=== PATIENT | female | born 1950 | race African-American/Black ===

== ENCOUNTER 2019-01-29 08:28 | Inpatient (IN) | payer MEDICARE, OTHER ==
[~2019-01-29] VITALS: Ht 165.1 cm; Wt 74.8 kg
[2019-01-29] MEDS ORDERED: LISINOPRIL20 MG ORAL (08:33)
[2019-01-29] MEDS ORDERED: AMLODIPINE BESY10 MG ORAL (08:33)
[2019-01-29 08:35] VITALS: BP 149/75
[2019-01-29] MEDS ORDERED: Morphine Sulfate 2mg/ml Inj(IV/IM USE ONLY) IVP ONE (08:45)
[2019-01-29] MEDS ORDERED: Isovue-300 100ml vial INJ PRN (08:45)
[2019-01-29 08:56] LABS: HEMOGLOBIN 13.8 G/DL (12.0-16.0); MEAN CORPUSCULAR VOLUME 87 FL (80-99); PLATELET COUNT 305 K/UL (150-450); RED BLOOD COUNT 4.94 M/UL (4.20-5.40); RED CELL DISTRIBUTION WIDTH 11.8 % (11.6-14.8); WHITE BLOOD COUNT 11.3 K/UL (4.8-10.8)
--- NOTE | 2019-01-29 08:57 | NUR ---
ED Nurse Note: Pt. AAOx4. Pt. is ambulatory. brought in by ambulance from home due to RUQ abd aw n/v x 2 days. pt. stated she had multiple episodes of vomiting. She repoted to be having 6 vomiting episodes. Last BM was today. Denies diarrhea. Pt. is calm and cooperative Addendum: 01/29/19 at 1003 by ERNIE ED Nurse Note: pt. is blind on both eyes
--- NOTE | 2019-01-29 09:02 | Emergency Room Report ---
History of Present Illness General Chief Complaint: Abdominal Pain Source: Patient, EMS Present Illness HPI 69-year-old female presents ED for evaluation. Brought in by EMS from home. Complaining of abdominal pain with vomiting. Started 2 days ago. Pain is right -sided, throbbing, 8 out of 10, nonradiating. Denies fevers or chills. Denies chest pain. Denies diarrhea. Denies sick contacts or recent travel. No other aggravating relieving factors. Denies any other associated symptoms Allergies: Coded Allergies: No Known Allergies (Unverified , 01/29/19) Patient History Past Medical History: HTN Past Surgical History: none Pertinent Family History: none Social History: Denies: smoking, alcohol use, drug use Now: No Immunizations: UTD Reviewed Nursing Documentation: PMH: Agreed; PSxH: Agreed Nursing Documentation-PMH Past Medical History: No History, Except For Hx Hypertension: Yes Review of Systems All Other Systems: negative except mentioned in HPI Physical Exam Vital Signs Date Time Temp Pulse Resp B/P (MAP) Pulse Ox O2 Delivery O2 Flow Rate FiO2 01/29/19 08:25 98.1 102 16 141/72 (95) 98 Room Air Sp02 EP Interpretation: reviewed, normal General Appearance: no apparent distress, alert, GCS 15, non-toxic Head: normocephalic, atraumatic Eyes: bilateral eye normal inspection, bilateral eye PERRL ENT: hearing grossly normal, normal pharynx, no angioedema, normal voice Neck: full range of motion, supple/symm/no masses Respiratory: chest non-tender, lungs clear, normal breath sounds, speaking full sentences Cardiovascular #1: regular rate, rhythm, no edema Cardiovascular #2: 2+ carotid (R), 2+ carotid (L), 2+ radial (R), 2+ radial (L) , 2+ dorsalis pedis (R), 2+ dorsalis pedis (L) Gastrointestinal: normal bowel sounds, soft, non-distended, no guarding, no rebound, tenderness - RUQ Rectal: deferred Genitourinary: normal inspection, no CVA tenderness Musculoskeletal: back normal, gait/station normal, normal range of motion, non- tender Neurologic: alert, oriented x3, responsive, motor strength/tone normal, sensory intact, speech normal Psychiatric: judgement/insight normal, memory normal, mood/affect normal, no suicidal/homicidal ideation Reflexes: 3+ bicep (R), 3+ bicep (L), 3+ tricep (R), 3+ tricep (L), 3+ knee (R) , 3+ knee (L) Lymphatic: no adenopathy Medical Decision Making Diagnostic Impression: Primary Impression: Pancreatic mass Additional Impression: Abdominal pain Qualified Codes: R10.11 - Right upper quadrant pain ER Course Hospital Course 69-year-old female presents to ED with abdominal pain and vomiting Differential diagnoses include: BPH, cystitis, pyelonephritis, kidney stone Clinical course 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 electrolytes ok, LFTS elevated CT abdomen and pelvis - pancreatic mass, dilated GB Dr Carrillo consulted Case discussed with Dr. Huitron and he agreed to accept the patient to his service for further care and support I feel this is a highly complex case requiring extensive working including EKG/ Rhythm strip, Xray/CT/US, Blood/urine lab work, repeat exams while in ED, and administration of strong opiates/narcotics for pain control, admission to hospital or close patient follow up. Diagnosis - pancreatic mass, abdominal pain Patient admitted to floor in serious condition Labs Test 01/29/19 08:42 01/29/19 09:28 White Blood Count 11.3 K/UL (4.8-10.8) Red Blood Count 4.94 M/UL (4.20-5.40) Hemoglobin 13.8 G/DL (12.0-16.0) Hematocrit 43.0 % (37.0-47.0) Mean Corpuscular Volume 87 FL (80-99) Mean Corpuscular Hemoglobin 27.8 PG (27.0-31.0) Mean Corpuscular Hemoglobin Concent 32.0 G/DL (32.0-36.0) Red Cell Distribution Width 11.8 % (11.6-14.8) Platelet Count 305 K/UL (150-450) Mean Platelet Volume 6.5 FL (6.5-10.1) Neutrophils (%) (Auto) % (45.0-75.0) Lymphocytes (%) (Auto) % (20.0-45.0) Monocytes (%) (Auto) % (1.0-10.0) Eosinophils (%) (Auto) % (0.0-3.0) Basophils (%) (Auto) % (0.0-2.0) Differential Total Cells Counted 100 Neutrophils % (Manual) 85 % (45-75) Lymphocytes % (Manual) 10 % (20-45) Monocytes % (Manual) 5 % (1-10) Eosinophils % (Manual) 0 % (0-3) Basophils % (Manual) 0 % (0-2) Band Neutrophils 0 % (0-8) Platelet Estimate Adequate Platelet Morphology Normal Red Blood Cell Morphology Normal Sodium Level 139 MMOL/L (136-145) Potassium Level 3.2 MMOL/L (3.5-5.1) Chloride Level 99 MMOL/L (98-107) Carbon Dioxide Level 30 MMOL/L (21-32) Anion Gap 10 mmol/L (5-15) Blood Urea Nitrogen 11 mg/dL (7-18) Creatinine 0.8 MG/DL (0.55-1.30) Estimat Glomerular Filtration Rate > 60 mL/min (>60) Glucose Level 149 MG/DL (74-106) Calcium Level 9.9 MG/DL (8.5-10.1) Total Bilirubin 1.0 MG/DL (0.2-1.0) Aspartate Amino Transf (AST/SGOT) 286 U/L (15-37) Alanine Aminotransferase (ALT/SGPT) 376 U/L (12-78) Alkaline Phosphatase 560 U/L (46-116) Total Protein 8.5 G/DL (6.4-8.2) Albumin 4.8 G/DL (3.4-5.0) Globulin 3.7 g/dL Albumin/Globulin Ratio 1.3 (1.0-2.7) Lipase 226 U/L (73-393) Urine Color Pale yellow Urine Appearance Slightly cloudy Urine pH 8 (4.5-8.0) Urine Specific [place] 1.015 (1.005-1.035) Urine Protein Negative (NEGATIVE) Urine Glucose (UA) Negative (NEGATIVE) Urine Ketones 3+ (NEGATIVE) Urine Blood 3+ (NEGATIVE) Urine Nitrite Negative (NEGATIVE) Urine Bilirubin Negative (NEGATIVE) Urine Urobilinogen Normal MG/DL (0.0-1.0) Urine Leukocyte Esterase 2+ (NEGATIVE) Urine RBC 15-20 /HPF (0 - 2) Urine WBC 20-30 /HPF (0 - 2) Urine Squamous Epithelial Cells Many /LPF (NONE/OCC) Urine Amorphous Sediment Moderate /LPF (NONE) Urine Bacteria Moderate /HPF (NONE) CT/MRI/US Diagnostic Results CT/MRI/US Diagnostic Results : Imaging Test Ordered: CT A/P Impression Impression: 20 x 10 x 8 mm low-attenuation lesion within the upper uncinate process of the pancreas. This is concerning for pancreatic neoplasm. This finding can also be seen in chronic pancreatitis, although there are no other abnormalities to suggest this diagnosis. Endoscopic ultrasound may be useful for better characterization. Marked extrahepatic and central intrahepatic biliary ductal dilatation, with abrupt tapering at the level the pancreatic head. Possibly related to the above. However, the above lesion appears to be centered somewhat medial and cephalad to the point of obstruction, so the possibility of a separate intraluminal lesion should also be considered. Distended gallbladder without evidence of cholelithiasis Right lower lobe 4 mm 5 mm lung nodules. Suspect postinflammatory, but the possibility of neoplasm should also be considered, particularly given the above findings Last Vital Signs Date Time Temp Pulse Resp B/P (MAP) Pulse Ox O2 Delivery O2 Flow Rate FiO2 01/29/19 08:35 107 14 Room Air 01/29/19 08:35 98.1 149/75 99 Status: improved Disposition: ADMITTED INPATIENT Condition: Serious Nicholas Reyes MD Jan 29, 2019 09:02
[2019-01-29 09:08] LABS: ANION GAP 10 mmol/L (5-15); BLOOD UREA NITROGEN 11 mg/dL (7-18); CALCIUM 9.9 MG/DL (8.5-10.1); CARBON DIOXIDE 30 MMOL/L (21-32); CHLORIDE 99 MMOL/L (98-107); CREATININE 0.8 MG/DL (0.55-1.30); POTASSIUM 3.2 MMOL/L (3.5-5.1); SODIUM 139 MMOL/L (136-145)
[2019-01-29 09:12] LABS: ALANINE AMINOTRANSFERASE 376 U/L (12-78); ALBUMIN 4.8 G/DL (3.4-5.0); ALBUMIN/GLOBULIN RATIO 1.3 (1.0-2.7); ALKALINE PHOSPHATASE 560 U/L (46-116); ASPARTATE AMINO TRANSFERASE 286 U/L (15-37)
--- NOTE | 2019-01-29 09:33 | NUR ---
ED Nurse Note: Pt. went down to CT
--- NOTE | 2019-01-29 09:57 | NUR ---
ED Nurse Note: Pt. came back from CT
[2019-01-29 10:12] LABS: BILIRUBIN, URINE NEGATIVE (NEGATIVE); COLOR,URINE PALE YELLOW; GLUCOSE, URINE (UA) NEGATIVE (NEGATIVE); KETONES,URINE 3+ (NEGATIVE); LEUKOCYTE ESTERASE ,URINE 2+ (NEGATIVE); NITRITE,URINE NEGATIVE (NEGATIVE); PH,URINE 8 (4.5-8.0); PROTEIN,URINE NEGATIVE (NEGATIVE); UROBILINOGEN,URINE NORMAL MG/DL (0.0-1.0)
[2019-01-29 10:15] LABS: APPEARANCE,URINE SLIGHTLY CLOUDY
--- NOTE | 2019-01-29 10:33 | Diagnostic Imaging Report ---
Clinical Indication: Abdominal pain Technique: No oral contrast utilized, per emergency room physician request IV administration nonionic contrast. Venous phase spiral acquisition obtained through the abdomen and pelvis. Multiplanar reconstructions were generated. Total dose length product 611.72 mGycm. CTDIvol(s) 12.54 mGy. Dose reduction achieved using automated exposure control Comparison: none Findings: There is marked extrahepatic and central intrahepatic biliary ductal dilatation, common bile duct measuring up to 19 mm in diameter. It abruptly tapers within the pancreatic head, proximal to its junction with the pancreatic duct. The pancreatic duct is borderline prominent. A mildly dilated duct is seen within the pancreatic head/uncinate distal to the point of tapering of the upstream common bile duct. Uncertain as to whether this represents the downstream common bile duct or dilated accessory pancreatic duct. In the upper uncinate process of the pancreas, there is a low-attenuation parenchymal lesion which measures 8 mm AP by 10 mm transverse by 20 mm craniocaudad. This appears to be medial to rather than surrounding the distal common bile duct. There is no peripancreatic lymphadenopathy. The gallbladder is distended but no gallstones are evident. The liver demonstrates a 1 cm cyst in segment 8. The spleen, adrenals are unremarkable. The left kidney demonstrates parapelvic cysts. Both kidneys demonstrate subcentimeter cortical low-attenuation lesions which are too small to characterize. No retroperitoneal or mesenteric mass or adenopathy. No pelvic mass or adenopathy. Normal uterus and adnexal structures. The bladder is distended. Lack of enteric contrast limits assessment of the GI tract. The appendix is normal. No evidence of colonic diverticulosis or diverticulitis. A few prominent small bowel loops are seen in the left upper quadrant but no lilly small bowel distention. No free or loculated intraperitoneal gas or fluid is evident. The distal esophagus, stomach, duodenum are unremarkable. The right lung base demonstrates a 4 mm right lower lobe nodule image 2 of series 7, and a second more posterior medial right lower lobe lung nodule measuring 5 mm, image 4 series 7. The bones demonstrate degenerative spondylosis changes. Impression: 20 x 10 x 8 mm low-attenuation lesion within the upper uncinate process of the pancreas. This is concerning for pancreatic neoplasm. This finding can also be seen in chronic pancreatitis, although there are no other abnormalities to suggest this diagnosis. Endoscopic ultrasound may be useful for better characterization. Marked extrahepatic and central intrahepatic biliary ductal dilatation, with abrupt tapering at the level the pancreatic head. Possibly related to the above. However, the above lesion appears to be centered somewhat medial and cephalad to the point of obstruction, so the possibility of a separate intraluminal lesion should also be considered. Distended gallbladder without evidence of cholelithiasis Right lower lobe 4 mm 5 mm lung nodules. Suspect postinflammatory, but the possibility of neoplasm should also be considered, particularly given the above findings Left renal parapelvic cysts. Subcentimeter low-attenuation renal lesions, too small to characterize, most likely benign simple cysts. No further follow-up necessary Right hepatic lobe cyst Findings discussed by phone with Dr. Reyes in the emergency room at the time of interpretation The CT scanner at [facility] is accredited by the [employer] and the scans are performed using protocols designed to limit radiation exposure to as low as reasonably achievable to attain images of sufficient resolution adequate for diagnostic evaluation.
--- NOTE | 2019-01-29 10:36 | NUR ---
Note steffanie in EDM - 01/29/19 at 1039 by RYLEE ED Nurse Note: pt tolerates I/O straight cath urine obtainment. clear yellow urine noted. admission swabs sent per protocol. belongings list done.
--- NOTE | 2019-01-29 10:49 | NUR ---
ED Nurse Note: DR. Stephenson AT THE BEDSIDE EXPLAINNG THE REULTS OF BLOOD WORK AND IMAGING RESULT
[2019-01-29] MEDS ORDERED: Morphine Sulfate 4mg/ml Inj (IV USE ONLY) IVP ONE (11:00)
--- NOTE | 2019-01-29 11:14 | NUR ---
ED Nurse Note: Received patient sleeping in bed. no orders to carry at this moment.
[2019-01-29 11:34] VITALS: BP 156/77
--- NOTE | 2019-01-29 12:18 | NUR ---
ED Nurse Note: Report given to NIKOLAI Smalls
--- NOTE | 2019-01-29 12:22 | NUR ---
ED Nurse Note: Serina RN called back and asked to wait because they moved pt to closer to nursing station due to pt is legally blind. room is being cleaned.
--- NOTE | 2019-01-29 12:31 | NUR ---
ED Nurse Note: Called 3E and was told that room is not cleaned yet.
--- NOTE | 2019-01-29 12:50 | NUR ---
ED Nurse Note: called to check if the room is ready. room has been cleaned and pt left unit with non destructive testing technician in stable condition.
[2019-01-29 13:00] VITALS: BP 159/87
--- NOTE | 2019-01-29 13:00 | NUR ---
NURSE NOTES: ADMITTED A 69 YHR OLD FEMALE WITH DX OF RUQ ABDOMINAL PAIN. AWAKE/ALERT. ADMISSION CARE DONE SEEN ADMISSION. ASSESSMENT
[2019-01-29] MEDS ORDERED: Morphine Sulfate 2mg/ml Inj(IV/IM USE ONLY) IVP PRN (13:15)
[2019-01-29] MEDS: D5 1/2NS w/KCl 20mEq 1,000 ML IV SCH (13:17)
[2019-01-29] MEDS ORDERED: Promethazine HCl 12.5 MG in NS 55 ML IV PRN (13:30)
[2019-01-29] MEDS ORDERED: Metoclopramide 10mg/2ml Inj IVP PRN (13:30)
[2019-01-29] MEDS ORDERED: D5 1/2NS 1,000 ML IV SCH (13:30)
[2019-01-29] MEDS ORDERED: Promethazine HCl 25 MG in NS 55 ML IV PRN (13:30)
[2019-01-29] MEDS ORDERED: Miralax 17gm pkt ORAL PRN (13:30)
[2019-01-29] MEDS ORDERED: LORazepam Inj 2mg/ml 1ml IV PRN (13:30)
[2019-01-29] MEDS ORDERED: Nitroglycerin Subl 0.4mg tab SL PRN (13:30)
--- NOTE | 2019-01-29 13:40 | GI Initial Consult Note ---
History of Present Illness General Date patient seen: Jan 29, 2019 Time patient seen: 13:33 Reason for Hospitalization: Abdominal Pain Referring physician: STAS MCDOWELL Reason for Consultation: ABDOMINAL PAIN Present Illness HPI 69-year-old female presents ED for evaluation. Brought in by EMS from home. Complaining of abdominal pain with vomiting. Started 2 days ago. Pain is right -sided, throbbing, 8 out of 10, nonradiating. Denies fevers or chills. Denies chest pain. Denies diarrhea. Denies sick contacts or recent travel. No other aggravating relieving factors. Denies any other associated symptoms. GI consulted for noted pancreatic lesion seen on recent CT. Patient was seen, awake alert and oriented x4 has complaint of severe right upper quadrant pain for approximately 1 week. Associated with consistent nausea and vomiting. Denies any hematemesis or coffee-ground. Patient has no history of endoscopy or colonoscopy. Abdominal pelvis CT reviewed noted that the common bile duct measured up to 19 mm in diameter. In addition, noted pancreatic lesion up to 19 mm in the uncinate process of the pancreas. Labs reviewed; WBC of 11.3, potassium 3.2, AST 286, ALT 376, alkaline phosphatase 560. Lipase within normal limits. Home Meds Reported Medications Lisinopril (LISINOPRIL*) 20 Mg Tablet, 40 MG ORAL DAILY, TAB 01/29/19 Amlodipine Besylate* (AMLODIPINE BESYLATE*) 10 Mg Tablet, 10 MG ORAL DAILY, TAB 01/29/19 Med list reviewed/reconciled: Yes Allergies: Coded Allergies: No Known Allergies (Unverified , 01/29/19) Patient History History Provided By: Patient, Medical Record PMH Narrative Past Medical History: HTN Past Surgical History: none Pertinent Family History: none Social History: Denies: smoking, alcohol use, drug use Now: No Immunizations: UTD Reviewed Nursing Documentation: PMH: Agreed; PSxH: Agreed Nursing Documentation-PM Past Medical History: No History, Except For Hx Hypertension: Yes Social History: Denies: smoking, alcohol use, drug use, other Review of Systems All Other Systems: negative except mentioned in HPI Physical Exam Vital Signs Date Time Temp Pulse Resp B/P (MAP) Pulse Ox O2 Delivery O2 Flow Rate FiO2 01/29/19 08:25 98.1 102 16 141/72 (95) 98 Room Air Sp02 EP Interpretation: reviewed, normal Labs Laboratory Tests Test 01/29/19 08:42 01/29/19 09:28 White Blood Count 11.3 K/UL (4.8-10.8) H Red Blood Count 4.94 M/UL (4.20-5.40) Hemoglobin 13.8 G/DL (12.0-16.0) Hematocrit 43.0 % (37.0-47.0) Mean Corpuscular Volume 87 FL (80-99) Mean Corpuscular Hemoglobin 27.8 PG (27.0-31.0) Mean Corpuscular Hemoglobin Concent 32.0 G/DL (32.0-36.0) Red Cell Distribution Width 11.8 % (11.6-14.8) Platelet Count 305 K/UL (150-450) Mean Platelet Volume 6.5 FL (6.5-10.1) Neutrophils (%) (Auto) % (45.0-75.0) Lymphocytes (%) (Auto) % (20.0-45.0) Monocytes (%) (Auto) % (1.0-10.0) Eosinophils (%) (Auto) % (0.0-3.0) Basophils (%) (Auto) % (0.0-2.0) Differential Total Cells Counted 100 Neutrophils % (Manual) 85 % (45-75) H Lymphocytes % (Manual) 10 % (20-45) L Monocytes % (Manual) 5 % (1-10) Eosinophils % (Manual) 0 % (0-3) Basophils % (Manual) 0 % (0-2) Band Neutrophils 0 % (0-8) Platelet Estimate Adequate Platelet Morphology Normal Red Blood Cell Morphology Normal Sodium Level 139 MMOL/L (136-145) Potassium Level 3.2 MMOL/L (3.5-5.1) L Chloride Level 99 MMOL/L (98-107) Carbon Dioxide Level 30 MMOL/L (21-32) Anion Gap 10 mmol/L (5-15) Blood Urea Nitrogen 11 mg/dL (7-18) Creatinine 0.8 MG/DL (0.55-1.30) Estimat Glomerular Filtration Rate > 60 mL/min (>60) Glucose Level 149 MG/DL (74-106) H Calcium Level 9.9 MG/DL (8.5-10.1) Total Bilirubin 1.0 MG/DL (0.2-1.0) Aspartate Amino Transf (AST/SGOT) 286 U/L (15-37) H Alanine Aminotransferase (ALT/SGPT) 376 U/L (12-78) H Alkaline Phosphatase 560 U/L (46-116) H Total Protein 8.5 G/DL (6.4-8.2) H Albumin 4.8 G/DL (3.4-5.0) Globulin 3.7 g/dL Albumin/Globulin Ratio 1.3 (1.0-2.7) Lipase 226 U/L (73-393) Urine Color Pale yellow Urine Appearance Slightly cloudy Urine pH 8 (4.5-8.0) Urine Specific [place] 1.015 (1.005-1.035) Urine Protein Negative (NEGATIVE) Urine Glucose (UA) Negative (NEGATIVE) Urine Ketones 3+ (NEGATIVE) H Urine Blood 3+ (NEGATIVE) H Urine Nitrite Negative (NEGATIVE) Urine Bilirubin Negative (NEGATIVE) Urine Urobilinogen Normal MG/DL (0.0-1.0) Urine Leukocyte Esterase 2+ (NEGATIVE) H Urine RBC 15-20 /HPF (0 - 2) H Urine WBC 20-30 /HPF (0 - 2) H Urine Squamous Epithelial Cells Many /LPF (NONE/OCC) H Urine Amorphous Sediment Moderate /LPF (NONE) H Urine Bacteria Moderate /HPF (NONE) H General Appearance: well appearing, no apparent distress, alert Head: normocephalic EENT: PERRL/EOMI, normal ENT inspection Neck: supple Respiratory: normal breath sounds, no respiratory distress Cardiovascular: normal rate Gastrointestinal: normal inspection, non tender, soft, normal bowel sounds, non -distended Rectal: deferred Genitourinary: no CVA tenderness Musculoskeletal: normal inspection, back normal Neurologic: normal inspection, alert, oriented x3, responsive Psychiatric: normal inspection, judgement/insight normal, memory normal Skin: normal inspection, normal color, no rash, warm/dry, palpation normal, well hydrated Lymphatic: normal inspection, no adenopathy Current Medications Current Medications Medications (Trade) Dose Ordered Sig/Angelito Route PRN Reason Start Time Stop Time Status Last Admin Dose Admin Acetaminophen (Tylenol) 650 mg Q4H PRN ORAL fever 01/29/19 13:30 02/28/19 13:29 UNV Amlodipine Besylate (Norvasc) 10 mg DAILY ORAL 01/30/19 09:00 03/01/19 08:59 Dextrose (Dextrose 50%) 25 ml Q30M PRN IV Hypoglycemia 01/29/19 13:30 02/28/19 13:29 UNV Dextrose (Dextrose 50%) 50 ml Q30M PRN IV Hypoglycemia 01/29/19 13:30 02/28/19 13:29 UNV Dextrose/ Electrolytes 1,000 ml @ 75 mls/hr [id number] IV 01/29/19 13:15 02/28/19 13:14 01/29/19 13:17 Dextrose/Sodium Chloride 1,000 ml @ 75 mls/hr [id number] IV 01/29/19 13:30 02/28/19 13:29 UNV Diphenhydramine HCl (Benadryl) 25 mg Q6H PRN ORAL Itching/Pruritis 01/29/19 13:30 02/28/19 13:29 UNV Famotidine (Pepcid I.v.) 20 mg Q12HR IVP 01/29/19 21:00 02/28/19 20:59 Heparin Sodium (Porcine) (Heparin 5000 units/ml) 5,000 units EVERY 12 HOURS SUBQ 01/29/19 21:00 02/28/19 20:59 UNV Iopamidol (Isovue-300 100ml) 100 ml NOW PRN INJ Radiology Procedure 01/29/19 08:45 Lorazepam (Ativan 2mg/ml 1ml) 1 mg EVERY 4 HOURS PRN IV agitation 01/29/19 13:30 02/05/19 13:29 UNV Metoclopramide HCl (Reglan) 10 mg EVERY 6 HOURS PRN IVP servere nauasea 01/29/19 13:30 02/28/19 13:29 UNV Morphine Sulfate (Morphine Sulfate) 2 mg EVERY 4 HOURS PRN IVP severe Pain (Pain Scale 7-10) 01/29/19 13:30 02/05/19 13:29 UNV Morphine Sulfate (Morphine Sulfate) 2 mg Q4H PRN IVP For Pain 01/29/19 13:15 02/05/19 13:14 01/29/19 13:25 Nitroglycerin (Ntg) 0.4 mg Q5M X 3 DOSES PRN SL Prn Chest Pain 01/29/19 13:30 02/28/19 13:29 UNV Ondansetron HCl (Zofran) 4 mg Q6H PRN IVP Nausea & Vomiting 01/29/19 13:15 02/28/19 13:14 01/29/19 13:14 Ondansetron HCl (Zofran) 4 mg Q6H PRN IVP Nausea & Vomiting 01/29/19 13:30 02/28/19 13:29 UNV Polyethylene Glycol (Miralax) 17 gm HSPRN PRN ORAL Constipation 01/29/19 13:30 02/28/19 13:29 UNV Promethazine HCl 12.5 mg/Sodium Chloride 55.5 ml @ 110 mls/hr Q6H PRN IV Refractory N/V 01/29/19 13:30 02/28/19 13:29 UNV Promethazine HCl 25 mg/Sodium Chloride 56 ml @ 110 mls/hr Q6H PRN IV Refractory N/V 01/29/19 13:30 02/28/19 13:29 UNV Sodium Chloride 1,000 ml @ 200 mls/hr Q5H IV 01/29/19 11:00 02/28/19 10:59 01/29/19 10:53 Temazepam (Restoril) 15 mg HSPRN PRN ORAL Insomnia 01/29/19 13:30 02/05/19 13:29 UNV GI: Plan Problems: (1) Abdominal pain (2) Pancreatic mass Plan AP CT reviewed. - CBD dilation up to 19mm. - Pancreatic lesion in the uncinate process. - GB distention Recommendations Patient will require both EUS with FNA and ERCP. - EUS scheduled tomorrow to be followed by ERCP the following day. maintain NPO + IVFs pain mgmt zofran prn electrolyte correction H2B follow labs will follow with additional recommendations post procedure. Discussed with Dr. Baez. Thank you for this patient referral, we will follow. The patient was seen and examined at bedside and all new and available data was reviewed in the patients chart. I agree with the above findings, impression and plan. (Patient seen earlier today. Signature stamp does not reflect patient encounter time.). - MD Maranda Trotter,[facility] Jan 29, 2019 13:40
--- NOTE | 2019-01-29 14:45 | Consultation ---
History of Present Illness General Date patient seen: Jan 29, 2019 Chief Complaint: Abdominal Pain Referring physician: STAS MCDOWELL Reason for Consultation: ABDOMINAL PAIN Present Illness HPI 69-year-old female without any significant PMHx presented to ED for evaluation of abdominal pain with vomiting for 2 days. Pain is right-sided, throbbing, 8 out of 10, nonradiating. Denies fevers or chills. Denies chest pain. Her CT of abdomen showed a pancreatic mass and she is admitted for further management. Allergies: Coded Allergies: NSAIDS (NON-STEROIDAL ANTI-INFLAMMA (Verified Allergy, Severe, Anaphylaxis , 01/30/19) Medication History Scheduled Allopurinol* (Allopurinol*), 300 MG ORAL DAILY, (Reported) Amiodarone Hcl* (Amiodarone Hcl*), 200 MG ORAL EVERY 12 HOURS, (Reported) Amlodipine Besylate* (Amlodipine Besylate*), 10 MG ORAL DAILY, (Reported) Diltiazem Hcl (Diltiazem Hcl), 90 MG PO Q6HR, (Reported) Lisinopril (Lisinopril*), 40 MG ORAL DAILY, (Reported) Olanzapine* (Zyprexa*), 2.5 MG ORAL BEDTIME, (Reported) Patient History Healthcare decision maker SELF Resuscitation status Full Code Advanced Directive on File No Past Medical/Surgical History Past Medical/Surgical History: (1) Cataract (2) History of hypertension Review of Systems All Other Systems: negative except mentioned in HPI Physical Exam General Appearance: WD/WN Lines, tubes and drains: peripheral HEENT: normocephalic, atraumatic Neck: non-tender, normal alignment Respiratory/Chest: chest wall non-tender, normal breath sounds Breasts: no masses Cardiovascular/Chest: normal rate, regularly irregular, no JVD Genitourinary/Rectal: normal genital exam, normal rectal exam Extremities: normal range of motion Last 24 Hour Vital Signs Date Time Temp Pulse Resp B/P (MAP) Pulse Ox O2 Delivery O2 Flow Rate FiO2 01/29/19 13:00 Room Air 01/29/19 12:50 97.9 90 16 134/85 100 Room Air 01/29/19 11:34 98.1 93 14 156/77 100 Room Air 01/29/19 11:23 98.1 01/29/19 09:19 98.1 01/29/19 08:35 107 14 Room Air 01/29/19 08:35 98.1 107 14 149/75 99 Room Air 01/29/19 08:25 98.1 102 16 141/72 (95) 98 Room Air Laboratory Tests Test 01/29/19 08:42 01/29/19 09:28 White Blood Count 11.3 K/UL (4.8-10.8) H Red Blood Count 4.94 M/UL (4.20-5.40) Hemoglobin 13.8 G/DL (12.0-16.0) Hematocrit 43.0 % (37.0-47.0) Mean Corpuscular Volume 87 FL (80-99) Mean Corpuscular Hemoglobin 27.8 PG (27.0-31.0) Mean Corpuscular Hemoglobin Concent 32.0 G/DL (32.0-36.0) Red Cell Distribution Width 11.8 % (11.6-14.8) Platelet Count 305 K/UL (150-450) Mean Platelet Volume 6.5 FL (6.5-10.1) Neutrophils (%) (Auto) % (45.0-75.0) Lymphocytes (%) (Auto) % (20.0-45.0) Monocytes (%) (Auto) % (1.0-10.0) Eosinophils (%) (Auto) % (0.0-3.0) Basophils (%) (Auto) % (0.0-2.0) Differential Total Cells Counted 100 Neutrophils % (Manual) 85 % (45-75) H Lymphocytes % (Manual) 10 % (20-45) L Monocytes % (Manual) 5 % (1-10) Eosinophils % (Manual) 0 % (0-3) Basophils % (Manual) 0 % (0-2) Band Neutrophils 0 % (0-8) Platelet Estimate Adequate Platelet Morphology Normal Red Blood Cell Morphology Normal Sodium Level 139 MMOL/L (136-145) Potassium Level 3.2 MMOL/L (3.5-5.1) L Chloride Level 99 MMOL/L (98-107) Carbon Dioxide Level 30 MMOL/L (21-32) Anion Gap 10 mmol/L (5-15) Blood Urea Nitrogen 11 mg/dL (7-18) Creatinine 0.8 MG/DL (0.55-1.30) Estimat Glomerular Filtration Rate > 60 mL/min (>60) Glucose Level 149 MG/DL (74-106) H Calcium Level 9.9 MG/DL (8.5-10.1) Total Bilirubin 1.0 MG/DL (0.2-1.0) Aspartate Amino Transf (AST/SGOT) 286 U/L (15-37) H Alanine Aminotransferase (ALT/SGPT) 376 U/L (12-78) H Alkaline Phosphatase 560 U/L (46-116) H Total Protein 8.5 G/DL (6.4-8.2) H Albumin 4.8 G/DL (3.4-5.0) Globulin 3.7 g/dL Albumin/Globulin Ratio 1.3 (1.0-2.7) Lipase 226 U/L (73-393) Urine Color Pale yellow Urine Appearance Slightly cloudy Urine pH 8 (4.5-8.0) Urine Specific [place] 1.015 (1.005-1.035) Urine Protein Negative (NEGATIVE) Urine Glucose (UA) Negative (NEGATIVE) Urine Ketones 3+ (NEGATIVE) H Urine Blood 3+ (NEGATIVE) H Urine Nitrite Negative (NEGATIVE) Urine Bilirubin Negative (NEGATIVE) Urine Urobilinogen Normal MG/DL (0.0-1.0) Urine Leukocyte Esterase 2+ (NEGATIVE) H Urine RBC 15-20 /HPF (0 - 2) H Urine WBC 20-30 /HPF (0 - 2) H Urine Squamous Epithelial Cells Many /LPF (NONE/OCC) H Urine Amorphous Sediment Moderate /LPF (NONE) H Urine Bacteria Moderate /HPF (NONE) H Height (Feet): 5 Height (Inches): 5.00 Weight (Pounds): 143 Medications Current Medications Medications (Trade) Dose Ordered Sig/Angelito Route PRN Reason Start Time Stop Time Status Last Admin Dose Admin Acetaminophen (Tylenol) 650 mg Q4H PRN ORAL fever 01/29/19 13:30 02/28/19 13:29 Amlodipine Besylate (Norvasc) 10 mg DAILY ORAL 01/30/19 09:00 03/01/19 08:59 Dextrose (Dextrose 50%) 25 ml Q30M PRN IV Hypoglycemia 01/29/19 13:30 02/28/19 13:29 Dextrose (Dextrose 50%) 50 ml Q30M PRN IV Hypoglycemia 01/29/19 13:30 02/28/19 13:29 Dextrose/ Electrolytes 1,000 ml @ 75 mls/hr [id number] IV 01/29/19 13:15 02/28/19 13:14 01/29/19 13:17 Diphenhydramine HCl (Benadryl) 25 mg Q6H PRN ORAL Itching/Pruritis 01/29/19 13:30 02/28/19 13:29 Famotidine (Pepcid I.v.) 20 mg Q12HR IVP 01/29/19 21:00 02/28/19 20:59 Heparin Sodium (Porcine) (Heparin 5000 units/ml) 5,000 units EVERY 12 HOURS SUBQ 01/29/19 21:00 02/28/19 20:59 Lorazepam (Ativan 2mg/ml 1ml) 1 mg Q4H PRN IV agitation 01/29/19 13:30 02/05/19 13:29 Metoclopramide HCl (Reglan) 10 mg Q6H PRN IVP servere nauasea 01/29/19 13:30 02/28/19 13:29 Morphine Sulfate (Morphine Sulfate) 2 mg Q4H PRN IVP severe Pain (Pain Scale 7-10) 01/29/19 13:30 02/05/19 13:29 Nitroglycerin (Ntg) 0.4 mg Q5M X 3 DOSES PRN SL Prn Chest Pain 01/29/19 13:30 02/28/19 13:29 Ondansetron HCl (Zofran) 4 mg Q6H PRN IVP Nausea & Vomiting 01/29/19 13:15 02/28/19 13:14 01/29/19 13:14 Polyethylene Glycol (Miralax) 17 gm HSPRN PRN ORAL Constipation 01/29/19 13:30 02/28/19 13:29 Promethazine HCl (Phenergan) 25 mg Q6H PRN IM REFRACTORY N/V 01/29/19 13:45 02/28/19 13:44 Temazepam (Restoril) 15 mg HSPRN PRN ORAL Insomnia 01/29/19 13:30 02/05/19 13:29 Assessment/Plan Problem List: (1) Abdominal pain ICD Codes: R10.9 - Unspecified abdominal pain SNOMED: 56073725 Qualifiers: Qualified Codes: R10.11 - Right upper quadrant pain (2) Pancreatic mass ICD Codes: K86.9 - Disease of pancreas, unspecified SNOMED: 332860241 (3) History of hypertension ICD Codes: Z86.79 - Personal history of other diseases of the circulatory system SNOMED: 442159604 Assessment/Plan: NPO IV fluids check electrolytes GI evaluation check tumor markers. DVT prophylaxis. Nicolle Cazares MD Jan 29, 2019 14:45
[2019-01-29] MEDS ORDERED: AMIODARONE HCL400 M1 ORAL (15:11)
[2019-01-29] MEDS ORDERED: ALLOPURINOL300 M1 ORAL (15:12)
[2019-01-29] MEDS ORDERED: DILTIAZEM HCL90 MG PO (15:13)
--- NOTE | 2019-01-29 15:13 | Consultation ---
History of Present Illness General Date patient seen: Jan 29, 2019 Reason for Hospitalization: Abdominal Pain Present Illness HPI 69 year old female presented to ED at [facility] – [place], [place] c/o worsening abdominal pain, nausea and emesis for 2-3 days. Unsure of exactly when it began but pain overwhelming and needed to come for evaluation. Pain cramping upper abdominal pain more on the right side with some radiation to the back. non bloody emesis. no fever or chills. in ED noted to have abnormal LFT's and CT with biliary dilatation and pancreatic head mass. surgery called to evaluate. patient seen, chart reviewed, patient examined. Allergies: Coded Allergies: No Known Allergies (Unverified , 01/29/19) Medication History Scheduled Amlodipine Besylate* (Amlodipine Besylate*), 10 MG ORAL DAILY, (Reported) Lisinopril (Lisinopril*), 40 MG ORAL DAILY, (Reported) Patient History History Provided By: Patient, Medical Record, PMD Healthcare decision maker SELF Resuscitation status Full Code Advanced Directive on File No Past Medical/Surgical History Past Medical/Surgical History: (1) Abdominal pain (2) Pancreatic mass Review of Systems Review of Symptoms General ROS: no weight loss or fever Psychological ROS: no depression or mood changes, no memory loss Ophthalmic ROS: no visual changes or eye irritation ENT ROS: no nasal congestion, hearing loss, dizziness Allergy and Immunology ROS: no allergic symptoms or urticaria Hematological and Lymphatic ROS: no swollen glands, unusual bleeding or bruising Endocrine ROS: no polyuria, polydipsia, weight changes, temperature intolerance Respiratory ROS: no cough, shortness of breath, or wheezing Cardiovascular ROS: no chest pain or dyspnea on exertion Gastrointestinal ROS: + abdominal pain,no bright red blood in stool. Musculoskeletal ROS: no myalgias or arthralgias Neurological ROS: no TIA or stroke symptoms Dermatological ROS: no new or changing skin lesions, rashes or pruritis Physical Exam Physical Exam General appearance: alert, cooperative, no distress, appears stated age Head: Normocephalic, without obvious abnormality, atraumatic Eyes: conjunctivae/corneas clear. PERRL, EOM's intact. Fundi benign Throat: Lips, mucosa, and tongue normal. Teeth and gums normal Neck: supple, symmetrical, trachea midline, no adenopathy, thyroid: not enlarged, symmetric, no tenderness/mass/nodules, no carotid bruit and no JVD Lungs: clear to auscultation bilaterally Heart: regular rate and rhythm, S1, S2 normal, no murmur, click, rub or gallop Abdomen: soft, non-tender. Bowel sounds normal. No masses, no organomegaly Extremities: extremities normal, atraumatic, no cyanosis or edema Pulses: 2+ and symmetric Skin: Skin color, texture, turgor normal. No rashes or lesions Neurologic: Grossly normal Last 24 Hour Vital Signs Date Time Temp Pulse Resp B/P (MAP) Pulse Ox O2 Delivery O2 Flow Rate FiO2 01/29/19 13:00 Room Air 01/29/19 12:50 97.9 90 16 134/85 100 Room Air 01/29/19 11:34 98.1 93 14 156/77 100 Room Air 01/29/19 11:23 98.1 01/29/19 09:19 98.1 01/29/19 08:35 107 14 Room Air 01/29/19 08:35 98.1 107 14 149/75 99 Room Air 01/29/19 08:25 98.1 102 16 141/72 (95) 98 Room Air Laboratory Tests Test 01/29/19 08:42 01/29/19 09:28 White Blood Count 11.3 K/UL (4.8-10.8) H Red Blood Count 4.94 M/UL (4.20-5.40) Hemoglobin 13.8 G/DL (12.0-16.0) Hematocrit 43.0 % (37.0-47.0) Mean Corpuscular Volume 87 FL (80-99) Mean Corpuscular Hemoglobin 27.8 PG (27.0-31.0) Mean Corpuscular Hemoglobin Concent 32.0 G/DL (32.0-36.0) Red Cell Distribution Width 11.8 % (11.6-14.8) Platelet Count 305 K/UL (150-450) Mean Platelet Volume 6.5 FL (6.5-10.1) Neutrophils (%) (Auto) % (45.0-75.0) Lymphocytes (%) (Auto) % (20.0-45.0) Monocytes (%) (Auto) % (1.0-10.0) Eosinophils (%) (Auto) % (0.0-3.0) Basophils (%) (Auto) % (0.0-2.0) Differential Total Cells Counted 100 Neutrophils % (Manual) 85 % (45-75) H Lymphocytes % (Manual) 10 % (20-45) L Monocytes % (Manual) 5 % (1-10) Eosinophils % (Manual) 0 % (0-3) Basophils % (Manual) 0 % (0-2) Band Neutrophils 0 % (0-8) Platelet Estimate Adequate Platelet Morphology Normal Red Blood Cell Morphology Normal Sodium Level 139 MMOL/L (136-145) Potassium Level 3.2 MMOL/L (3.5-5.1) L Chloride Level 99 MMOL/L (98-107) Carbon Dioxide Level 30 MMOL/L (21-32) Anion Gap 10 mmol/L (5-15) Blood Urea Nitrogen 11 mg/dL (7-18) Creatinine 0.8 MG/DL (0.55-1.30) Estimat Glomerular Filtration Rate > 60 mL/min (>60) Glucose Level 149 MG/DL (74-106) H Calcium Level 9.9 MG/DL (8.5-10.1) Total Bilirubin 1.0 MG/DL (0.2-1.0) Aspartate Amino Transf (AST/SGOT) 286 U/L (15-37) H Alanine Aminotransferase (ALT/SGPT) 376 U/L (12-78) H Alkaline Phosphatase 560 U/L (46-116) H Total Protein 8.5 G/DL (6.4-8.2) H Albumin 4.8 G/DL (3.4-5.0) Globulin 3.7 g/dL Albumin/Globulin Ratio 1.3 (1.0-2.7) Lipase 226 U/L (73-393) Urine Color Pale yellow Urine Appearance Slightly cloudy Urine pH 8 (4.5-8.0) Urine Specific [place] 1.015 (1.005-1.035) Urine Protein Negative (NEGATIVE) Urine Glucose (UA) Negative (NEGATIVE) Urine Ketones 3+ (NEGATIVE) H Urine Blood 3+ (NEGATIVE) H Urine Nitrite Negative (NEGATIVE) Urine Bilirubin Negative (NEGATIVE) Urine Urobilinogen Normal MG/DL (0.0-1.0) Urine Leukocyte Esterase 2+ (NEGATIVE) H Urine RBC 15-20 /HPF (0 - 2) H Urine WBC 20-30 /HPF (0 - 2) H Urine Squamous Epithelial Cells Many /LPF (NONE/OCC) H Urine Amorphous Sediment Moderate /LPF (NONE) H Urine Bacteria Moderate /HPF (NONE) H Height (Feet): 5 Height (Inches): 5.00 Weight (Pounds): 143 Medications Current Medications Medications (Trade) Dose Ordered Sig/Angelito Route PRN Reason Start Time Stop Time Status Last Admin Dose Admin Acetaminophen (Tylenol) 650 mg Q4H PRN ORAL fever 01/29/19 13:30 02/28/19 13:29 Amlodipine Besylate (Norvasc) 10 mg DAILY ORAL 01/30/19 09:00 03/01/19 08:59 Chlorpromazine (Thorazine) 25 mg ONCE IM 01/29/19 15:00 01/29/19 17:00 Dextrose (Dextrose 50%) 25 ml Q30M PRN IV Hypoglycemia 01/29/19 13:30 02/28/19 13:29 Dextrose (Dextrose 50%) 50 ml Q30M PRN IV Hypoglycemia 01/29/19 13:30 02/28/19 13:29 Dextrose/ Electrolytes 1,000 ml @ 75 mls/hr [id number] IV 01/29/19 13:15 02/28/19 13:14 01/29/19 13:17 Diphenhydramine HCl (Benadryl) 25 mg Q6H PRN ORAL Itching/Pruritis 01/29/19 13:30 02/28/19 13:29 Famotidine (Pepcid I.v.) 20 mg Q12HR IVP 01/29/19 21:00 02/28/19 20:59 Heparin Sodium (Porcine) (Heparin 5000 units/ml) 5,000 units EVERY 12 HOURS SUBQ 01/29/19 21:00 02/28/19 20:59 Lorazepam (Ativan 2mg/ml 1ml) 1 mg Q4H PRN IV agitation 01/29/19 13:30 02/05/19 13:29 Metoclopramide HCl (Reglan) 10 mg Q6H PRN IVP servere nauasea 01/29/19 13:30 02/28/19 13:29 Morphine Sulfate (Morphine Sulfate) 2 mg Q4H PRN IVP severe Pain (Pain Scale 7-10) 01/29/19 13:30 02/05/19 13:29 Nitroglycerin (Ntg) 0.4 mg Q5M X 3 DOSES PRN SL Prn Chest Pain 01/29/19 13:30 02/28/19 13:29 Ondansetron HCl (Zofran) 4 mg Q6H PRN IVP Nausea & Vomiting 01/29/19 13:15 02/28/19 13:14 01/29/19 13:14 Polyethylene Glycol (Miralax) 17 gm HSPRN PRN ORAL Constipation 01/29/19 13:30 02/28/19 13:29 Promethazine HCl (Phenergan) 25 mg Q6H PRN IM REFRACTORY N/V 01/29/19 13:45 02/28/19 13:44 Temazepam (Restoril) 15 mg HSPRN PRN ORAL Insomnia 01/29/19 13:30 02/05/19 13:29 Assessment/Plan Problem List: (1) Abdominal pain Assessment & Plan: likely from pancreatic mass causing biliary obstruction. abdominal exam okay with some upper abdominal discomfort on palpation needs further work up no acute surgical intervention planned okay for diet labs ordered will follow with recs ICD Codes: R10.9 - Unspecified abdominal pain SNOMED: [id number] Qualifiers: Qualified Codes: R10.11 - Right upper quadrant pain (2) Pancreatic mass Assessment & Plan: There is marked extrahepatic and central intrahepatic biliary ductal dilatation, common bile duct measuring up to 19 mm in diameter. It abruptly tapers within the pancreatic head, proximal to its junction with the pancreatic duct. The pancreatic duct is borderline prominent. A mildly dilated duct is seen within the pancreatic head/uncinate distal to the point of tapering of the upstream common bile duct. Uncertain as to whether this represents the downstream common bile duct or dilated accessory pancreatic duct. In the upper uncinate process of the pancreas , there is a low-attenuation parenchymal lesion which measures 8 mm AP by 10 mm transverse by 20 mm craniocaudad. This appears to be medial to rather than surrounding the distal common bile duct. There is no peripancreatic lymphadenopathy. The gallbladder is distended but no gallstones are evident. very concerning for pancreatic CA Labs ordered GI for ERCP possible bx thank you ICD Codes: K86.9 - Disease of pancreas, unspecified SNOMED: [id number] Shaquille Carrillo Jan 29, 2019 15:13
[2019-01-29] MEDS ORDERED: ZYPREXA2.5 MG ORAL (15:15)
[2019-01-29 16:00] VITALS: BP 173/89
--- NOTE | 2019-01-29 16:22 | Diagnostic Imaging Report ---
Indication: Abdominal pain Technique: Kleni-scale and duplex images of the upper abdomen were obtained Comparison: Findings: Gallbladder is filled with sludge. Echogenic foci within the sludge could indicate small calculi. No wall thickening or pericholecystic fluid Sonographic Pineda's sign is positive, per technologist. Common bile duct measures 15 mm in diameter. There is intrahepatic biliary ductal dilatation. Liver demonstrates normal echogenicity, no focal abnormality. Portal vein and hepatic veins are patent. Pancreas is obscured by bowel gas. Spleen is unremarkable. Left kidney measures 10.5 cm in length. Right kidney measures 9.2 cm length. Both kidneys demonstrate normal echogenicity. There is no hydronephrosis. 6 mm cortical cyst is seen in the right renal upper pole. Multiple parapelvic cysts are seen in the left kidney. . Abdominal aorta is partially obscured by bowel gas, visualized portions are non-aneurysmal . Impression: Gallbladder sludge and possible tiny calculi noted. Positive sonographic Pineda's sign. Significance uncertain the absence of gallbladder wall thickening, but the possibility of acute cholecystitis should be considered Biliary ductal dilatation, as described. Note that this also was reported on CT scan of earlier the same day Right upper pole renal cortical cyst and multiple left renal parapelvic cysts
--- NOTE | 2019-01-29 16:44 | NUR ---
NURSE NOTES: BP 173/89,P 104. DR ROBISON CALLED LEFT MESSAGE TO RETURN CALL.
--- NOTE | 2019-01-29 19:00 | NUR ---
NURSE NOTES: asleep. in no apparent distress. no nausea/vomiting.
--- NOTE | 2019-01-29 19:25 | NUR ---
HAND-OFF: Report given to Bruce RODRIGUEZ RN.
--- NOTE | 2019-01-29 19:25 | NUR ---
NURSE NOTES: Report taken from NIKOLAI Howell. Patient is asleep in bed, daughter at bedside. She is arousable by name, A&Ox4, states that she is very tired and would like to sleep. Patient is legally blind. Skin is c/d/i. IV site c/d/i and patent running D51/2NS + 20KCl at 75mls/hr. RN updated family member of procedures being done tomorrow 01/30. Patient was able to sign consents for procedures during prior shift. NPO except ice/meds. Bed in lowest position, call light within reach.
[2019-01-29 20:00] VITALS: BP 152/82
[2019-01-29] MEDS: Heparin 5000 units/ml inj SUBQ SCH (21:34)
[2019-01-30] VITALS (13 sets, daily range): BP systolic 100–154; BP diastolic 64–82
[2019-01-30] MEDS: D5 1/2NS w/KCl 20mEq 1,000 ML IV SCH ×3 (02:30→21:17)
[2019-01-30 06:41] LABS: ANION GAP 9 mmol/L (5-15); BASOPHILS % (AUTO) 0.7 % (0.0-2.0); BLOOD UREA NITROGEN 11 mg/dL (7-18); CALCIUM 9.6 MG/DL (8.5-10.1); CARBON DIOXIDE 29 MMOL/L (21-32); CHLORIDE 103 MMOL/L (98-107); CREATININE 0.9 MG/DL (0.55-1.30); HEMATOCRIT 36.8 % (37.0-47.0); LYMPHOCYTES % (AUTO) 23.9 % (20.0-45.0); MEAN CORPUSCULAR VOLUME 87 FL (80-99); MONOCYTES % (AUTO) 11.8 % (1.0-10.0); NEUTROPHILS % (AUTO) 63.7 % (45.0-75.0); PLATELET COUNT 278 K/UL (150-450); POTASSIUM 3.7 MMOL/L (3.5-5.1); RED BLOOD COUNT 4.25 M/UL (4.20-5.40); RED CELL DISTRIBUTION WIDTH 11.9 % (11.6-14.8); SODIUM 141 MMOL/L (136-145); WHITE BLOOD COUNT 9.6 K/UL (4.8-10.8)
[2019-01-30 06:58] LABS: ALANINE AMINOTRANSFERASE 260 U/L (12-78); ALBUMIN 3.6 G/DL (3.4-5.0); ALBUMIN/GLOBULIN RATIO 0.9 (1.0-2.7); ALKALINE PHOSPHATASE 442 U/L (46-116); ASPARTATE AMINO TRANSFERASE 114 U/L (15-37)
[2019-01-30 06:59] LABS: AMYLASE 69 U/L (25-115)
--- NOTE | 2019-01-30 07:10 | NUR ---
HAND-OFF: Report given to NIKOLAI Howell. Patient is awake and in bed. NPO, consents signed for procedure.
--- NOTE | 2019-01-30 07:13 | NUR ---
NURSE NOTES: ASLEEP. IN NO APPARENT DISTRESS. NPO MAINTAINED FOR EGD, ENDOSCOPIC ULTRASOUND,ERCP.
[2019-01-30] MEDS: Heparin 5000 units/ml inj SUBQ SCH ×2 (08:31→20:43)
[2019-01-30] MEDS: Lisinopril 20mg tab ORAL SCH (09:19)
--- NOTE | 2019-01-30 11:02 | NUR ---
CASE MANAGEMENT: INITIAL REVIEW 69 YO F TONI FROM HOME CC: RUQ ABD PAIN PMHx: HTN. SI:RUQ ABD PAIN T 98.1 HR 102 RR 16 B/P 141/72 SATS 98% ON RA WBC 11.3 K 3.2 GLU 149 AST 286 ALT 376 ALP 560 IS: ZOFRAN IV X1 PEPCID IV X1 MORPHINE IV X1 NS BOLUS X 1 PATIENT ADMITTED TO MED/SURG 01/29/2019 @ 1118 DCP: PATIENT TO BE DISCHARGED TO HOME ONCE MEDICALLY CLEARED. PLAN OF CARE PER GI: Patient will require both EUS with FNA and ERCP. - EUS scheduled tomorrow to be followed by ERCP the following day. maintain NPO + IVFs pain mgmt Addendum: 01/30/19 at 1310 by Georgina Schwartz CM INTERQUAL MET
[2019-01-30] MEDS ORDERED: Heplock Flush 100 units/ml 3 ml syr ONE (11:45)
--- NOTE | 2019-01-30 11:49 | Anethesia Preoperative Eval ---
Anesthesia Pre-op PMH/ROS General Date of Evaluation: Jan 30, 2019 Anesthesiologist: Rashawn ASA Score: ASA 2 Mallampati Score Class I : Soft palate, uvula, fauces, pillars visible Class II: Soft palate, uvula, fauces visible Class III: Soft palate, base of uvula visible Class IV: Only hard plate visible Mallampati Classification: Class II Surgeon: randal Diagnosis: pancreatic mass Surgical Procedure: EUS Anesthesia History: none Family History: no anesthesia problems Allergies: Coded Allergies: NSAIDS (NON-STEROIDAL ANTI-INFLAMMA (Verified Allergy, Severe, Anaphylaxis , 01/30/19) Medications: see eMAR Patient NPO?: Yes NPO Date: Jan 29, 2019 NPO Time: 22:00 Past Medical History Cardiovascular: Reports: HTN; Denies: CAD, GA, valve dz, arrhythmia, other Pulmonary: Denies: asthma, COPD, CHRISTIANO, other Gastrointestinal/Genitourinary: Reports: GERD; Denies: CRI, ESRD, other Neurologic/Psychiatric: Denies: dementia, CVA, depression/anxiety, TIA, other Endocrine: Denies: DM, hypothyroidism, steroids, other HEENT: Denies: cataract (L), cataract (R), glaucoma, [place] (L), [place] (R), other Hematology/Immune: Denies: anemia, DVT, bleeding disorder, other Musculoskeletal/Integumentary: Denies: OA, RA, DJD, DDD, edema, other PSxH Narrative: bilateral cataract sx Anesthesia Pre-op Phys. Exam Physician Exam Last Vital Signs Date Time Temp Pulse Resp B/P (MAP) Pulse Ox O2 Delivery O2 Flow Rate FiO2 01/30/19 09:19 143/74 01/30/19 09:19 87 01/30/19 08:46 Room Air 01/30/19 08:00 97.5 21 96 Constitutional: NAD Cardiovascular: RRR Respiratory: CTA Airway Exam Mallampati Score: Class II ROM: full Anesthesia Pre-op A/P Labs Hematology Test 01/30/19 05:20 White Blood Count 9.6 K/UL (4.8-10.8) Red Blood Count 4.25 M/UL (4.20-5.40) Hemoglobin 12.0 G/DL (12.0-16.0) Hematocrit 36.8 % (37.0-47.0) L Mean Corpuscular Volume 87 FL (80-99) Mean Corpuscular Hemoglobin 28.2 PG (27.0-31.0) Mean Corpuscular Hemoglobin Concent 32.6 G/DL (32.0-36.0) Red Cell Distribution Width 11.9 % (11.6-14.8) Platelet Count 278 K/UL (150-450) Mean Platelet Volume 7.3 FL (6.5-10.1) Neutrophils (%) (Auto) 63.7 % (45.0-75.0) Lymphocytes (%) (Auto) 23.9 % (20.0-45.0) Monocytes (%) (Auto) 11.8 % (1.0-10.0) H Eosinophils (%) (Auto) 0.0 % (0.0-3.0) Basophils (%) (Auto) 0.7 % (0.0-2.0) Coagulation Test 01/30/19 05:20 Prothrombin Time 10.4 SEC (9.30-11.50) Prothromb Time International Ratio 1.0 (0.9-1.1) Activated Partial Thromboplast Time 25 SEC (23-33) Chemistry Test 01/30/19 05:20 Sodium Level 141 MMOL/L (136-145) Potassium Level 3.7 MMOL/L (3.5-5.1) Chloride Level 103 MMOL/L (98-107) Carbon Dioxide Level 29 MMOL/L (21-32) Anion Gap 9 mmol/L (5-15) Blood Urea Nitrogen 11 mg/dL (7-18) Creatinine 0.9 MG/DL (0.55-1.30) Estimat Glomerular Filtration Rate > 60 mL/min (>60) Glucose Level 131 MG/DL (74-106) H Calcium Level 9.6 MG/DL (8.5-10.1) Total Bilirubin 1.0 MG/DL (0.2-1.0) Aspartate Amino Transf (AST/SGOT) 114 U/L (15-37) H Alanine Aminotransferase (ALT/SGPT) 260 U/L (12-78) H Alkaline Phosphatase 442 U/L (46-116) H Total Protein 7.5 G/DL (6.4-8.2) Albumin 3.6 G/DL (3.4-5.0) Globulin 3.9 g/dL Albumin/Globulin Ratio 0.9 (1.0-2.7) L Amylase Level 69 U/L (25-115) Lipase 236 U/L (73-393) Risk Assessment & Plan Assessment: ASA II Plan: MAC Status Change Before Surgery: No Pre-Antibiotics Drug: N/A Hailey Collins MD Jan 30, 2019 11:49
--- NOTE | 2019-01-30 11:51 | NUR ---
NURSE NOTES: NPO MAINTAINED. TO GI LAB PER LENO.
[2019-01-30] MEDS ORDERED: LR 1000ml 1,000 ML IVLG SCH (11:53)
--- NOTE | 2019-01-30 11:57 | Pre-Procedure Note/Attestation ---
Pre-Procedure Note/Attestation Complete Prior to Procedure Planned Procedure: not applicable Procedure Narrative: eus Indications for Procedure Pre-Operative Diagnosis: pancreatic mass Attestation I attest that I discussed the nature of the procedure; its benefits; risks and complications; and alternatives (and the risks and benefits of such alternatives ), prior to the procedure, with the patient (or the patient's legal personal financial representative). I attest that, if there was a reasonable possibility of needing a blood transfusion, the patient (or the patient's legal personal financial representative) was given the [facility] standardized written summary, pursuant to the [place] Blood Safety Act ([place] [facility] and Safety Code # 1645, as amended). I attest that I re-evaluated the patient just prior to the surgery and that there has been no change in the patient's H&P, except as documented below: Taz Baez MD Jan 30, 2019 11:57
[2019-01-30] MEDS ORDERED: LR 1000ml ONE (12:00)
[2019-01-30] MEDS ORDERED: DiphenhydrAMINE 50mg/ml Inj IVP PRN (12:00)
[2019-01-30] MEDS ORDERED: Propofol 200mg/20ml IV ONE (12:00)
[2019-01-30] MEDS ORDERED: Lidocaine 1% MPF 10mg/ml 5ml ONE (12:00)
[2019-01-30] MEDS ORDERED: NS 500ML IVPB ONE (12:00)
--- NOTE | 2019-01-30 12:00 | GI Progress Note ---
Assessment/Plan Problems: (1) Pancreatic mass ICD Codes: K86.9 - Disease of pancreas, unspecified SNOMED: 265531252 (2) Abdominal pain ICD Codes: R10.9 - Unspecified abdominal pain SNOMED: 14201705 Qualifiers: Qualified Codes: R10.11 - Right upper quadrant pain Assessment/Plan plan EUS today Subjective Gastrointestinal/Abdominal: Reports: abdomen distended, abdominal pain Objective Last 24 Hour Vital Signs Date Time Temp Pulse Resp B/P (MAP) Pulse Ox O2 Delivery O2 Flow Rate FiO2 01/30/19 09:19 143/74 01/30/19 09:19 87 143/74 01/30/19 08:46 Room Air 01/30/19 08:00 97.5 87 21 143/74 (97) 96 01/30/19 04:00 98.1 81 19 100/65 (77) 100 01/30/19 00:00 97.7 101 20 101/64 (76) 95 01/29/19 21:00 Room Air 01/29/19 20:00 97.9 123 18 152/82 (105) 97 01/29/19 17:06 173/89 01/29/19 16:00 98.6 18 18 173/89 (117) 99 01/29/19 13:00 97.7 104 20 159/87 (111) 01/29/19 13:00 Room Air 01/29/19 12:50 97.9 90 16 134/85 100 Room Air Intake and Output 01/29/19 01/30/19 19:00 07:00 Intake Total 1150 ml 75 ml Output Total 0 ml Balance 1150 ml 75 ml IV Total 1150 ml 75 ml Output Urine Total 0 ml # Voids 1 2 Laboratory Tests Test 01/30/19 05:20 White Blood Count 9.6 K/UL (4.8-10.8) Red Blood Count 4.25 M/UL (4.20-5.40) Hemoglobin 12.0 G/DL (12.0-16.0) Hematocrit 36.8 % (37.0-47.0) L Mean Corpuscular Volume 87 FL (80-99) Mean Corpuscular Hemoglobin 28.2 PG (27.0-31.0) Mean Corpuscular Hemoglobin Concent 32.6 G/DL (32.0-36.0) Red Cell Distribution Width 11.9 % (11.6-14.8) Platelet Count 278 K/UL (150-450) Mean Platelet Volume 7.3 FL (6.5-10.1) Neutrophils (%) (Auto) 63.7 % (45.0-75.0) Lymphocytes (%) (Auto) 23.9 % (20.0-45.0) Monocytes (%) (Auto) 11.8 % (1.0-10.0) H Eosinophils (%) (Auto) 0.0 % (0.0-3.0) Basophils (%) (Auto) 0.7 % (0.0-2.0) Prothrombin Time 10.4 SEC (9.30-11.50) Prothromb Time International Ratio 1.0 (0.9-1.1) Activated Partial Thromboplast Time 25 SEC (23-33) Sodium Level 141 MMOL/L (136-145) Potassium Level 3.7 MMOL/L (3.5-5.1) Chloride Level 103 MMOL/L (98-107) Carbon Dioxide Level 29 MMOL/L (21-32) Anion Gap 9 mmol/L (5-15) Blood Urea Nitrogen 11 mg/dL (7-18) Creatinine 0.9 MG/DL (0.55-1.30) Estimat Glomerular Filtration Rate > 60 mL/min (>60) Glucose Level 131 MG/DL (74-106) H Calcium Level 9.6 MG/DL (8.5-10.1) Total Bilirubin 1.0 MG/DL (0.2-1.0) Aspartate Amino Transf (AST/SGOT) 114 U/L (15-37) H Alanine Aminotransferase (ALT/SGPT) 260 U/L (12-78) H Alkaline Phosphatase 442 U/L (46-116) H Total Protein 7.5 G/DL (6.4-8.2) Albumin 3.6 G/DL (3.4-5.0) Globulin 3.9 g/dL Albumin/Globulin Ratio 0.9 (1.0-2.7) L Amylase Level 69 U/L (25-115) Lipase 236 U/L (73-393) Height (Feet): 5 Height (Inches): 5.00 Weight (Pounds): 165 General Appearance: alert Cardiovascular: normal peripheral pulses Respiratory/Chest: lungs clear Abdominal Exam: normal bowel sounds, non tender, soft Extremities: non-tender Taz Baez MD Jan 30, 2019 12:00
--- NOTE | 2019-01-30 12:27 | Surgery Progress Note ---
Surgery Progress Note Subjective Additional Comments no acute events no pain states BM without bleeding no n/v/f/c. labs stable. EUS today as per GI Objective Last 24 Hour Vital Signs Date Time Temp Pulse Resp B/P (MAP) Pulse Ox O2 Delivery O2 Flow Rate FiO2 01/30/19 09:19 143/74 01/30/19 09:19 87 143/74 01/30/19 08:46 Room Air 01/30/19 08:00 97.5 87 21 143/74 (97) 96 01/30/19 04:00 98.1 81 19 100/65 (77) 100 01/30/19 00:00 97.7 101 20 101/64 (76) 95 01/29/19 21:00 Room Air 01/29/19 20:00 97.9 123 18 152/82 (105) 97 01/29/19 17:06 173/89 01/29/19 16:00 98.6 18 18 173/89 (117) 99 01/29/19 13:00 97.7 104 20 159/87 (111) 01/29/19 13:00 Room Air 01/29/19 12:50 97.9 90 16 134/85 100 Room Air I&O Intake and Output 01/29/19 01/30/19 19:00 07:00 Intake Total 1150 ml 75 ml Output Total 0 ml Balance 1150 ml 75 ml IV Total 1150 ml 75 ml Output Urine Total 0 ml # Voids 1 2 Laboratory Tests Test 01/30/19 05:20 White Blood Count 9.6 K/UL (4.8-10.8) Red Blood Count 4.25 M/UL (4.20-5.40) Hemoglobin 12.0 G/DL (12.0-16.0) Hematocrit 36.8 % (37.0-47.0) L Mean Corpuscular Volume 87 FL (80-99) Mean Corpuscular Hemoglobin 28.2 PG (27.0-31.0) Mean Corpuscular Hemoglobin Concent 32.6 G/DL (32.0-36.0) Red Cell Distribution Width 11.9 % (11.6-14.8) Platelet Count 278 K/UL (150-450) Mean Platelet Volume 7.3 FL (6.5-10.1) Neutrophils (%) (Auto) 63.7 % (45.0-75.0) Lymphocytes (%) (Auto) 23.9 % (20.0-45.0) Monocytes (%) (Auto) 11.8 % (1.0-10.0) H Eosinophils (%) (Auto) 0.0 % (0.0-3.0) Basophils (%) (Auto) 0.7 % (0.0-2.0) Prothrombin Time 10.4 SEC (9.30-11.50) Prothromb Time International Ratio 1.0 (0.9-1.1) Activated Partial Thromboplast Time 25 SEC (23-33) Sodium Level 141 MMOL/L (136-145) Potassium Level 3.7 MMOL/L (3.5-5.1) Chloride Level 103 MMOL/L (98-107) Carbon Dioxide Level 29 MMOL/L (21-32) Anion Gap 9 mmol/L (5-15) Blood Urea Nitrogen 11 mg/dL (7-18) Creatinine 0.9 MG/DL (0.55-1.30) Estimat Glomerular Filtration Rate > 60 mL/min (>60) Glucose Level 131 MG/DL (74-106) H Calcium Level 9.6 MG/DL (8.5-10.1) Total Bilirubin 1.0 MG/DL (0.2-1.0) Aspartate Amino Transf (AST/SGOT) 114 U/L (15-37) H Alanine Aminotransferase (ALT/SGPT) 260 U/L (12-78) H Alkaline Phosphatase 442 U/L (46-116) H Total Protein 7.5 G/DL (6.4-8.2) Albumin 3.6 G/DL (3.4-5.0) Globulin 3.9 g/dL Albumin/Globulin Ratio 0.9 (1.0-2.7) L Amylase Level 69 U/L (25-115) Lipase 236 U/L (73-393) Plan Problems: (1) Abdominal pain Assessment & Plan: US with gallbladder sludge and possible tiny calculi noted. Positive sonographic Pineda's sign. Significance uncertain the absence of gallbladder wall thickening , but the possibility of acute cholecystitis should be considered likely from pancreatic mass causing biliary obstruction. abdominal exam okay with some upper abdominal discomfort on palpation needs further work up no acute surgical intervention planned okay for diet labs ordered will follow with recs (2) Pancreatic mass Assessment & Plan: There is marked extrahepatic and central intrahepatic biliary ductal dilatation, common bile duct measuring up to 19 mm in diameter. It abruptly tapers within the pancreatic head, proximal to its junction with the pancreatic duct. The pancreatic duct is borderline prominent. A mildly dilated duct is seen within the pancreatic head/uncinate distal to the point of tapering of the upstream common bile duct. Uncertain as to whether this represents the downstream common bile duct or dilated accessory pancreatic duct. In the upper uncinate process of the pancreas , there is a low-attenuation parenchymal lesion which measures 8 mm AP by 10 mm transverse by 20 mm craniocaudad. This appears to be medial to rather than surrounding the distal common bile duct. There is no peripancreatic lymphadenopathy. The gallbladder is distended but no gallstones are evident. very concerning for pancreatic CA Labs ordered GI for EUS possible bx thank you Shaquille Carrillo Jan 30, 2019 12:27
--- NOTE | 2019-01-30 12:54 | Pulmonology Progress Note ---
Assessment/Plan Problems: (1) Abdominal pain (2) Pancreatic mass (3) History of hypertension Assessment/Plan all reviewed, including GI and surgery note IV fluids check electrolytes GI evaluation tumor markers slightly elevated DVT prophylaxis. Subjective Constitutional: Reports: no symptoms HEENT: Repors: no symptoms Allergies: Coded Allergies: NSAIDS (NON-STEROIDAL ANTI-INFLAMMA (Verified Allergy, Severe, Anaphylaxis , 01/30/19) Objective Last 24 Hour Vital Signs Date Time Temp Pulse Resp B/P (MAP) Pulse Ox O2 Delivery O2 Flow Rate FiO2 01/30/19 09:19 143/74 01/30/19 09:19 87 143/74 01/30/19 08:46 Room Air 01/30/19 08:00 97.5 87 21 143/74 (97) 96 01/30/19 04:00 98.1 81 19 100/65 (77) 100 01/30/19 00:00 97.7 101 20 101/64 (76) 95 01/29/19 21:00 Room Air 01/29/19 20:00 97.9 123 18 152/82 (105) 97 01/29/19 17:06 173/89 01/29/19 16:00 98.6 18 18 173/89 (117) 99 01/29/19 13:00 97.7 104 20 159/87 (111) 01/29/19 13:00 Room Air Intake and Output 01/29/19 01/30/19 19:00 07:00 Intake Total 1150 ml 75 ml Output Total 0 ml Balance 1150 ml 75 ml IV Total 1150 ml 75 ml Output Urine Total 0 ml # Voids 1 2 General Appearance: WD/WN HEENT: atraumatic, mucous membranes moist, PERRL Respiratory/Chest: lungs clear Cardiovascular: normal peripheral pulses, normal rate Abdomen: normal bowel sounds, soft, non tender Genitourinary: normal external genitalia Microbiology Date/Time Source Procedure Growth Status 01/29/19 09:28 Urine,Clean Catch Urine Culture - Preliminary NO GROWTH Resulted Laboratory Tests 01/30/19 05:20: White Blood Count 9.6, Red Blood Count 4.25, Hemoglobin 12.0, Hematocrit 36.8L, Mean Corpuscular Volume 87, Mean Corpuscular Hemoglobin 28.2, Mean Corpuscular Hemoglobin Concent 32.6, Red Cell Distribution Width 11.9, Platelet Count 278, Mean Platelet Volume 7.3, Neutrophils (%) (Auto) 63.7, Lymphocytes (%) (Auto) 23.9, Monocytes (%) (Auto) 11.8H, Eosinophils (%) (Auto) 0.0, Basophils (%) ( Auto) 0.7, Prothrombin Time 10.4, Prothromb Time International Ratio 1.0, Activated Partial Thromboplast Time 25, Sodium Level 141, Potassium Level 3.7, Chloride Level 103, Carbon Dioxide Level 29, Anion Gap 9, Blood Urea Nitrogen 11 , Creatinine 0.9, Estimat Glomerular Filtration Rate > 60, Glucose Level 131H, Calcium Level 9.6, Total Bilirubin 1.0, Aspartate Amino Transf (AST/SGOT) 114H, Alanine Aminotransferase (ALT/SGPT) 260H, Alkaline Phosphatase 442H, Total Protein 7.5, Albumin 3.6, Globulin 3.9, Albumin/Globulin Ratio 0.9L, Amylase Level 69, Lipase 236 Current Medications Medications (Trade) Dose Ordered Sig/Angelito Route PRN Reason Start Time Stop Time Status Last Admin Dose Admin Acetaminophen (Tylenol) 650 mg Q4H PRN ORAL fever 01/29/19 13:30 02/28/19 13:29 Acetaminophen (Tylenol) 650 mg Q4H PRN ORAL Mild Pain (Pain Scale 1-3) 01/30/19 12:00 01/30/19 18:00 Amlodipine Besylate (Norvasc) 10 mg DAILY ORAL 01/30/19 09:00 03/01/19 08:59 01/30/19 09:19 Clonidine HCl (Catapres Tab) 0.1 mg Q6H PRN ORAL SBP >160 01/29/19 17:00 02/28/19 16:59 01/29/19 17:06 Dextrose (Dextrose 50%) 25 ml Q30M PRN IV Hypoglycemia 01/29/19 13:30 02/28/19 13:29 Dextrose (Dextrose 50%) 50 ml Q30M PRN IV Hypoglycemia 01/29/19 13:30 02/28/19 13:29 Dextrose/ Electrolytes 1,000 ml @ 75 mls/hr [id number] IV 01/29/19 13:15 02/28/19 13:14 01/30/19 02:30 Diphenhydramine HCl (Benadryl) 25 mg Q15M PRN IVP Itching 01/30/19 12:00 01/30/19 18:00 Diphenhydramine HCl (Benadryl) 25 mg Q6H PRN ORAL Itching/Pruritis 01/29/19 13:30 02/28/19 13:29 Famotidine (Pepcid I.v.) 20 mg Q12HR IVP 01/29/19 21:00 02/28/19 20:59 01/30/19 08:26 Heparin Sodium (Porcine) (Heparin 5000 units/ml) 5,000 units EVERY 12 HOURS SUBQ 01/29/19 21:00 02/28/19 20:59 01/29/19 21:34 Hydralazine HCl (Apresoline) 5 mg Q30M PRN IV SBP>160 OR___/DBP>90 OR___ 01/30/19 12:00 01/30/19 18:00 Lactated Ringer's 1,000 ml @ 10 mls/hr Q24H IVLG 01/30/19 11:53 01/30/19 18:00 Lisinopril (Prinivil) 20 mg DAILY ORAL 01/30/19 09:15 03/01/19 09:14 01/30/19 09:19 Lorazepam (Ativan 2mg/ml 1ml) 1 mg Q4H PRN IV agitation 01/29/19 13:30 02/05/19 13:29 Metoclopramide HCl (Reglan) 10 mg Q6H PRN IVP servere nauasea 01/29/19 13:30 02/28/19 13:29 Morphine Sulfate (Morphine Sulfate) 2 mg Q4H PRN IVP severe Pain (Pain Scale 7-10) 01/29/19 13:30 02/05/19 13:29 Nitroglycerin (Ntg) 0.4 mg Q5M X 3 DOSES PRN SL Prn Chest Pain 01/29/19 13:30 02/28/19 13:29 Ondansetron HCl (Zofran) 4 mg Q1H PRN IVP Nausea & Vomiting 01/30/19 12:00 01/30/19 18:00 Ondansetron HCl (Zofran) 4 mg Q6H PRN IVP Nausea & Vomiting 01/29/19 13:15 02/28/19 13:14 01/29/19 13:14 Polyethylene Glycol (Miralax) 17 gm HSPRN PRN ORAL Constipation 01/29/19 13:30 02/28/19 13:29 Promethazine HCl (Phenergan) 25 mg Q6H PRN IM REFRACTORY N/V 01/29/19 13:45 02/28/19 13:44 Temazepam (Restoril) 15 mg HSPRN PRN ORAL Insomnia 01/29/19 13:30 02/05/19 13:29 Nicolle Cazares MD Jan 30, 2019 12:54
--- NOTE | 2019-01-30 13:13 | Consultation ---
History of Present Illness General Date patient seen: Jan 30, 2019 Chief Complaint: Abdominal Pain Referring physician: STAS MCDOWELL Reason for Consultation: ABDOMINAL PAIN Present Illness HPI 69 y/o F with hx of HTN presented to ED on 01/29 with worsening abd pain, nausea and emesis for 2-3 days. Pain described as cramping, located in upper abdominal area on the right side and radiating to back; 8/[address] abd showed pancreatic mass. Denied fever, chills, CP. Id consulted for pyuria and leukocytosis Allergies: Coded Allergies: NSAIDS (NON-STEROIDAL ANTI-INFLAMMA (Verified Allergy, Severe, Anaphylaxis , 01/30/19) Medication History Scheduled Allopurinol* (Allopurinol*), 300 MG ORAL DAILY, (Reported) Amiodarone Hcl* (Amiodarone Hcl*), 200 MG ORAL EVERY 12 HOURS, (Reported) Amlodipine Besylate* (Amlodipine Besylate*), 10 MG ORAL DAILY, (Reported) Diltiazem Hcl (Diltiazem Hcl), 90 MG PO Q6HR, (Reported) Lisinopril (Lisinopril*), 40 MG ORAL DAILY, (Reported) Olanzapine* (Zyprexa*), 2.5 MG ORAL BEDTIME, (Reported) Patient History Healthcare decision maker SELF Resuscitation status Full Code Advanced Directive on File No Patient History Narrative Pmhx: as above Shx: Denies: smoking, alcohol use, drug use Fhx: non contributory Physical Exam Physical Exam Narrative not examined as patient on GI lab Last 24 Hour Vital Signs Date Time Temp Pulse Resp B/P (MAP) Pulse Ox O2 Delivery O2 Flow Rate FiO2 01/30/19 09:19 143/74 01/30/19 09:19 87 143/74 01/30/19 08:46 Room Air 01/30/19 08:00 97.5 87 21 143/74 (97) 96 01/30/19 04:00 98.1 81 19 100/65 (77) 100 01/30/19 00:00 97.7 101 20 101/64 (76) 95 01/29/19 21:00 Room Air 01/29/19 20:00 97.9 123 18 152/82 (105) 97 01/29/19 17:06 173/89 01/29/19 16:00 98.6 18 18 173/89 (117) 99 01/29/19 13:00 97.7 104 20 159/87 (111) 01/29/19 13:00 Room Air Intake and Output 01/29/19 01/30/19 19:00 07:00 Intake Total 1150 ml 75 ml Output Total 0 ml Balance 1150 ml 75 ml IV Total 1150 ml 75 ml Output Urine Total 0 ml # Voids 1 2 Laboratory Tests Test 01/30/19 05:20 White Blood Count 9.6 K/UL (4.8-10.8) Red Blood Count 4.25 M/UL (4.20-5.40) Hemoglobin 12.0 G/DL (12.0-16.0) Hematocrit 36.8 % (37.0-47.0) L Mean Corpuscular Volume 87 FL (80-99) Mean Corpuscular Hemoglobin 28.2 PG (27.0-31.0) Mean Corpuscular Hemoglobin Concent 32.6 G/DL (32.0-36.0) Red Cell Distribution Width 11.9 % (11.6-14.8) Platelet Count 278 K/UL (150-450) Mean Platelet Volume 7.3 FL (6.5-10.1) Neutrophils (%) (Auto) 63.7 % (45.0-75.0) Lymphocytes (%) (Auto) 23.9 % (20.0-45.0) Monocytes (%) (Auto) 11.8 % (1.0-10.0) H Eosinophils (%) (Auto) 0.0 % (0.0-3.0) Basophils (%) (Auto) 0.7 % (0.0-2.0) Prothrombin Time 10.4 SEC (9.30-11.50) Prothromb Time International Ratio 1.0 (0.9-1.1) Activated Partial Thromboplast Time 25 SEC (23-33) Sodium Level 141 MMOL/L (136-145) Potassium Level 3.7 MMOL/L (3.5-5.1) Chloride Level 103 MMOL/L (98-107) Carbon Dioxide Level 29 MMOL/L (21-32) Anion Gap 9 mmol/L (5-15) Blood Urea Nitrogen 11 mg/dL (7-18) Creatinine 0.9 MG/DL (0.55-1.30) Estimat Glomerular Filtration Rate > 60 mL/min (>60) Glucose Level 131 MG/DL (74-106) H Calcium Level 9.6 MG/DL (8.5-10.1) Total Bilirubin 1.0 MG/DL (0.2-1.0) Aspartate Amino Transf (AST/SGOT) 114 U/L (15-37) H Alanine Aminotransferase (ALT/SGPT) 260 U/L (12-78) H Alkaline Phosphatase 442 U/L (46-116) H Total Protein 7.5 G/DL (6.4-8.2) Albumin 3.6 G/DL (3.4-5.0) Globulin 3.9 g/dL Albumin/Globulin Ratio 0.9 (1.0-2.7) L Amylase Level 69 U/L (25-115) Lipase 236 U/L (73-393) Height (Feet): 5 Height (Inches): 5.00 Weight (Pounds): 165 Medications Current Medications Medications (Trade) Dose Ordered Sig/Angelito Route PRN Reason Start Time Stop Time Status Last Admin Dose Admin Acetaminophen (Tylenol) 650 mg Q4H PRN ORAL fever 01/29/19 13:30 02/28/19 13:29 Acetaminophen (Tylenol) 650 mg Q4H PRN ORAL Mild Pain (Pain Scale 1-3) 01/30/19 12:00 01/30/19 18:00 Amlodipine Besylate (Norvasc) 10 mg DAILY ORAL 01/30/19 09:00 03/01/19 08:59 01/30/19 09:19 Clonidine HCl (Catapres Tab) 0.1 mg Q6H PRN ORAL SBP >160 01/29/19 17:00 02/28/19 16:59 01/29/19 17:06 Dextrose (Dextrose 50%) 25 ml Q30M PRN IV Hypoglycemia 01/29/19 13:30 02/28/19 13:29 Dextrose (Dextrose 50%) 50 ml Q30M PRN IV Hypoglycemia 01/29/19 13:30 02/28/19 13:29 Dextrose/ Electrolytes 1,000 ml @ 75 mls/hr [id number] IV 01/29/19 13:15 02/28/19 13:14 01/30/19 02:30 Diphenhydramine HCl (Benadryl) 25 mg Q15M PRN IVP Itching 01/30/19 12:00 01/30/19 18:00 Diphenhydramine HCl (Benadryl) 25 mg Q6H PRN ORAL Itching/Pruritis 01/29/19 13:30 02/28/19 13:29 Famotidine (Pepcid I.v.) 20 mg Q12HR IVP 01/29/19 21:00 02/28/19 20:59 01/30/19 08:26 Heparin Sodium (Porcine) (Heparin 5000 units/ml) 5,000 units EVERY 12 HOURS SUBQ 01/29/19 21:00 02/28/19 20:59 01/29/19 21:34 Hydralazine HCl (Apresoline) 5 mg Q30M PRN IV SBP>160 OR___/DBP>90 OR___ 01/30/19 12:00 01/30/19 18:00 Lactated Ringer's 1,000 ml @ 10 mls/hr Q24H IVLG 01/30/19 11:53 01/30/19 18:00 Lisinopril (Prinivil) 20 mg DAILY ORAL 01/30/19 09:15 03/01/19 09:14 01/30/19 09:19 Lorazepam (Ativan 2mg/ml 1ml) 1 mg Q4H PRN IV agitation 01/29/19 13:30 02/05/19 13:29 Metoclopramide HCl (Reglan) 10 mg Q6H PRN IVP servere nauasea 01/29/19 13:30 02/28/19 13:29 Morphine Sulfate (Morphine Sulfate) 2 mg Q4H PRN IVP severe Pain (Pain Scale 7-10) 01/29/19 13:30 02/05/19 13:29 Nitroglycerin (Ntg) 0.4 mg Q5M X 3 DOSES PRN SL Prn Chest Pain 01/29/19 13:30 02/28/19 13:29 Ondansetron HCl (Zofran) 4 mg Q1H PRN IVP Nausea & Vomiting 01/30/19 12:00 01/30/19 18:00 Ondansetron HCl (Zofran) 4 mg Q6H PRN IVP Nausea & Vomiting 01/29/19 13:15 02/28/19 13:14 01/29/19 13:14 Polyethylene Glycol (Miralax) 17 gm HSPRN PRN ORAL Constipation 01/29/19 13:30 02/28/19 13:29 Promethazine HCl (Phenergan) 25 mg Q6H PRN IM REFRACTORY N/V 01/29/19 13:45 02/28/19 13:44 Temazepam (Restoril) 15 mg HSPRN PRN ORAL Insomnia 01/29/19 13:30 02/05/19 13:29 Assessment/Plan Assessment/Plan: Abx: None Assessment: Afebrile Leukocytosis, SP -u/a wbc 30-30, nit neg, leuk +2, sq cells many; ucx NTD Abd pain- probable pancreatic head CA -Abd uS: Gallbladder sludge and possible tiny calculi noted. Positive sonographic Pineda's sign. Significance uncertain the absence of gallbladder wall thickening, but the possibility of acute cholecystitis should be considered. Biliary ductal dilatation, as described. Note that this also was reported on CT scan of earlier the same day. Right upper pole renal cortical cyst and multiple left renal parapelvic cysts -CT abd/p: 20 x 10 x 8 mm low-attenuation lesion within the upper uncinate process of the pancreas. This is concerning for pancreatic neoplasm. This finding can also be seen in chronic pancreatitis, although there are no other abnormalities to suggest this diagnosis. Endoscopic ultrasound may be useful for better characterization. Marked extrahepatic and central intrahepatic biliary ductal dilatation, with abrupt tapering at the level the pancreatic head. Possibly related to the above. However, the above lesion appears to be centered somewhat medial and cephalad to the point of obstruction, so the possibility of a separate intraluminal lesion should also be considered. Distended gallbladder without evidence of cholelithiasis. Right lower lobe 4 mm 5 mm lung nodules. Suspect postinflammatory, but the possibility of neoplasm should also be considered, particularly given the above findings. Left renal parapelvic cysts. Subcentimeter low-attenuation renal lesions, too small to characterize, most likely benign simple cysts. No further follow-up necessary. Right hepatic lobe cyst HTN Plan: -Continue to monitor off abx -f/u cx -Monitor CBC/CMP, temperatures -GI, Sx f/u- for EUS today Thank you for this consultation. Will continue to follow along with you. Discussed with RN. Paulina Quinteros M.D. Jan 30, 2019 13:12
--- NOTE | 2019-01-30 13:34 | Immediate Post-Op Evaluation ---
Immediate Post-Op Evalulation Immediate Post-Op Evalulation Procedure: EUS Date of Evaluation: Jan 30, 2019 Time of Evaluation: 13:36 IV Fluids: 700 Blood Products: 0 Estimated Blood Loss: 0 Urinary Output: 0 Blood Pressure Systolic: 140 Blood Pressure Diastolic: 68 Pulse Rate: 93 Respiratory Rate: 16 O2 Sat by Pulse Oximetry: 99 Temperature (Fahrenheit): 97.1 Pain Score (1-10): 0 Nausea: No Vomiting: No Complications 0 Patient Status: awake, reacts, patent, none Hydration Status: adequate Drug: N/A Hailey Collins MD Jan 30, 2019 13:34
--- NOTE | 2019-01-30 13:34 | 48 Hour Post Anesthesia Eval ---
Post Anesthesia Evaluation Procedure: EUS Date of Evaluation: Jan 30, 2019 Airway: patent Nausea: No Vomiting: No Pain Intensity: 0 Hydration Status: adequate Cardiopulmonary Status: at baseline Mental Status/LOC: patient returned to baseline Post-Anesthesia Complications: 0 Follow-up care needed: ready to discharge Hailey Collins MD Jan 30, 2019 13:34
[2019-01-30] MEDS ORDERED: Hydromorphone 0.5mg/0.5ml inj ONE (14:03)
[2019-01-30] MEDS: Hydromorphone 0.5mg/0.5ml inj IVP PRN ×2 (14:06→14:17)
[2019-01-30] MEDS ORDERED: Gadavist 7.5mMol/7.5ml vial IV PRN (14:15)
--- NOTE | 2019-01-30 14:35 | NUR ---
NURSE NOTES: REC'D FROM PACU SP EGD , BALLOON DILATION OF PYLORUS.ENDOSCOPIC U/S WITH FINE NEEDLE ASPIRATION. DROWSY BUT AROUSABLE. V/S TAKEN. PAIN SCALE 9/10. IN NO DISTRESS.
--- NOTE | 2019-01-30 16:07 | Consultation ---
History of Present Illness General Chief Complaint: Abdominal Pain Referring physician: STAS MCDOWELL Reason for Consultation: ABDOMINAL PAIN Present Illness Allergies: Coded Allergies: NSAIDS (NON-STEROIDAL ANTI-INFLAMMA (Verified Allergy, Severe, Anaphylaxis , 01/30/19) Medication History Scheduled Allopurinol* (Allopurinol*), 300 MG ORAL DAILY, (Reported) Amiodarone Hcl* (Amiodarone Hcl*), 200 MG ORAL EVERY 12 HOURS, (Reported) Amlodipine Besylate* (Amlodipine Besylate*), 10 MG ORAL DAILY, (Reported) Diltiazem Hcl (Diltiazem Hcl), 90 MG PO Q6HR, (Reported) Lisinopril (Lisinopril*), 40 MG ORAL DAILY, (Reported) Olanzapine* (Zyprexa*), 2.5 MG ORAL BEDTIME, (Reported) Patient History Healthcare decision maker SELF Resuscitation status Full Code Advanced Directive on File No Physical Exam Last 24 Hour Vital Signs Date Time Temp Pulse Resp B/P (MAP) Pulse Ox O2 Delivery O2 Flow Rate FiO2 01/30/19 14:30 97.2 01/30/19 14:25 97.2 2 16 142/68 99 Nasal Cannula 3 01/30/19 14:10 91 16 133/70 100 Nasal Cannula 3 01/30/19 14:00 89 19 143/64 100 Nasal Cannula 3 01/30/19 13:50 96 18 151/73 99 Nasal Cannula 3 01/30/19 13:45 95 22 154/72 98 Nasal Cannula 3 01/30/19 13:40 94 23 146/72 98 Nasal Cannula 3 01/30/19 13:35 97 21 153/68 100 Nasal Cannula 3 01/30/19 13:34 93 16 99 01/30/19 13:31 97.1 93 16 140/68 99 Nasal Cannula 3 01/30/19 09:19 143/74 01/30/19 09:19 87 143/74 01/30/19 08:46 Room Air 01/30/19 08:00 97.5 87 21 143/74 (97) 96 01/30/19 04:00 98.1 81 19 100/65 (77) 100 01/30/19 00:00 97.7 101 20 101/64 (76) 95 01/29/19 21:00 Room Air 01/29/19 20:00 97.9 123 18 152/82 (105) 97 01/29/19 17:06 173/89 01/29/19 16:00 98.6 18 18 173/89 (117) 99 Intake and Output 01/29/19 01/30/19 19:00 07:00 Intake Total 1150 ml 75 ml Output Total 0 ml Balance 1150 ml 75 ml IV Total 1150 ml 75 ml Output Urine Total 0 ml # Voids 1 2 Laboratory Tests Test 01/30/19 05:20 White Blood Count 9.6 K/UL (4.8-10.8) Red Blood Count 4.25 M/UL (4.20-5.40) Hemoglobin 12.0 G/DL (12.0-16.0) Hematocrit 36.8 % (37.0-47.0) L Mean Corpuscular Volume 87 FL (80-99) Mean Corpuscular Hemoglobin 28.2 PG (27.0-31.0) Mean Corpuscular Hemoglobin Concent 32.6 G/DL (32.0-36.0) Red Cell Distribution Width 11.9 % (11.6-14.8) Platelet Count 278 K/UL (150-450) Mean Platelet Volume 7.3 FL (6.5-10.1) Neutrophils (%) (Auto) 63.7 % (45.0-75.0) Lymphocytes (%) (Auto) 23.9 % (20.0-45.0) Monocytes (%) (Auto) 11.8 % (1.0-10.0) H Eosinophils (%) (Auto) 0.0 % (0.0-3.0) Basophils (%) (Auto) 0.7 % (0.0-2.0) Prothrombin Time 10.4 SEC (9.30-11.50) Prothromb Time International Ratio 1.0 (0.9-1.1) Activated Partial Thromboplast Time 25 SEC (23-33) Sodium Level 141 MMOL/L (136-145) Potassium Level 3.7 MMOL/L (3.5-5.1) Chloride Level 103 MMOL/L (98-107) Carbon Dioxide Level 29 MMOL/L (21-32) Anion Gap 9 mmol/L (5-15) Blood Urea Nitrogen 11 mg/dL (7-18) Creatinine 0.9 MG/DL (0.55-1.30) Estimat Glomerular Filtration Rate > 60 mL/min (>60) Glucose Level 131 MG/DL (74-106) H Calcium Level 9.6 MG/DL (8.5-10.1) Total Bilirubin 1.0 MG/DL (0.2-1.0) Aspartate Amino Transf (AST/SGOT) 114 U/L (15-37) H Alanine Aminotransferase (ALT/SGPT) 260 U/L (12-78) H Alkaline Phosphatase 442 U/L (46-116) H Total Protein 7.5 G/DL (6.4-8.2) Albumin 3.6 G/DL (3.4-5.0) Globulin 3.9 g/dL Albumin/Globulin Ratio 0.9 (1.0-2.7) L Amylase Level 69 U/L (25-115) Lipase 236 U/L (73-393) Height (Feet): 5 Height (Inches): 5.00 Weight (Pounds): 165 Medications Current Medications Medications (Trade) Dose Ordered Sig/Angelito Route PRN Reason Start Time Stop Time Status Last Admin Dose Admin Acetaminophen (Tylenol) 650 mg Q4H PRN ORAL fever 01/29/19 13:30 02/28/19 13:29 Acetaminophen (Tylenol) 650 mg Q4H PRN ORAL Mild Pain (Pain Scale 1-3) 01/30/19 12:00 01/30/19 18:00 Amlodipine Besylate (Norvasc) 10 mg DAILY ORAL 01/30/19 09:00 03/01/19 08:59 01/30/19 09:19 Clonidine HCl (Catapres Tab) 0.1 mg Q6H PRN ORAL SBP >160 01/29/19 17:00 02/28/19 16:59 01/29/19 17:06 Dextrose (Dextrose 50%) 25 ml Q30M PRN IV Hypoglycemia 01/29/19 13:30 02/28/19 13:29 Dextrose (Dextrose 50%) 50 ml Q30M PRN IV Hypoglycemia 01/29/19 13:30 02/28/19 13:29 Dextrose/ Electrolytes 1,000 ml @ 75 mls/hr [id number] IV 01/29/19 13:15 02/28/19 13:14 01/30/19 02:30 Diphenhydramine HCl (Benadryl) 25 mg Q15M PRN IVP Itching 01/30/19 12:00 01/30/19 18:00 Diphenhydramine HCl (Benadryl) 25 mg Q6H PRN ORAL Itching/Pruritis 01/29/19 13:30 02/28/19 13:29 Famotidine (Pepcid I.v.) 20 mg Q12HR IVP 01/29/19 21:00 02/28/19 20:59 01/30/19 08:26 Gadobutrol (Gadavist) 7.5 mmol NOW PRN IV Radiology Procedure 01/30/19 14:15 02/03/19 14:11 Heparin Sodium (Porcine) (Heparin 5000 units/ml) 5,000 units EVERY 12 HOURS SUBQ 01/29/19 21:00 02/28/19 20:59 01/29/19 21:34 Hydralazine HCl (Apresoline) 5 mg Q30M PRN IV SBP>160 OR___/DBP>90 OR___ 01/30/19 12:00 01/30/19 18:00 Hydromorphone HCl (Dilaudid) 0.25 mg PRN PRN IVP For Pain 01/30/19 14:00 01/30/19 20:00 01/30/19 14:17 Lactated Ringer's 1,000 ml @ 10 mls/hr Q24H IVLG 01/30/19 11:53 01/30/19 18:00 Lisinopril (Prinivil) 20 mg DAILY ORAL 01/30/19 09:15 03/01/19 09:14 01/30/19 09:19 Lorazepam (Ativan 2mg/ml 1ml) 1 mg Q4H PRN IV agitation 01/29/19 13:30 02/05/19 13:29 Metoclopramide HCl (Reglan) 10 mg Q6H PRN IVP servere nauasea 01/29/19 13:30 02/28/19 13:29 Morphine Sulfate (Morphine Sulfate) 2 mg Q4H PRN IVP severe Pain (Pain Scale 7-10) 01/29/19 13:30 02/05/19 13:29 Nitroglycerin (Ntg) 0.4 mg Q5M X 3 DOSES PRN SL Prn Chest Pain 01/29/19 13:30 02/28/19 13:29 Ondansetron HCl (Zofran) 4 mg Q6H PRN IVP Nausea & Vomiting 01/29/19 13:15 02/28/19 13:14 01/29/19 13:14 Polyethylene Glycol (Miralax) 17 gm HSPRN PRN ORAL Constipation 01/29/19 13:30 02/28/19 13:29 Promethazine HCl (Phenergan) 25 mg Q6H PRN IM REFRACTORY N/V 01/29/19 13:45 02/28/19 13:44 Temazepam (Restoril) 15 mg HSPRN PRN ORAL Insomnia 01/29/19 13:30 02/05/19 13:29 Assessment/Plan Assessment/Plan: Hematology Consultation Date patient seen: Jan 29, 2019 Reason for Hospitalization: Abdominal Pain RFC: Pancreatic head mass REQ MD: Mode Mcdowell 69 year old female presented to ED at [facility] c/o worsening abdominal pain, nausea and emesis for 2-3 days. Unsure of exactly when it began but pain overwhelming and needed to come for evaluation. Pain cramping upper abdominal pain more on the right side with some radiation to the back. non bloody emesis. no fever or chills. in ED noted to have abnormal LFT's and CT with biliary dilatation and pancreatic head mass. surgery called to evaluate. patient seen, chart reviewed, patient examined. Heme/onc consulted as well as id, gi, for eval of panc mass Allergies: Coded Allergies: No Known Allergies (Unverified , 01/29/19) Medication History Scheduled Amlodipine Besylate* (Amlodipine Besylate*), 10 MG ORAL DAILY, (Reported) Lisinopril (Lisinopril*), 40 MG ORAL DAILY, (Reported) Patient History History Provided By: Patient, Medical Record, PMD Healthcare decision maker SELF Resuscitation status Full Code Advanced Directive on File No Past Medical/Surgical History Past Medical/Surgical History: (1) Abdominal pain (2) Pancreatic mass ROS: Constitutional: No fever, no chills, no night sweats, no fatigue Skin: No rashes, lumps, itchiness, dryness HEENT: No [place], ear ache, visual changes Breasts: No lumps, pain, discharge Pulmonary: No cough, sputum Cardiovascular: No chest pain GI: No nausea, vomiting, diarrhea, melena : No dysuria, frequency, urgency, urinary incontinence, foamy urine Musculoskeletal: No joint swelling Neurologic: No dizziness, fainting, seizures Psychiatric: No nervousness, stress, or depression Physical Exam General appearance: alert, cooperative, no distress, appears stated age Head: Normocephalic, without obvious abnormality, atraumatic Eyes: conjunctivae/corneas clear. PERRL, EOM's intact. Fundi benign Throat: Lips, mucosa, and tongue normal. Teeth and gums normal Neck: supple, symmetrical, trachea midline, no adenopathy Lungs: clear to auscultation bilaterally Heart: regular rate and rhythm, S1, S2 normal, no murmur, click, rub or gallop Abdomen: soft, non-tender. Bowel sounds normal. No masses, no organomegaly Ext: extremities normal, atraumatic, no cyanosis or edema Pulses: 2+ and symmetric Skin: Skin color, texture, turgor normal. No rashes or lesions Neurologic: Grossly normal Last 24 Hour Vital Signs Date Time Temp Pulse Resp B/P (MAP) Pulse Ox O2 Delivery O2 Flow Rate FiO2 01/29/19 13:00 Room Air 01/29/19 12:50 97.9 90 16 134/85 100 Room Air 01/29/19 11:34 98.1 93 14 156/77 100 Room Air 01/29/19 11:23 98.1 01/29/19 09:19 98.1 01/29/19 08:35 107 14 Room Air 01/29/19 08:35 98.1 107 14 149/75 99 Room Air 01/29/19 08:25 98.1 102 16 141/72 (95) 98 Room Air Laboratory Tests Test 01/29/19 08:42 01/29/19 09:28 White Blood Count 11.3 K/UL (4.8-10.8) H Red Blood Count 4.94 M/UL (4.20-5.40) Hemoglobin 13.8 G/DL (12.0-16.0) Hematocrit 43.0 % (37.0-47.0) Mean Corpuscular Volume 87 FL (80-99) Mean Corpuscular Hemoglobin 27.8 PG (27.0-31.0) Mean Corpuscular Hemoglobin Concent 32.0 G/DL (32.0-36.0) Red Cell Distribution Width 11.8 % (11.6-14.8) Platelet Count 305 K/UL (150-450) Mean Platelet Volume 6.5 FL (6.5-10.1) Neutrophils (%) (Auto) % (45.0-75.0) Lymphocytes (%) (Auto) % (20.0-45.0) Monocytes (%) (Auto) % (1.0-10.0) Eosinophils (%) (Auto) % (0.0-3.0) Basophils (%) (Auto) % (0.0-2.0) Differential Total Cells Counted 100 Neutrophils % (Manual) 85 % (45-75) H Lymphocytes % (Manual) 10 % (20-45) L Monocytes % (Manual) 5 % (1-10) Eosinophils % (Manual) 0 % (0-3) Basophils % (Manual) 0 % (0-2) Band Neutrophils 0 % (0-8) Platelet Estimate Adequate Platelet Morphology Normal Red Blood Cell Morphology Normal Sodium Level 139 MMOL/L (136-145) Potassium Level 3.2 MMOL/L (3.5-5.1) L Chloride Level 99 MMOL/L (98-107) Carbon Dioxide Level 30 MMOL/L (21-32) Anion Gap 10 mmol/L (5-15) Blood Urea Nitrogen 11 mg/dL (7-18) Creatinine 0.8 MG/DL (0.55-1.30) Estimat Glomerular Filtration Rate > 60 mL/min (>60) Glucose Level 149 MG/DL (74-106) H Calcium Level 9.9 MG/DL (8.5-10.1) Total Bilirubin 1.0 MG/DL (0.2-1.0) Aspartate Amino Transf (AST/SGOT) 286 U/L (15-37) H Alanine Aminotransferase (ALT/SGPT) 376 U/L (12-78) H Alkaline Phosphatase 560 U/L (46-116) H Total Protein 8.5 G/DL (6.4-8.2) H Albumin 4.8 G/DL (3.4-5.0) Globulin 3.7 g/dL Albumin/Globulin Ratio 1.3 (1.0-2.7) Lipase 226 U/L (73-393) Urine Color Pale yellow Urine Appearance Slightly cloudy Urine pH 8 (4.5-8.0) Urine Specific [place] 1.015 (1.005-1.035) Urine Protein Negative (NEGATIVE) Urine Glucose (UA) Negative (NEGATIVE) Urine Ketones 3+ (NEGATIVE) H Urine Blood 3+ (NEGATIVE) H Urine Nitrite Negative (NEGATIVE) Urine Bilirubin Negative (NEGATIVE) Urine Urobilinogen Normal MG/DL (0.0-1.0) Urine Leukocyte Esterase 2+ (NEGATIVE) H Urine RBC 15-20 /HPF (0 - 2) H Urine WBC 20-30 /HPF (0 - 2) H Urine Squamous Epithelial Cells Many /LPF (NONE/OCC) H Urine Amorphous Sediment Moderate /LPF (NONE) H Urine Bacteria Moderate /HPF (NONE) H Height (Feet): 5 Height (Inches): 5.00 Weight (Pounds): 143 Medications Current Medications Medications (Trade) Dose Ordered Sig/Angelito Route PRN Reason Start Time Stop Time Status Last Admin Dose Admin Acetaminophen (Tylenol) 650 mg Q4H PRN ORAL fever 01/29/19 13:30 02/28/19 13:29 Amlodipine Besylate (Norvasc) 10 mg DAILY ORAL 01/30/19 09:00 03/01/19 08:59 Chlorpromazine (Thorazine) 25 mg ONCE IM 01/29/19 15:00 01/29/19 17:00 Dextrose (Dextrose 50%) 25 ml Q30M PRN IV Hypoglycemia 01/29/19 13:30 02/28/19 13:29 Dextrose (Dextrose 50%) 50 ml Q30M PRN IV Hypoglycemia 01/29/19 13:30 02/28/19 13:29 Dextrose/ Electrolytes 1,000 ml @ 75 mls/hr [id number] IV 01/29/19 13:15 02/28/19 13:14 01/29/19 13:17 Diphenhydramine HCl (Benadryl) 25 mg Q6H PRN ORAL Itching/Pruritis 01/29/19 13:30 02/28/19 13:29 Famotidine (Pepcid I.v.) 20 mg Q12HR IVP 01/29/19 21:00 02/28/19 20:59 Heparin Sodium (Porcine) (Heparin 5000 units/ml) 5,000 units EVERY 12 HOURS SUBQ 01/29/19 21:00 02/28/19 20:59 Lorazepam (Ativan 2mg/ml 1ml) 1 mg Q4H PRN IV agitation 01/29/19 13:30 02/05/19 13:29 Metoclopramide HCl (Reglan) 10 mg Q6H PRN IVP servere nauasea 01/29/19 13:30 02/28/19 13:29 Morphine Sulfate (Morphine Sulfate) 2 mg Q4H PRN IVP severe Pain (Pain Scale 7-10) 01/29/19 13:30 02/05/19 13:29 Nitroglycerin (Ntg) 0.4 mg Q5M X 3 DOSES PRN SL Prn Chest Pain 01/29/19 13:30 02/28/19 13:29 Ondansetron HCl (Zofran) 4 mg Q6H PRN IVP Nausea & Vomiting 01/29/19 13:15 02/28/19 13:14 01/29/19 13:14 Polyethylene Glycol (Miralax) 17 gm HSPRN PRN ORAL Constipation 01/29/19 13:30 02/28/19 13:29 Promethazine HCl (Phenergan) 25 mg Q6H PRN IM REFRACTORY N/V 01/29/19 13:45 02/28/19 13:44 Temazepam (Restoril) 15 mg HSPRN PRN ORAL Insomnia 01/29/19 13:30 02/05/19 13:29 Assessment and Recs: # Pancreatic mass - there is marked extrahepatic and central intrahepatic biliary ductal dilatation, common bile duct measuring up to 19 mm in diameter. It abruptly taper wiithin the pancreatic head, proximal to its junction with the pancreatic duct. The pancreatic duct is borderline prominent. A mildly dilated duct is seen within the pancreatic head/uncinate distal to the point of tapering of the upstream common bile duct. Uncertain as to whether this represents the downstream common bile duct or dilated accessory pancreatic duct. In the upper uncinate process of the pancreas, there is a low-attenuation parenchymal lesion which measures 8 mm AP by 10 mm transverse by 20 mm craniocaudad. This appears to be medial to rather than surrounding the distal common bile duct. There is no peripancreatic lymphadenopathy. The gallbladder is distended but no gallstones are evident. --> tumor markers reviewed CA19.9 >40 --> EUS today has been completed gi --> Full CT Chest with iv contrast --> Awaiting tissue diagnosis --> surg recs reviewed # Right lower lobe 4 mm 5 mm lung nodules. Suspect postinflammatory, but the possibility of neoplasm should also be considered, particularly given the above findings --> CT chest with iv cont pending # Abdominal pain - likely from pancreatic mass causing biliary obstruction. Abdominal exam okay with some upper abdominal discomfort on palpation needs further work up no acute surgical intervention planned okay for diet --> as per gi could be related to abd mass --> ercp potentially for diagnosis per gi # Hypokalemia --> given K, repleted The timing of this note does not necessarily reflect the time of the patient was seen. GREATLY APPRECIATE CONSULTATION. Lester Hawthorne MD Jan 30, 2019 16:07
[2019-01-30] MEDS: Morphine Sulfate 2mg/ml Inj(IV/IM USE ONLY) IVP PRN ×2 (16:14→20:37)
[2019-01-30] MEDS ORDERED: Isovue-300 100ml vial INJ PRN (16:15)
--- NOTE | 2019-01-30 16:54 | Diagnostic Imaging Report ---
Indication: Biliary ductal dilatation/obstruction. CT demonstration of a mass in the pancreas Technique: MRI of the abdomen was performed in a 1.5 June magnet. Pulse sequences obtained include coronal and axial T2 single shot fast spin echo breathhold and respiratory gated coronal T2 3-D M.R.C.P.; this data set was displayed in different projections or MIPs. In addition, multiple coronal oblique thin T2 weighted, fat saturated SE sequences obtained through the CBD. Pre and post gadolinium dynamic axial T1 lava performed at immediate, one minute, 3 minute, 5 minute sequences. Comparison: None Findings: There is a 2 x 1.5 cm lesion in the uncinate process suspicious for a small tumor. The mass shows central area of low nonenhanced signal likely a cystic component centrally. It is at about this level that there is an abrupt transition from a moderately distended CBD (up to 1.8 cm) to decompressed CBD. Endoscopic ultrasound suggested for further evaluation. By imaging the lesion is suspicious for a small neoplasm and less likely other complex congenital or acquired/inflammatory cysts. There is no choledocholithiasis. The gallbladder is distended. No gallstones are seen. There is a small amount of free fluid in the upper abdomen. There is a small amount of fluid surrounding the duodenum the second and third portions. This could be related to the biliary obstruction. There are cysts in the left kidney some cortical and some parapelvic. There is no obvious adenopathy. The kidneys are unremarkable otherwise. 1 cm cyst noted in the right lobe of the liver. IMPRESSION: 2 x 1.5 cm partially cystic lesion suspicious for small neoplasm in the uncinate process of the pancreas. Recommend endoscopic ultrasound for further evaluation. Associated biliary ductal obstruction with focal sharp transition within the distal CBD which is dilated proximally up to 1.8 cm. Mild amount of free fluid in the upper abdomen in the region of the second portion of the duodenum. Left renal cysts. Small liver cyst.
--- NOTE | 2019-01-30 17:15 | History and Physical Report ---
DATE OF ADMISSION: 01/29/2019 DATE AND TIME SEEN: 01/30/2019 at 11 a.m. CONSULTANTS: 1. Shaquille Carrillo M.D. 2. Taz Baez M.D. 3. Nicolle Cazares M.D. 4. Lester Hawthorne M.D. CHIEF COMPLAINT: Abdominal pain, nausea, vomiting, and pancreatic mass. BRIEF HISTORY: This is a 69-year-old female who lives at home by herself, presents with abdominal pain for three days, was slightly nauseous and vomiting. It got worse, came to [place] [facility], diagnosed with the above, and ER doctor found pancreatic mass, was admitted to medical floor for further treatment. Currently, calm in bed, feeling little bit better. No complaint. REVIEW OF SYSTEMS: No chest pain. Slight short of breath. Slight nausea and vomiting. No diarrhea. PAST MEDICAL HISTORY: Hypertension. PAST SURGICAL HISTORY: Eye surgery. ALLERGIES: Denies. MEDICATIONS: Include Tylenol, Zofran, hydralazine, diphenhydramine, lisinopril, amlodipine, chlorpromazine, famotidine, morphine, , promethazine, and morphine. SOCIAL HISTORY: No smoking. No alcohol. No intravenous drug abuse. FAMILY HISTORY: Noncontributory. PHYSICAL EXAMINATION: GENERAL: Calm in bed, oriented x3, in no acute distress. VITAL SIGNS: Temperature is 97 degrees, pulse 87, respirations 21, and blood pressure 143/74. CARDIOVASCULAR: No murmur. LUNGS: Distant and clear. ABDOMEN: Soft, nontender, and nondistended. EXTREMITIES: No cyanosis or edema. NEUROLOGIC: The patient moves all extremities, slightly weak. LABORATORY AND DIAGNOSTIC DATA: Initial white count 11.3, now CBC is normal. BMP shows glucose 131. AST 114, ALT 260, and alkaline phosphatase 442. Amylase 69. Lipase 236. INR is 1.0. PTT is 25. Urinalysis show 2+ leukocyte esterase. ASSESSMENT: 1. Abdominal pain. 2. Nausea and vomiting. 3. Pancreatic mass. 4. Elevated LFT. 5. Hypertension. 6. Urinary tract infection. PLAN: 1. Antibiotics per Infectious Disease. 2. Antiemetic p.r.n. 3. Pain control. 4. Blood pressure control. 5. Dietary evaluation. 6. Resume home medications. 7. PT and dietary evaluation. 8. CBC and BMP in the morning. Lg Huitron D.O. DR: ADOLFO JOB#: [id number] CC:
--- NOTE | 2019-01-30 19:00 | Procedure Note ---
DATE OF PROCEDURE: 01/30/2019 SURGEON: Taz Baez M.D. PROCEDURE: EUS, EGD with dilation. ANESTHESIA: Per Dr. Morocho. INSTRUMENT: Olympus adult flexible upper endoscope and EUS scope. INDICATION: Pancreatic mass. REASON FOR PROCEDURE: The procedure, risks, benefits, and possible consequences, including hemorrhage, aspiration, perforation and infection, and alternative treatments, were explained to the patient/legal guardian by Dr. Taz Baez and the patient/legal guardian understood and accepted these risks. PROCEDURE: After informed consent was obtained and the patient was adequately sedated, first EUS radial scope was advanced from mouth into the gastric area. There was a stricture at the pylorus. We could not pass the EUS scope. At this point, we decided to remove the EUS scope and introduced the upper scope and we ended up dilating the stricture from 10 to 12 in order to be able to pass the upper scope through. It seems that there was a lot of external pressure from most probably gallbladder distention into the duodenal bulb making it very difficult. At this point, we removed the upper scope. We introduced the EUS scope and started scanning the GE junction. There was no evidence of any obvious celiac axis lymphadenopathy. There was no pancreatic duct dilatation in the body or tail of the pancreas. No celiac axis lymphadenopathy. Then, the scope was advanced to the duodenal bulb and second portion of duodenum. The gallbladder was significantly distended pushing into the duodenal bulb, causing the procedure difficult. There was about 2.3 centimeter hypoechoic mass in the head/uncinate process of the pancreas with significant common bile duct dilatation. Common bile duct was dilated to about 1.7 centimeter without any obvious stone in it. Gallbladder as I mentioned was distended as well as small stone and sludge in it. At this time, we removed the EUS radial and introduced a linear scope for FNA. We were able to pass one pass, but unfortunately it was very difficult because the area where the tumor was, there was gallbladder distention covering it, not giving a safe passage of the needle to get to the tumor. We had to go to the two baird of the gallbladder before we can penetrate through the tumor, so we attempted one time, we got maybe some bloody tissue, so we decided not to do attempt anymore. We used a 25-gauge needle at the other trial. At this time, the scope was removed and the procedure was terminated. SUMMARY OF FINDINGS: 1. 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 2. Dilated gallbladder with some stones and sludge in it. 3. Dilated common bile duct to about 17 millimeter. 4. A 2.3 centimeter pancreatic mass in the body/uncinate process causing the common bile duct dilatation. 5. Unable to get a good angle for FNA given the gallbladder was distended and blocking the view. RECOMMENDATIONS: We sent the CA-19-9. We will follow. We will order abdominal MRI with contrast today to get a better evaluation of the pancreatic head lesion. The plan would be either to refer the patient to a tertiary center like [facility] for another attempt by another GI doctor who does EUS FNA to get a tissue diagnosis and possibly refer to Surgery for pancreatic surgery if needed. Taz Baez M.D. DR: JONATHAN JOB#: [id number] CC:
--- NOTE | 2019-01-30 19:29 | NUR ---
HAND-OFF: Report given to Mariusz BOWIE RN.
--- NOTE | 2019-01-30 19:30 | NUR ---
NURSE NOTES: Received a report from NIKOLAI Howell. Done rounds. IV hydration running on left antecubital 20gauze without infiltration. Will continue to monitor.
--- NOTE | 2019-01-30 21:00 | NUR ---
NURSE NOTES: Pt is awake and alert. Nausea sense persist but tolerable state. No vomiting noted. Explain for further anti-emesis medication as needed. Right upper abdomen pain 9/10, administered prn Morphine 2mg 1ml IVP, states that pain relieved. ERCP planned tomorrow and educate for MNNPO for test. Leave call light within reach. Bed is locked and lowest. Will continue to monitor.
[2019-01-31] MEDS: Morphine Sulfate 2mg/ml Inj(IV/IM USE ONLY) IVP PRN ×2 (00:49→05:30)
[2019-01-31 00:59] VITALS: BP 174/87
[2019-01-31 04:30] VITALS: BP 127/77
[2019-01-31] MEDS: D5 1/2NS w/KCl 20mEq 1,000 ML IV SCH ×2 (05:31→18:35)
[2019-01-31 06:31] LABS: ALANINE AMINOTRANSFERASE 235 U/L (12-78); ALBUMIN 3.8 G/DL (3.4-5.0); ALBUMIN/GLOBULIN RATIO 0.9 (1.0-2.7); ALKALINE PHOSPHATASE 431 U/L (46-116); ANION GAP 11 mmol/L (5-15); ASPARTATE AMINO TRANSFERASE 96 U/L (15-37); BILIRUBIN,TOTAL 0.7 MG/DL (0.2-1.0); BLOOD UREA NITROGEN 7 mg/dL (7-18); CALCIUM 9.5 MG/DL (8.5-10.1); CARBON DIOXIDE 28 MMOL/L (21-32); CHLORIDE 100 MMOL/L (98-107); CREATININE 0.6 MG/DL (0.55-1.30); POTASSIUM 3.4 MMOL/L (3.5-5.1); SODIUM 139 MMOL/L (136-145)
[2019-01-31 06:53] LABS: BASOPHILS % (AUTO) 1.6 % (0.0-2.0); EOSINOPHILS % (AUTO) 2.7 % (0.0-3.0); HEMATOCRIT 43.1 % (37.0-47.0); HEMOGLOBIN 14.4 G/DL (12.0-16.0); LYMPHOCYTES % (AUTO) 46.6 % (20.0-45.0); MEAN CORPUSCULAR VOLUME 87 FL (80-99); MONOCYTES % (AUTO) 7.2 % (1.0-10.0); NEUTROPHILS % (AUTO) 41.8 % (45.0-75.0); PLATELET COUNT 302 K/UL (150-450); RED BLOOD COUNT 4.96 M/UL (4.20-5.40); RED CELL DISTRIBUTION WIDTH 11.7 % (11.6-14.8); WHITE BLOOD COUNT 6.9 K/UL (4.8-10.8)
--- NOTE | 2019-01-31 07:13 | NUR ---
HAND-OFF: Report given to NIKOLAI Howell. Pt is asleep.
--- NOTE | 2019-01-31 07:13 | NUR ---
NURSE NOTES: Left msg for Dr. Cazares re: K level 3.4; Awaiting call back. Endorsed to AM shift.
--- NOTE | 2019-01-31 07:28 | NUR ---
NURSE NOTES: AWAKE/ALERT.PAIN SCALE 1/10. NPO MAINTAINED FOR ERCP. IN NO DISTRESS.
[2019-01-31 08:00] VITALS: BP 94/58
--- NOTE | 2019-01-31 08:45 | General Progress Note ---
Assessment/Plan Problem List: (1) uti (2) Abdominal pain ICD Codes: R10.9 - Unspecified abdominal pain SNOMED: 76527828 Qualifiers: Qualified Codes: R10.11 - Right upper quadrant pain (3) Pancreatic mass ICD Codes: K86.9 - Disease of pancreas, unspecified SNOMED: 512096841 (4) Cataract ICD Codes: H26.9 - Unspecified cataract SNOMED: 914654366 (5) History of hypertension ICD Codes: Z86.79 - Personal history of other diseases of the circulatory system SNOMED: 221696513 Status: stable, progressing Assessment/Plan: abx pain control gi f/u cbc bmp am Subjective Constitutional: Reports: weakness Allergies: Coded Allergies: NSAIDS (NON-STEROIDAL ANTI-INFLAMMA (Verified Allergy, Severe, Anaphylaxis , 01/30/19) All Systems: reviewed and negative except above Subjective sleepy calm in bed Objective Last 24 Hour Vital Signs Date Time Temp Pulse Resp B/P (MAP) Pulse Ox O2 Delivery O2 Flow Rate FiO2 01/31/19 08:02 Room Air 01/31/19 04:30 98.3 102 18 127/77 (94) 97 01/31/19 01:39 174/87 01/31/19 00:59 98.6 105 18 174/87 (116) 97 01/30/19 21:00 Room Air 01/30/19 20:00 99.2 106 18 153/82 (105) 98 01/30/19 16:44 98.4 01/30/19 16:00 98.4 102 20 149/79 (102) 96 01/30/19 14:30 97.2 01/30/19 14:25 97.2 2 16 142/68 99 Nasal Cannula 3 01/30/19 14:10 91 16 133/70 100 Nasal Cannula 3 01/30/19 14:00 89 19 143/64 100 Nasal Cannula 3 01/30/19 13:50 96 18 151/73 99 Nasal Cannula 3 01/30/19 13:45 95 22 154/72 98 Nasal Cannula 3 01/30/19 13:40 94 23 146/72 98 Nasal Cannula 3 01/30/19 13:35 97 21 153/68 100 Nasal Cannula 3 01/30/19 13:34 93 16 99 01/30/19 13:31 97.1 93 16 140/68 99 Nasal Cannula 3 01/30/19 09:19 143/74 01/30/19 09:19 87 143/74 01/30/19 08:46 Room Air Intake and Output 01/30/19 01/31/19 19:00 07:00 Intake Total 950 ml 975 ml Output Total 0 ml Balance 950 ml 975 ml Intake Oral 0 ml IV Total 950 ml 975 ml Estimated Blood Loss 0 ml # Voids 3 Laboratory Tests 01/31/19 05:05: White Blood Count 6.9, Red Blood Count 4.96, Hemoglobin 14.4, Hematocrit 43.1, Mean Corpuscular Volume 87, Mean Corpuscular Hemoglobin 29.1, Mean Corpuscular Hemoglobin Concent 33.4, Red Cell Distribution Width 11.7, Platelet Count 302, Mean Platelet Volume 6.8, Neutrophils (%) (Auto) 41.8L, Lymphocytes (%) (Auto) 46.6H, Monocytes (%) (Auto) 7.2, Eosinophils (%) (Auto) 2.7, Basophils (%) (Auto ) 1.6, Sodium Level 139, Potassium Level 3.4L, Chloride Level 100, Carbon Dioxide Level 28, Anion Gap 11, Blood Urea Nitrogen 7, Creatinine 0.6, Estimat Glomerular Filtration Rate > 60, Glucose Level 125H, Calcium Level 9.5, Total Bilirubin 0.7, Aspartate Amino Transf (AST/SGOT) 96H, Alanine Aminotransferase ( ALT/SGPT) 235H, Alkaline Phosphatase 431H, Total Protein 7.8, Albumin 3.8, Globulin 4.0, Albumin/Globulin Ratio 0.9L, CA 19-9 Antigen [Pending] Height (Feet): 5 Height (Inches): 5.00 Weight (Pounds): 165 General Appearance: lethargic EENT: normal ENT inspection Neck: normal alignment Cardiovascular: normal peripheral pulses, normal rate, regular rhythm Respiratory/Chest: chest wall non-tender, lungs clear, normal breath sounds Abdomen: normal bowel sounds, non tender, soft Extremities: normal inspection Edema: no edema noted Arm (L), no edema noted Arm (R), no edema noted Leg (L), no edema noted Leg (R), no edema noted Pedal (L), no edema noted Pedal (R), no edema noted Generalized Neurologic: motor weakness Skin: normal pigmentation, warm/dry Huitron,Lg Chi-Adriana Jan 31, 2019 08:45
[2019-01-31] MEDS: Lisinopril 20mg tab ORAL SCH (08:47)
[2019-01-31] MEDS: Heparin 5000 units/ml inj SUBQ SCH ×2 (10:18→20:21)
--- NOTE | 2019-01-31 10:46 | GI Progress Note ---
Assessment/Plan Problems: (1) Abdominal pain ICD Codes: R10.9 - Unspecified abdominal pain SNOMED: 97984515 Qualifiers: Qualified Codes: R10.11 - Right upper quadrant pain (2) Pancreatic mass ICD Codes: K86.9 - Disease of pancreas, unspecified SNOMED: [id number] Status: unchanged Status Narrative Discussed with Dr. Baez Assessment/Plan s/p EUS w/ FNA SUMMARY OF FINDINGS: 1. 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 2. Dilated gallbladder with some stones and sludge in it. 3. Dilated common bile duct to about 17 millimeter. 4. A 2.3 centimeter pancreatic mass in the body/uncinate process causing the common bile duct dilatation. 5. Unable to perform FNA given the gallbladder was distended and blocking the view. CA19-9 elevation MRCP reviewed - 2 x 1.5 cm partially cystic lesion suspicious for small neoplasm in the uncinate process of the pancreas. - Associated biliary ductal obstruction with focal sharp transition within the distal CBD which is dilated proximally up to 1.8 cm. RECOMMENDATIONS: Recommend oncology consultation Recommend transfer patient to tertiary center like [facility] for second attempt of EUS and FNA for proper diagnosis Possible recommendation for pancreatic surgery Pain management Zofran as needed The patient was seen and examined at bedside and all new and available data was reviewed in the patients chart. I agree with the above findings, impression and plan. (Patient seen earlier today. Signature stamp does not reflect patient encounter time.). - Taz Baez MD Subjective Gastrointestinal/Abdominal: Reports: abdominal pain Objective Last 24 Hour Vital Signs Date Time Temp Pulse Resp B/P (MAP) Pulse Ox O2 Delivery O2 Flow Rate FiO2 01/31/19 08:47 92/57 01/31/19 08:46 73 92/51 01/31/19 08:02 Room Air 01/31/19 08:00 98.2 89 18 94/58 (70) 93 01/31/19 04:30 98.3 102 18 127/77 (94) 97 01/31/19 01:39 174/87 01/31/19 00:59 98.6 105 18 174/87 (116) 97 01/30/19 21:00 Room Air 01/30/19 20:00 99.2 106 18 153/82 (105) 98 01/30/19 16:44 98.4 7/2/19 16:00 98.4 102 20 149/79 (102) 96 01/30/19 14:30 97.2 01/30/19 14:25 97.2 2 16 142/68 99 Nasal Cannula 3 01/30/19 14:10 91 16 133/70 100 Nasal Cannula 3 01/30/19 14:00 89 19 143/64 100 Nasal Cannula 3 01/30/19 13:50 96 18 151/73 99 Nasal Cannula 3 01/30/19 13:45 95 22 154/72 98 Nasal Cannula 3 01/30/19 13:40 94 23 146/72 98 Nasal Cannula 3 01/30/19 13:35 97 21 153/68 100 Nasal Cannula 3 01/30/19 13:34 93 16 99 01/30/19 13:31 97.1 93 16 140/68 99 Nasal Cannula 3 Intake and Output 01/30/19 01/31/19 19:00 07:00 Intake Total 950 ml 975 ml Output Total 0 ml Balance 950 ml 975 ml Intake Oral 0 ml IV Total 950 ml 975 ml Estimated Blood Loss 0 ml # Voids 3 Laboratory Tests Test 01/31/19 05:05 White Blood Count 6.9 K/UL (4.8-10.8) Red Blood Count 4.96 M/UL (4.20-5.40) Hemoglobin 14.4 G/DL (12.0-16.0) Hematocrit 43.1 % (37.0-47.0) Mean Corpuscular Volume 87 FL (80-99) Mean Corpuscular Hemoglobin 29.1 PG (27.0-31.0) Mean Corpuscular Hemoglobin Concent 33.4 G/DL (32.0-36.0) Red Cell Distribution Width 11.7 % (11.6-14.8) Platelet Count 302 K/UL (150-450) Mean Platelet Volume 6.8 FL (6.5-10.1) Neutrophils (%) (Auto) 41.8 % (45.0-75.0) L Lymphocytes (%) (Auto) 46.6 % (20.0-45.0) H Monocytes (%) (Auto) 7.2 % (1.0-10.0) Eosinophils (%) (Auto) 2.7 % (0.0-3.0) Basophils (%) (Auto) 1.6 % (0.0-2.0) Sodium Level 139 MMOL/L (136-145) Potassium Level 3.4 MMOL/L (3.5-5.1) L Chloride Level 100 MMOL/L (98-107) Carbon Dioxide Level 28 MMOL/L (21-32) Anion Gap 11 mmol/L (5-15) Blood Urea Nitrogen 7 mg/dL (7-18) Creatinine 0.6 MG/DL (0.55-1.30) Estimat Glomerular Filtration Rate > 60 mL/min (>60) Glucose Level 125 MG/DL (74-106) H Calcium Level 9.5 MG/DL (8.5-10.1) Total Bilirubin 0.7 MG/DL (0.2-1.0) Aspartate Amino Transf (AST/SGOT) 96 U/L (15-37) H Alanine Aminotransferase (ALT/SGPT) 235 U/L (12-78) H Alkaline Phosphatase 431 U/L (46-116) H Total Protein 7.8 G/DL (6.4-8.2) Albumin 3.8 G/DL (3.4-5.0) Globulin 4.0 g/dL Albumin/Globulin Ratio 0.9 (1.0-2.7) L CA 19-9 Antigen Pending Height (Feet): 5 Height (Inches): 5.00 Weight (Pounds): 165 General Appearance: WD/WN, no apparent distress, alert Cardiovascular: normal rate Respiratory/Chest: normal breath sounds, no respiratory distress Abdominal Exam: normal bowel sounds, non tender, soft Extremities: normal range of motion, non-tender Bill Low NP Jan 31, 2019 10:46
--- NOTE | 2019-01-31 11:42 | Diagnostic Imaging Report ---
Indication: Shortness of breath and chest pain. Present with abdominal pain nausea and vomiting. Suspicion of pancreatic mass. Technique: Continuous helical transaxial imaging of the chest was obtained from the thoracic inlet to the upper abdomen after intravenous nonionic contrast administration. Coronal 2-D reformats were also obtained. Automatic Exposure Control was utilized. Total Dose length Product (DLP): 618.[address] Dose Index Volume (CTDIvol): 16.95 mGy Comparison: none Findings: There are 2 small nodules within the right lower lobe both noncalcified. One of these is 4 mm and seen in the peripheral right lung base (image 30/7). The other nodule 3-4 mm in size (image 33/7). These are nonspecific. Metastatic disease not excluded. The lesions are likely too small to percutaneously biopsy. The lungs are clear otherwise. There is no adenopathy appreciated. The heart is unremarkable. There is no pleural or pericardial effusion. The visualized upper abdomen again demonstrates marked biliary ductal dilatation in the liver. IMPRESSION: 4 mm and 3 mm noncalcified nodules demonstrated in the right lower lobe. Metastatic neoplasm is not excluded especially in light of the MRI pancreas findings. If the pancreatic mass workup is negative, suggest obtaining follow-up of these nodules in 3-6 months, per Fleischner society criteria. If the pancreas mass proves to be malignancy, the nodules would likely require biopsy for staging purposes. Percutaneous sampling of the nodules would be difficult given the small size. Surgical resection in that instance would be preferred. The CT scanner at [facility] is accredited by the [employer] and the scans are performed using dose optimization techniques as appropriate to a performed exam including Automatic Exposure control.
[2019-01-31 12:00] VITALS: BP 102/74
--- NOTE | 2019-01-31 12:49 | Pulmonology Progress Note ---
Assessment/Plan Problems: (1) Pulmonary nodule (2) Abdominal pain (3) Pancreatic mass (4) History of hypertension Assessment/Plan CT chest reviewed, the pulmonary nodule is too small to be biopsied. There are no signs of emphysema or COPD on CT scan. the nodule is less likely to malignant. I suggest outpatient PET study. IV fluids check electrolytes GI evaluation and procedures appreciated. tumor markers slightly elevated DVT prophylaxis. Subjective ROS Limited/Unobtainable: No Constitutional: Reports: no symptoms HEENT: Repors: no symptoms Allergies: Coded Allergies: NSAIDS (NON-STEROIDAL ANTI-INFLAMMA (Verified Allergy, Severe, Anaphylaxis , 01/30/19) Objective Last 24 Hour Vital Signs Date Time Temp Pulse Resp B/P (MAP) Pulse Ox O2 Delivery O2 Flow Rate FiO2 01/31/19 12:00 98.2 75 19 102/74 (83) 95 01/31/19 08:47 92/57 01/31/19 08:46 73 92/51 01/31/19 08:02 Room Air 01/31/19 08:00 98.2 89 18 94/58 (70) 93 01/31/19 04:30 98.3 102 18 127/77 (94) 97 01/31/19 01:39 174/87 01/31/19 00:59 98.6 105 18 174/87 (116) 97 01/30/19 21:00 Room Air 01/30/19 20:00 99.2 106 18 153/82 (105) 98 01/30/19 16:44 98.4 01/30/19 16:00 98.4 102 20 149/79 (102) 96 01/30/19 14:30 97.2 01/30/19 14:25 97.2 2 16 142/68 99 Nasal Cannula 3 01/30/19 14:10 91 16 133/70 100 Nasal Cannula 3 01/30/19 14:00 89 19 143/64 100 Nasal Cannula 3 01/30/19 13:50 96 18 151/73 99 Nasal Cannula 3 01/30/19 13:45 95 22 154/72 98 Nasal Cannula 3 01/30/19 13:40 94 23 146/72 98 Nasal Cannula 3 01/30/19 13:35 97 21 153/68 100 Nasal Cannula 3 01/30/19 13:34 93 16 99 01/30/19 13:31 97.1 93 16 140/68 99 Nasal Cannula 3 Intake and Output 01/30/19 01/31/19 19:00 07:00 Intake Total 950 ml 975 ml Output Total 0 ml Balance 950 ml 975 ml Intake Oral 0 ml IV Total 950 ml 975 ml Estimated Blood Loss 0 ml # Voids 3 General Appearance: WD/WN HEENT: anicteric Respiratory/Chest: lungs clear, no respiratory distress Cardiovascular: normal peripheral pulses, no JVD Abdomen: normal bowel sounds, no organomegaly Microbiology Date/Time Source Procedure Growth Status 01/29/19 09:28 Urine,Clean Catch Urine Culture - Preliminary Mixed Gram Positive Organism Resulted Laboratory Tests 01/31/19 05:05: White Blood Count 6.9, Red Blood Count 4.96, Hemoglobin 14.4, Hematocrit 43.1, Mean Corpuscular Volume 87, Mean Corpuscular Hemoglobin 29.1, Mean Corpuscular Hemoglobin Concent 33.4, Red Cell Distribution Width 11.7, Platelet Count 302, Mean Platelet Volume 6.8, Neutrophils (%) (Auto) 41.8L, Lymphocytes (%) (Auto) 46.6H, Monocytes (%) (Auto) 7.2, Eosinophils (%) (Auto) 2.7, Basophils (%) (Auto ) 1.6, Sodium Level 139, Potassium Level 3.4L, Chloride Level 100, Carbon Dioxide Level 28, Anion Gap 11, Blood Urea Nitrogen 7, Creatinine 0.6, Estimat Glomerular Filtration Rate > 60, Glucose Level 125H, Calcium Level 9.5, Total Bilirubin 0.7, Aspartate Amino Transf (AST/SGOT) 96H, Alanine Aminotransferase ( ALT/SGPT) 235H, Alkaline Phosphatase 431H, Total Protein 7.8, Albumin 3.8, Globulin 4.0, Albumin/Globulin Ratio 0.9L, CA 19-9 Antigen [Pending] Current Medications Medications (Trade) Dose Ordered Sig/Angelito Route PRN Reason Start Time Stop Time Status Last Admin Dose Admin Acetaminophen (Tylenol) 650 mg Q4H PRN ORAL fever 01/29/19 13:30 02/28/19 13:29 Amlodipine Besylate (Norvasc) 10 mg DAILY ORAL 01/30/19 09:00 03/01/19 08:59 01/30/19 09:19 Clonidine HCl (Catapres Tab) 0.1 mg Q6H PRN ORAL SBP >160 01/29/19 17:00 02/28/19 16:59 01/31/19 01:39 Dextrose (Dextrose 50%) 25 ml Q30M PRN IV Hypoglycemia 01/29/19 13:30 02/28/19 13:29 Dextrose (Dextrose 50%) 50 ml Q30M PRN IV Hypoglycemia 01/29/19 13:30 02/28/19 13:29 Dextrose/ Electrolytes 1,000 ml @ 75 mls/hr [id number] IV 01/29/19 13:15 02/28/19 13:14 01/31/19 05:31 Diphenhydramine HCl (Benadryl) 25 mg Q6H PRN ORAL Itching/Pruritis 01/29/19 13:30 02/28/19 13:29 Famotidine (Pepcid I.v.) 20 mg Q12HR IVP 01/29/19 21:00 02/28/19 20:59 01/31/19 08:44 Gadobutrol (Gadavist) 7.5 mmol NOW PRN IV Radiology Procedure 01/30/19 14:15 02/03/19 14:11 Heparin Sodium (Porcine) (Heparin 5000 units/ml) 5,000 units EVERY 12 HOURS SUBQ 01/29/19 21:00 02/28/19 20:59 01/31/19 10:18 Iopamidol (Isovue-300 100ml) 100 ml NOW PRN INJ Radiology Procedure 01/30/19 16:15 02/01/19 16:01 Lisinopril (Prinivil) 20 mg DAILY ORAL 01/30/19 09:15 03/01/19 09:14 01/30/19 09:19 Lorazepam (Ativan 2mg/ml 1ml) 1 mg Q4H PRN IV agitation 01/29/19 13:30 02/05/19 13:29 Metoclopramide HCl (Reglan) 10 mg Q6H PRN IVP servere nauasea 01/29/19 13:30 02/28/19 13:29 Morphine Sulfate (Morphine Sulfate) 2 mg Q4H PRN IVP severe Pain (Pain Scale 7-10) 01/29/19 13:30 02/05/19 13:29 01/31/19 05:30 Nitroglycerin (Ntg) 0.4 mg Q5M X 3 DOSES PRN SL Prn Chest Pain 01/29/19 13:30 02/28/19 13:29 Ondansetron HCl (Zofran) 4 mg Q6H PRN IVP Nausea & Vomiting 01/29/19 13:15 02/28/19 13:14 01/30/19 18:56 Polyethylene Glycol (Miralax) 17 gm HSPRN PRN ORAL Constipation 01/29/19 13:30 02/28/19 13:29 Potassium Chloride 100 ml @ 100 mls/hr Q1H IVPB 01/31/19 09:00 01/31/19 12:59 01/31/19 12:25 Promethazine HCl (Phenergan) 25 mg Q6H PRN IM REFRACTORY N/V 01/29/19 13:45 02/28/19 13:44 Temazepam (Restoril) 15 mg HSPRN PRN ORAL Insomnia 01/29/19 13:30 02/05/19 13:29 Nicolle Cazares MD Jan 31, 2019 12:49
--- NOTE | 2019-01-31 13:10 | Surgery Progress Note ---
Surgery Progress Note Subjective Additional Comments EUS unsuccessful. MRI noted. CT chest noted. patient stable and comfortable. labs improved Objective Last 24 Hour Vital Signs Date Time Temp Pulse Resp B/P (MAP) Pulse Ox O2 Delivery O2 Flow Rate FiO2 01/31/19 12:00 98.2 75 19 102/74 (83) 95 01/31/19 08:47 92/57 01/31/19 08:46 73 92/51 01/31/19 08:02 Room Air 01/31/19 08:00 98.2 89 18 94/58 (70) 93 01/31/19 04:30 98.3 102 18 127/77 (94) 97 01/31/19 01:39 174/87 01/31/19 00:59 98.6 105 18 174/87 (116) 97 01/30/19 21:00 Room Air 01/30/19 20:00 99.2 106 18 153/82 (105) 98 01/30/19 16:44 98.4 01/30/19 16:00 98.4 102 20 149/79 (102) 96 01/30/19 14:30 97.2 01/30/19 14:25 97.2 2 16 142/68 99 Nasal Cannula 3 01/30/19 14:10 91 16 133/70 100 Nasal Cannula 3 01/30/19 14:00 89 19 143/64 100 Nasal Cannula 3 01/30/19 13:50 96 18 151/73 99 Nasal Cannula 3 01/30/19 13:45 95 22 154/72 98 Nasal Cannula 3 01/30/19 13:40 94 23 146/72 98 Nasal Cannula 3 01/30/19 13:35 97 21 153/68 100 Nasal Cannula 3 01/30/19 13:34 93 16 99 01/30/19 13:31 97.1 93 16 140/68 99 Nasal Cannula 3 I&O Intake and Output 01/30/19 01/31/19 19:00 07:00 Intake Total 950 ml 975 ml Output Total 0 ml Balance 950 ml 975 ml Intake Oral 0 ml IV Total 950 ml 975 ml Estimated Blood Loss 0 ml # Voids 3 Cardiovascular: RSR Respiratory: clear Abdomen: soft, present bowel sounds, non-distended Extremities: no edema, no tenderness, no cyanosis Laboratory Tests Test 01/31/19 05:05 White Blood Count 6.9 K/UL (4.8-10.8) Red Blood Count 4.96 M/UL (4.20-5.40) Hemoglobin 14.4 G/DL (12.0-16.0) Hematocrit 43.1 % (37.0-47.0) Mean Corpuscular Volume 87 FL (80-99) Mean Corpuscular Hemoglobin 29.1 PG (27.0-31.0) Mean Corpuscular Hemoglobin Concent 33.4 G/DL (32.0-36.0) Red Cell Distribution Width 11.7 % (11.6-14.8) Platelet Count 302 K/UL (150-450) Mean Platelet Volume 6.8 FL (6.5-10.1) Neutrophils (%) (Auto) 41.8 % (45.0-75.0) L Lymphocytes (%) (Auto) 46.6 % (20.0-45.0) H Monocytes (%) (Auto) 7.2 % (1.0-10.0) Eosinophils (%) (Auto) 2.7 % (0.0-3.0) Basophils (%) (Auto) 1.6 % (0.0-2.0) Sodium Level 139 MMOL/L (136-145) Potassium Level 3.4 MMOL/L (3.5-5.1) L Chloride Level 100 MMOL/L (98-107) Carbon Dioxide Level 28 MMOL/L (21-32) Anion Gap 11 mmol/L (5-15) Blood Urea Nitrogen 7 mg/dL (7-18) Creatinine 0.6 MG/DL (0.55-1.30) Estimat Glomerular Filtration Rate > 60 mL/min (>60) Glucose Level 125 MG/DL (74-106) H Calcium Level 9.5 MG/DL (8.5-10.1) Total Bilirubin 0.7 MG/DL (0.2-1.0) Aspartate Amino Transf (AST/SGOT) 96 U/L (15-37) H Alanine Aminotransferase (ALT/SGPT) 235 U/L (12-78) H Alkaline Phosphatase 431 U/L (46-116) H Total Protein 7.8 G/DL (6.4-8.2) Albumin 3.8 G/DL (3.4-5.0) Globulin 4.0 g/dL Albumin/Globulin Ratio 0.9 (1.0-2.7) L CA 19-9 Antigen Pending Plan Problems: (1) Abdominal pain Assessment & Plan: US with gallbladder sludge and possible tiny calculi noted. Positive sonographic Pineda's sign. Significance uncertain the absence of gallbladder wall thickening , but the possibility of acute cholecystitis should be considered likely from pancreatic mass causing biliary obstruction. abdominal exam okay with some upper abdominal discomfort on palpation needs further work up no acute surgical intervention planned okay for diet labs ordered will follow with recs (2) Pancreatic mass Assessment & Plan: There is marked extrahepatic and central intrahepatic biliary ductal dilatation, common bile duct measuring up to 19 mm in diameter. It abruptly tapers within the pancreatic head, proximal to its junction with the pancreatic duct. The pancreatic duct is borderline prominent. A mildly dilated duct is seen within the pancreatic head/uncinate distal to the point of tapering of the upstream common bile duct. Uncertain as to whether this represents the downstream common bile duct or dilated accessory pancreatic duct. In the upper uncinate process of the pancreas , there is a low-attenuation parenchymal lesion which measures 8 mm AP by 10 mm transverse by 20 mm craniocaudad. This appears to be medial to rather than surrounding the distal common bile duct. There is no peripancreatic lymphadenopathy. The gallbladder is distended but no gallstones are evident. 2 x 1.5 cm partially cystic lesion suspicious for small neoplasm in the uncinate process of the pancreas. Recommend endoscopic ultrasound for further evaluation. Associated biliary ductal obstruction with focal sharp transition within the distal CBD which is dilated proximally up to 1.8 cm. Mild amount of free fluid in the upper abdomen in the region of the second portion of the duodenum. Left renal cysts. CT chest with possible mets lesion Unable to perform EUS because of GB as per GI CA 19-9 elevated very concerning for pancreatic CA if unable to do EUS here with biopsy needs to go to [facility] or higher level for procedure. Further work up as per oncology for Mets. if mets not surgical candidate thank you Shaquille Carrillo Jan 31, 2019 13:10
--- NOTE | 2019-01-31 14:51 | Infectious Diseases Prog Note ---
Assessment/Plan Assessment/Plan Abx: None Assessment: Afebrile Leukocytosis, SP -u/a wbc 30-30, nit neg, leuk +2, sq cells many; ucx 10-20 mixed gram positive Abd pain- likely pancreatic head CA -elevated CA 19-9 -/2 SP EUS: Pylorus stricture, status post serial balloon dilation from 10 to12. Dilated gallbladder with some stones and sludge in it. Dilated common bile duct to about 17 millimeter. A 2.3 centimeter pancreatic mass in the body/ uncinate process causing the common bile duct dilatation. Unable to perform FNA given the gallbladder was distended and blocking the view. -Abd uS: Gallbladder sludge and possible tiny calculi noted. Positive sonographic Pineda's sign. Significance uncertain the absence of gallbladder wall thickening, but the possibility of acute cholecystitis should be considered. Biliary ductal dilatation, as described. Note that this also was reported on CT scan of earlier the same day. Right upper pole renal cortical cyst and multiple left renal parapelvic cysts -CT abd/p: 20 x 10 x 8 mm low-attenuation lesion within the upper uncinate process of the pancreas. This is concerning for pancreatic neoplasm. This finding can also be seen in chronic pancreatitis, although there are no other abnormalities to suggest this diagnosis. Endoscopic ultrasound may be useful for better characterization. Marked extrahepatic and central intrahepatic biliary ductal dilatation, with abrupt tapering at the level the pancreatic head. Possibly related to the above. However, the above lesion appears to be centered somewhat medial and cephalad to the point of obstruction, so the possibility of a separate intraluminal lesion should also be considered. Distended gallbladder without evidence of cholelithiasis. Right lower lobe 4 mm 5 mm lung nodules. Suspect postinflammatory, but the possibility of neoplasm should also be considered, particularly given the above findings. Left renal parapelvic cysts. Subcentimeter low-attenuation renal lesions, too small to characterize, most likely benign simple cysts. No further follow-up necessary. Right hepatic lobe cyst HTN Plan: -Continue to monitor off abx -f/u cx -Monitor CBC/CMP, temperatures -GI, Sx f/u -Heme onc eval Thank you for this consultation. Will continue to follow along with you. Discussed with RN. Subjective Allergies: Coded Allergies: NSAIDS (NON-STEROIDAL ANTI-INFLAMMA (Verified Allergy, Severe, Anaphylaxis , 01/30/19) Subjective s/p EUS yesterday afebrile Objective Vital Signs Last 24 Hour Vital Signs Date Time Temp Pulse Resp B/P (MAP) Pulse Ox O2 Delivery O2 Flow Rate FiO2 01/31/19 12:00 98.2 75 19 102/74 (83) 95 01/31/19 08:47 92/57 01/31/19 08:46 73 92/51 01/31/19 08:02 Room Air 01/31/19 08:00 98.2 89 18 94/58 (70) 93 01/31/19 04:30 98.3 102 18 127/77 (94) 97 01/31/19 01:39 174/87 01/31/19 00:59 98.6 105 18 174/87 (116) 97 01/30/19 21:00 Room Air 01/30/19 20:00 99.2 106 18 153/82 (105) 98 01/30/19 16:44 98.4 01/30/19 16:00 98.4 102 20 149/79 (102) 96 Height (Feet): 5 Height (Inches): 5.00 Weight (Pounds): 165 Objective Cardiovascular: RSR Respiratory: clear Abdomen: soft, present bowel sounds, non-distended Extremities: no edema, no tenderness, no cyanosis Microbiology Date/Time Source Procedure Growth Status 01/29/19 09:28 Urine,Clean Catch Urine Culture - Preliminary Mixed Gram Positive Organism Resulted Laboratory Tests Test 01/31/19 05:05 White Blood Count 6.9 K/UL (4.8-10.8) Red Blood Count 4.96 M/UL (4.20-5.40) Hemoglobin 14.4 G/DL (12.0-16.0) Hematocrit 43.1 % (37.0-47.0) Mean Corpuscular Volume 87 FL (80-99) Mean Corpuscular Hemoglobin 29.1 PG (27.0-31.0) Mean Corpuscular Hemoglobin Concent 33.4 G/DL (32.0-36.0) Red Cell Distribution Width 11.7 % (11.6-14.8) Platelet Count 302 K/UL (150-450) Mean Platelet Volume 6.8 FL (6.5-10.1) Neutrophils (%) (Auto) 41.8 % (45.0-75.0) L Lymphocytes (%) (Auto) 46.6 % (20.0-45.0) H Monocytes (%) (Auto) 7.2 % (1.0-10.0) Eosinophils (%) (Auto) 2.7 % (0.0-3.0) Basophils (%) (Auto) 1.6 % (0.0-2.0) Sodium Level 139 MMOL/L (136-145) Potassium Level 3.4 MMOL/L (3.5-5.1) L Chloride Level 100 MMOL/L (98-107) Carbon Dioxide Level 28 MMOL/L (21-32) Anion Gap 11 mmol/L (5-15) Blood Urea Nitrogen 7 mg/dL (7-18) Creatinine 0.6 MG/DL (0.55-1.30) Estimat Glomerular Filtration Rate > 60 mL/min (>60) Glucose Level 125 MG/DL (74-106) H Calcium Level 9.5 MG/DL (8.5-10.1) Total Bilirubin 0.7 MG/DL (0.2-1.0) Aspartate Amino Transf (AST/SGOT) 96 U/L (15-37) H Alanine Aminotransferase (ALT/SGPT) 235 U/L (12-78) H Alkaline Phosphatase 431 U/L (46-116) H Total Protein 7.8 G/DL (6.4-8.2) Albumin 3.8 G/DL (3.4-5.0) Globulin 4.0 g/dL Albumin/Globulin Ratio 0.9 (1.0-2.7) L CA 19-9 Antigen Pending Current Medications Medications (Trade) Dose Ordered Sig/Angelito Route PRN Reason Start Time Stop Time Status Last Admin Dose Admin Acetaminophen (Tylenol) 650 mg Q4H PRN ORAL fever 01/29/19 13:30 02/28/19 13:29 Amlodipine Besylate (Norvasc) 10 mg DAILY ORAL 01/30/19 09:00 03/01/19 08:59 01/30/19 09:19 Clonidine HCl (Catapres Tab) 0.1 mg Q6H PRN ORAL SBP >160 01/29/19 17:00 02/28/19 16:59 01/31/19 01:39 Dextrose (Dextrose 50%) 25 ml Q30M PRN IV Hypoglycemia 01/29/19 13:30 02/28/19 13:29 Dextrose (Dextrose 50%) 50 ml Q30M PRN IV Hypoglycemia 01/29/19 13:30 02/28/19 13:29 Dextrose/ Electrolytes 1,000 ml @ 75 mls/hr [id number] IV 01/29/19 13:15 02/28/19 13:14 01/31/19 05:31 Diphenhydramine HCl (Benadryl) 25 mg Q6H PRN ORAL Itching/Pruritis 01/29/19 13:30 02/28/19 13:29 Famotidine (Pepcid I.v.) 20 mg Q12HR IVP 01/29/19 21:00 02/28/19 20:59 01/31/19 08:44 Gadobutrol (Gadavist) 7.5 mmol NOW PRN IV Radiology Procedure 01/30/19 14:15 02/03/19 14:11 Heparin Sodium (Porcine) (Heparin 5000 units/ml) 5,000 units EVERY 12 HOURS SUBQ 01/29/19 21:00 02/28/19 20:59 01/31/19 10:18 Iopamidol (Isovue-300 100ml) 100 ml NOW PRN INJ Radiology Procedure 01/30/19 16:15 02/01/19 16:01 Lisinopril (Prinivil) 20 mg DAILY ORAL 01/30/19 09:15 03/01/19 09:14 01/30/19 09:19 Lorazepam (Ativan 2mg/ml 1ml) 1 mg Q4H PRN IV agitation 01/29/19 13:30 02/05/19 13:29 Metoclopramide HCl (Reglan) 10 mg Q6H PRN IVP servere nauasea 01/29/19 13:30 02/28/19 13:29 Morphine Sulfate (Morphine Sulfate) 2 mg Q4H PRN IVP severe Pain (Pain Scale 7-10) 01/29/19 13:30 02/05/19 13:29 01/31/19 05:30 Nitroglycerin (Ntg) 0.4 mg Q5M X 3 DOSES PRN SL Prn Chest Pain 01/29/19 13:30 02/28/19 13:29 Ondansetron HCl (Zofran) 4 mg Q6H PRN IVP Nausea & Vomiting 01/29/19 13:15 02/28/19 13:14 01/30/19 18:56 Polyethylene Glycol (Miralax) 17 gm HSPRN PRN ORAL Constipation 01/29/19 13:30 02/28/19 13:29 Promethazine HCl (Phenergan) 25 mg Q6H PRN IM REFRACTORY N/V 01/29/19 13:45 02/28/19 13:44 Temazepam (Restoril) 15 mg HSPRN PRN ORAL Insomnia 01/29/19 13:30 02/05/19 13:29 Paulina Quinteros M.D. Jan 31, 2019 14:51
--- NOTE | 2019-01-31 15:15 | NUR ---
NURSE NOTES: PT RECEIVED 3 BAGS OF KCL 10MEQ TOTAL IV.
[2019-01-31 16:00] VITALS: BP 105/65
--- NOTE | 2019-01-31 16:08 | Hematology/Onc Progress Note ---
Assessment/Plan Assessment/Plan Assessment and Recs # Pancreatic mass - there is marked extrahepatic and central intrahepatic biliary ductal dilatation, common bile duct measuring up to 19 mm in diameter. It abruptly taper wiithin the pancreatic head, proximal to its junction with the pancreatic duct. The pancreatic duct is borderline prominent. A mildly dilated duct is seen within the pancreatic head/uncinate distal to the point of tapering of the upstream common bile duct. Uncertain as to whether this represents the downstream common bile duct or dilated accessory pancreatic duct. In the upper uncinate process of the pancreas, there is a low-attenuation parenchymal lesion which measures 8 mm AP by 10 mm transverse by 20 mm craniocaudad. This appears to be medial to rather than surrounding the distal common bile duct. There is no peripancreatic lymphadenopathy. The gallbladder is distended but no gallstones are evident.MRI shows 2 x 1.5 cm partially cystic lesion suspicious for small neoplasm in the uncinate process of the pancreas. - Associated biliary ductal obstruction with focal sharp transition within the distal CBD which is dilated proximally up to 1.8 cm. --> tumor markers reviewed CA19.9 >40 --> EUS today has been completed gi --> Full CT Chest with iv contrast does show potential mets, repeat ct in 6 months v tissue diagnosis now --> Awaiting tissue diagnosis --> may need higher level of care # Right lower lobe 4 mm 5 mm lung nodules. Suspect postinflammatory, but the possibility of neoplasm should also be considered, particularly given the above findings --> CT chest reviewed, r/o mets --> outpatien pet scan recommended # Abdominal pain - likely from pancreatic mass causing biliary obstruction. Abdominal exam okay with some upper abdominal discomfort on palpation needs further work up no acute surgical intervention planned okay for diet --> as per gi could be related to abd mass --> ercp potentially for diagnosis per gi # Hypokalemia --> given K, repleted The timing of this note does not necessarily reflect the time of the patient was seen. GREATLY APPRECIATE CONSULTATION. Subjective Constitutional: Denies: no symptoms, chills, fever, malaise, weakness, other HEENT: Denies: no symptoms, eye pain, blurred vision, tearing, double vision, ear pain, ear discharge, nose pain, nose congestion, throat pain, throat swelling, mouth pain, mouth swelling, other Cardiovascular: Denies: no symptoms, chest pain, edema, irregular heart rate, lightheadedness, palpitations, syncope, other Gastrointestinal/Abdominal: Denies: no symptoms, abdomen distended, abdominal pain, black stools, tarry stools, blood in stool, constipated, diarrhea, difficulty swallowing, nausea, poor appetite, poor fluid intake, rectal bleeding , vomiting, other Genitourinary: Denies: no symptoms, burning, discharge, frequency, flank pain, hematuria, incontinence, pain, urgency, other Neurologic/Psychiatric: Denies: no symptoms, anxiety, depressed, emotional problems, headache, numbness, paresthesia, pre-existing deficit, seizure, tingling, tremors, weakness, other Endocrine: Denies: no symptoms, excessive sweating, flushing, intolerance to cold, intolerance to heat, increased hunger, increased thirst, increased urine, unexplained weight gain, unexplained weight loss, other Hematologic/Lymphatic: Denies: no symptoms, anemia, easy bleeding, easy bruising, adenopathy, other Allergies: Coded Allergies: NSAIDS (NON-STEROIDAL ANTI-INFLAMMA (Verified Allergy, Severe, Anaphylaxis , 01/30/19) Subjective 01/31: ct chest does show potential malignancy mets, eus reviewed Objective Objective Current Medications Medications (Trade) Dose Ordered Sig/Angelito Route PRN Reason Start Time Stop Time Status Last Admin Dose Admin Acetaminophen (Tylenol) 650 mg Q4H PRN ORAL fever 01/29/19 13:30 02/28/19 13:29 Amlodipine Besylate (Norvasc) 10 mg DAILY ORAL 01/30/19 09:00 03/01/19 08:59 01/30/19 09:19 Clonidine HCl (Catapres Tab) 0.1 mg Q6H PRN ORAL SBP >160 01/29/19 17:00 02/28/19 16:59 01/31/19 01:39 Dextrose (Dextrose 50%) 25 ml Q30M PRN IV Hypoglycemia 01/29/19 13:30 02/28/19 13:29 Dextrose (Dextrose 50%) 50 ml Q30M PRN IV Hypoglycemia 01/29/19 13:30 02/28/19 13:29 Dextrose/ Electrolytes 1,000 ml @ 75 mls/hr [id number] IV 01/29/19 13:15 02/28/19 13:14 01/31/19 05:31 Diphenhydramine HCl (Benadryl) 25 mg Q6H PRN ORAL Itching/Pruritis 01/29/19 13:30 02/28/19 13:29 Famotidine (Pepcid I.v.) 20 mg Q12HR IVP 01/29/19 21:00 02/28/19 20:59 01/31/19 08:44 Gadobutrol (Gadavist) 7.5 mmol NOW PRN IV Radiology Procedure 01/30/19 14:15 02/03/19 14:11 Heparin Sodium (Porcine) (Heparin 5000 units/ml) 5,000 units EVERY 12 HOURS SUBQ 01/29/19 21:00 02/28/19 20:59 01/31/19 10:18 Iopamidol (Isovue-300 100ml) 100 ml NOW PRN INJ Radiology Procedure 01/30/19 16:15 02/01/19 16:01 Lisinopril (Prinivil) 20 mg DAILY ORAL 01/30/19 09:15 03/01/19 09:14 01/30/19 09:19 Lorazepam (Ativan 2mg/ml 1ml) 1 mg Q4H PRN IV agitation 01/29/19 13:30 02/05/19 13:29 Metoclopramide HCl (Reglan) 10 mg Q6H PRN IVP servere nauasea 01/29/19 13:30 02/28/19 13:29 Morphine Sulfate (Morphine Sulfate) 2 mg Q4H PRN IVP severe Pain (Pain Scale 7-10) 01/29/19 13:30 02/05/19 13:29 01/31/19 05:30 Nitroglycerin (Ntg) 0.4 mg Q5M X 3 DOSES PRN SL Prn Chest Pain 01/29/19 13:30 02/28/19 13:29 Ondansetron HCl (Zofran) 4 mg Q6H PRN IVP Nausea & Vomiting 01/29/19 13:15 02/28/19 13:14 01/30/19 18:56 Polyethylene Glycol (Miralax) 17 gm HSPRN PRN ORAL Constipation 01/29/19 13:30 02/28/19 13:29 Potassium Chloride 100 ml @ 100 mls/hr Q1H IVPB 01/31/19 15:30 01/31/19 17:29 Promethazine HCl (Phenergan) 25 mg Q6H PRN IM REFRACTORY N/V 01/29/19 13:45 02/28/19 13:44 Temazepam (Restoril) 15 mg HSPRN PRN ORAL Insomnia 01/29/19 13:30 02/05/19 13:29 Last 24 Hour Vital Signs Date Time Temp Pulse Resp B/P (MAP) Pulse Ox O2 Delivery O2 Flow Rate FiO2 01/31/19 12:00 98.2 75 19 102/74 (83) 95 01/31/19 08:47 92/57 01/31/19 08:46 73 92/51 01/31/19 08:02 Room Air 01/31/19 08:00 98.2 89 18 94/58 (70) 93 01/31/19 04:30 98.3 102 18 127/77 (94) 97 01/31/19 01:39 174/87 01/31/19 00:59 98.6 105 18 174/87 (116) 97 01/30/19 21:00 Room Air 01/30/19 20:00 99.2 106 18 153/82 (105) 98 01/30/19 16:44 98.4 01/30/19 16:00 98.4 102 20 149/79 (102) 96 01/30/19 14:30 97.2 01/30/19 14:25 97.2 2 16 142/68 99 Nasal Cannula 3 01/30/19 14:10 91 16 133/70 100 Nasal Cannula 3 01/30/19 14:00 89 19 143/64 100 Nasal Cannula 3 01/30/19 13:50 96 18 151/73 99 Nasal Cannula 3 01/30/19 13:45 95 22 154/72 98 Nasal Cannula 3 01/30/19 13:40 94 23 146/72 98 Nasal Cannula 3 01/30/19 13:35 97 21 153/68 100 Nasal Cannula 3 01/30/19 13:34 93 16 99 01/30/19 13:31 97.1 93 16 140/68 99 Nasal Cannula 3 01/30/19 09:19 143/74 01/30/19 09:19 87 143/74 01/30/19 08:46 Room Air 01/30/19 08:00 97.5 87 21 143/74 (97) 96 01/30/19 04:00 98.1 81 19 100/65 (77) 100 01/30/19 00:00 97.7 101 20 101/64 (76) 95 01/29/19 21:00 Room Air 01/29/19 20:00 97.9 123 18 152/82 (105) 97 01/29/19 17:06 173/89 Intake and Output 01/30/19 01/31/19 19:00 07:00 Intake Total 950 ml 975 ml Output Total 0 ml Balance 950 ml 975 ml Intake Oral 0 ml IV Total 950 ml 975 ml Estimated Blood Loss 0 ml # Voids 3 Labs Test 01/29/19 08:42 01/29/19 09:28 01/30/19 05:20 01/31/19 05:05 White Blood Count 11.3 K/UL (4.8-10.8) 9.6 K/UL (4.8-10.8) 6.9 K/UL (4.8-10.8) Red Blood Count 4.94 M/UL (4.20-5.40) 4.25 M/UL (4.20-5.40) 4.96 M/UL (4.20-5.40) Hemoglobin 13.8 G/DL (12.0-16.0) 12.0 G/DL (12.0-16.0) 14.4 G/DL (12.0-16.0) Hematocrit 43.0 % (37.0-47.0) 36.8 % (37.0-47.0) 43.1 % (37.0-47.0) Mean Corpuscular Volume 87 FL (80-99) 87 FL (80-99) 87 FL (80-99) Mean Corpuscular Hemoglobin 27.8 PG (27.0-31.0) 28.2 PG (27.0-31.0) 29.1 PG (27.0-31.0) Mean Corpuscular Hemoglobin Concent 32.0 G/DL (32.0-36.0) 32.6 G/DL (32.0-36.0) 33.4 G/DL (32.0-36.0) Red Cell Distribution Width 11.8 % (11.6-14.8) 11.9 % (11.6-14.8) 11.7 % (11.6-14.8) Platelet Count 305 K/UL (150-450) 278 K/UL (150-450) 302 K/UL (150-450) Mean Platelet Volume 6.5 FL (6.5-10.1) 7.3 FL (6.5-10.1) 6.8 FL (6.5-10.1) Neutrophils (%) (Auto) % (45.0-75.0) 63.7 % (45.0-75.0) 41.8 % (45.0-75.0) Lymphocytes (%) (Auto) % (20.0-45.0) 23.9 % (20.0-45.0) 46.6 % (20.0-45.0) Monocytes (%) (Auto) % (1.0-10.0) 11.8 % (1.0-10.0) 7.2 % (1.0-10.0) Eosinophils (%) (Auto) % (0.0-3.0) 0.0 % (0.0-3.0) 2.7 % (0.0-3.0) Basophils (%) (Auto) % (0.0-2.0) 0.7 % (0.0-2.0) 1.6 % (0.0-2.0) Differential Total Cells Counted 100 Neutrophils % (Manual) 85 % (45-75) Lymphocytes % (Manual) 10 % (20-45) Monocytes % (Manual) 5 % (1-10) Eosinophils % (Manual) 0 % (0-3) Basophils % (Manual) 0 % (0-2) Band Neutrophils 0 % (0-8) Platelet Estimate Adequate Platelet Morphology Normal Red Blood Cell Morphology Normal Sodium Level 139 MMOL/L (136-145) 141 MMOL/L (136-145) 139 MMOL/L (136-145) Potassium Level 3.2 MMOL/L (3.5-5.1) 3.7 MMOL/L (3.5-5.1) 3.4 MMOL/L (3.5-5.1) Chloride Level 99 MMOL/L (98-107) 103 MMOL/L (98-107) 100 MMOL/L (98-107) Carbon Dioxide Level 30 MMOL/L (21-32) 29 MMOL/L (21-32) 28 MMOL/L (21-32) Anion Gap 10 mmol/L (5-15) 9 mmol/L (5-15) 11 mmol/L (5-15) Blood Urea Nitrogen 11 mg/dL (7-18) 11 mg/dL (7-18) 7 mg/dL (7-18) Creatinine 0.8 MG/DL (0.55-1.30) 0.9 MG/DL (0.55-1.30) 0.6 MG/DL (0.55-1.30) Estimat Glomerular Filtration Rate > 60 mL/min (>60) > 60 mL/min (>60) > 60 mL/min (>60) Glucose Level 149 MG/DL (74-106) 131 MG/DL (74-106) 125 MG/DL (74-106) Calcium Level 9.9 MG/DL (8.5-10.1) 9.6 MG/DL (8.5-10.1) 9.5 MG/DL (8.5-10.1) Total Bilirubin 1.0 MG/DL (0.2-1.0) 1.0 MG/DL (0.2-1.0) 0.7 MG/DL (0.2-1.0) Aspartate Amino Transf (AST/SGOT) 286 U/L (15-37) 114 U/L (15-37) 96 U/L (15-37) Alanine Aminotransferase (ALT/SGPT) 376 U/L (12-78) 260 U/L (12-78) 235 U/L (12-78) Alkaline Phosphatase 560 U/L (46-116) 442 U/L (46-116) 431 U/L (46-116) Total Protein 8.5 G/DL (6.4-8.2) 7.5 G/DL (6.4-8.2) 7.8 G/DL (6.4-8.2) Albumin 4.8 G/DL (3.4-5.0) 3.6 G/DL (3.4-5.0) 3.8 G/DL (3.4-5.0) Globulin 3.7 g/dL 3.9 g/dL 4.0 g/dL Albumin/Globulin Ratio 1.3 (1.0-2.7) 0.9 (1.0-2.7) 0.9 (1.0-2.7) Lipase 226 U/L (73-393) 236 U/L (73-393) Carcinoembryonic Antigen 6.1 ng/mL (0.0-4.7) CA 19-9 Antigen 45 U/mL (0-35) Urine Color Pale yellow Urine Appearance Slightly cloudy Urine pH 8 (4.5-8.0) Urine Specific [place] 1.015 (1.005-1.035) Urine Protein Negative (NEGATIVE) Urine Glucose (UA) Negative (NEGATIVE) Urine Ketones 3+ (NEGATIVE) Urine Blood 3+ (NEGATIVE) Urine Nitrite Negative (NEGATIVE) Urine Bilirubin Negative (NEGATIVE) Urine Urobilinogen Normal MG/DL (0.0-1.0) Urine Leukocyte Esterase 2+ (NEGATIVE) Urine RBC 15-20 /HPF (0 - 2) Urine WBC 20-30 /HPF (0 - 2) Urine Squamous Epithelial Cells Many /LPF (NONE/OCC) Urine Amorphous Sediment Moderate /LPF (NONE) Urine Bacteria Moderate /HPF (NONE) Prothrombin Time 10.4 SEC (9.30-11.50) Prothromb Time International Ratio 1.0 (0.9-1.1) Activated Partial Thromboplast Time 25 SEC (23-33) Amylase Level 69 U/L (25-115) Height (Feet): 5 Height (Inches): 5.00 Weight (Pounds): 165 Objective Physical Exam General appearance: alert, cooperative, no distress, appears stated age Head: Normocephalic, without obvious abnormality, atraumatic Eyes: conjunctivae/corneas clear. PERRL, EOM's intact. Fundi benign Throat: Lips, mucosa, and tongue normal. Teeth and gums normal Neck: supple, symmetrical, trachea midline, no adenopathy Lungs: clear to auscultation bilaterally Heart: regular rate and rhythm, S1, S2 normal, no murmur, click, rub or gallop Abdomen: soft, non-tender. Bowel sounds normal. No masses, no organomegaly Ext: extremities normal, atraumatic, no cyanosis or edema Pulses: 2+ and symmetric Skin: Skin color, texture, turgor normal. No rashes or lesions Neurologic: Grossly normal Lester Hawthorne MD Jan 31, 2019 16:08
--- NOTE | 2019-01-31 18:03 | NUR ---
NURSE NOTES: PT RECEIVED 4TH BAG OF KCL 10MEQ IV. TOTAL OF 40MEQ KCL IV.
--- NOTE | 2019-01-31 19:10 | NUR ---
NURSE NOTES: RESTING IN BED. IN NO ACUTE DISTRESS.
--- NOTE | 2019-01-31 19:25 | NUR ---
HAND-OFF: Report given to Celestino MENDOZA RN.
--- NOTE | 2019-01-31 19:30 | NUR ---
NURSE NOTES: Pt lying in bed w/family at bedside, bed in lowest position and call light & belongings within reach. Pt A&Ox4, VSS, and in no apparent distress at this time. IV site intact/asymptomatic w/IVF infusing and skin intact. Reminded pt to please call for assistance when ambulating due to visual impairment; pt verbalized understanding. Will continue to monitor.
[2019-01-31 20:00] VITALS: BP 123/63
[2019-02-01] VITALS: BP 122/62
[2019-02-01 04:00] VITALS: BP 119/64
[2019-02-01] MEDS: D5 1/2NS w/KCl 20mEq 1,000 ML IV SCH (04:04)
[2019-02-01 06:39] LABS: EOSINOPHILS % (AUTO) 0.9 % (0.0-3.0); HEMATOCRIT 36.8 % (37.0-47.0); HEMOGLOBIN 11.8 G/DL (12.0-16.0); LYMPHOCYTES % (AUTO) 32.2 % (20.0-45.0); MEAN CORPUSCULAR VOLUME 87 FL (80-99); MONOCYTES % (AUTO) 8.8 % (1.0-10.0); NEUTROPHILS % (AUTO) 57.1 % (45.0-75.0); PLATELET COUNT 268 K/UL (150-450); RED BLOOD COUNT 4.22 M/UL (4.20-5.40); WHITE BLOOD COUNT 8.4 K/UL (4.8-10.8)
--- NOTE | 2019-02-01 07:01 | Pulmonology Progress Note ---
Assessment/Plan Assessment/Plan ASSESSMENT Lung nodules Pancreatic mass, suspicious for pancreatic CA Abdominal pain ,likely secondary to pancreatic mass Elevated transaminase Elevated tumor markers Hypertension PLAN OF CARE MS floor all imaging noted EUS unsuccessful pancreatic mass causing CBD dilatation needs higher level of care for FNA to get biopsy consider transfer to higher level of care O2 HHN prn DVT prophylaxis LFT trending down UCX +GPO per ID keep off antibiotics pain management supportive care a/emetic prn tolerates diet case discussed and evaluated by supervising physician Subjective Allergies: Coded Allergies: NSAIDS (NON-STEROIDAL ANTI-INFLAMMA (Verified Allergy, Severe, Anaphylaxis , 01/30/19) Subjective pain controlled, just slight discomfort, started on diet yesterday 01/31 and able to tolerate Objective Last 24 Hour Vital Signs Date Time Temp Pulse Resp B/P (MAP) Pulse Ox O2 Delivery O2 Flow Rate FiO2 02/01/19 04:00 98.1 72 18 119/64 (82) 98 02/01/19 00:00 98.0 69 18 122/62 (82) 98 01/31/19 21:00 Room Air 01/31/19 20:00 98.1 71 18 123/63 (83) 99 01/31/19 16:00 98.2 73 19 105/65 (78) 97 01/31/19 12:00 98.2 75 19 102/74 (83) 95 01/31/19 08:47 92/57 01/31/19 08:46 73 92/51 01/31/19 08:02 Room Air 01/31/19 08:00 98.2 89 18 94/58 (70) 93 Intake and Output 01/31/19 02/01/19 18:59 06:59 Intake Total 975.5 ml 1065 ml Balance 975.5 ml 1065 ml Intake Oral 488 ml 240 ml IV Total 487.5 ml 825 ml # Voids 2 2 General Appearance: no acute distress, other - A/A/O x 4 AA female HEENT: normocephalic, atraumatic, anicteric, mucous membranes moist, PERRL Respiratory/Chest: lungs clear, no respiratory distress, no accessory muscle use Cardiovascular: normal peripheral pulses, normal rate, no JVD Abdomen: normal bowel sounds, soft, non tender Extremities: no edema, pedal pulses normal Neurologic/Psychiatric: alert, oriented x 3, responsive Musculoskeletal: normal muscle bulk Microbiology Date/Time Source Procedure Growth Status 01/29/19 09:28 Urine,Clean Catch Urine Culture - Final Mixed Gram Positive Organism Complete Laboratory Tests 02/01/19 04:50: White Blood Count 8.4, Red Blood Count 4.22, Hemoglobin 11.8L, Hematocrit 36.8L , Mean Corpuscular Volume 87, Mean Corpuscular Hemoglobin 28.1, Mean Corpuscular Hemoglobin Concent 32.2, Red Cell Distribution Width 12.0, Platelet Count 268, Mean Platelet Volume 6.6, Neutrophils (%) (Auto) 57.1, Lymphocytes (% ) (Auto) 32.2, Monocytes (%) (Auto) 8.8, Eosinophils (%) (Auto) 0.9, Basophils ( %) (Auto) 1.0, Sodium Level [Pending], Potassium Level [Pending], Chloride Level [Pending], Carbon Dioxide Level [Pending], Blood Urea Nitrogen [Pending], Creatinine [Pending], Estimat Glomerular Filtration Rate [Pending], Glucose Level [Pending], Calcium Level [Pending], Total Bilirubin [Pending], Direct Bilirubin [Pending], Aspartate Amino Transf (AST/SGOT) [Pending], Alanine Aminotransferase (ALT/SGPT) [Pending], Alkaline Phosphatase [Pending], Total Protein [Pending], Albumin [Pending] Current Medications Medications (Trade) Dose Ordered Sig/Angelito Route PRN Reason Start Time Stop Time Status Last Admin Dose Admin Acetaminophen (Tylenol) 650 mg Q4H PRN ORAL fever 01/29/19 13:30 02/28/19 13:29 Amlodipine Besylate (Norvasc) 10 mg DAILY ORAL 01/30/19 09:00 03/01/19 08:59 01/30/19 09:19 Clonidine HCl (Catapres Tab) 0.1 mg Q6H PRN ORAL SBP >160 01/29/19 17:00 02/28/19 16:59 01/31/19 01:39 Dextrose (Dextrose 50%) 25 ml Q30M PRN IV Hypoglycemia 01/29/19 13:30 02/28/19 13:29 Dextrose (Dextrose 50%) 50 ml Q30M PRN IV Hypoglycemia 01/29/19 13:30 02/28/19 13:29 Dextrose/ Electrolytes 1,000 ml @ 75 mls/hr [id number] IV 01/29/19 13:15 02/28/19 13:14 02/01/19 04:04 Diphenhydramine HCl (Benadryl) 25 mg Q6H PRN ORAL Itching/Pruritis 01/29/19 13:30 02/28/19 13:29 Famotidine (Pepcid I.v.) 20 mg Q12HR IVP 01/29/19 21:00 02/28/19 20:59 01/31/19 20:20 Gadobutrol (Gadavist) 7.5 mmol NOW PRN IV Radiology Procedure 01/30/19 14:15 02/03/19 14:11 Heparin Sodium (Porcine) (Heparin 5000 units/ml) 5,000 units EVERY 12 HOURS SUBQ 01/29/19 21:00 02/28/19 20:59 01/31/19 20:21 Iopamidol (Isovue-300 100ml) 100 ml NOW PRN INJ Radiology Procedure 01/30/19 16:15 02/01/19 16:01 Lisinopril (Prinivil) 20 mg DAILY ORAL 01/30/19 09:15 03/01/19 09:14 01/30/19 09:19 Lorazepam (Ativan 2mg/ml 1ml) 1 mg Q4H PRN IV agitation 01/29/19 13:30 02/05/19 13:29 Metoclopramide HCl (Reglan) 10 mg Q6H PRN IVP servere nauasea 01/29/19 13:30 02/28/19 13:29 Morphine Sulfate (Morphine Sulfate) 2 mg Q4H PRN IVP severe Pain (Pain Scale 7-10) 01/29/19 13:30 02/05/19 13:29 01/31/19 05:30 Nitroglycerin (Ntg) 0.4 mg Q5M X 3 DOSES PRN SL Prn Chest Pain 01/29/19 13:30 02/28/19 13:29 Ondansetron HCl (Zofran) 4 mg Q6H PRN IVP Nausea & Vomiting 01/29/19 13:15 02/28/19 13:14 01/30/19 18:56 Polyethylene Glycol (Miralax) 17 gm HSPRN PRN ORAL Constipation 01/29/19 13:30 02/28/19 13:29 Promethazine HCl (Phenergan) 25 mg Q6H PRN IM REFRACTORY N/V 01/29/19 13:45 02/28/19 13:44 Temazepam (Restoril) 15 mg HSPRN PRN ORAL Insomnia 01/29/19 13:30 02/05/19 13:29 Chari Peters NP Feb 01, 2019 07:01
[2019-02-01 07:12] LABS: ANION GAP 10 mmol/L (5-15); BLOOD UREA NITROGEN 11 mg/dL (7-18); CALCIUM 9.5 MG/DL (8.5-10.1); CARBON DIOXIDE 27 MMOL/L (21-32); CHLORIDE 106 MMOL/L (98-107); CREATININE 0.8 MG/DL (0.55-1.30); POTASSIUM 4.4 MMOL/L (3.5-5.1); SODIUM 143 MMOL/L (136-145)
[2019-02-01 07:19] LABS: ALANINE AMINOTRANSFERASE 167 U/L (12-78); ALBUMIN 3.5 G/DL (3.4-5.0); ALKALINE PHOSPHATASE 353 U/L (46-116); ASPARTATE AMINO TRANSFERASE 60 U/L (15-37); BILIRUBIN,DIRECT 0.2 MG/DL (0.0-0.3); BILIRUBIN,TOTAL 0.7 MG/DL (0.2-1.0)
--- NOTE | 2019-02-01 07:30 | NUR ---
NURSE NOTES: Patient is in bed awake and able to verbalize needs. Stable. Denies pain or SOB. Patient is encouraged to use call light for assistance, verbalized understanding. Patient is in bed in locked and lowest position with call light within reach. All safety measures provided. Will continue to monitor.
--- NOTE | 2019-02-01 07:30 | NUR ---
HAND-OFF: Report given to NIKOLAI Meraz.
[2019-02-01 08:00] VITALS: BP 125/68
[2019-02-01] MEDS ORDERED: Tums 500mg ORAL PRN (08:15)
--- NOTE | 2019-02-01 08:28 | General Progress Note ---
Assessment/Plan Problem List: (1) uti (2) Abdominal pain ICD Codes: R10.9 - Unspecified abdominal pain SNOMED: 78344862 Qualifiers: Qualified Codes: R10.11 - Right upper quadrant pain (3) Pancreatic mass ICD Codes: K86.9 - Disease of pancreas, unspecified SNOMED: 694533493 (4) Cataract ICD Codes: H26.9 - Unspecified cataract SNOMED: 980132128 (5) History of hypertension ICD Codes: Z86.79 - Personal history of other diseases of the circulatory system SNOMED: 799726709 Status: stable, progressing Assessment/Plan: abx pain control gi f/u cbc bmp am Subjective Constitutional: Reports: weakness Allergies: Coded Allergies: NSAIDS (NON-STEROIDAL ANTI-INFLAMMA (Verified Allergy, Severe, Anaphylaxis , 01/30/19) All Systems: reviewed and negative except above Subjective anxious sl abd pain Objective Last 24 Hour Vital Signs Date Time Temp Pulse Resp B/P (MAP) Pulse Ox O2 Delivery O2 Flow Rate FiO2 02/01/19 08:00 98.9 71 17 125/68 (87) 95 02/01/19 04:00 98.1 72 18 119/64 (82) 98 02/01/19 00:00 98.0 69 18 122/62 (82) 98 01/31/19 21:00 Room Air 01/31/19 20:00 98.1 71 18 123/63 (83) 99 01/31/19 16:00 98.2 73 19 105/65 (78) 97 01/31/19 12:00 98.2 75 19 102/74 (83) 95 01/31/19 08:47 92/57 01/31/19 08:46 73 92/51 Intake and Output 01/31/19 02/01/19 18:59 06:59 Intake Total 975.5 ml 1065 ml Balance 975.5 ml 1065 ml Intake Oral 488 ml 240 ml IV Total 487.5 ml 825 ml # Voids 2 2 Laboratory Tests 02/01/19 04:50: White Blood Count 8.4, Red Blood Count 4.22, Hemoglobin 11.8L, Hematocrit 36.8L , Mean Corpuscular Volume 87, Mean Corpuscular Hemoglobin 28.1, Mean Corpuscular Hemoglobin Concent 32.2, Red Cell Distribution Width 12.0, Platelet Count 268, Mean Platelet Volume 6.6, Neutrophils (%) (Auto) 57.1, Lymphocytes (% ) (Auto) 32.2, Monocytes (%) (Auto) 8.8, Eosinophils (%) (Auto) 0.9, Basophils ( %) (Auto) 1.0, Sodium Level 143, Potassium Level 4.4, Chloride Level 106, Carbon Dioxide Level 27, Anion Gap 10, Blood Urea Nitrogen 11, Creatinine 0.8, Estimat Glomerular Filtration Rate > 60, Glucose Level 104, Calcium Level 9.5, Total Bilirubin 0.7, Direct Bilirubin 0.2, Aspartate Amino Transf (AST/SGOT) 60H , Alanine Aminotransferase (ALT/SGPT) 167H, Alkaline Phosphatase 353H, Total Protein 7.0, Albumin 3.5 Height (Feet): 5 Height (Inches): 5.00 Weight (Pounds): 165 General Appearance: alert EENT: normal ENT inspection Neck: normal alignment Cardiovascular: normal peripheral pulses, normal rate, regular rhythm Respiratory/Chest: chest wall non-tender, lungs clear, normal breath sounds Abdomen: normal bowel sounds, non tender, soft Extremities: normal inspection Edema: no edema noted Arm (L), no edema noted Arm (R), no edema noted Leg (L), no edema noted Leg (R), no edema noted Pedal (L), no edema noted Pedal (R), no edema noted Generalized Neurologic: responsive, motor weakness Skin: normal pigmentation, warm/dry Lg Huitron DO Feb 01, 2019 08:28
[2019-02-01] MEDS: Lisinopril 20mg tab ORAL SCH (08:49)
[2019-02-01] MEDS: Heparin 5000 units/ml inj SUBQ SCH ×2 (08:51→20:48)
[2019-02-01] MEDS: Morphine Sulfate 2mg/ml Inj(IV/IM USE ONLY) IVP PRN (08:56)
--- NOTE | 2019-02-01 08:56 | General Progress Note ---
Assessment/Plan Problem List: (1) Pancreatic mass ICD Codes: K86.9 - Disease of pancreas, unspecified SNOMED: 651739402 (2) Abdominal pain ICD Codes: R10.9 - Unspecified abdominal pain SNOMED: 80157457 Qualifiers: Qualified Codes: R10.11 - Right upper quadrant pain Status: stable, progressing Assessment/Plan: Assessment/Plan s/p EUS w/ FNA SUMMARY OF FINDINGS: 1. 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 2. Dilated gallbladder with some stones and sludge in it. 3. Dilated common bile duct to about 17 millimeter. 4. A 2.3 centimeter pancreatic mass in the body/uncinate process causing the common bile duct dilatation. 5. Unable to perform FNA given the gallbladder was distended and blocking the view. CA19-9 elevation MRCP reviewed - 2 x 1.5 cm partially cystic lesion suspicious for small neoplasm in the uncinate process of the pancreas. - Associated biliary ductal obstruction with focal sharp transition within the distal CBD which is dilated proximally up to 1.8 cm. RECOMMENDATIONS: Recommend oncology consultation Recommend transfer patient to tertiary center like [facility] for second attempt of EUS and FNA for proper diagnosis or discharge and refer to [facility] as out patient may need ERCP if TB rises Possible recommendation for pancreatic surgery Pain management Zofran as needed Subjective ROS Limited/Unobtainable: Yes Allergies: Coded Allergies: NSAIDS (NON-STEROIDAL ANTI-INFLAMMA (Verified Allergy, Severe, Anaphylaxis , 01/30/19) Objective Last 24 Hour Vital Signs Date Time Temp Pulse Resp B/P (MAP) Pulse Ox O2 Delivery O2 Flow Rate FiO2 02/01/19 08:49 125/68 02/01/19 08:49 71 125/68 02/01/19 08:00 98.9 71 17 125/68 (87) 95 02/01/19 04:00 98.1 72 18 119/64 (82) 98 02/01/19 00:00 98.0 69 18 122/62 (82) 98 01/31/19 21:00 Room Air 01/31/19 20:00 98.1 71 18 123/63 (83) 99 01/31/19 16:00 98.2 73 19 105/65 (78) 97 01/31/19 12:00 98.2 75 19 102/74 (83) 95 Intake and Output 01/31/19 02/01/19 18:59 06:59 Intake Total 975.5 ml 1065 ml Balance 975.5 ml 1065 ml Intake Oral 488 ml 240 ml IV Total 487.5 ml 825 ml # Voids 2 2 Laboratory Tests 02/01/19 04:50: White Blood Count 8.4, Red Blood Count 4.22, Hemoglobin 11.8L, Hematocrit 36.8L , Mean Corpuscular Volume 87, Mean Corpuscular Hemoglobin 28.1, Mean Corpuscular Hemoglobin Concent 32.2, Red Cell Distribution Width 12.0, Platelet Count 268, Mean Platelet Volume 6.6, Neutrophils (%) (Auto) 57.1, Lymphocytes (% ) (Auto) 32.2, Monocytes (%) (Auto) 8.8, Eosinophils (%) (Auto) 0.9, Basophils ( %) (Auto) 1.0, Sodium Level 143, Potassium Level 4.4, Chloride Level 106, Carbon Dioxide Level 27, Anion Gap 10, Blood Urea Nitrogen 11, Creatinine 0.8, Estimat Glomerular Filtration Rate > 60, Glucose Level 104, Calcium Level 9.5, Total Bilirubin 0.7, Direct Bilirubin 0.2, Aspartate Amino Transf (AST/SGOT) 60H , Alanine Aminotransferase (ALT/SGPT) 167H, Alkaline Phosphatase 353H, Total Protein 7.0, Albumin 3.5 Height (Feet): 5 Height (Inches): 5.00 Weight (Pounds): 165 General Appearance: alert EENT: normal ENT inspection Neck: supple Cardiovascular: normal rate Respiratory/Chest: decreased breath sounds Abdomen: normal bowel sounds, non tender, soft Extremities: non-tender Taz Baez MD Feb 01, 2019 08:56
[2019-02-01 12:00] VITALS: BP 148/70
--- NOTE | 2019-02-01 12:39 | Surgery Progress Note ---
Surgery Progress Note Subjective Additional Comments no complaints doing well comfortable Objective Last 24 Hour Vital Signs Date Time Temp Pulse Resp B/P (MAP) Pulse Ox O2 Delivery O2 Flow Rate FiO2 02/01/19 09:00 Room Air 02/01/19 08:49 125/68 02/01/19 08:49 71 125/68 02/01/19 08:00 98.9 71 17 125/68 (87) 95 02/01/19 04:00 98.1 72 18 119/64 (82) 98 02/01/19 00:00 98.0 69 18 122/62 (82) 98 01/31/19 21:00 Room Air 01/31/19 20:00 98.1 71 18 123/63 (83) 99 01/31/19 16:00 98.2 73 19 105/65 (78) 97 I&O Intake and Output 01/31/19 02/01/19 19:00 07:00 Intake Total 975.5 ml 990 ml Balance 975.5 ml 990 ml Intake Oral 488 ml 240 ml IV Total 487.5 ml 750 ml # Voids 2 2 Cardiovascular: RSR Respiratory: clear Abdomen: soft, non-tender, present bowel sounds, non-distended Extremities: no cyanosis Laboratory Tests Test 02/01/19 04:50 White Blood Count 8.4 K/UL (4.8-10.8) Red Blood Count 4.22 M/UL (4.20-5.40) Hemoglobin 11.8 G/DL (12.0-16.0) L Hematocrit 36.8 % (37.0-47.0) L Mean Corpuscular Volume 87 FL (80-99) Mean Corpuscular Hemoglobin 28.1 PG (27.0-31.0) Mean Corpuscular Hemoglobin Concent 32.2 G/DL (32.0-36.0) Red Cell Distribution Width 12.0 % (11.6-14.8) Platelet Count 268 K/UL (150-450) Mean Platelet Volume 6.6 FL (6.5-10.1) Neutrophils (%) (Auto) 57.1 % (45.0-75.0) Lymphocytes (%) (Auto) 32.2 % (20.0-45.0) Monocytes (%) (Auto) 8.8 % (1.0-10.0) Eosinophils (%) (Auto) 0.9 % (0.0-3.0) Basophils (%) (Auto) 1.0 % (0.0-2.0) Sodium Level 143 MMOL/L (136-145) Potassium Level 4.4 MMOL/L (3.5-5.1) Chloride Level 106 MMOL/L (98-107) Carbon Dioxide Level 27 MMOL/L (21-32) Anion Gap 10 mmol/L (5-15) Blood Urea Nitrogen 11 mg/dL (7-18) Creatinine 0.8 MG/DL (0.55-1.30) Estimat Glomerular Filtration Rate > 60 mL/min (>60) Glucose Level 104 MG/DL (74-106) Calcium Level 9.5 MG/DL (8.5-10.1) Total Bilirubin 0.7 MG/DL (0.2-1.0) Direct Bilirubin 0.2 MG/DL (0.0-0.3) Aspartate Amino Transf (AST/SGOT) 60 U/L (15-37) H Alanine Aminotransferase (ALT/SGPT) 167 U/L (12-78) H Alkaline Phosphatase 353 U/L (46-116) H Total Protein 7.0 G/DL (6.4-8.2) Albumin 3.5 G/DL (3.4-5.0) Plan Problems: (1) Abdominal pain Assessment & Plan: US with gallbladder sludge and possible tiny calculi noted. Positive sonographic Pineda's sign. Significance uncertain the absence of gallbladder wall thickening , but the possibility of acute cholecystitis should be considered likely from pancreatic mass causing biliary obstruction. abdominal exam okay with some upper abdominal discomfort on palpation needs further work up no acute surgical intervention planned okay for diet labs ordered will follow with recs (2) Pancreatic mass Assessment & Plan: There is marked extrahepatic and central intrahepatic biliary ductal dilatation, common bile duct measuring up to 19 mm in diameter. It abruptly tapers within the pancreatic head, proximal to its junction with the pancreatic duct. The pancreatic duct is borderline prominent. A mildly dilated duct is seen within the pancreatic head/uncinate distal to the point of tapering of the upstream common bile duct. Uncertain as to whether this represents the downstream common bile duct or dilated accessory pancreatic duct. In the upper uncinate process of the pancreas , there is a low-attenuation parenchymal lesion which measures 8 mm AP by 10 mm transverse by 20 mm craniocaudad. This appears to be medial to rather than surrounding the distal common bile duct. There is no peripancreatic lymphadenopathy. The gallbladder is distended but no gallstones are evident. 2 x 1.5 cm partially cystic lesion suspicious for small neoplasm in the uncinate process of the pancreas. Recommend endoscopic ultrasound for further evaluation. Associated biliary ductal obstruction with focal sharp transition within the distal CBD which is dilated proximally up to 1.8 cm. Mild amount of free fluid in the upper abdomen in the region of the second portion of the duodenum. Left renal cysts. CT chest with possible mets lesion Unable to perform EUS because of GB as per GI CA 19-9 elevated very concerning for pancreatic CA if unable to do EUS here with biopsy needs to go to [facility] or higher level for procedure. Further work up as per oncology for Mets. if mets not surgical candidate thank you Shaquille Carrillo Feb 01, 2019 12:39
--- NOTE | 2019-02-01 13:54 | NUR ---
DISCHARGE/TRANSFER: NOTE CLINICALS FAXED TO [facility] FOR REVIEW Addendum: 02/01/19 at 1423 by Georgina Schwartz CM HERMAN AT [facility] RECEIVED CLINICALLS. Emilee TO DANA
[2019-02-01 16:00] VITALS: BP 121/69
--- NOTE | 2019-02-01 18:45 | NUR ---
NURSE NOTES: Spoke to Magaly SUNG ([phone]) at [facility] that bed available for patient. Patient going to room [address]Nicholas Amadou le. Requested recent medical record of patient. Will contact primary doctor for discharge order.
--- NOTE | 2019-02-01 19:40 | NUR ---
NURSE NOTES: Report taken from NIKOLAI Meraz. patient is awake and in bed, A&Ox4. No signs of distress on room air. No complaints of pain. Order for transfer placed by . Patient going to [facility], aware of transfer, contacted family. No skin issues, dry and intact. IV site c/d/i and patent, running D51/2NS+20KCl at 75mlrs/hr. Will call [facility] for transfer. Bed in lowest position, call light within reach.
--- NOTE | 2019-02-01 19:45 | NUR ---
HAND-OFF: Report given to Chadwick MENCHACA. Patient is stable.
--- NOTE | 2019-02-01 20:20 | NUR ---
NURSE NOTES: [facility] contacted, spoke with Joseph. ETA 30-45min. patient belongings list signed. Packet given to patient, signed by patient. IV site locked.
--- NOTE | 2019-02-01 20:45 | NUR ---
NURSE NOTES: Telephone report given to NIKOLAI Cabrera at [facility].
--- NOTE | 2019-02-01 20:55 | NUR ---
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 Report given to Gr[employer]. Patient is ambulatory, A&Ox4. To be transferred to room 7006 at [facility].
[2019-02-01] MEDS ORDERED: Tubing IV Secondary IV ONE (21:04)
--- NOTE | 2019-02-02 09:50 | Discharge Summary ---
Discharge Summary Discharge Summary _ DATE OF ADMISSION: 01/29/2019 DATE OF DISCHARGE: 02/01/2019 DISCHARGED BY: Dr. Lg Huitron CONSULTANTS: Dr. Shaquille Quinteros [facility] COURSE: Patient is a 69-year-old old female, who lives at home by herself, presented to ED complaining of abdominal pain for 3 days. She was slightly nauseous and had vomiting. She has medical history significant hypertension and a prior eye surgery. On evaluation at the ED, patient was slightly tachycardic, blood pressure was stable. Blood work showed WBC 11.3, hemoglobin and hematocrit were stable. Potassium 3.2. AST was elevated to 286, ALT 376. Bilirubin was normal. Alkaline phosphatase was 560. Urinalysis showed +2 leukocyte esterase, +3 blood , +3 ketones, 15-20 urine RBC and 20-[address] of the abdomen and pelvis showed a 20 x 10 x 8 mm low-attenuation lesion within the upper uncinate process of the pancreas, concerning for pancreatic neoplasm; extrahepatic and central intrahepatic biliary ductal dilatation with tapering at the level of pancreatic head, possibility of separate intraluminal lesion should also be considered; right lower lobe lung nodules suspect postinflammatory but possibility of neoplasm should be considered. She was then admitted for evaluation of abdominal pain and pancreatic mass. CT scan findings were reviewed. Per GI patient would require EUS with fine- needle aspiration to be followed by ERCP. She was kept on n.p.o. with IV hydration. She was given symptomatic treatment with Zofran. Tumor markers were ordered. Abdominal ultrasound showed gallbladder sludge and possible tiny calculi. Common bile duct dilatation, right upper pole renal cortical cyst and multiple left renal parapelvic cysts On 01/30/2019, he underwent EUS, and EGD with dilation. There was pyloric stricture this post dilation. Dilated gallbladder with stones and sludge. Dilated common bile duct to about 17 mm. A 2.3 cm pancreatic mass in the body/ uncinate process causing the common bile duct dilatation. FNA was unsuccessful as there was no good angle as the gallbladder was distended and was blocking the view. MRCP showed a 2 x 1.5 cm partially cystic lesions suspicious for small neoplasm in the uncinate process of the pancreas. Associated biliary ductal obstruction with focal sharp transition within the distal CBD which is dilated proximally up to 1.[address] of the chest with contrast showed 4 mm and 2 mm noncalcified nodules in the right lower lobe. Metastatic neoplasm not excluded. Per nuclear weapons custodian, pulmonary nodule is too small to be biopsied. There are no signs of emphysema or COPD in CT scan. Nodule was less likely malignant. CEA and CA 199 were elevated. Recommended need for higher level of care for FNA to get biopsy. Recommend to go to tertiary center like [facility] for second attempt of EUS and FNA for proper diagnosis. LFTs were trending down. Urine culture showed growth of gram-positive organisms. She was continued off antibiotics. She was tolerating diet well. She was eventually transferred to [facility]. FINAL DIAGNOSES: Abdominal pain possibly secondary to pancreatic mass Lung nodules Pancreatic mass, suspicious for pancreatic CA elevated transaminases Elevated tumor markers Hypertension Hypokalemia Status post EGD with EUS with findings of pyloric stricture; distended gallbladder with stones and sludge; dilated common bile duct; and a 2.3 cm pancreatic mass in the body/uncinate process. DISPOSITION: Patient was discharged [facility]. DISCHARGE MEDICATIONS: Refer to Discharge Medication List. I have been assigned to complete a discharge summary on this account, I was not involved with the patient's management.--RAFAEL Alfaro Jacqueline Robles NP Feb 02, 2019 09:50
== END 2019-02-01 21:00 | disposition short-term general hospital (02) | DRG 435 ==
LOC: EDBD 08:28 → EMR 09:20 → 3E 11:18 → EDBEDREQ 11:36
PROC: 0D778ZZ Dilation of Stomach, Pylorus, Via Natural or Artificial Opening Endoscopic (ICD-10-PCS; principal; 2019-01-30 12:06)
DX: C25.1 Malignant neoplasm of body of pancreas (principal); K83.1 Obstruction of bile duct; N39.0 Urinary tract infection, site not specified; K31.1 Adult hypertrophic pyloric stenosis; I10 Essential (primary) hypertension; R91.8 Other nonspecific abnormal finding of lung field; E87.6 Hypokalemia; K82.8 Other specified diseases of gallbladder; K83.8 Other specified diseases of biliary tract; Z88.6 Allergy status to analgesic agent; H26.9 Unspecified cataract; N28.1 Cyst of kidney, acquired
CPT/HCPCS: 36415; 71260; 74177; 74182; 76700; 80048; 80053; 80076; 81003; 82150; 82378; 83690; 85007; 85025; 85610; 85730; 87086; 94003; 94150; 96361; 96374; 96375; 96376; 99285; A9585; J2405

== ENCOUNTER 2019-02-26 20:34 | Inpatient (IN) | payer MEDICARE, OTHER ==
[~2019-02-26] VITALS: Ht 167.6 cm; Wt 62.6 kg
[~2019-02-26 20:34] MED LIST: ALLOPURINOL300 M1 ORAL; AMIODARONE HCL400 M1 ORAL; AMLODIPINE BESY10 MG ORAL; DILTIAZEM HCL90 MG PO; LISINOPRIL20 MG ORAL; ZYPREXA2.5 MG ORAL
--- NOTE | 2019-02-26 21:00 | NUR ---
ED Nurse Note: Recieved pt from home, pt here with c/o severe abdominal pain with nausea and vomiting, pt states was just released from hospital yesterday and has been vomiting ever since, pt states was still vomiting at hospital but she wanted to go home, pt was newly diagnosed with pancreatic cancer also, pt is crying due to pain, pt immediately gowned and palced on cardiac monitoring, iv line placed and labs drawn also, will continue to closely monitor while waiting for md orders, pt has family at bedside.
--- NOTE | 2019-02-26 21:04 | Emergency Room Report ---
History of Present Illness General Chief Complaint: Vomiting Source: Patient, Medical Record Present Illness HPI This is a 69-year-old female with no recent diagnosis of stage I pancreatic cancer. She had pancreatitis also. She states and constant abdominal pain. Pain is worsened today. Pain is 10 out of 10. Pain is mostly in the left upper quadrant. No diarrhea. Has nausea and vomiting. No fever. Nothing made it better. Palpation or eating made it worse. Unable to keep anything down. No fever chills. Allergies: Coded Allergies: NSAIDS (NON-STEROIDAL ANTI-INFLAMMA (Verified Allergy, Severe, Anaphylaxis , 01/30/19) ASPIRIN (Verified Allergy, Unknown, 02/26/19) LEVOFLOXACIN (Verified Allergy, Unknown, 02/26/19) Patient History Past Medical History: see triage record, old chart reviewed Past Surgical History: other Pertinent Family History: none Social History: Denies: smoking Now: No Immunizations: other Reviewed Nursing Documentation: PMH: Agreed; PSxH: Agreed Nursing Documentation-PMH Past Medical History: No History, Except For Hx Hypertension: Yes Hx Cancer: No Hx Neurological Problems: No Review of Systems Eye: Denies: eye pain, blurred vision ENT: Denies: ear pain, nose congestion, throat swelling Respiratory: Denies: cough, shortness of breath Cardiovascular: Denies: chest pain, palpitations Gastrointestinal: Reports: abdominal pain, nausea, vomiting; Denies: diarrhea Musculoskeletal: Denies: back pain, joint pain Skin: Denies: rash Neurological: Denies: headache, numbness Endocrine: Denies: increased thirst, increased urine Hematologic/Lymphatic: Denies: easy bruising All Other Systems: negative except mentioned in HPI Physical Exam Vital Signs Date Time Temp Pulse Resp B/P (MAP) Pulse Ox O2 Delivery O2 Flow Rate FiO2 02/26/19 20:44 98.4 131 25 150/81 (104) 100 Room Air Vitals with tachycardia Sp02 EP Interpretation: reviewed, normal General Appearance: well appearing, no apparent distress, alert Head: normocephalic, atraumatic Eyes: bilateral eye PERRL, bilateral eye EOMI ENT: hearing grossly normal, normal pharynx Neck: full range of motion, supple, no meningismus Respiratory: chest non-tender, lungs clear, normal breath sounds Cardiovascular #1: regular rate, rhythm, no murmur, tachycardia Gastrointestinal: no mass, no organomegaly, no bruit, non-distended, guarding, rebound, tenderness Musculoskeletal: back normal, gait/station normal, normal range of motion Psychiatric: mood/affect normal Medical Decision Making Diagnostic Impression: Primary Impression: Abdominal pain Qualified Codes: R10.84 - Generalized abdominal pain Additional Impressions: Vomiting Qualified Codes: R11.2 - Nausea with vomiting, unspecified Dehydration Pancreatic cancer Qualified Codes: C25.9 - Malignant neoplasm of pancreas, unspecified ER Course Patient with newly diagnosed pancreatic cancer. Hence with severe intractable pain and vomiting. She is dehydrated. Labs unremarkable. Lipase is normal. Similar she had a stent pancreas while she was at [facility]. Pain is better controlled. Heart rate improved. She still has some nausea and vomiting. Will admit for IV pain control and IV fluid. I discussed the case with Dr. Huitron who will admit. Last Vital Signs Date Time Temp Pulse Resp B/P (MAP) Pulse Ox O2 Delivery O2 Flow Rate FiO2 02/26/19 20:44 98.4 131 25 150/81 (104) 100 Room Air Status: improved Disposition: ADMITTED INPATIENT Condition: Serious Luca Low MD Feb 26, 2019 21:04
[2019-02-26 21:12] LABS: HEMATOCRIT 39.7 % (37.0-47.0); HEMOGLOBIN 13.4 G/DL (12.0-16.0); LYMPHOCYTES % (AUTO) 10.4 % (20.0-45.0); MEAN CORPUSCULAR VOLUME 83 FL (80-99); MONOCYTES % (AUTO) 4.7 % (1.0-10.0); NEUTROPHILS % (AUTO) 83.9 % (45.0-75.0); PLATELET COUNT 292 K/UL (150-450); RED BLOOD COUNT 4.76 M/UL (4.20-5.40); RED CELL DISTRIBUTION WIDTH 10.8 % (11.6-14.8); WHITE BLOOD COUNT 9.1 K/UL (4.8-10.8)
[2019-02-26] MEDS ORDERED: HYDROmorphone 1mg/ml Carpuject IVP ONE ×2 (21:15→23:00)
[2019-02-26 21:26] LABS: ANION GAP 16 mmol/L (5-15); BLOOD UREA NITROGEN 12 mg/dL (7-18); CALCIUM 10.3 MG/DL (8.5-10.1); CARBON DIOXIDE 26 MMOL/L (21-32); CHLORIDE 99 MMOL/L (98-107); CREATININE 0.8 MG/DL (0.55-1.30); POTASSIUM 3.3 MMOL/L (3.5-5.1); SODIUM 140 MMOL/L (136-145)
[2019-02-26 21:30] LABS: ALANINE AMINOTRANSFERASE 14 U/L (12-78); ALBUMIN 4.1 G/DL (3.4-5.0); ALBUMIN/GLOBULIN RATIO 0.9 (1.0-2.7); ALKALINE PHOSPHATASE 142 U/L (46-116); ASPARTATE AMINO TRANSFERASE 24 U/L (15-37); BILIRUBIN,TOTAL 0.7 MG/DL (0.2-1.0)
[2019-02-26 22:00] VITALS: BP 163/74
--- NOTE | 2019-02-26 22:40 | NUR ---
ED Nurse Note: pt continues to rest quietly in bed, heart rate remains increased at about 125, md is arware, iv fluids infusing as ordered, pt medicated for pain, meds slightly effective with pain level decreasint to about 6-7/10, nausea remains, md aware, will continue to closely monitor and preapre pt for hospital admission.
[2019-02-26 23:00] VITALS: BP 166/77
[2019-02-26] MEDS ORDERED: LORazepam Inj 2mg/ml 1ml IV PRN (23:45)
[2019-02-26] MEDS ORDERED: Miralax 17gm pkt ORAL PRN (23:45)
[2019-02-26] MEDS ORDERED: Zolpidem 5mg tab ORAL PRN (23:45)
--- NOTE | 2019-02-26 23:45 | NUR ---
ED Nurse Note: Pt has room for admission, pt heart rate remains elevated, new iv line placed and more fluids given per md order, pt also continues to complain of pain, pt is sleeping and appears sedated when awakened, pt family is leaving, belongings list completed, pt will be upgraded to tele due to heart rate, will continue to closely monitor, pt denies cp, no sob or labored breathing noted, pt assisted with bedpan, no urine given yet, md aware, pt refuses straight cath.
[2019-02-27] VITALS (8 sets, daily range): BP systolic 130–169; BP diastolic 65–84
--- NOTE | 2019-02-27 01:30 | NUR ---
ED Nurse Note: Pt assisted with bed whitley use, very little urine collected, denies dysuria, pt cleaned and dry, iv sites x 2 intact and paent, fluids infusing, pt remains on cardiac monitoring, heart rate remains elevated at 120's, denies cp but remains with abdominal pain, nausea and vomiting resolved, pt describes as pressure in abdomen, no sob or labored breathing, will continue to closely monitor, pt has room for admission, b/p is too high, will medicate as ordered, monitor for effectiveness then send to floor, charge nurse naun thao is aware.
[2019-02-27] MEDS ORDERED: Metoprolol 5mg/5ml Inj IVP ONE ×2 (02:15→02:45)
--- NOTE | 2019-02-27 02:20 | NUR ---
ED Nurse Note: Pt continues to rest quietly in bed, using bedpan very frequently, pt refuses to have urinary cath inserted, remains on cardiac monitoring, given iv lopressor, effective with decreasing heart rate and b/p, md aware, will now send pt to floor for admission, pt given complete bathing and linen change due to incontinence, toelrated well, remains with pain but is very sedated, pt falls asleep while talking, no sob or labored breathing, denies cp, no further vomiting, iv sites x 2 intact and patent, will continue to monitor and prepare for admission.
[2019-02-27 02:22] LABS: APPEARANCE,URINE CLEAR; BILIRUBIN, URINE NEGATIVE (NEGATIVE); COLOR,URINE PALE YELLOW; GLUCOSE, URINE (UA) NEGATIVE (NEGATIVE); KETONES,URINE 4+ (NEGATIVE); LEUKOCYTE ESTERASE ,URINE 1+ (NEGATIVE); NITRITE,URINE NEGATIVE (NEGATIVE); PH,URINE 6 (4.5-8.0); PROTEIN,URINE 2+ (NEGATIVE); UROBILINOGEN,URINE NORMAL MG/DL (0.0-1.0)
--- NOTE | 2019-02-27 03:15 | NUR ---
ED Nurse Note: Pt being taken to floor for admission, report called to NIKOLAI Johnson on unit, pt in bed sleeping, arouses easily to verbal stimuli, no sob or labored breathing, iv sites x 2 intact and patent, pt being taken to floor unit via gurney and acls protocols, with er-tech and rn, nad or changes noted during pt transport. also placed call to pt da Nunn at [phone] to inform of admission and pt location.
[2019-02-27] MEDS: D5 1/2NS w/KCl 20mEq 1,000 ML IV SCH ×3 (04:00→18:32)
[2019-02-27] MEDS: Morphine Sulfate 4mg/ml Inj (IV USE ONLY) IVP PRN ×2 (06:18→09:47)
--- NOTE | 2019-02-27 07:00 | NUR ---
NURSE NOTES: Nurse report given by NIKOLAI Hughes. Patient's awake and comfortable, no s/s of acute distress or SOB. Denies pain. AOx4. Left IV site is running fluid, patient and asymptomatic. Right IV saline lock, flushed well, patent and asymptomatic. Bedside commode at bedside, bed alarm is on, bed at lowest position, break engaged, call light within reach. Will continue to monitor.
[2019-02-27 07:24] LABS: HEMATOCRIT 38.2 % (37.0-47.0); HEMOGLOBIN 12.7 G/DL (12.0-16.0); MEAN CORPUSCULAR VOLUME 85 FL (80-99); PLATELET COUNT 256 K/UL (150-450); RED BLOOD COUNT 4.52 M/UL (4.20-5.40); RED CELL DISTRIBUTION WIDTH 11.5 % (11.6-14.8); WHITE BLOOD COUNT 9.9 K/UL (4.8-10.8)
[2019-02-27 07:53] LABS: ALANINE AMINOTRANSFERASE 12 U/L (12-78); ALBUMIN 3.8 G/DL (3.4-5.0); ALBUMIN/GLOBULIN RATIO 0.9 (1.0-2.7); ALKALINE PHOSPHATASE 129 U/L (46-116); ANION GAP 12 mmol/L (5-15); ASPARTATE AMINO TRANSFERASE 25 U/L (15-37); BILIRUBIN,TOTAL 0.7 MG/DL (0.2-1.0); BLOOD UREA NITROGEN 7 mg/dL (7-18); CALCIUM 9.2 MG/DL (8.5-10.1); CARBON DIOXIDE 23 MMOL/L (21-32); CHLORIDE 100 MMOL/L (98-107); CREATININE 0.6 MG/DL (0.55-1.30); POTASSIUM 3.1 MMOL/L (3.5-5.1); SODIUM 135 MMOL/L (136-145)
[2019-02-27] MEDS: Heparin 5000 units/ml inj SUBQ SCH ×2 (08:41→20:45)
--- NOTE | 2019-02-27 08:59 | Consultation ---
History of Present Illness General Date patient seen: Feb 27, 2019 Present Illness Allergies: Coded Allergies: NSAIDS (NON-STEROIDAL ANTI-INFLAMMA (Verified Allergy, Severe, Anaphylaxis , 01/30/19) ASPIRIN (Verified Allergy, Unknown, 02/26/19) LEVOFLOXACIN (Verified Allergy, Unknown, 02/26/19) Medication History Scheduled Amlodipine Besylate* (Amlodipine Besylate*), 10 MG ORAL DAILY, (Reported) Lisinopril (Lisinopril*), 40 MG ORAL DAILY, (Reported) Patient History Healthcare decision maker Resuscitation status Full Code Advanced Directive on File Physical Exam Last 24 Hour Vital Signs Date Time Temp Pulse Resp B/P (MAP) Pulse Ox O2 Delivery O2 Flow Rate FiO2 02/27/19 08:39 119 169/83 02/27/19 04:00 97.9 120 18 149/84 (105) 97 02/27/19 04:00 118 02/27/19 03:40 98.8 111 18 154/76 99 Room Air 02/27/19 03:15 98.8 111 18 154/76 99 Room Air 02/27/19 02:47 128 165/75 02/27/19 02:39 128 165/75 02/27/19 02:00 98.8 128 18 165/75 99 Room Air 02/27/19 00:39 Room Air 02/27/19 00:15 98.8 128 18 157/77 99 Room Air 02/26/19 23:00 99.2 128 21 166/77 99 Room Air 02/26/19 22:00 99.2 122 21 163/74 99 Room Air 02/26/19 21:43 98.5 02/26/19 21:43 98.5 02/26/19 21:00 131 25 Room Air 02/26/19 20:44 98.4 131 25 150/81 (104) 100 Room Air Intake and Output 02/26/19 02/27/19 19:00 07:00 Output Total 100 ml Balance -100 ml Output Urine Total 100 ml # Voids 3 Laboratory Tests Test 02/26/19 21:00 02/27/19 02:00 02/27/19 06:49 White Blood Count 9.1 K/UL (4.8-10.8) 9.9 K/UL (4.8-10.8) Red Blood Count 4.76 M/UL (4.20-5.40) 4.52 M/UL (4.20-5.40) Hemoglobin 13.4 G/DL (12.0-16.0) 12.7 G/DL (12.0-16.0) Hematocrit 39.7 % (37.0-47.0) 38.2 % (37.0-47.0) Mean Corpuscular Volume 83 FL (80-99) 85 FL (80-99) Mean Corpuscular Hemoglobin 28.1 PG (27.0-31.0) 28.1 PG (27.0-31.0) Mean Corpuscular Hemoglobin Concent 33.8 G/DL (32.0-36.0) 33.2 G/DL (32.0-36.0) Red Cell Distribution Width 10.8 % (11.6-14.8) L 11.5 % (11.6-14.8) L Platelet Count 292 K/UL (150-450) 256 K/UL (150-450) Mean Platelet Volume 6.3 FL (6.5-10.1) L 6.5 FL (6.5-10.1) Neutrophils (%) (Auto) 83.9 % (45.0-75.0) H % (45.0-75.0) Lymphocytes (%) (Auto) 10.4 % (20.0-45.0) L % (20.0-45.0) Monocytes (%) (Auto) 4.7 % (1.0-10.0) % (1.0-10.0) Eosinophils (%) (Auto) 0.0 % (0.0-3.0) % (0.0-3.0) Basophils (%) (Auto) 1.0 % (0.0-2.0) % (0.0-2.0) Sodium Level 140 MMOL/L (136-145) 135 MMOL/L (136-145) L Potassium Level 3.3 MMOL/L (3.5-5.1) L 3.1 MMOL/L (3.5-5.1) L Chloride Level 99 MMOL/L (98-107) 100 MMOL/L (98-107) Carbon Dioxide Level 26 MMOL/L (21-32) 23 MMOL/L (21-32) Anion Gap 16 mmol/L (5-15) H 12 mmol/L (5-15) Blood Urea Nitrogen 12 mg/dL (7-18) 7 mg/dL (7-18) Creatinine 0.8 MG/DL (0.55-1.30) 0.6 MG/DL (0.55-1.30) Estimat Glomerular Filtration Rate > 60 mL/min (>60) > 60 mL/min (>60) Glucose Level 141 MG/DL (74-106) H 172 MG/DL (74-106) H Calcium Level 10.3 MG/DL (8.5-10.1) H 9.2 MG/DL (8.5-10.1) Total Bilirubin 0.7 MG/DL (0.2-1.0) 0.7 MG/DL (0.2-1.0) Aspartate Amino Transf (AST/SGOT) 24 U/L (15-37) 25 U/L (15-37) Alanine Aminotransferase (ALT/SGPT) 14 U/L (12-78) 12 U/L (12-78) Alkaline Phosphatase 142 U/L (46-116) H 129 U/L (46-116) H Total Protein 8.6 G/DL (6.4-8.2) H 7.9 G/DL (6.4-8.2) Albumin 4.1 G/DL (3.4-5.0) 3.8 G/DL (3.4-5.0) Globulin 4.5 g/dL 4.1 g/dL Albumin/Globulin Ratio 0.9 (1.0-2.7) L 0.9 (1.0-2.7) L Lipase 109 U/L (73-393) Urine Color Pale yellow Urine Appearance Clear Urine pH 6 (4.5-8.0) Urine Specific [place] 1.020 (1.005-1.035) Urine Protein 2+ (NEGATIVE) H Urine Glucose (UA) Negative (NEGATIVE) Urine Ketones 4+ (NEGATIVE) H Urine Blood 4+ (NEGATIVE) H Urine Nitrite Negative (NEGATIVE) Urine Bilirubin Negative (NEGATIVE) Urine Urobilinogen Normal MG/DL (0.0-1.0) Urine Leukocyte Esterase 1+ (NEGATIVE) H Urine RBC 10-15 /HPF (0 - 2) H Urine WBC 2-4 /HPF (0 - 2) Urine Squamous Epithelial Cells Many /LPF (NONE/OCC) H Urine Bacteria Few /HPF (NONE) Differential Total Cells Counted 100 Neutrophils % (Manual) 90 % (45-75) H Lymphocytes % (Manual) 7 % (20-45) L Monocytes % (Manual) 3 % (1-10) Eosinophils % (Manual) 0 % (0-3) Basophils % (Manual) 0 % (0-2) Band Neutrophils 0 % (0-8) Platelet Estimate Adequate Platelet Morphology Normal Thyroid Stimulating Hormone (TSH) 0.724 uiU/mL (0.358-3.740) Microbiology Date/Time Source Procedure Growth Status 02/27/19 02:45 Rectum Received Height (Feet): 5 Height (Inches): 6.00 Weight (Pounds): 125 Medications Current Medications Medications (Trade) Dose Ordered Sig/Angelito Route PRN Reason Start Time Stop Time Status Last Admin Dose Admin Acetaminophen (Tylenol) 650 mg Q4H PRN ORAL fever 02/26/19 23:45 03/28/19 23:44 Amlodipine Besylate (Norvasc) 10 mg DAILY ORAL 02/27/19 09:00 03/29/19 08:59 02/27/19 08:39 Dextrose (Dextrose 50%) 25 ml Q30M PRN IV Hypoglycemia 02/26/19 23:45 03/28/19 23:44 Dextrose (Dextrose 50%) 50 ml Q30M PRN IV Hypoglycemia 02/26/19 23:45 03/28/19 23:44 Dextrose/ Electrolytes 1,000 ml @ 75 mls/hr [id number] IV 02/26/19 23:45 03/28/19 23:44 02/27/19 04:00 Heparin Sodium (Porcine) (Heparin 5000 units/ml) 5,000 units EVERY 12 HOURS SUBQ 02/27/19 09:00 03/29/19 08:59 02/27/19 08:41 Lorazepam (Ativan 2mg/ml 1ml) 0.5 mg Q4H PRN IV For Anxiety 02/26/19 23:45 03/05/19 23:44 Morphine Sulfate (Morphine Sulfate) 2 mg EVERY 4 HOURS PRN IVP For Pain 4-6 02/26/19 23:45 03/05/19 23:44 Morphine Sulfate (Morphine Sulfate) 4 mg Q4H PRN IVP For Pain 7-02/26/19 23:45 03/05/19 23:44 02/27/19 06:18 Ondansetron HCl (Zofran) 4 mg Q6H PRN IVP Nausea & Vomiting 02/26/19 23:45 03/28/19 23:44 Polyethylene Glycol (Miralax) 17 gm HSPRN PRN ORAL Constipation 02/26/19 23:45 03/28/19 23:44 Zolpidem Tartrate (Ambien) 5 mg HSPRN PRN ORAL Insomnia 02/26/19 23:45 03/05/19 23:44 Assessment/Plan Assessment/Plan: (1) Intractable Abdominal pain (2) Pancreatic Cancer seen dictated Crispin Sharma Feb 27, 2019 08:59
--- NOTE | 2019-02-27 09:22 | Consultation ---
History of Present Illness General Chief Complaint: Vomiting Present Illness Allergies: Coded Allergies: NSAIDS (NON-STEROIDAL ANTI-INFLAMMA (Verified Allergy, Severe, Anaphylaxis , 01/30/19) ASPIRIN (Verified Allergy, Unknown, 02/26/19) LEVOFLOXACIN (Verified Allergy, Unknown, 02/26/19) Medication History Scheduled Amlodipine Besylate* (Amlodipine Besylate*), 10 MG ORAL DAILY, (Reported) Lisinopril (Lisinopril*), 40 MG ORAL DAILY, (Reported) Patient History Healthcare decision maker Resuscitation status Full Code Advanced Directive on File Physical Exam Last 24 Hour Vital Signs Date Time Temp Pulse Resp B/P (MAP) Pulse Ox O2 Delivery O2 Flow Rate FiO2 02/27/19 08:39 119 169/83 02/27/19 04:00 97.9 120 18 149/84 (105) 97 02/27/19 04:00 118 02/27/19 03:40 98.8 111 18 154/76 99 Room Air 02/27/19 03:15 98.8 111 18 154/76 99 Room Air 02/27/19 02:47 128 165/75 02/27/19 02:39 128 165/75 02/27/19 02:00 98.8 128 18 165/75 99 Room Air 02/27/19 00:39 Room Air 02/27/19 00:15 98.8 128 18 157/77 99 Room Air 02/26/19 23:00 99.2 128 21 166/77 99 Room Air 02/26/19 22:00 99.2 122 21 163/74 99 Room Air 02/26/19 21:43 98.5 02/26/19 21:43 98.5 02/26/19 21:00 131 25 Room Air 02/26/19 20:44 98.4 131 25 150/81 (104) 100 Room Air Intake and Output 02/26/19 02/27/19 19:00 07:00 Output Total 100 ml Balance -100 ml Output Urine Total 100 ml # Voids 3 Laboratory Tests Test 02/26/19 21:00 02/27/19 02:00 02/27/19 06:49 White Blood Count 9.1 K/UL (4.8-10.8) 9.9 K/UL (4.8-10.8) Red Blood Count 4.76 M/UL (4.20-5.40) 4.52 M/UL (4.20-5.40) Hemoglobin 13.4 G/DL (12.0-16.0) 12.7 G/DL (12.0-16.0) Hematocrit 39.7 % (37.0-47.0) 38.2 % (37.0-47.0) Mean Corpuscular Volume 83 FL (80-99) 85 FL (80-99) Mean Corpuscular Hemoglobin 28.1 PG (27.0-31.0) 28.1 PG (27.0-31.0) Mean Corpuscular Hemoglobin Concent 33.8 G/DL (32.0-36.0) 33.2 G/DL (32.0-36.0) Red Cell Distribution Width 10.8 % (11.6-14.8) L 11.5 % (11.6-14.8) L Platelet Count 292 K/UL (150-450) 256 K/UL (150-450) Mean Platelet Volume 6.3 FL (6.5-10.1) L 6.5 FL (6.5-10.1) Neutrophils (%) (Auto) 83.9 % (45.0-75.0) H % (45.0-75.0) Lymphocytes (%) (Auto) 10.4 % (20.0-45.0) L % (20.0-45.0) Monocytes (%) (Auto) 4.7 % (1.0-10.0) % (1.0-10.0) Eosinophils (%) (Auto) 0.0 % (0.0-3.0) % (0.0-3.0) Basophils (%) (Auto) 1.0 % (0.0-2.0) % (0.0-2.0) Sodium Level 140 MMOL/L (136-145) 135 MMOL/L (136-145) L Potassium Level 3.3 MMOL/L (3.5-5.1) L 3.1 MMOL/L (3.5-5.1) L Chloride Level 99 MMOL/L (98-107) 100 MMOL/L (98-107) Carbon Dioxide Level 26 MMOL/L (21-32) 23 MMOL/L (21-32) Anion Gap 16 mmol/L (5-15) H 12 mmol/L (5-15) Blood Urea Nitrogen 12 mg/dL (7-18) 7 mg/dL (7-18) Creatinine 0.8 MG/DL (0.55-1.30) 0.6 MG/DL (0.55-1.30) Estimat Glomerular Filtration Rate > 60 mL/min (>60) > 60 mL/min (>60) Glucose Level 141 MG/DL (74-106) H 172 MG/DL (74-106) H Calcium Level 10.3 MG/DL (8.5-10.1) H 9.2 MG/DL (8.5-10.1) Total Bilirubin 0.7 MG/DL (0.2-1.0) 0.7 MG/DL (0.2-1.0) Aspartate Amino Transf (AST/SGOT) 24 U/L (15-37) 25 U/L (15-37) Alanine Aminotransferase (ALT/SGPT) 14 U/L (12-78) 12 U/L (12-78) Alkaline Phosphatase 142 U/L (46-116) H 129 U/L (46-116) H Total Protein 8.6 G/DL (6.4-8.2) H 7.9 G/DL (6.4-8.2) Albumin 4.1 G/DL (3.4-5.0) 3.8 G/DL (3.4-5.0) Globulin 4.5 g/dL 4.1 g/dL Albumin/Globulin Ratio 0.9 (1.0-2.7) L 0.9 (1.0-2.7) L Lipase 109 U/L (73-393) Urine Color Pale yellow Urine Appearance Clear Urine pH 6 (4.5-8.0) Urine Specific [place] 1.020 (1.005-1.035) Urine Protein 2+ (NEGATIVE) H Urine Glucose (UA) Negative (NEGATIVE) Urine Ketones 4+ (NEGATIVE) H Urine Blood 4+ (NEGATIVE) H Urine Nitrite Negative (NEGATIVE) Urine Bilirubin Negative (NEGATIVE) Urine Urobilinogen Normal MG/DL (0.0-1.0) Urine Leukocyte Esterase 1+ (NEGATIVE) H Urine RBC 10-15 /HPF (0 - 2) H Urine WBC 2-4 /HPF (0 - 2) Urine Squamous Epithelial Cells Many /LPF (NONE/OCC) H Urine Bacteria Few /HPF (NONE) Differential Total Cells Counted 100 Neutrophils % (Manual) 90 % (45-75) H Lymphocytes % (Manual) 7 % (20-45) L Monocytes % (Manual) 3 % (1-10) Eosinophils % (Manual) 0 % (0-3) Basophils % (Manual) 0 % (0-2) Band Neutrophils 0 % (0-8) Platelet Estimate Adequate Platelet Morphology Normal Thyroid Stimulating Hormone (TSH) 0.724 uiU/mL (0.358-3.740) Microbiology Date/Time Source Procedure Growth Status 02/27/19 02:45 Rectum Received Height (Feet): 5 Height (Inches): 6.00 Weight (Pounds): 125 Medications Current Medications Medications (Trade) Dose Ordered Sig/Angelito Route PRN Reason Start Time Stop Time Status Last Admin Dose Admin Acetaminophen (Tylenol) 650 mg Q4H PRN ORAL fever 02/26/19 23:45 03/28/19 23:44 Amlodipine Besylate (Norvasc) 10 mg DAILY ORAL 02/27/19 09:00 03/29/19 08:59 02/27/19 08:39 Dextrose (Dextrose 50%) 25 ml Q30M PRN IV Hypoglycemia 02/26/19 23:45 03/28/19 23:44 Dextrose (Dextrose 50%) 50 ml Q30M PRN IV Hypoglycemia 02/26/19 23:45 03/28/19 23:44 Dextrose/ Electrolytes 1,000 ml @ 75 mls/hr [id number] IV 02/26/19 23:45 03/28/19 23:44 02/27/19 04:00 Heparin Sodium (Porcine) (Heparin 5000 units/ml) 5,000 units EVERY 12 HOURS SUBQ 02/27/19 09:00 03/29/19 08:59 02/27/19 08:41 Lorazepam (Ativan 2mg/ml 1ml) 0.5 mg Q4H PRN IV For Anxiety 02/26/19 23:45 03/05/19 23:44 Morphine Sulfate (Morphine Sulfate) 2 mg EVERY 4 HOURS PRN IVP For Pain 4-6 02/26/19 23:45 03/05/19 23:44 Morphine Sulfate (Morphine Sulfate) 4 mg Q4H PRN IVP For Pain 7-02/26/19 23:45 03/05/19 23:44 02/27/19 06:18 Ondansetron HCl (Zofran) 4 mg Q6H PRN IVP Nausea & Vomiting 02/26/19 23:45 03/28/19 23:44 Polyethylene Glycol (Miralax) 17 gm HSPRN PRN ORAL Constipation 02/26/19 23:45 03/28/19 23:44 Zolpidem Tartrate (Ambien) 5 mg HSPRN PRN ORAL Insomnia 02/26/19 23:45 03/05/19 23:44 Assessment/Plan Assessment/Plan: Hematology Consultation Date patient seen: Feb 27, 2019 Reason for Hospitalization: Abdominal Pain, intractable n/v RFC: Pancreatic head mass REQ MD: Mode Huitron DOS: 02/27/19 HPI 69 year old female presented to ED at [facility] [place] c/o worsening abdominal pain, nausea and emesis for 2-3 days. Pain cramping upper abdominal pain more on the right side with some radiation to the back. non bloody emesis. no fever or chills. in ED noted to have abnormal LFT's and CT with biliary dilatation and pancreatic head mass on prior admission, has been seen by surgery on outside ( Dr. Bolton) may do procedure to remove that part of the pancreas, at this time appears to be stage I Allergies: No Known Allergies (Unverified , 01/29/19) Medications Scheduled Amlodipine Besylate* (Amlodipine Besylate*), 10 MG ORAL DAILY, (Reported) Lisinopril (Lisinopril*), 40 MG ORAL DAILY, (Reported) History Provided By: Patient, Medical Record, PMD Healthcare decision maker SELF Resuscitation status Full Code Advanced Directive on File No Past Medical/Surgical History: (1) Abdominal pain (2) Pancreatic mass ROS: Constitutional: No fever, no chills Skin: No rashes, lumps, itchiness, dryness HEENT: No [place], ear ache, visual changes Breasts: No lumps, pain, discharge Pulmonary: No cough, sputum Cardiovascular: No chest pain GI: No nausea, vomiting, diarrhea, melena : No dysuria, frequency, foamy urine Musculoskeletal: No joint swelling Neurologic: No dizziness, fainting, seizures Psychiatric: No nervousness, stress, or depression Physical Exam General appearance: alert, cooperative, no distress, appears stated age Head: Normocephalic, without obvious abnormality, atraumatic Eyes: conjunctivae/corneas clear. PERRL Throat: Lips, mucosa, and tongue normal Neck: supple, symmetrical Lungs: clear to auscultation bilaterally Heart: rrr, S1, S2 normal, no murmur, click, rub or gallop Abdomen: soft, non-tender. left lower quad pain Ext: no cce Pulses: 1-2+ and symmetric Skin: Skin color, texture, turgor normal. No rashes or lesions Neurologic: Grossly normal Labs: noted Imaging: noted Assessment and Recs: # Pancreatic mass, appears on imaging to be stage I - there is marked extrahepatic and central intrahepatic biliary ductal dilatation, common bile duct measuring up to 19 mm in diameter, is s/p stent placement at [facility] per patient. It abruptly taper wiithin the pancreatic head, proximal to its junction with the pancreatic duct. The pancreatic duct is borderline prominent. A mildly dilated duct is seen within the pancreatic head/uncinate, there is no peripancreatic lymphadenopathy. The gallbladder is distended but no gallstones are evident. --> imaging has been reviewed --> tumor markers reviewed CA19.9 >40 --> Biopsy proven pancreatic cancer on 02/03/19 --> await surgery as an outpatient with Dr. Bolton --> also awaiting pet scan by the end of this week (on prior imaging did have right lower lobe 4 mm 5 mm lung nodules. Suspect postinflammatory, but the possibility of neoplasm should also be considered) # Abdominal pain - likely from pancreatic mass causing biliary obstruction. Abdominal exam okay with some upper abdominal discomfort on palpation --> as per gi could be related to abd mass --> pain management recs as per Gretchen # Hypokalemia --> given K, repleted # Nausea/vomiting --> zofran prn The timing of this note does not necessarily reflect the time of the patient was seen. GREATLY APPRECIATE CONSULTATION. Lester Hawthorne MD Feb 27, 2019 09:22
--- NOTE | 2019-02-27 09:54 | GI Initial Consult Note ---
History of Present Illness General Date patient seen: Feb 27, 2019 Time patient seen: 09:52 Reason for Hospitalization: Vomiting Referring physician: STAS MCDOWELL Reason for Consultation: N/V Present Illness HPI This is a 69-year-old female with no recent diagnosis of stage I pancreatic cancer. She had pancreatitis also. She states and constant abdominal pain. Pain is worsened today. Pain is 10 out of 10. Pain is mostly in the left upper quadrant. No diarrhea. Has nausea and vomiting. No fever. Nothing made it better. Palpation or eating made it worse. Unable to keep anything down. No fever chills. GI consulted for reported nausea and vomiting. Patient was a recent admission here at [facility]. At the time was admitted for abdominal pain, nausea and vomiting. Upon further work-up, MRCP was performed noted that there was a 2 cm partially cystic lesion suspicious of small neoplasm in the uncinate process of the pancreas. In addition, it was noted that there was biliary ductal dilation with a focal sharp transition within the distal common bile duct which is dilated approximately up to 1.8 cm. Endoscopic ultrasound was performed to note a pyloric stricture, status post serial balloon dilation from -. Also noted on the endoscopic ultrasound dilated gallbladder and dilated common bile duct. We are unable to perform an FNA given that the gallbladder was distended and blocking the view of the lesion. At that time, it was recommended that the patient be transferred to [facility] for a second attempt, EUS and FNA. The patient presents today with reported nausea and vomiting x1 day. Has only complaint of abdominal pain, denies any nausea vomiting. Patient states that at [facility], they diagnosed her with early stage pancreatic cancer. The patient is pending a PET scan this Tuesday to rule out metastasis. Home Meds Reported Medications Lisinopril (LISINOPRIL*) 20 Mg Tablet, 40 MG ORAL DAILY, TAB 01/29/19 Amlodipine Besylate* (AMLODIPINE BESYLATE*) 10 Mg Tablet, 10 MG ORAL DAILY, TAB 01/29/19 Med list reviewed/reconciled: Yes Allergies: Coded Allergies: NSAIDS (NON-STEROIDAL ANTI-INFLAMMA (Verified Allergy, Severe, Anaphylaxis , 01/30/19) ASPIRIN (Verified Allergy, Unknown, 02/26/19) LEVOFLOXACIN (Verified Allergy, Unknown, 02/26/19) Patient History History Provided By: Patient, Medical Record [facility] Narrative Past Medical History: see triage record, old chart reviewed Past Surgical History: other Pertinent Family History: none Social History: Denies: smoking Now: No Immunizations: other Reviewed Nursing Documentation: PMH: Agreed; PSxH: Agreed Nursing Documentation-PMH Past Medical History: No History, Except For Hx Hypertension: Yes Hx Cancer: No Hx Neurological Problems: No Social History: Denies: smoking, alcohol use, drug use, other Review of Systems All Other Systems: negative except mentioned in HPI Physical Exam Vital Signs Date Time Temp Pulse Resp B/P (MAP) Pulse Ox O2 Delivery O2 Flow Rate FiO2 02/26/19 20:44 98.4 131 25 150/81 (104) 100 Room Air Sp02 EP Interpretation: reviewed, normal Labs Laboratory Tests Test 02/26/19 21:00 02/27/19 02:00 02/27/19 06:49 White Blood Count 9.1 K/UL (4.8-10.8) 9.9 K/UL (4.8-10.8) Red Blood Count 4.76 M/UL (4.20-5.40) 4.52 M/UL (4.20-5.40) Hemoglobin 13.4 G/DL (12.0-16.0) 12.7 G/DL (12.0-16.0) Hematocrit 39.7 % (37.0-47.0) 38.2 % (37.0-47.0) Mean Corpuscular Volume 83 FL (80-99) 85 FL (80-99) Mean Corpuscular Hemoglobin 28.1 PG (27.0-31.0) 28.1 PG (27.0-31.0) Mean Corpuscular Hemoglobin Concent 33.8 G/DL (32.0-36.0) 33.2 G/DL (32.0-36.0) Red Cell Distribution Width 10.8 % (11.6-14.8) L 11.5 % (11.6-14.8) L Platelet Count 292 K/UL (150-450) 256 K/UL (150-450) Mean Platelet Volume 6.3 FL (6.5-10.1) L 6.5 FL (6.5-10.1) Neutrophils (%) (Auto) 83.9 % (45.0-75.0) H % (45.0-75.0) Lymphocytes (%) (Auto) 10.4 % (20.0-45.0) L % (20.0-45.0) Monocytes (%) (Auto) 4.7 % (1.0-10.0) % (1.0-10.0) Eosinophils (%) (Auto) 0.0 % (0.0-3.0) % (0.0-3.0) Basophils (%) (Auto) 1.0 % (0.0-2.0) % (0.0-2.0) Sodium Level 140 MMOL/L (136-145) 135 MMOL/L (136-145) L Potassium Level 3.3 MMOL/L (3.5-5.1) L 3.1 MMOL/L (3.5-5.1) L Chloride Level 99 MMOL/L (98-107) 100 MMOL/L (98-107) Carbon Dioxide Level 26 MMOL/L (21-32) 23 MMOL/L (21-32) Anion Gap 16 mmol/L (5-15) H 12 mmol/L (5-15) Blood Urea Nitrogen 12 mg/dL (7-18) 7 mg/dL (7-18) Creatinine 0.8 MG/DL (0.55-1.30) 0.6 MG/DL (0.55-1.30) Estimat Glomerular Filtration Rate > 60 mL/min (>60) > 60 mL/min (>60) Glucose Level 141 MG/DL (74-106) H 172 MG/DL (74-106) H Calcium Level 10.3 MG/DL (8.5-10.1) H 9.2 MG/DL (8.5-10.1) Total Bilirubin 0.7 MG/DL (0.2-1.0) 0.7 MG/DL (0.2-1.0) Aspartate Amino Transf (AST/SGOT) 24 U/L (15-37) 25 U/L (15-37) Alanine Aminotransferase (ALT/SGPT) 14 U/L (12-78) 12 U/L (12-78) Alkaline Phosphatase 142 U/L (46-116) H 129 U/L (46-116) H Total Protein 8.6 G/DL (6.4-8.2) H 7.9 G/DL (6.4-8.2) Albumin 4.1 G/DL (3.4-5.0) 3.8 G/DL (3.4-5.0) Globulin 4.5 g/dL 4.1 g/dL Albumin/Globulin Ratio 0.9 (1.0-2.7) L 0.9 (1.0-2.7) L Lipase 109 U/L (73-393) Urine Color Pale yellow Urine Appearance Clear Urine pH 6 (4.5-8.0) Urine Specific [place] 1.020 (1.005-1.035) Urine Protein 2+ (NEGATIVE) H Urine Glucose (UA) Negative (NEGATIVE) Urine Ketones 4+ (NEGATIVE) H Urine Blood 4+ (NEGATIVE) H Urine Nitrite Negative (NEGATIVE) Urine Bilirubin Negative (NEGATIVE) Urine Urobilinogen Normal MG/DL (0.0-1.0) Urine Leukocyte Esterase 1+ (NEGATIVE) H Urine RBC 10-15 /HPF (0 - 2) H Urine WBC 2-4 /HPF (0 - 2) Urine Squamous Epithelial Cells Many /LPF (NONE/OCC) H Urine Bacteria Few /HPF (NONE) Differential Total Cells Counted 100 Neutrophils % (Manual) 90 % (45-75) H Lymphocytes % (Manual) 7 % (20-45) L Monocytes % (Manual) 3 % (1-10) Eosinophils % (Manual) 0 % (0-3) Basophils % (Manual) 0 % (0-2) Band Neutrophils 0 % (0-8) Platelet Estimate Adequate Platelet Morphology Normal Carcinoembryonic Antigen Pending CA 19-9 Antigen Pending Thyroid Stimulating Hormone (TSH) 0.724 uiU/mL (0.358-3.740) General Appearance: well appearing, no apparent distress, alert Head: normocephalic EENT: PERRL/EOMI, normal ENT inspection Neck: supple Respiratory: normal breath sounds, no respiratory distress Cardiovascular: normal rate Gastrointestinal: normal inspection, non tender, soft, normal bowel sounds, non -distended Rectal: deferred Genitourinary: no CVA tenderness Musculoskeletal: normal inspection, back normal Neurologic: normal inspection, alert, oriented x3, responsive Psychiatric: normal inspection, judgement/insight normal, memory normal Skin: normal inspection, normal color, no rash, warm/dry, palpation normal, well hydrated Lymphatic: normal inspection, no adenopathy Current Medications Current Medications Medications (Trade) Dose Ordered Sig/Angelito Route PRN Reason Start Time Stop Time Status Last Admin Dose Admin Acetaminophen (Tylenol) 650 mg Q4H PRN ORAL fever 02/26/19 23:45 03/28/19 23:44 Amlodipine Besylate (Norvasc) 10 mg DAILY ORAL 02/27/19 09:00 03/29/19 08:59 02/27/19 08:39 Dextrose (Dextrose 50%) 25 ml Q30M PRN IV Hypoglycemia 02/26/19 23:45 03/28/19 23:44 Dextrose (Dextrose 50%) 50 ml Q30M PRN IV Hypoglycemia 02/26/19 23:45 03/28/19 23:44 Dextrose/ Electrolytes 1,000 ml @ 75 mls/hr [id number] IV 02/26/19 23:45 03/28/19 23:44 02/27/19 04:00 Heparin Sodium (Porcine) (Heparin 5000 units/ml) 5,000 units EVERY 12 HOURS SUBQ 02/27/19 09:00 03/29/19 08:59 02/27/19 08:41 Lorazepam (Ativan 2mg/ml 1ml) 0.5 mg Q4H PRN IV For Anxiety 02/26/19 23:45 03/05/19 23:44 Morphine Sulfate (Morphine Sulfate) 2 mg EVERY 4 HOURS PRN IVP For Pain 4-6 02/26/19 23:45 03/05/19 23:44 Morphine Sulfate (Morphine Sulfate) 4 mg Q4H PRN IVP For Pain 7-10 02/26/19 23:45 03/05/19 23:44 02/27/19 09:47 Ondansetron HCl (Zofran) 4 mg Q6H PRN IVP Nausea & Vomiting 02/26/19 23:45 03/28/19 23:44 Polyethylene Glycol (Miralax) 17 gm HSPRN PRN ORAL Constipation 02/26/19 23:45 03/28/19 23:44 Zolpidem Tartrate (Ambien) 5 mg HSPRN PRN ORAL Insomnia 02/26/19 23:45 03/05/19 23:44 GI: Plan Problems: (1) Vomiting (2) Abdominal pain (3) Pancreatic cancer (4) Dehydration (5) Pancreatic mass (6) History of hypertension Plan PET scan scheduled this Tuesday at [facility] Early stage pancreatic cancer Symptomatic treatment at this time Clear liquid diet, advance as tolerated Zofran as needed Pain management IV and p.o. hydration Electrolyte correction PPI Follow-up oncology recommendations Discussed with Dr. Baez. Thank you for this patient referral, we will follow. The patient was seen and examined at bedside and all new and available data was reviewed in the patients chart. I agree with the above findings, impression and plan. (Patient seen earlier today. Signature stamp does not reflect patient encounter time.). - MD Maranda T[facility] RAFAEL Feb 27, 2019 09:53
--- NOTE | 2019-02-27 10:37 | Consultation ---
History of Present Illness General Date patient seen: Feb 27, 2019 Chief Complaint: Vomiting Referring physician: STAS MCDOWELL Reason for Consultation: N/V Present Illness HPI 69-year-old female with no recent diagnosis of pancreatic cancer and pancreatitis with biliary dilatation, presented to ER with CC of constant abdominal pain. Pain is 10 out of 10. Pain is mostly in the left upper quadrant. No diarrhea. Has nausea and vomiting. No fever. Nothing made it better. She is scheduled already to have a PEt study and possible surgery with Dr. Jenkins. Allergies: Coded Allergies: NSAIDS (NON-STEROIDAL ANTI-INFLAMMA (Verified Allergy, Severe, Anaphylaxis , 01/30/19) ASPIRIN (Verified Allergy, Unknown, 02/26/19) LEVOFLOXACIN (Verified Allergy, Unknown, 02/26/19) Medication History Scheduled Amlodipine Besylate* (Amlodipine Besylate*), 10 MG ORAL DAILY, (Reported) Lisinopril (Lisinopril*), 40 MG ORAL DAILY, (Reported) Patient History Healthcare decision maker Resuscitation status Full Code Advanced Directive on File Past Medical/Surgical History Past Medical/Surgical History: (1) History of hypertension (2) Pancreatic mass Review of Systems Constitutional: Reports: no symptoms Eye: Reports: no symptoms ENT: Reports: no symptoms All Other Systems: negative except mentioned in HPI Physical Exam General Appearance: WD/WN, alert Lines, tubes and drains: peripheral HEENT: normocephalic, atraumatic, anicteric Neck: non-tender, normal alignment, supple Respiratory/Chest: chest wall non-tender, lungs clear Cardiovascular/Chest: normal peripheral pulses Abdomen: normal bowel sounds Genitourinary/Rectal: normal genital exam Last 24 Hour Vital Signs Date Time Temp Pulse Resp B/P (MAP) Pulse Ox O2 Delivery O2 Flow Rate FiO2 02/27/19 08:39 119 169/83 02/27/19 08:00 98.2 116 18 169/83 (111) 97 02/27/19 04:00 97.9 120 18 149/84 (105) 97 02/27/19 04:00 118 02/27/19 03:40 98.8 111 18 154/76 99 Room Air 02/27/19 03:15 98.8 111 18 154/76 99 Room Air 02/27/19 02:47 128 165/75 02/27/19 02:39 128 165/75 02/27/19 02:00 98.8 128 18 165/75 99 Room Air 02/27/19 00:39 Room Air 02/27/19 00:15 98.8 128 18 157/77 99 Room Air 02/26/19 23:00 99.2 128 21 166/77 99 Room Air 02/26/19 22:00 99.2 122 21 163/74 99 Room Air 02/26/19 21:43 98.5 02/26/19 21:43 98.5 02/26/19 21:00 131 25 Room Air 02/26/19 20:44 98.4 131 25 150/81 (104) 100 Room Air Intake and Output 02/26/19 02/27/19 19:00 07:00 Output Total 100 ml Balance -100 ml Output Urine Total 100 ml # Voids 3 Laboratory Tests Test 02/26/19 21:00 02/27/19 02:00 02/27/19 06:49 White Blood Count 9.1 K/UL (4.8-10.8) 9.9 K/UL (4.8-10.8) Red Blood Count 4.76 M/UL (4.20-5.40) 4.52 M/UL (4.20-5.40) Hemoglobin 13.4 G/DL (12.0-16.0) 12.7 G/DL (12.0-16.0) Hematocrit 39.7 % (37.0-47.0) 38.2 % (37.0-47.0) Mean Corpuscular Volume 83 FL (80-99) 85 FL (80-99) Mean Corpuscular Hemoglobin 28.1 PG (27.0-31.0) 28.1 PG (27.0-31.0) Mean Corpuscular Hemoglobin Concent 33.8 G/DL (32.0-36.0) 33.2 G/DL (32.0-36.0) Red Cell Distribution Width 10.8 % (11.6-14.8) L 11.5 % (11.6-14.8) L Platelet Count 292 K/UL (150-450) 256 K/UL (150-450) Mean Platelet Volume 6.3 FL (6.5-10.1) L 6.5 FL (6.5-10.1) Neutrophils (%) (Auto) 83.9 % (45.0-75.0) H % (45.0-75.0) Lymphocytes (%) (Auto) 10.4 % (20.0-45.0) L % (20.0-45.0) Monocytes (%) (Auto) 4.7 % (1.0-10.0) % (1.0-10.0) Eosinophils (%) (Auto) 0.0 % (0.0-3.0) % (0.0-3.0) Basophils (%) (Auto) 1.0 % (0.0-2.0) % (0.0-2.0) Sodium Level 140 MMOL/L (136-145) 135 MMOL/L (136-145) L Potassium Level 3.3 MMOL/L (3.5-5.1) L 3.1 MMOL/L (3.5-5.1) L Chloride Level 99 MMOL/L (98-107) 100 MMOL/L (98-107) Carbon Dioxide Level 26 MMOL/L (21-32) 23 MMOL/L (21-32) Anion Gap 16 mmol/L (5-15) H 12 mmol/L (5-15) Blood Urea Nitrogen 12 mg/dL (7-18) 7 mg/dL (7-18) Creatinine 0.8 MG/DL (0.55-1.30) 0.6 MG/DL (0.55-1.30) Estimat Glomerular Filtration Rate > 60 mL/min (>60) > 60 mL/min (>60) Glucose Level 141 MG/DL (74-106) H 172 MG/DL (74-106) H Calcium Level 10.3 MG/DL (8.5-10.1) H 9.2 MG/DL (8.5-10.1) Total Bilirubin 0.7 MG/DL (0.2-1.0) 0.7 MG/DL (0.2-1.0) Aspartate Amino Transf (AST/SGOT) 24 U/L (15-37) 25 U/L (15-37) Alanine Aminotransferase (ALT/SGPT) 14 U/L (12-78) 12 U/L (12-78) Alkaline Phosphatase 142 U/L (46-116) H 129 U/L (46-116) H Total Protein 8.6 G/DL (6.4-8.2) H 7.9 G/DL (6.4-8.2) Albumin 4.1 G/DL (3.4-5.0) 3.8 G/DL (3.4-5.0) Globulin 4.5 g/dL 4.1 g/dL Albumin/Globulin Ratio 0.9 (1.0-2.7) L 0.9 (1.0-2.7) L Lipase 109 U/L (73-393) Urine Color Pale yellow Urine Appearance Clear Urine pH 6 (4.5-8.0) Urine Specific [place] 1.020 (1.005-1.035) Urine Protein 2+ (NEGATIVE) H Urine Glucose (UA) Negative (NEGATIVE) Urine Ketones 4+ (NEGATIVE) H Urine Blood 4+ (NEGATIVE) H Urine Nitrite Negative (NEGATIVE) Urine Bilirubin Negative (NEGATIVE) Urine Urobilinogen Normal MG/DL (0.0-1.0) Urine Leukocyte Esterase 1+ (NEGATIVE) H Urine RBC 10-15 /HPF (0 - 2) H Urine WBC 2-4 /HPF (0 - 2) Urine Squamous Epithelial Cells Many /LPF (NONE/OCC) H Urine Bacteria Few /HPF (NONE) Differential Total Cells Counted 100 Neutrophils % (Manual) 90 % (45-75) H Lymphocytes % (Manual) 7 % (20-45) L Monocytes % (Manual) 3 % (1-10) Eosinophils % (Manual) 0 % (0-3) Basophils % (Manual) 0 % (0-2) Band Neutrophils 0 % (0-8) Platelet Estimate Adequate Platelet Morphology Normal Carcinoembryonic Antigen Pending CA 19-9 Antigen Pending Thyroid Stimulating Hormone (TSH) 0.724 uiU/mL (0.358-3.740) Microbiology Date/Time Source Procedure Growth Status 02/27/19 02:45 Rectum Received Height (Feet): 5 Height (Inches): 6.00 Weight (Pounds): 125 Medications Current Medications Medications (Trade) Dose Ordered Sig/Angelito Route PRN Reason Start Time Stop Time Status Last Admin Dose Admin Acetaminophen (Tylenol) 650 mg Q4H PRN ORAL fever 02/26/19 23:45 03/28/19 23:44 Amlodipine Besylate (Norvasc) 10 mg DAILY ORAL 02/27/19 09:00 03/29/19 08:59 02/27/19 08:39 Dextrose (Dextrose 50%) 25 ml Q30M PRN IV Hypoglycemia 02/26/19 23:45 03/28/19 23:44 Dextrose (Dextrose 50%) 50 ml Q30M PRN IV Hypoglycemia 02/26/19 23:45 03/28/19 23:44 Dextrose/ Electrolytes 1,000 ml @ 75 mls/hr [id number] IV 02/26/19 23:45 03/28/19 23:44 02/27/19 04:00 Heparin Sodium (Porcine) (Heparin 5000 units/ml) 5,000 units EVERY 12 HOURS SUBQ 02/27/19 09:00 03/29/19 08:59 02/27/19 08:41 Lorazepam (Ativan 2mg/ml 1ml) 0.5 mg Q4H PRN IV For Anxiety 02/26/19 23:45 03/05/19 23:44 Morphine Sulfate (Morphine Sulfate) 2 mg EVERY 4 HOURS PRN IVP For Pain 4-6 02/26/19 23:45 03/05/19 23:44 Morphine Sulfate (Morphine Sulfate) 4 mg Q4H PRN IVP For Pain 7-10 02/26/19 23:45 03/05/19 23:44 02/27/19 09:47 Ondansetron HCl (Zofran) 4 mg Q6H PRN IVP Nausea & Vomiting 02/26/19 23:45 03/28/19 23:44 02/27/19 09:54 Polyethylene Glycol (Miralax) 17 gm HSPRN PRN ORAL Constipation 02/26/19 23:45 03/28/19 23:44 Zolpidem Tartrate (Ambien) 5 mg HSPRN PRN ORAL Insomnia 02/26/19 23:45 03/05/19 23:44 Assessment/Plan Problem List: (1) Intractable nausea and vomiting ICD Codes: R11.2 - Nausea with vomiting, unspecified SNOMED: 466827784 (2) Pancreatic cancer ICD Codes: C25.9 - Malignant neoplasm of pancreas, unspecified SNOMED: 582467280 Qualifiers: Qualified Codes: C25.9 - Malignant neoplasm of pancreas, unspecified (3) Abdominal pain ICD Codes: R10.9 - Unspecified abdominal pain SNOMED: 70569788 Qualifiers: Qualified Codes: R10.84 - Generalized abdominal pain (4) History of hypertension ICD Codes: Z86.79 - Personal history of other diseases of the circulatory system SNOMED: 249713421 Assessment/Plan: IV fluids sinus tachy secondary to pain pain management symptomatic treatment Nicolle Cazares MD Feb 27, 2019 10:37
--- NOTE | 2019-02-27 10:48 | NUR ---
NURSE NOTES: Dr. Cazares ordered Hydralazine PRN 10mg IVP. Ordered acknowledge and carried out.
--- NOTE | 2019-02-27 11:55 | NUR ---
PT EVALUATION NOTE Patient seen for initial evaluation, see complete evaluation for details. Patient presents with generalized weakness which affects patient's functional mobility and endurance. Patient requires supervision for transfers due to visual impairment. Patient able to ambulate 150 ft with slowed velocity, slightly unsteady with CGA/hand hold assist due to visual impairment. Patient will benefit from skilled inpatient PT intervention to address strength, balance, safety, endurance and mobility. Anticipate discharge home once medically cleared by MD. No DME needs anticipated at this time. Addendum: 02/27/19 at 1238 by RALEIGH DUNBAR PT Amended: Links added.
--- NOTE | 2019-02-27 13:45 | NUR ---
NURSE NOTES: Left messages to Dr. Cazares and Dr. Huitron about patient's N/V condition and NPO status but there was no order. Dr. Cazarse ordered NPO for patient and told nurse to contact GI , Dr. Baez for further orders. Called Dr. Baez's office and left message to the staff to notify physician. Waiting for Dr. Baez's response. NPO ordered is acknowledged and carried out per Dr. Cazares's order.
--- NOTE | 2019-02-27 13:53 | Consultation ---
History of Present Illness General Date patient seen: Feb 27, 2019 Chief Complaint: Vomiting Referring physician: STAS MCDOWELL Reason for Consultation: N/V Present Illness HPI 69 y/o F with hx of pancreatic CA, HTN, pancreatitis s/p biliary dilation presented to ED on 02/26 with constant abd pain; 10/10 intensity, mostly on LUQ. Associated symptoms: Nausea, vomiting and unable to keep anything down. Denied diarrhea, fever, chills. Of note, patient was admitted to on 01/29-02/01/19 which he presented with abd pain and vomiting and was diagnosed with a pancreatic mass. Patient, posteriorly was seen at [facility] where she was diagnosed with early stage pancreatic CA and she has a Pending PET this Tuesday03/02/19 to rule out mets. Allergies: Coded Allergies: NSAIDS (NON-STEROIDAL ANTI-INFLAMMA (Verified Allergy, Severe, Anaphylaxis , 01/30/19) ASPIRIN (Verified Allergy, Unknown, 02/26/19) LEVOFLOXACIN (Verified Allergy, Unknown, 02/26/19) Medication History Scheduled Amlodipine Besylate* (Amlodipine Besylate*), 10 MG ORAL DAILY, (Reported) Lisinopril (Lisinopril*), 40 MG ORAL DAILY, (Reported) Scheduled PRN Tramadol Hcl* (Ultram*), 50 MG ORAL Q6H PRN for For Pain, (Reported) Patient History Healthcare decision maker Resuscitation status Full Code Advanced Directive on File Patient History Narrative Pmhx: as above Shx: Denies: smoking FHx: non contributory Physical Exam Physical Exam Narrative General Appearance: well appearing, no apparent distress, alert Head: normocephalic EENT: PERRL/EOMI, normal ENT inspection Neck: supple Respiratory: normal breath sounds, no respiratory distress Cardiovascular: normal rate Gastrointestinal: normal inspection, non tender, soft, normal bowel sounds, non -distended Rectal: deferred Genitourinary: no CVA tenderness Musculoskeletal: normal inspection, back normal Neurologic: normal inspection, alert, oriented x3, responsive Psychiatric: normal inspection, judgement/insight normal, memory normal Skin: normal inspection, normal color, no rash, warm/dry, palpation normal, well hydrated Lymphatic: normal inspection, no adenopathy Current Medications Last 24 Hour Vital Signs Date Time Temp Pulse Resp B/P (MAP) Pulse Ox O2 Delivery O2 Flow Rate FiO2 02/27/19 12:00 97.7 112 20 130/74 (92) 97 02/27/19 11:10 169/83 02/27/19 09:00 Room Air 02/27/19 08:39 119 169/83 02/27/19 08:00 118 02/27/19 08:00 98.2 116 18 169/83 (111) 97 02/27/19 04:00 97.9 120 18 149/84 (105) 97 02/27/19 04:00 118 02/27/19 03:40 98.8 111 18 154/76 99 Room Air 02/27/19 03:15 98.8 111 18 154/76 99 Room Air 02/27/19 02:47 128 165/75 02/27/19 02:39 128 165/75 02/27/19 02:00 98.8 128 18 165/75 99 Room Air 02/27/19 00:39 Room Air 02/27/19 00:15 98.8 128 18 157/77 99 Room Air 02/26/19 23:00 99.2 128 21 166/77 99 Room Air 02/26/19 22:00 99.2 122 21 163/74 99 Room Air 02/26/19 21:43 98.5 02/26/19 21:43 98.5 02/26/19 21:00 131 25 Room Air 02/26/19 20:44 98.4 131 25 150/81 (104) 100 Room Air Intake and Output 02/26/19 02/27/19 19:00 07:00 Output Total 100 ml Balance -100 ml Output Urine Total 100 ml # Voids 3 Laboratory Tests Test 02/26/19 21:00 02/27/19 02:00 02/27/19 06:49 White Blood Count 9.1 K/UL (4.8-10.8) 9.9 K/UL (4.8-10.8) Red Blood Count 4.76 M/UL (4.20-5.40) 4.52 M/UL (4.20-5.40) Hemoglobin 13.4 G/DL (12.0-16.0) 12.7 G/DL (12.0-16.0) Hematocrit 39.7 % (37.0-47.0) 38.2 % (37.0-47.0) Mean Corpuscular Volume 83 FL (80-99) 85 FL (80-99) Mean Corpuscular Hemoglobin 28.1 PG (27.0-31.0) 28.1 PG (27.0-31.0) Mean Corpuscular Hemoglobin Concent 33.8 G/DL (32.0-36.0) 33.2 G/DL (32.0-36.0) Red Cell Distribution Width 10.8 % (11.6-14.8) L 11.5 % (11.6-14.8) L Platelet Count 292 K/UL (150-450) 256 K/UL (150-450) Mean Platelet Volume 6.3 FL (6.5-10.1) L 6.5 FL (6.5-10.1) Neutrophils (%) (Auto) 83.9 % (45.0-75.0) H % (45.0-75.0) Lymphocytes (%) (Auto) 10.4 % (20.0-45.0) L % (20.0-45.0) Monocytes (%) (Auto) 4.7 % (1.0-10.0) % (1.0-10.0) Eosinophils (%) (Auto) 0.0 % (0.0-3.0) % (0.0-3.0) Basophils (%) (Auto) 1.0 % (0.0-2.0) % (0.0-2.0) Sodium Level 140 MMOL/L (136-145) 135 MMOL/L (136-145) L Potassium Level 3.3 MMOL/L (3.5-5.1) L 3.1 MMOL/L (3.5-5.1) L Chloride Level 99 MMOL/L (98-107) 100 MMOL/L (98-107) Carbon Dioxide Level 26 MMOL/L (21-32) 23 MMOL/L (21-32) Anion Gap 16 mmol/L (5-15) H 12 mmol/L (5-15) Blood Urea Nitrogen 12 mg/dL (7-18) 7 mg/dL (7-18) Creatinine 0.8 MG/DL (0.55-1.30) 0.6 MG/DL (0.55-1.30) Estimat Glomerular Filtration Rate > 60 mL/min (>60) > 60 mL/min (>60) Glucose Level 141 MG/DL (74-106) H 172 MG/DL (74-106) H Calcium Level 10.3 MG/DL (8.5-10.1) H 9.2 MG/DL (8.5-10.1) Total Bilirubin 0.7 MG/DL (0.2-1.0) 0.7 MG/DL (0.2-1.0) Aspartate Amino Transf (AST/SGOT) 24 U/L (15-37) 25 U/L (15-37) Alanine Aminotransferase (ALT/SGPT) 14 U/L (12-78) 12 U/L (12-78) Alkaline Phosphatase 142 U/L (46-116) H 129 U/L (46-116) H Total Protein 8.6 G/DL (6.4-8.2) H 7.9 G/DL (6.4-8.2) Albumin 4.1 G/DL (3.4-5.0) 3.8 G/DL (3.4-5.0) Globulin 4.5 g/dL 4.1 g/dL Albumin/Globulin Ratio 0.9 (1.0-2.7) L 0.9 (1.0-2.7) L Lipase 109 U/L (73-393) Urine Color Pale yellow Urine Appearance Clear Urine pH 6 (4.5-8.0) Urine Specific Dougherty 1.020 (1.005-1.035) Urine Protein 2+ (NEGATIVE) H Urine Glucose (UA) Negative (NEGATIVE) Urine Ketones 4+ (NEGATIVE) H Urine Blood 4+ (NEGATIVE) H Urine Nitrite Negative (NEGATIVE) Urine Bilirubin Negative (NEGATIVE) Urine Urobilinogen Normal MG/DL (0.0-1.0) Urine Leukocyte Esterase 1+ (NEGATIVE) H Urine RBC 10-15 /HPF (0 - 2) H Urine WBC 2-4 /HPF (0 - 2) Urine Squamous Epithelial Cells Many /LPF (NONE/OCC) H Urine Bacteria Few /HPF (NONE) Differential Total Cells Counted 100 Neutrophils % (Manual) 90 % (45-75) H Lymphocytes % (Manual) 7 % (20-45) L Monocytes % (Manual) 3 % (1-10) Eosinophils % (Manual) 0 % (0-3) Basophils % (Manual) 0 % (0-2) Band Neutrophils 0 % (0-8) Platelet Estimate Adequate Platelet Morphology Normal Carcinoembryonic Antigen Pending CA 19-9 Antigen Pending Thyroid Stimulating Hormone (TSH) 0.724 uiU/mL (0.358-3.740) Microbiology Date/Time Source Procedure Growth Status 02/27/19 02:45 Rectum Received Height (Feet): 5 Height (Inches): 6.00 Weight (Pounds): 125 Medications Current Medications Medications (Trade) Dose Ordered Sig/Angelito Route PRN Reason Start Time Stop Time Status Last Admin Dose Admin Acetaminophen (Tylenol) 650 mg Q4H PRN ORAL fever 02/26/19 23:45 03/28/19 23:44 Amlodipine Besylate (Norvasc) 10 mg DAILY ORAL 02/27/19 09:00 03/29/19 08:59 02/27/19 08:39 Dextrose (Dextrose 50%) 25 ml Q30M PRN IV Hypoglycemia 02/26/19 23:45 03/28/19 23:44 Dextrose (Dextrose 50%) 50 ml Q30M PRN IV Hypoglycemia 02/26/19 23:45 03/28/19 23:44 Dextrose/ Electrolytes 1,000 ml @ 75 mls/hr [id number] IV 02/26/19 23:45 03/28/19 23:44 02/27/19 04:00 Heparin Sodium (Porcine) (Heparin 5000 units/ml) 5,000 units EVERY 12 HOURS SUBQ 02/27/19 09:00 03/29/19 08:59 02/27/19 08:41 Hydralazine HCl (Apresoline) 10 mg Q4H PRN IV For High Blood Pressure 02/27/19 11:00 03/29/19 10:59 02/27/19 11:10 Lorazepam (Ativan 2mg/ml 1ml) 0.5 mg Q4H PRN IV For Anxiety 02/26/19 23:45 03/05/19 23:44 Morphine Sulfate (Morphine Sulfate) 2 mg EVERY 4 HOURS PRN IVP For Pain 4-6 02/26/19 23:45 03/05/19 23:44 Morphine Sulfate (Morphine Sulfate) 4 mg Q4H PRN IVP For Pain 7-10 02/26/19 23:45 03/05/19 23:44 02/27/19 09:47 Ondansetron HCl (Zofran) 4 mg Q6H PRN IVP Nausea & Vomiting 02/26/19 23:45 03/28/19 23:44 02/27/19 09:54 Polyethylene Glycol (Miralax) 17 gm HSPRN PRN ORAL Constipation 02/26/19 23:45 03/28/19 23:44 Zolpidem Tartrate (Ambien) 5 mg HSPRN PRN ORAL Insomnia 02/26/19 23:45 03/05/19 23:44 Assessment/Plan Assessment/Plan: Abx: None Assessment: Abd pain, nausea/emesis- likely related to pancreatic CA- doubt infectious process -u/a neg Afebrile No leukocytosis Early stage pancreatic CA Pyloric stricture -/ SP ballon dilation -elevated CA 19-9 -/2 SP EUS: Pylorus stricture, status post serial balloon dilation from 10 to12. Dilated gallbladder with some stones and sludge in it. Dilated common bile duct to about 17 millimeter. A 2.3 centimeter pancreatic mass in the body/ uncinate process causing the common bile duct dilatation. Unable to perform FNA given the gallbladder was distended and blocking the view. -Abd uS: Gallbladder sludge and possible tiny calculi noted. Positive sonographic Pineda's sign. Significance uncertain the absence of gallbladder wall thickening, but the possibility of acute cholecystitis should be considered. Biliary ductal dilatation, as described. Note that this also was reported on CT scan of earlier the same day. Right upper pole renal cortical cyst and multiple left renal parapelvic cysts -CT abd/p: 20 x 10 x 8 mm low-attenuation lesion within the upper uncinate process of the pancreas. This is concerning for pancreatic neoplasm. This finding can also be seen in chronic pancreatitis, although there are no other abnormalities to suggest this diagnosis. Endoscopic ultrasound may be useful for better characterization. Marked extrahepatic and central intrahepatic biliary ductal dilatation, with abrupt tapering at the level the pancreatic head. Possibly related to the above. However, the above lesion appears to be centered somewhat medial and cephalad to the point of obstruction, so the possibility of a separate intraluminal lesion should also be considered. Distended gallbladder without evidence of cholelithiasis. Right lower lobe 4 mm 5 mm lung nodules. Suspect postinflammatory, but the possibility of neoplasm should also be considered, particularly given the above findings. Left renal parapelvic cysts. Subcentimeter low-attenuation renal lesions, too small to characterize, most likely benign simple cysts. No further follow-up necessary. Right hepatic lobe cyst HTN Plan: -Continue to monitor off abx -f/u cx -Monitor CBC/CMP, temperatures -aspiration precautions -GI f/u Thank you for this consultation. Will continue to follow along with you. Discussed with NIKOLAI. Paulina Quinteros M.D. Feb 27, 2019 13:53
--- NOTE | 2019-02-27 14:06 | NUR ---
CASE MANAGEMENT:REVIEW 69 YR OLD FEMALE PRESENTED TO ER CC: NAUSEA AND VOMITING. SEVERE ABDOMINAL PAIN PMH: PANCREATIC CANCER SI: INTRACTABLE PAIN. DEHYDRATION. VOMITING PANCREATIC CANCER 98.5 131 25 150/81 100% ON RA K-3.3 GLUCOSE+141 IS: IV ZOFRAN X2 IV DILAUDID X2 1L NS BOLUS : TO TELEMETRY INTERQUAL CRITERIA MET 02/27/19 SI: HR~120 IS: 1L NS BOLUS X1 IV METOPROLOL X2 : TELEMETRY STATUS INTERQUAL CRITERIA
--- NOTE | 2019-02-27 16:00 | NUR ---
NURSE NOTES: Contacted Maranda Lynne ENGINEERING ANALYST about patient's potassium: 3.3. Ordered K-Dur 40mg tab PO once. Ordered acknowledged and carried out.
--- NOTE | 2019-02-27 16:15 | Consultation ---
DATE OF CONSULTATION: 02/27/2019 PAIN MANAGEMENT CONSULTATION CONSULTING PHYSICIAN: Sharmila Godinez M.D. REFERRING PHYSICIAN: Lg Huitron D.O. PHYSICIAN PRINCIPAL PROCESS ENGINEER: MARGARETH Dominguez. CHIEF COMPLAINT: Abdominal pain. HISTORY OF PRESENT ILLNESS: The patient is a 69-year-old female who is being seen on the telemetry floor of [facility] for initial pain management consultation. The patient was admitted under the care of Dr. Huitron due to abdominal pain with nausea, vomiting. She is in bed at this time with daughter at bedside. She reports that her abdominal pain has been for the past month. It is a constant acute pain, rating it a 6/10, at this time, describing pain as aching, stabbing pain, which is worse with eating and has been reduced with the morphine at this time. She is on morphine 2 to 4 mg IV every 4 hours as needed for pain, has been given one dose of morphine here in hospital which has allowed her to tolerate the pain. Nausea and vomiting is slightly reduced, waiting to be seen by oncologist due to being newly diagnosed with pancreatic cancer when she had been admitted in the beginning of January and then was transferred to [facility] where she developed pancreatitis after biopsy of the pancreatic mass. Now we were consulted so that the patient would have adequate pain control while here in the hospital. PAST MEDICAL HISTORY: Pancreatic cancer, pancreatitis, hypertension, cataracts, GERD. PAST SURGICAL HISTORY: Cataract surgery. SOCIAL HISTORY: Denies smoking tobacco, drinking alcohol, or IV drug abuse. ALLERGIES: Aspirin, levofloxacin, NSAIDs. REVIEW OF SYSTEMS: Denies rash, fever, chills, sweating, dizziness, drowsiness, blurred vision, sore throat, change in her weight. No shortness of breath or chest pain. No bowel or bladder incontinence. No dysuria. She is complaining of abdominal pain. PHYSICAL EXAMINATION: GENERAL: Alert, awake, and oriented. VITAL SIGNS: Blood pressure 149/84, heart rate 120, oxygen saturation 97%, respiratory rate is 18, and temperature 97.9 degrees Fahrenheit. HEENT: PERRLA. NECK: Range of motion is full in all directions. No tenderness to paracervical muscles. No adenopathy. LUNGS: Decreased breath sounds bilaterally. HEART: S1 and S2 regular. ABDOMEN: Tenderness to palpation. BACK: Range of motion is decreased in flexion and extension. EXTREMITIES: Upper and lower extremity range of motion is full in all directions. No cyanosis. No clubbing. No edema. Sensory is intact. . Reflexes are not obtainable. No adenopathy. ASSESSMENT AND PLAN: This is a 69-year-old female with intractable abdominal pain, pancreatic cancer. The patient will be continued on morphine as needed. The patient was discussed with Dr. Godinez and Dr. Godinez concurred. We will follow the patient. Thank you very much for the courtesy of this consultation. Sharmila Godinez M.D. MARGARETH Butcher DR: Sue JOB#: [id number] CC: YECENIA
--- NOTE | 2019-02-27 16:25 | NUR ---
NURSE NOTES: Contacted Dr. Cazares about patient's potassium. Received order for KCl 40meq IV times one. Ordered acknowledged and carried out first bag of KCL at 1700.
--- NOTE | 2019-02-27 16:30 | NUR ---
NURSE NOTES: Cancelled Rosa Low's order for 40meq PO per INSULATION AND FLOORING ASSEMBLER's order. Ordered acknowledged and carried out.
[2019-02-27] MEDS ORDERED: TRAMADOL HCL50 MG ORAL (18:45)
--- NOTE | 2019-02-27 19:10 | NUR ---
NURSE NOTES: Received pt and report from NIKOLAI Pacheco. Observed pt resting in bed with family member at bedside. Pt is A/Ox4, vision impaired. quality assurance monitor final is in placed, IV site intact, asymptomatic and patent; currently running D5 1/2 NS w/KCL 20mEq @ 75cc/hr. Bed is in the lowest position and locked. Call light within reach. No signs and symptoms of acute distress noted at this time. Will continue plan of care.
--- NOTE | 2019-02-27 19:20 | NUR ---
HAND-OFF: Report given to NIKOLAI Garza. Patient's in stable condition, no s/s of acute distress or SOB. Plan of care endorsed. .
--- NOTE | 2019-02-27 20:15 | History and Physical Report ---
DATE OF ADMISSION: 02/26/2019 DATE AND TIME SEEN: 02/27/2019 at 1 p.m. CONSULTANTS: 1. Nicolle Cazares M.D. 2. Taz Baez M.D. 3. Sharmila Godinez M.D. 4. Lester Hawthorne M.D. CHIEF COMPLAINT: Intractable pain, dehydration, and history of pancreatic cancer. BRIEF HISTORY: This is a 69-year-old female, recently diagnosed with pancreatic cancer on 02/08/2019, has increased abdominal pain, nausea and vomiting at home for two days. she became dehydrated, came to [place], diagnosed with the above, admitted to telemetry for further care. Currently, feeling a little bit better, no complaints, has still 7-8/10 abdominal pain. PAST MEDICAL HISTORY: Include hypertension and pancreatic cancer diagnosed recently. No history of chemo or radiation. PAST SURGICAL HISTORY: Eye surgery. ALLERGIES: Aspirin, levofloxacin, and NSAIDs. MEDICATIONS: Include hydralazine, amlodipine, heparin, metoprolol, Tylenol, polyethylene glycol, Zofran, morphine, and Zofran. SOCIAL HISTORY: No smoking. No alcohol. No intravenous drug abuse. FAMILY HISTORY: Noncontributory. PHYSICAL EXAMINATION: GENERAL: Slightly anxious in bed, oriented x3, slight distress secondary to abdominal pain. VITAL SIGNS: Temperature 97 degrees, pulse 112, respirations 20, and blood pressure 130/74. CARDIOVASCULAR: No murmur. LUNGS: Distant and clear. ABDOMEN: Bowel sounds positive. Slightly tender. No guarding, no rigidity, and no rebound. Soft. EXTREMITIES: No cyanosis or edema. NEUROLOGIC: The patient moves all extremities, slightly weak. LABORATORY AND DIAGNOSTIC DATA: Labs at this time show CBC is normal. BMP shows sodium 135, potassium 3.1, glucose 172. Urinalysis with 1+ leukocyte esterase. ASSESSMENT: 1. Intractable pain. 2. Dehydration. 3. Abdominal pain, nausea and vomiting. 4. Urinary tract infection. 5. Pancreatic cancer. 6. Hypertension. 7. Diabetes. PLAN: 1. Blood pressure, blood sugar, and pain control. 2. IV fluids. 3. Dietary followup. 4. Antibiotics per Infectious Disease. 5. CBC and BMP in the morning. 6. PT evaluation. 7. Dietary evaluation. Lg Huitron D.O. DR: ADOLFO JOB#: [id number] CC:
[2019-02-27] MEDS: Morphine Sulfate 2mg/ml Inj(IV/IM USE ONLY) IVP PRN (20:45)
[2019-02-28] VITALS: BP 141/71
[2019-02-28] MEDS: D5 1/2NS w/KCl 20mEq 1,000 ML IV SCH (03:21)
[2019-02-28] MEDS: Morphine Sulfate 4mg/ml Inj (IV USE ONLY) IVP PRN (03:24)
[2019-02-28 04:00] VITALS: BP 133/67
[2019-02-28 06:08] LABS: BASOPHILS % (AUTO) 0.9 % (0.0-2.0); EOSINOPHILS % (AUTO) 0.7 % (0.0-3.0); HEMATOCRIT 34.7 % (37.0-47.0); HEMOGLOBIN 11.4 G/DL (12.0-16.0); LYMPHOCYTES % (AUTO) 20.5 % (20.0-45.0); MEAN CORPUSCULAR VOLUME 85 FL (80-99); NEUTROPHILS % (AUTO) 67.9 % (45.0-75.0); PLATELET COUNT 249 K/UL (150-450); RED BLOOD COUNT 4.06 M/UL (4.20-5.40); RED CELL DISTRIBUTION WIDTH 11.5 % (11.6-14.8); WHITE BLOOD COUNT 8.4 K/UL (4.8-10.8)
[2019-02-28 06:26] LABS: ANION GAP 7 mmol/L (5-15); BLOOD UREA NITROGEN 5 mg/dL (7-18); CALCIUM 9.2 MG/DL (8.5-10.1); CARBON DIOXIDE 26 MMOL/L (21-32); CHLORIDE 104 MMOL/L (98-107); CREATININE 0.6 MG/DL (0.55-1.30); PHOSPHORUS 2.9 MG/DL (2.5-4.9); POTASSIUM 3.3 MMOL/L (3.5-5.1); SODIUM 137 MMOL/L (136-145)
--- NOTE | 2019-02-28 07:51 | NUR ---
HAND-OFF: Report given to NIKOLAI Knight.
--- NOTE | 2019-02-28 07:52 | NUR ---
NURSE NOTES: Received pt from NIKOLAI Garza. Patient is resting in stable condition. Pt is A/Ox4, vision impaired. inside sales account representative is in placed, IV site intact, asymptomatic and patent; currently running D5 1/2 NS w/KCL 20mEq @ 75cc/hr. Bed is in the lowest position with two side rails up and locked. Call light and bed side table within reach. No signs and symptoms of acute distress noted at this time. Will continue plan of care.
[2019-02-28 07:58] VITALS: BP 131/75
--- NOTE | 2019-02-28 08:20 | General Progress Note ---
Assessment/Plan Assessment/Plan: (1) Intractable Abdominal pain (2) Pancreatic Cancer Pt will be continued on Morphine D/w Dr. Godinez and he concurred. Subjective Date patient seen: Feb 28, 2019 Time patient seen: 07:00 - am Constitutional: Reports: weakness HEENT: Reports: no symptoms Cardiovascular: Reports: no symptoms Respiratory: Reports: no symptoms Gastrointestinal/Abdominal: Reports: abdominal pain Genitourinary: Reports: no symptoms Neurologic/Psychiatric: Reports: weakness Endocrine: Reports: no symptoms Hematologic/Lymphatic: Reports: no symptoms Allergies: Coded Allergies: NSAIDS (NON-STEROIDAL ANTI-INFLAMMA (Verified Allergy, Severe, Anaphylaxis , 01/30/19) ASPIRIN (Verified Allergy, Unknown, 02/26/19) LEVOFLOXACIN (Verified Allergy, Unknown, 02/26/19) Subjective Patient reports that the pain has been tolerated on the Morphine using 3 doses of 4mg in the last 24hrs. Objective Last 24 Hour Vital Signs Date Time Temp Pulse Resp B/P (MAP) Pulse Ox O2 Delivery O2 Flow Rate FiO2 02/28/19 07:58 99.0 102 18 131/75 (93) 100 02/28/19 04:00 95 02/28/19 04:00 98.0 90 19 133/67 (89) 94 02/28/19 00:00 98.2 97 17 141/71 (94) 96 02/28/19 00:00 97 02/27/19 21:00 Room Air 02/27/19 20:00 89 02/27/19 20:00 98.2 91 19 131/65 (87) 96 02/27/19 16:00 97.0 96 18 132/78 (96) 97 02/27/19 16:00 104 02/27/19 12:00 105 02/27/19 12:00 97.7 112 20 130/74 (92) 97 02/27/19 11:10 169/83 02/27/19 09:00 Room Air 02/27/19 08:39 119 169/83 Intake and Output 02/27/19 02/28/19 19:00 07:00 Intake Total 50 ml Output Total 1000 ml Balance -950 ml Intake IV Total 50 ml Output Urine Total 1000 ml Laboratory Tests 02/28/19 05:33: White Blood Count 8.4, Red Blood Count 4.06L, Hemoglobin 11.4L, Hematocrit 34.7L , Mean Corpuscular Volume 85, Mean Corpuscular Hemoglobin 27.9, Mean Corpuscular Hemoglobin Concent 32.7, Red Cell Distribution Width 11.5L, Platelet Count 249, Mean Platelet Volume 6.9, Neutrophils (%) (Auto) 67.9, Lymphocytes (%) (Auto) 20.5, Monocytes (%) (Auto) 10.0, Eosinophils (%) (Auto) 0.7, Basophils (%) (Auto) 0.9, Sodium Level 137, Potassium Level 3.3L, Chloride Level 104, Carbon Dioxide Level 26, Anion Gap 7, Blood Urea Nitrogen 5L, Creatinine 0.6, Estimat Glomerular Filtration Rate > 60, Glucose Level 128H, Calcium Level 9.2, Phosphorus Level 2.9, Magnesium Level 1.3L Height (Feet): 5 Height (Inches): 6.00 Weight (Pounds): 138 General Appearance: no apparent distress, alert EENT: PERRL/EOMI, normal ENT inspection Neck: non-tender, normal alignment Cardiovascular: normal rate, regular rhythm Respiratory/Chest: lungs clear, normal breath sounds Abdomen: tender Extremities: non-tender Edema: no edema noted Arm (L) Neurologic: alert, oriented x 3 Skin: warm/dry Crispin Sharma Feb 28, 2019 08:20
[2019-02-28] MEDS: Heparin 5000 units/ml inj SUBQ SCH ×2 (08:30→20:43)
--- NOTE | 2019-02-28 08:35 | Hematology/Onc Progress Note ---
Assessment/Plan Assessment/Plan Assessment and Recs: # Pancreatic mass, appears on imaging to be stage I - there is marked extrahepatic and central intrahepatic biliary ductal dilatation, common bile duct measuring up to 19 mm in diameter, is s/p stent placement at [facility] per patient. It abruptly taper wiithin the pancreatic head, proximal to its junction with the pancreatic duct. The pancreatic duct is borderline prominent. A mildly dilated duct is seen within the pancreatic head/uncinate, there is no peripancreatic lymphadenopathy. The gallbladder is distended but no gallstones are evident. --> imaging has been reviewed --> tumor markers reviewed CA19.9 >40 --> Biopsy proven pancreatic cancer on 02/03/19 --> await surgery as an outpatient with Dr. Jenkins --> also awaiting pet scan by the end of this week (on prior imaging did have right lower lobe 4 mm 5 mm lung nodules. Suspect postinflammatory, but the possibility of neoplasm should also be considered) # Abdominal pain - likely from pancreatic mass causing biliary obstruction. Abdominal exam okay with some upper abdominal discomfort on palpation --> as per gi could be related to abd mass --> pain management recs as per Gretchen --> on morphine prn # Hypokalemia --> given K, repleted # Nausea/vomiting --> zofran prn The timing of this note does not necessarily reflect the time of the patient was seen. GREATLY APPRECIATE CONSULTATION. Subjective Constitutional: Denies: no symptoms, chills, fever, malaise, weakness, other HEENT: Denies: no symptoms, eye pain, blurred vision, tearing, double vision, ear pain, ear discharge, nose pain, nose congestion, throat pain, throat swelling, mouth pain, mouth swelling, other Cardiovascular: Denies: no symptoms, chest pain, edema, irregular heart rate, lightheadedness, palpitations, syncope, other Respiratory: Denies: no symptoms, cough, shortness of breath, SOB with excertion, SOB at rest, sputum, wheezing, other Gastrointestinal/Abdominal: Denies: no symptoms, abdomen distended, abdominal pain, black stools, tarry stools, blood in stool, constipated, diarrhea, difficulty swallowing, nausea, poor appetite, poor fluid intake, rectal bleeding , vomiting, other Genitourinary: Denies: no symptoms, burning, discharge, frequency, flank pain, hematuria, incontinence, pain, urgency, other Neurologic/Psychiatric: Denies: no symptoms, anxiety, depressed, emotional problems, headache, numbness, paresthesia, pre-existing deficit, seizure, tingling, tremors, weakness, other Allergies: Coded Allergies: NSAIDS (NON-STEROIDAL ANTI-INFLAMMA (Verified Allergy, Severe, Anaphylaxis , 01/30/19) ASPIRIN (Verified Allergy, Unknown, 02/26/19) LEVOFLOXACIN (Verified Allergy, Unknown, 02/26/19) Subjective .31: no f/c noted, no bleeding, no night sweats reported Objective Objective Current Medications Medications (Trade) Dose Ordered Sig/Angelito Route PRN Reason Start Time Stop Time Status Last Admin Dose Admin Acetaminophen (Tylenol) 650 mg Q4H PRN ORAL fever 02/26/19 23:45 03/28/19 23:44 Amlodipine Besylate (Norvasc) 10 mg DAILY ORAL 02/27/19 09:00 03/29/19 08:59 02/28/19 08:28 Dextrose (Dextrose 50%) 25 ml Q30M PRN IV Hypoglycemia 02/26/19 23:45 03/28/19 23:44 Dextrose (Dextrose 50%) 50 ml Q30M PRN IV Hypoglycemia 02/26/19 23:45 03/28/19 23:44 Dextrose/ Electrolytes 1,000 ml @ 75 mls/hr [id number] IV 02/26/19 23:45 03/28/19 23:44 02/28/19 03:21 Heparin Sodium (Porcine) (Heparin 5000 units/ml) 5,000 units EVERY 12 HOURS SUBQ 02/27/19 09:00 03/29/19 08:59 02/28/19 08:30 Hydralazine HCl (Apresoline) 10 mg Q4H PRN IV For High Blood Pressure 02/27/19 11:00 03/29/19 10:59 02/27/19 11:10 Lorazepam (Ativan 2mg/ml 1ml) 0.5 mg Q4H PRN IV For Anxiety 02/26/19 23:45 03/05/19 23:44 Morphine Sulfate (Morphine Sulfate) 2 mg EVERY 4 HOURS PRN IVP For Pain 4-6 02/26/19 23:45 03/05/19 23:44 02/27/19 20:45 Morphine Sulfate (Morphine Sulfate) 4 mg Q4H PRN IVP For Pain 7-02/26/19 23:45 03/05/19 23:44 02/28/19 03:24 Ondansetron HCl (Zofran) 4 mg Q6H PRN IVP Nausea & Vomiting 02/26/19 23:45 03/28/19 23:44 02/27/19 09:54 Polyethylene Glycol (Miralax) 17 gm HSPRN PRN ORAL Constipation 02/26/19 23:45 03/28/19 23:44 Zolpidem Tartrate (Ambien) 5 mg HSPRN PRN ORAL Insomnia 02/26/19 23:45 03/05/19 23:44 Last 24 Hour Vital Signs Date Time Temp Pulse Resp B/P (MAP) Pulse Ox O2 Delivery O2 Flow Rate FiO2 02/28/19 08:28 102 131/75 02/28/19 07:58 99.0 102 18 131/75 (93) 100 02/28/19 04:00 95 02/28/19 04:00 98.0 90 19 133/67 (89) 94 02/28/19 00:00 98.2 97 17 141/71 (94) 96 02/28/19 00:00 97 02/27/19 21:00 Room Air 02/27/19 20:00 89 02/27/19 20:00 98.2 91 19 131/65 (87) 96 02/27/19 16:00 97.0 96 18 132/78 (96) 97 02/27/19 16:00 104 02/27/19 12:00 105 02/27/19 12:00 97.7 112 20 130/74 (92) 97 02/27/19 11:10 169/83 02/27/19 09:00 Room Air 02/27/19 08:39 119 169/83 02/27/19 08:00 118 02/27/19 08:00 98.2 116 18 169/83 (111) 97 02/27/19 04:00 97.9 120 18 149/84 (105) 97 02/27/19 04:00 118 02/27/19 03:40 98.8 111 18 154/76 99 Room Air 02/27/19 03:15 98.8 111 18 154/76 99 Room Air 02/27/19 02:47 128 165/75 02/27/19 02:39 128 165/75 02/27/19 02:00 98.8 128 18 165/75 99 Room Air 02/27/19 00:39 Room Air 02/27/19 00:15 98.8 128 18 157/77 99 Room Air 02/26/19 23:00 99.2 128 21 166/77 99 Room Air 02/26/19 22:00 99.2 122 21 163/74 99 Room Air 02/26/19 21:43 98.5 02/26/19 21:43 98.5 02/26/19 21:00 131 25 Room Air 02/26/19 20:44 98.4 131 25 150/81 (104) 100 Room Air Intake and Output 02/27/19 02/28/19 19:00 07:00 Intake Total 50 ml Output Total 1000 ml Balance -950 ml Intake IV Total 50 ml Output Urine Total 1000 ml Labs Test 02/26/19 21:00 02/27/19 02:00 02/27/19 06:49 02/28/19 05:33 White Blood Count 9.1 K/UL (4.8-10.8) 9.9 K/UL (4.8-10.8) 8.4 K/UL (4.8-10.8) Red Blood Count 4.76 M/UL (4.20-5.40) 4.52 M/UL (4.20-5.40) 4.06 M/UL (4.20-5.40) Hemoglobin 13.4 G/DL (12.0-16.0) 12.7 G/DL (12.0-16.0) 11.4 G/DL (12.0-16.0) Hematocrit 39.7 % (37.0-47.0) 38.2 % (37.0-47.0) 34.7 % (37.0-47.0) Mean Corpuscular Volume 83 FL (80-99) 85 FL (80-99) 85 FL (80-99) Mean Corpuscular Hemoglobin 28.1 PG (27.0-31.0) 28.1 PG (27.0-31.0) 27.9 PG (27.0-31.0) Mean Corpuscular Hemoglobin Concent 33.8 G/DL (32.0-36.0) 33.2 G/DL (32.0-36.0) 32.7 G/DL (32.0-36.0) Red Cell Distribution Width 10.8 % (11.6-14.8) 11.5 % (11.6-14.8) 11.5 % (11.6-14.8) Platelet Count 292 K/UL (150-450) 256 K/UL (150-450) 249 K/UL (150-450) Mean Platelet Volume 6.3 FL (6.5-10.1) 6.5 FL (6.5-10.1) 6.9 FL (6.5-10.1) Neutrophils (%) (Auto) 83.9 % (45.0-75.0) % (45.0-75.0) 67.9 % (45.0-75.0) Lymphocytes (%) (Auto) 10.4 % (20.0-45.0) % (20.0-45.0) 20.5 % (20.0-45.0) Monocytes (%) (Auto) 4.7 % (1.0-10.0) % (1.0-10.0) 10.0 % (1.0-10.0) Eosinophils (%) (Auto) 0.0 % (0.0-3.0) % (0.0-3.0) 0.7 % (0.0-3.0) Basophils (%) (Auto) 1.0 % (0.0-2.0) % (0.0-2.0) 0.9 % (0.0-2.0) Sodium Level 140 MMOL/L (136-145) 135 MMOL/L (136-145) 137 MMOL/L (136-145) Potassium Level 3.3 MMOL/L (3.5-5.1) 3.1 MMOL/L (3.5-5.1) 3.3 MMOL/L (3.5-5.1) Chloride Level 99 MMOL/L (98-107) 100 MMOL/L (98-107) 104 MMOL/L (98-107) Carbon Dioxide Level 26 MMOL/L (21-32) 23 MMOL/L (21-32) 26 MMOL/L (21-32) Anion Gap 16 mmol/L (5-15) 12 mmol/L (5-15) 7 mmol/L (5-15) Blood Urea Nitrogen 12 mg/dL (7-18) 7 mg/dL (7-18) 5 mg/dL (7-18) Creatinine 0.8 MG/DL (0.55-1.30) 0.6 MG/DL (0.55-1.30) 0.6 MG/DL (0.55-1.30) Estimat Glomerular Filtration Rate > 60 mL/min (>60) > 60 mL/min (>60) > 60 mL/min (>60) Glucose Level 141 MG/DL (74-106) 172 MG/DL (74-106) 128 MG/DL (74-106) Calcium Level 10.3 MG/DL (8.5-10.1) 9.2 MG/DL (8.5-10.1) 9.2 MG/DL (8.5-10.1) Total Bilirubin 0.7 MG/DL (0.2-1.0) 0.7 MG/DL (0.2-1.0) Aspartate Amino Transf (AST/SGOT) 24 U/L (15-37) 25 U/L (15-37) Alanine Aminotransferase (ALT/SGPT) 14 U/L (12-78) 12 U/L (12-78) Alkaline Phosphatase 142 U/L (46-116) 129 U/L (46-116) Total Protein 8.6 G/DL (6.4-8.2) 7.9 G/DL (6.4-8.2) Albumin 4.1 G/DL (3.4-5.0) 3.8 G/DL (3.4-5.0) Globulin 4.5 g/dL 4.1 g/dL Albumin/Globulin Ratio 0.9 (1.0-2.7) 0.9 (1.0-2.7) Lipase 109 U/L (73-393) Urine Color Pale yellow Urine Appearance Clear Urine pH 6 (4.5-8.0) Urine Specific [place] 1.020 (1.005-1.035) Urine Protein 2+ (NEGATIVE) Urine Glucose (UA) Negative (NEGATIVE) Urine Ketones 4+ (NEGATIVE) Urine Blood 4+ (NEGATIVE) Urine Nitrite Negative (NEGATIVE) Urine Bilirubin Negative (NEGATIVE) Urine Urobilinogen Normal MG/DL (0.0-1.0) Urine Leukocyte Esterase 1+ (NEGATIVE) Urine RBC 10-15 /HPF (0 - 2) Urine WBC 2-4 /HPF (0 - 2) Urine Squamous Epithelial Cells Many /LPF (NONE/OCC) Urine Bacteria Few /HPF (NONE) Differential Total Cells Counted 100 Neutrophils % (Manual) 90 % (45-75) Lymphocytes % (Manual) 7 % (20-45) Monocytes % (Manual) 3 % (1-10) Eosinophils % (Manual) 0 % (0-3) Basophils % (Manual) 0 % (0-2) Band Neutrophils 0 % (0-8) Platelet Estimate Adequate Platelet Morphology Normal Thyroid Stimulating Hormone (TSH) 0.724 uiU/mL (0.358-3.740) Phosphorus Level 2.9 MG/DL (2.5-4.9) Magnesium Level 1.3 MG/DL (1.8-2.4) Height (Feet): 5 Height (Inches): 6.00 Weight (Pounds): 138 Objective Physical Exam General appearance: alert, cooperative, no distress, appears stated age Neck: supple, symmetrical Lungs: clear to auscultation bilaterally Heart: rrr, S1, S2 normal, no murmur, click, rub or gallop Abdomen: soft, non-tender. left lower quad pain Ext: no cce Skin: Skin color, texture, turgor normal. No rashes or lesions Lester Hawthorne MD Feb 28, 2019 08:35
[2019-02-28] MEDS: Morphine Sulfate 2mg/ml Inj(IV/IM USE ONLY) IVP PRN ×2 (08:52→20:42)
--- NOTE | 2019-02-28 09:44 | NUR ---
NURSE NOTES: Patient refused to take Norvasc without Lisinopril. Informed Dr. Huitron and waist the medication. Dr. Huitron informed for abnormal Lab values.
--- NOTE | 2019-02-28 09:46 | General Progress Note ---
Assessment/Plan Problem List: (1) uti (2) Pancreatic cancer ICD Codes: C25.9 - Malignant neoplasm of pancreas, unspecified SNOMED: 549821500 Qualifiers: Qualified Codes: C25.9 - Malignant neoplasm of pancreas, unspecified (3) Abdominal pain ICD Codes: R10.9 - Unspecified abdominal pain SNOMED: 71885098 Qualifiers: Qualified Codes: R10.84 - Generalized abdominal pain (4) Vomiting ICD Codes: R11.10 - Vomiting, unspecified SNOMED: 928523235 Qualifiers: Qualified Codes: R11.2 - Nausea with vomiting, unspecified (5) Pancreatic mass ICD Codes: K86.9 - Disease of pancreas, unspecified SNOMED: 456730794 (6) History of hypertension ICD Codes: Z86.79 - Personal history of other diseases of the circulatory system SNOMED: 041221140 (7) Intractable nausea and vomiting ICD Codes: R11.2 - Nausea with vomiting, unspecified SNOMED: 464176517 Status: stable, progressing Assessment/Plan: pt diet abx pain control cbc bmp am Subjective Constitutional: Reports: weakness Allergies: Coded Allergies: NSAIDS (NON-STEROIDAL ANTI-INFLAMMA (Verified Allergy, Severe, Anaphylaxis , 01/30/19) ASPIRIN (Verified Allergy, Unknown, 02/26/19) LEVOFLOXACIN (Verified Allergy, Unknown, 02/26/19) All Systems: reviewed and negative except above Subjective sleepy calm Objective Last 24 Hour Vital Signs Date Time Temp Pulse Resp B/P (MAP) Pulse Ox O2 Delivery O2 Flow Rate FiO2 02/28/19 09:00 102 131/75 02/28/19 07:58 99.0 102 18 131/75 (93) 100 02/28/19 07:45 86 02/28/19 04:00 95 02/28/19 04:00 98.0 90 19 133/67 (89) 94 02/28/19 00:00 98.2 97 17 141/71 (94) 96 02/28/19 00:00 97 02/27/19 21:00 Room Air 02/27/19 20:00 89 02/27/19 20:00 98.2 91 19 131/65 (87) 96 02/27/19 16:00 97.0 96 18 132/78 (96) 97 02/27/19 16:00 104 02/27/19 12:00 105 02/27/19 12:00 97.7 112 20 130/74 (92) 97 02/27/19 11:10 169/83 Intake and Output 02/27/19 02/28/19 19:00 07:00 Intake Total 50 ml Output Total 1000 ml Balance -950 ml Intake IV Total 50 ml Output Urine Total 1000 ml Laboratory Tests 02/28/19 05:33: White Blood Count 8.4, Red Blood Count 4.06L, Hemoglobin 11.4L, Hematocrit 34.7L , Mean Corpuscular Volume 85, Mean Corpuscular Hemoglobin 27.9, Mean Corpuscular Hemoglobin Concent 32.7, Red Cell Distribution Width 11.5L, Platelet Count 249, Mean Platelet Volume 6.9, Neutrophils (%) (Auto) 67.9, Lymphocytes (%) (Auto) 20.5, Monocytes (%) (Auto) 10.0, Eosinophils (%) (Auto) 0.7, Basophils (%) (Auto) 0.9, Sodium Level 137, Potassium Level 3.3L, Chloride Level 104, Carbon Dioxide Level 26, Anion Gap 7, Blood Urea Nitrogen 5L, Creatinine 0.6, Estimat Glomerular Filtration Rate > 60, Glucose Level 128H, Calcium Level 9.2, Phosphorus Level 2.9, Magnesium Level 1.3L Height (Feet): 5 Height (Inches): 6.00 Weight (Pounds): 138 General Appearance: lethargic EENT: normal ENT inspection Neck: normal alignment Cardiovascular: normal peripheral pulses, normal rate, regular rhythm Respiratory/Chest: chest wall non-tender, lungs clear, normal breath sounds Abdomen: normal bowel sounds, non tender, soft Extremities: normal inspection Edema: no edema noted Arm (L), no edema noted Arm (R), no edema noted Leg (L), no edema noted Leg (R), no edema noted Pedal (L), no edema noted Pedal (R), no edema noted Generalized Neurologic: responsive, motor weakness Skin: normal pigmentation, warm/dry Lg Huitron DO Feb 28, 2019 09:46
--- NOTE | 2019-02-28 10:04 | GI Progress Note ---
Assessment/Plan Problems: (1) Vomiting ICD Codes: R11.10 - Vomiting, unspecified SNOMED: 014235368 Qualifiers: Qualified Codes: R11.2 - Nausea with vomiting, unspecified (2) Pancreatic mass ICD Codes: K86.9 - Disease of pancreas, unspecified SNOMED: 123498056 (3) Abdominal pain ICD Codes: R10.9 - Unspecified abdominal pain SNOMED: 88502584 Qualifiers: Qualified Codes: R10.84 - Generalized abdominal pain (4) Pancreatic cancer ICD Codes: C25.9 - Malignant neoplasm of pancreas, unspecified SNOMED: 406532147 Qualifiers: Qualified Codes: C25.9 - Malignant neoplasm of pancreas, unspecified (5) Dehydration ICD Codes: E86.0 - Dehydration SNOMED: 72082502 (6) Intractable nausea and vomiting ICD Codes: R11.2 - Nausea with vomiting, unspecified SNOMED: 387068804 Status: stable Status Narrative Discussed with Dr. Baez. Assessment/Plan PET scan scheduled this Tuesday at [facility] Early stage pancreatic cancer Symptomatic treatment at this time Clear liquid diet, advance as tolerated Zofran as needed Pain management IV and p.o. hydration Electrolyte correction PPI Follow-up oncology recommendations The patient was seen and examined at bedside and all new and available data was reviewed in the patients chart. I agree with the above findings, impression and plan. (Patient seen earlier today. Signature stamp does not reflect patient encounter time.). - Taz Baez MD Subjective Subjective abdominal relieved with medication Objective Last 24 Hour Vital Signs Date Time Temp Pulse Resp B/P (MAP) Pulse Ox O2 Delivery O2 Flow Rate FiO2 02/28/19 09:00 102 131/75 02/28/19 07:58 99.0 102 18 131/75 (93) 100 02/28/19 07:45 86 02/28/19 04:00 95 02/28/19 04:00 98.0 90 19 133/67 (89) 94 02/28/19 00:00 98.2 97 17 141/71 (94) 96 02/28/19 00:00 97 02/27/19 21:00 Room Air 02/27/19 20:00 89 02/27/19 20:00 98.2 91 19 131/65 (87) 96 02/27/19 16:00 97.0 96 18 132/78 (96) 97 02/27/19 16:00 104 02/27/19 12:00 105 02/27/19 12:00 97.7 112 20 130/74 (92) 97 02/27/19 11:10 169/83 Intake and Output 02/27/19 02/28/19 19:00 07:00 Intake Total 50 ml Output Total 1000 ml Balance -950 ml Intake IV Total 50 ml Output Urine Total 1000 ml Laboratory Tests Test 02/28/19 05:33 White Blood Count 8.4 K/UL (4.8-10.8) Red Blood Count 4.06 M/UL (4.20-5.40) L Hemoglobin 11.4 G/DL (12.0-16.0) L Hematocrit 34.7 % (37.0-47.0) L Mean Corpuscular Volume 85 FL (80-99) Mean Corpuscular Hemoglobin 27.9 PG (27.0-31.0) Mean Corpuscular Hemoglobin Concent 32.7 G/DL (32.0-36.0) Red Cell Distribution Width 11.5 % (11.6-14.8) L Platelet Count 249 K/UL (150-450) Mean Platelet Volume 6.9 FL (6.5-10.1) Neutrophils (%) (Auto) 67.9 % (45.0-75.0) Lymphocytes (%) (Auto) 20.5 % (20.0-45.0) Monocytes (%) (Auto) 10.0 % (1.0-10.0) Eosinophils (%) (Auto) 0.7 % (0.0-3.0) Basophils (%) (Auto) 0.9 % (0.0-2.0) Sodium Level 137 MMOL/L (136-145) Potassium Level 3.3 MMOL/L (3.5-5.1) L Chloride Level 104 MMOL/L (98-107) Carbon Dioxide Level 26 MMOL/L (21-32) Anion Gap 7 mmol/L (5-15) Blood Urea Nitrogen 5 mg/dL (7-18) L Creatinine 0.6 MG/DL (0.55-1.30) Estimat Glomerular Filtration Rate > 60 mL/min (>60) Glucose Level 128 MG/DL (74-106) H Calcium Level 9.2 MG/DL (8.5-10.1) Phosphorus Level 2.9 MG/DL (2.5-4.9) Magnesium Level 1.3 MG/DL (1.8-2.4) L Height (Feet): 5 Height (Inches): 6.00 Weight (Pounds): 138 General Appearance: WD/WN, no apparent distress, alert Cardiovascular: normal rate Respiratory/Chest: normal breath sounds, no respiratory distress Abdominal Exam: normal bowel sounds, non tender, soft Extremities: non-tender Bill Low NP Feb 28, 2019 10:04
--- NOTE | 2019-02-28 10:34 | Consultation ---
Consult Note Consult Note I was asked by Dr Huitron to eval the patient for abnormal electrolytes Patient admitted via ER for vomiting This is a 69-year-old female with no recent diagnosis of stage I pancreatic cancer. She had pancreatitis also. She states and constant abdominal pain. Pain is worsened today. Pain is 10 out of 10. Pain is mostly in the left upper quadrant. No diarrhea. Has nausea and vomiting. No fever. Nothing made it better. Palpation or eating made it worse. Unable to keep anything down. No fever chills. Allergies: NSAIDS (NON-STEROIDAL ANTI-INFLAMMA (Verified Allergy, Severe, Anaphylaxis , 01/30/19) ASPIRIN (Verified Allergy, Unknown, 02/26/19) LEVOFLOXACIN (Verified Allergy, Unknown, 02/26/19) Past Medical History: No History, Except For Hx Hypertension: Yes h/o Pancreatic Mass examined data reviewed . Assessment/Plan HypoMagnesemia HypoKalemia Pancreatic Mass Anemia GI Sxs due to pancreatic mass ? UTI Plan Po Protonix Urine culture K and Mag IV monitor lytes per consultants Per orders Andriy Santacruz MD Feb 28, 2019 10:34
--- NOTE | 2019-02-28 10:41 | Infectious Diseases Prog Note ---
Assessment/Plan Assessment/Plan Abx: None Assessment: Abd pain, nausea/emesis- likely related to pancreatic CA- doubt infectious process -u/a neg Afebrile No leukocytosis Early stage pancreatic CA Pyloric stricture -/ SP ballon dilation -elevated CA 19-9 -/ SP EUS: Pylorus stricture, status post serial balloon dilation from 10 to12. Dilated gallbladder with some stones and sludge in it. Dilated common bile duct to about 17 millimeter. A 2.3 centimeter pancreatic mass in the body/ uncinate process causing the common bile duct dilatation. Unable to perform FNA given the gallbladder was distended and blocking the view. -Abd uS: Gallbladder sludge and possible tiny calculi noted. Positive sonographic Pineda's sign. Significance uncertain the absence of gallbladder wall thickening, but the possibility of acute cholecystitis should be considered. Biliary ductal dilatation, as described. Note that this also was reported on CT scan of earlier the same day. Right upper pole renal cortical cyst and multiple left renal parapelvic cysts -CT abd/p: 20 x 10 x 8 mm low-attenuation lesion within the upper uncinate process of the pancreas. This is concerning for pancreatic neoplasm. This finding can also be seen in chronic pancreatitis, although there are no other abnormalities to suggest this diagnosis. Endoscopic ultrasound may be useful for better characterization. Marked extrahepatic and central intrahepatic biliary ductal dilatation, with abrupt tapering at the level the pancreatic head. Possibly related to the above. However, the above lesion appears to be centered somewhat medial and cephalad to the point of obstruction, so the possibility of a separate intraluminal lesion should also be considered. Distended gallbladder without evidence of cholelithiasis. Right lower lobe 4 mm 5 mm lung nodules. Suspect postinflammatory, but the possibility of neoplasm should also be considered, particularly given the above findings. Left renal parapelvic cysts. Subcentimeter low-attenuation renal lesions, too small to characterize, most likely benign simple cysts. No further follow-up necessary. Right hepatic lobe cyst HTN Plan: -Continue to monitor off abx -f/u cx -Monitor CBC/CMP, temperatures -aspiration precautions -GI f/u Thank you for this consultation. Will continue to follow along with you. Discussed with RN. Subjective Allergies: Coded Allergies: NSAIDS (NON-STEROIDAL ANTI-INFLAMMA (Verified Allergy, Severe, Anaphylaxis , 01/30/19) ASPIRIN (Verified Allergy, Unknown, 02/26/19) LEVOFLOXACIN (Verified Allergy, Unknown, 02/26/19) Subjective afebrile no leukocytosis Objective Vital Signs Last 24 Hour Vital Signs Date Time Temp Pulse Resp B/P (MAP) Pulse Ox O2 Delivery O2 Flow Rate FiO2 02/28/19 09:00 102 131/75 02/28/19 07:58 99.0 102 18 131/75 (93) 100 02/28/19 07:45 86 02/28/19 04:00 95 02/28/19 04:00 98.0 90 19 133/67 (89) 94 02/28/19 00:00 98.2 97 17 141/71 (94) 96 02/28/19 00:00 97 02/27/19 21:00 Room Air 02/27/19 20:00 89 02/27/19 20:00 98.2 91 19 131/65 (87) 96 02/27/19 16:00 97.0 96 18 132/78 (96) 97 02/27/19 16:00 104 02/27/19 12:00 105 02/27/19 12:00 97.7 112 20 130/74 (92) 97 02/27/19 11:10 169/83 Height (Feet): 5 Height (Inches): 6.00 Weight (Pounds): 138 Objective General Appearance: well appearing, no apparent distress, alert Head: normocephalic EENT: PERRL/EOMI, normal ENT inspection Neck: supple Respiratory: normal breath sounds, no respiratory distress Cardiovascular: normal rate Gastrointestinal: normal inspection, non tender, soft, normal bowel sounds, non -distended Rectal: deferred Genitourinary: no CVA tenderness Musculoskeletal: normal inspection, back normal Neurologic: normal inspection, alert, oriented x3, responsive Psychiatric: normal inspection, judgement/insight normal, memory normal Skin: normal inspection, normal color, no rash, warm/dry, palpation normal, well hydrated Lymphatic: normal inspection, no adenopathy Microbiology Date/Time Source Procedure Growth Status 02/27/19 02:45 Rectum Received Laboratory Tests Test 02/28/19 05:33 White Blood Count 8.4 K/UL (4.8-10.8) Red Blood Count 4.06 M/UL (4.20-5.40) L Hemoglobin 11.4 G/DL (12.0-16.0) L Hematocrit 34.7 % (37.0-47.0) L Mean Corpuscular Volume 85 FL (80-99) Mean Corpuscular Hemoglobin 27.9 PG (27.0-31.0) Mean Corpuscular Hemoglobin Concent 32.7 G/DL (32.0-36.0) Red Cell Distribution Width 11.5 % (11.6-14.8) L Platelet Count 249 K/UL (150-450) Mean Platelet Volume 6.9 FL (6.5-10.1) Neutrophils (%) (Auto) 67.9 % (45.0-75.0) Lymphocytes (%) (Auto) 20.5 % (20.0-45.0) Monocytes (%) (Auto) 10.0 % (1.0-10.0) Eosinophils (%) (Auto) 0.7 % (0.0-3.0) Basophils (%) (Auto) 0.9 % (0.0-2.0) Sodium Level 137 MMOL/L (136-145) Potassium Level 3.3 MMOL/L (3.5-5.1) L Chloride Level 104 MMOL/L (98-107) Carbon Dioxide Level 26 MMOL/L (21-32) Anion Gap 7 mmol/L (5-15) Blood Urea Nitrogen 5 mg/dL (7-18) L Creatinine 0.6 MG/DL (0.55-1.30) Estimat Glomerular Filtration Rate > 60 mL/min (>60) Glucose Level 128 MG/DL (74-106) H Calcium Level 9.2 MG/DL (8.5-10.1) Phosphorus Level 2.9 MG/DL (2.5-4.9) Magnesium Level 1.3 MG/DL (1.8-2.4) L Current Medications Medications (Trade) Dose Ordered Sig/Angelito Route PRN Reason Start Time Stop Time Status Last Admin Dose Admin Acetaminophen (Tylenol) 650 mg Q4H PRN ORAL fever 02/26/19 23:45 03/28/19 23:44 Amlodipine Besylate (Norvasc) 10 mg DAILY ORAL 02/27/19 09:00 03/29/19 08:59 02/27/19 08:39 Dextrose (Dextrose 50%) 25 ml Q30M PRN IV Hypoglycemia 02/26/19 23:45 03/28/19 23:44 Dextrose (Dextrose 50%) 50 ml Q30M PRN IV Hypoglycemia 02/26/19 23:45 03/28/19 23:44 Dextrose/ Electrolytes 1,000 ml @ 75 mls/hr [id number] IV 02/26/19 23:45 03/28/19 23:44 02/28/19 03:21 Heparin Sodium (Porcine) (Heparin 5000 units/ml) 5,000 units EVERY 12 HOURS SUBQ 02/27/19 09:00 03/29/19 08:59 02/28/19 08:30 Hydralazine HCl (Apresoline) 10 mg Q4H PRN IV For High Blood Pressure 02/27/19 11:00 03/29/19 10:59 02/27/19 11:10 Lorazepam (Ativan 2mg/ml 1ml) 0.5 mg Q4H PRN IV For Anxiety 02/26/19 23:45 03/05/19 23:44 Magnesium Sulfate 100 ml @ 100 mls/hr Q1H IVPB 02/28/19 10:45 02/28/19 14:44 UNV Morphine Sulfate (Morphine Sulfate) 2 mg EVERY 4 HOURS PRN IVP For Pain 4-6 02/26/19 23:45 03/05/19 23:44 02/28/19 08:52 Morphine Sulfate (Morphine Sulfate) 4 mg Q4H PRN IVP For Pain 7-02/26/19 23:45 03/05/19 23:44 02/28/19 03:24 Ondansetron HCl (Zofran) 4 mg Q6H PRN IVP Nausea & Vomiting 02/26/19 23:45 03/28/19 23:44 02/27/19 09:54 Polyethylene Glycol (Miralax) 17 gm HSPRN PRN ORAL Constipation 02/26/19 23:45 03/28/19 23:44 Zolpidem Tartrate (Ambien) 5 mg HSPRN PRN ORAL Insomnia 02/26/19 23:45 03/05/19 23:44 Paulina Quinteros M.D. Feb 28, 2019 10:41
--- NOTE | 2019-02-28 10:45 | Pulmonology Progress Note ---
Assessment/Plan Problems: (1) Intractable nausea and vomiting (2) Pancreatic cancer (3) Abdominal pain (4) History of hypertension Assessment/Plan doing better BP stable started on liquid diet. f/u by pain consult Subjective ROS Limited/Unobtainable: No Constitutional: Reports: no symptoms HEENT: Repors: no symptoms Allergies: Coded Allergies: NSAIDS (NON-STEROIDAL ANTI-INFLAMMA (Verified Allergy, Severe, Anaphylaxis , 01/30/19) ASPIRIN (Verified Allergy, Unknown, 02/26/19) LEVOFLOXACIN (Verified Allergy, Unknown, 02/26/19) Objective Last 24 Hour Vital Signs Date Time Temp Pulse Resp B/P (MAP) Pulse Ox O2 Delivery O2 Flow Rate FiO2 02/28/19 09:00 102 131/75 02/28/19 07:58 99.0 102 18 131/75 (93) 100 02/28/19 07:45 86 02/28/19 04:00 95 02/28/19 04:00 98.0 90 19 133/67 (89) 94 02/28/19 00:00 98.2 97 17 141/71 (94) 96 02/28/19 00:00 97 02/27/19 21:00 Room Air 02/27/19 20:00 89 02/27/19 20:00 98.2 91 19 131/65 (87) 96 02/27/19 16:00 97.0 96 18 132/78 (96) 97 02/27/19 16:00 104 02/27/19 12:00 105 02/27/19 12:00 97.7 112 20 130/74 (92) 97 02/27/19 11:10 169/83 Intake and Output 02/27/19 02/28/19 19:00 07:00 Intake Total 50 ml Output Total 1000 ml Balance -950 ml Intake IV Total 50 ml Output Urine Total 1000 ml General Appearance: WD/WN HEENT: normocephalic, atraumatic Respiratory/Chest: chest wall non-tender, lungs clear, normal breath sounds Breasts: no masses Cardiovascular: normal peripheral pulses, regular rhythm Abdomen: normal bowel sounds, no organomegaly Genitourinary: normal external genitalia Neurologic/Psychiatric: mat puncher II-XII grossly normal Microbiology Date/Time Source Procedure Growth Status 02/27/19 02:45 Rectum Received Laboratory Tests 02/28/19 05:33: White Blood Count 8.4, Red Blood Count 4.06L, Hemoglobin 11.4L, Hematocrit 34.7L , Mean Corpuscular Volume 85, Mean Corpuscular Hemoglobin 27.9, Mean Corpuscular Hemoglobin Concent 32.7, Red Cell Distribution Width 11.5L, Platelet Count 249, Mean Platelet Volume 6.9, Neutrophils (%) (Auto) 67.9, Lymphocytes (%) (Auto) 20.5, Monocytes (%) (Auto) 10.0, Eosinophils (%) (Auto) 0.7, Basophils (%) (Auto) 0.9, Sodium Level 137, Potassium Level 3.3L, Chloride Level 104, Carbon Dioxide Level 26, Anion Gap 7, Blood Urea Nitrogen 5L, Creatinine 0.6, Estimat Glomerular Filtration Rate > 60, Glucose Level 128H, Calcium Level 9.2, Phosphorus Level 2.9, Magnesium Level 1.3L Current Medications Medications (Trade) Dose Ordered Sig/Angelito Route PRN Reason Start Time Stop Time Status Last Admin Dose Admin Acetaminophen (Tylenol) 650 mg Q4H PRN ORAL fever 02/26/19 23:45 03/28/19 23:44 Amlodipine Besylate (Norvasc) 10 mg DAILY ORAL 02/27/19 09:00 03/29/19 08:59 02/27/19 08:39 Dextrose (Dextrose 50%) 25 ml Q30M PRN IV Hypoglycemia 02/26/19 23:45 03/28/19 23:44 Dextrose (Dextrose 50%) 50 ml Q30M PRN IV Hypoglycemia 02/26/19 23:45 03/28/19 23:44 Dextrose/ Electrolytes 1,000 ml @ 50 mls/hr Q20H IV 02/28/19 10:45 03/30/19 10:44 UNV Heparin Sodium (Porcine) (Heparin 5000 units/ml) 5,000 units EVERY 12 HOURS SUBQ 02/27/19 09:00 03/29/19 08:59 02/28/19 08:30 Hydralazine HCl (Apresoline) 10 mg Q4H PRN IV For High Blood Pressure 02/27/19 11:00 03/29/19 10:59 02/27/19 11:10 Lorazepam (Ativan 2mg/ml 1ml) 0.5 mg Q4H PRN IV For Anxiety 02/26/19 23:45 03/05/19 23:44 Magnesium Sulfate 100 ml @ 100 mls/hr Q1H IVPB 02/28/19 10:45 02/28/19 14:44 Morphine Sulfate (Morphine Sulfate) 2 mg EVERY 4 HOURS PRN IVP For Pain 4-6 02/26/19 23:45 03/05/19 23:44 02/28/19 08:52 Morphine Sulfate (Morphine Sulfate) 4 mg Q4H PRN IVP For Pain 7-02/26/19 23:45 03/05/19 23:44 02/28/19 03:24 Ondansetron HCl (Zofran) 4 mg Q6H PRN IVP Nausea & Vomiting 02/26/19 23:45 03/28/19 23:44 02/27/19 09:54 Polyethylene Glycol (Miralax) 17 gm HSPRN PRN ORAL Constipation 02/26/19 23:45 03/28/19 23:44 Zolpidem Tartrate (Ambien) 5 mg HSPRN PRN ORAL Insomnia 02/26/19 23:45 03/05/19 23:44 Nicolle Cazares MD Feb 28, 2019 10:45
[2019-02-28 12:00] VITALS: BP 114/66
[2019-02-28] MEDS ORDERED: Potassium Phosphate 20 MM in NS 275 ML IV ONE (12:00)
[2019-02-28 16:00] VITALS: BP 123/71
--- NOTE | 2019-02-28 17:03 | Cardiac Electrophysiology PN ---
Subjective Subjective [id number] Objective Last 24 Hour Vital Signs Date Time Temp Pulse Resp B/P (MAP) Pulse Ox O2 Delivery O2 Flow Rate FiO2 02/28/19 12:00 98.2 81 18 114/66 (82) 98 02/28/19 12:00 81 114/66 02/28/19 11:57 77 02/28/19 09:00 102 131/75 02/28/19 09:00 Room Air 02/28/19 07:58 99.0 102 18 131/75 (93) 100 02/28/19 07:45 86 02/28/19 04:00 95 02/28/19 04:00 98.0 90 19 133/67 (89) 94 02/28/19 00:00 98.2 97 17 141/71 (94) 96 02/28/19 00:00 97 02/27/19 21:00 Room Air 02/27/19 20:00 89 02/27/19 20:00 98.2 91 19 131/65 (87) 96 Intake and Output 02/27/19 02/28/19 19:00 07:00 Intake Total 50 ml Output Total 1000 ml Balance -950 ml IV Total 50 ml Output Urine Total 1000 ml Laboratory Tests Test 02/28/19 05:33 White Blood Count 8.4 K/UL (4.8-10.8) Red Blood Count 4.06 M/UL (4.20-5.40) L Hemoglobin 11.4 G/DL (12.0-16.0) L Hematocrit 34.7 % (37.0-47.0) L Mean Corpuscular Volume 85 FL (80-99) Mean Corpuscular Hemoglobin 27.9 PG (27.0-31.0) Mean Corpuscular Hemoglobin Concent 32.7 G/DL (32.0-36.0) Red Cell Distribution Width 11.5 % (11.6-14.8) L Platelet Count 249 K/UL (150-450) Mean Platelet Volume 6.9 FL (6.5-10.1) Neutrophils (%) (Auto) 67.9 % (45.0-75.0) Lymphocytes (%) (Auto) 20.5 % (20.0-45.0) Monocytes (%) (Auto) 10.0 % (1.0-10.0) Eosinophils (%) (Auto) 0.7 % (0.0-3.0) Basophils (%) (Auto) 0.9 % (0.0-2.0) Sodium Level 137 MMOL/L (136-145) Potassium Level 3.3 MMOL/L (3.5-5.1) L Chloride Level 104 MMOL/L (98-107) Carbon Dioxide Level 26 MMOL/L (21-32) Anion Gap 7 mmol/L (5-15) Blood Urea Nitrogen 5 mg/dL (7-18) L Creatinine 0.6 MG/DL (0.55-1.30) Estimat Glomerular Filtration Rate > 60 mL/min (>60) Glucose Level 128 MG/DL (74-106) H Calcium Level 9.2 MG/DL (8.5-10.1) Phosphorus Level 2.9 MG/DL (2.5-4.9) Magnesium Level 1.3 MG/DL (1.8-2.4) L Microbiology Date/Time Source Procedure Growth Status 02/27/19 02:45 Rectum Received Josh Salcedo MD Feb 28, 2019 17:03
--- NOTE | 2019-02-28 18:53 | NUR ---
TRANSFER TO FLOOR: Patient transferred to Med- surg, per Dr. Cazares's order. Report given to NIKOLAI Peralta. Belongings and medications given to NIKOLAI Peralta. Family informed of transfer. Patient transferred in stable condition.
--- NOTE | 2019-02-28 19:02 | NUR ---
CASE MANAGEMENT: REVIEW SI: INTRACTABLE ABD PAIN . DEHYDRATION . PANCREATIC CA T 99.0 HR 102 RR 18 BP 131/75 SAT 100% ROOM AIR H/H 11.4/34.7 K 3.3 IS: D5 NS IVF @50ML/HR HEPARIN SUBQ Q12HR PROTONIX PO QD CLEAR LIQUID PO DIET MED/SURG STATUS DCP: PATIENT IS FROM HOME
[2019-02-28] MEDS ORDERED: LORazepam Inj 2mg/ml 1ml IV PRN (19:45)
[2019-02-28] MEDS ORDERED: Morphine Sulfate 4mg/ml Inj (IV USE ONLY) IVP PRN (19:45)
--- NOTE | 2019-02-28 19:57 | NUR ---
NURSE NOTES: Received patient in bed, transferred from telemetry floor, patient is awake, alert, oriented x 4, patient is legally blind, able to make her needs known, IV site clean dry and intact. BRP with assist, steady gate, no acute distress noted, VSS, afebrile. Belongings list been signed, all items are accounted for. Call light is within reach, bed is in low position, locked and alarm is on. Will continue to monitor for safety and comfort.
[2019-02-28 20:00] VITALS: BP 143/67
[2019-02-28] MEDS ORDERED: Miralax 17gm pkt ORAL PRN (21:00)
[2019-02-28] MEDS ORDERED: Zolpidem 5mg tab ORAL PRN (21:00)
--- NOTE | 2019-02-28 22:45 | Consultation ---
DATE OF CONSULTATION: 02/28/2019 CARDIOLOGY CONSULTATION CONSULTING PHYSICIAN: Josh Salcedo M.D. REQUESTING PHYSICIAN: Lg Huitron D.O. REASON FOR CONSULTATION: Hypertension. HISTORY OF PRESENT ILLNESS: The patient is a 69-year-old lady with history of hypertension and newly diagnosed pancreatic cancer stage I that was recently diagnosed at [facility]. The patient stated that she was evaluated by ____ and is supposed to have a PET scan before surgical procedure. The patient is refusing radiation therapy or chemotherapy. Her biopsy-proven pancreatic cancer is dated on 02/03/2019 and CA 19-9 is more than 40. Today, the patient's blood pressure was erratic and a Cardiology consultation was obtained for further evaluation and management. PAST MEDICAL HISTORY: As mentioned above. FAMILY HISTORY: Noncontributory. SOCIAL HISTORY: She lives at home. Does not smoke or drink alcohol. REVIEW OF SYSTEMS: Negative other than what was mentioned in the history of present illness. PHYSICAL EXAMINATION: VITAL SIGNS: Blood pressure is 114/66, pulse is 81, respirations 18, and temperature is 98.2. HEAD AND NECK: Showed no JVD or carotid bruits. LUNGS: Clear. CARDIOVASCULAR: Shows regular S1 and S2 with no gallop or murmur. ABDOMEN: Soft. EXTREMITIES: No pitting edema. LABORATORY AND DIAGNOSTIC DATA: Labs show white count of 8.4, hemoglobin of 11.4, hematocrit of 34.7, and platelet count of 249,000. Sodium 137, potassium 3.3, BUN of 5, creatinine 0.6, and glucose of 128. Alkaline phosphate is 142. CA is 10.5 and CA 19-9 is 80. Urinalysis showed 4+ ketones, 4+ blood, and positive leukocyte esterase. ASSESSMENT AND PLAN: 1. Hypertension. Resume the patient's Norvasc 10 mg daily. Decrease lisinopril from 40 mg daily to 20 mg daily. The patient is already on p.r.n. IV hydralazine. We will get an EKG and echocardiogram for further evaluation. 2. Sinus tachycardia at the rate of 111 without any ischemia and no evidence of atrial fibrillation. 3. Stage I pancreatic cancer. The patient will be getting a PET scan as an outpatient and surgery, but refuse radiation or chemotherapy. Further evaluation by Dr. Hawthorne. Thank you very much, Dr. Huitron, for allowing me to participate in the care of this patient. Please do not hesitate to contact me for any questions regarding my evaluation. Josh Salcedo M.D. DR: YVONNE JOB#: [id number] CC:
[2019-03-01] VITALS: BP 133/72
[2019-03-01 04:00] VITALS: BP 148/72
[2019-03-01 05:58] LABS: BASOPHILS % (AUTO) 0.9 % (0.0-2.0); EOSINOPHILS % (AUTO) 1.8 % (0.0-3.0); HEMATOCRIT 33.8 % (37.0-47.0); HEMOGLOBIN 11.1 G/DL (12.0-16.0); LYMPHOCYTES % (AUTO) 22.3 % (20.0-45.0); MEAN CORPUSCULAR VOLUME 85 FL (80-99); MONOCYTES % (AUTO) 9.8 % (1.0-10.0); NEUTROPHILS % (AUTO) 65.2 % (45.0-75.0); PLATELET COUNT 227 K/UL (150-450); RED BLOOD COUNT 3.99 M/UL (4.20-5.40); RED CELL DISTRIBUTION WIDTH 11.7 % (11.6-14.8)
[2019-03-01 06:42] LABS: ALANINE AMINOTRANSFERASE 12 U/L (12-78); ALBUMIN 3.1 G/DL (3.4-5.0); ALBUMIN/GLOBULIN RATIO 0.9 (1.0-2.7); ALKALINE PHOSPHATASE 110 U/L (46-116); ANION GAP 8 mmol/L (5-15); ASPARTATE AMINO TRANSFERASE 21 U/L (15-37); BILIRUBIN,TOTAL 0.9 MG/DL (0.2-1.0); BLOOD UREA NITROGEN 1 mg/dL (7-18); CALCIUM 8.8 MG/DL (8.5-10.1); CARBON DIOXIDE 26 MMOL/L (21-32); CHLORIDE 104 MMOL/L (98-107); CHOLESTEROL 138 MG/DL (< 200); CREATINE KINASE 72 U/L (26-308); CREATININE 0.6 MG/DL (0.55-1.30); GAMMA GLUTAMYL TRANSPEPTIDASE 43 U/L (5-85); HDL CHOLESTEROL 54 MG/DL (40-60); PHOSPHORUS 3.1 MG/DL (2.5-4.9); POTASSIUM 3.4 MMOL/L (3.5-5.1); SODIUM 138 MMOL/L (136-145); TRIGLYCERIDES 61 MG/DL (30-150)
--- NOTE | 2019-03-01 06:45 | NUR ---
HAND-OFF: Report given to Farhad MENCHACA.
--- NOTE | 2019-03-01 07:41 | NUR ---
NURSE NOTES: received report from NIKOLAI Peralta. patient in bed. alert. oriented. verbally responsive. no respiratory distress noted. c/o discomfort on stomach. no vomiting at this time. IV on RAC 20 running D5 1/2nswith kcl 20meq 50/hr. fall risk d/t legally blind. bed in the lowest position. call light within reach. alarm on. 2d echo will be done today. will continue to provide plan of care.
[2019-03-01 08:00] VITALS: BP 164/90
[2019-03-01] MEDS: Morphine Sulfate 2mg/ml Inj(IV/IM USE ONLY) IVP PRN ×4 (08:01→21:29)
[2019-03-01] MEDS: Heparin 5000 units/ml inj SUBQ SCH ×2 (08:12→21:45)
[2019-03-01] MEDS ORDERED: Lisinopril 20mg tab ORAL SCH ×2 (09:00)
[2019-03-01] MEDS ORDERED: NS 275ml ONE (09:17)
[2019-03-01] MEDS ORDERED: Tubing IV Secondary IV ONE (09:17)
[2019-03-01] MEDS ORDERED: Metoclopramide 10mg/2ml Inj IVP SCH (09:30)
--- NOTE | 2019-03-01 09:35 | General Progress Note ---
Assessment/Plan Assessment/Plan: (1) Intractable Abdominal pain (2) Pancreatic Cancer Pt will be continued on Morphine D/w Dr. Godinez and he concurred. Subjective Date patient seen: Mar 01, 2019 Time patient seen: 07:15 - am Allergies: Coded Allergies: NSAIDS (NON-STEROIDAL ANTI-INFLAMMA (Verified Allergy, Severe, Anaphylaxis , 01/30/19) ASPIRIN (Verified Allergy, Unknown, 02/26/19) LEVOFLOXACIN (Verified Allergy, Unknown, 02/26/19) Subjective Constitutional: Reports: weakness HEENT: Reports: no symptoms Cardiovascular: Reports: no symptoms Respiratory: Reports: no symptoms Gastrointestinal/Abdominal: Reports: abdominal pain Genitourinary: Reports: no symptoms Neurologic/Psychiatric: Reports: weakness Endocrine: Reports: no symptoms Hematologic/Lymphatic: Reports: no symptoms Subjective Patient is in bed pain is tolerated on the Morphine. No new complaints at this time. Objective Last 24 Hour Vital Signs Date Time Temp Pulse Resp B/P (MAP) Pulse Ox O2 Delivery O2 Flow Rate FiO2 03/01/19 08:19 164/90 03/01/19 08:18 114 164/90 03/01/19 08:00 98.4 114 25 164/90 (114) 03/01/19 04:00 98.5 101 19 148/72 (97) 03/01/19 00:00 98.9 93 19 133/72 (92) 02/28/19 22:35 Room Air 02/28/19 20:00 98.7 90 20 143/67 (92) 02/28/19 16:00 98.3 86 18 123/71 (88) 95 02/28/19 16:00 79 02/28/19 12:00 98.2 81 18 114/66 (82) 98 02/28/19 12:00 81 114/66 02/28/19 11:57 77 Intake and Output 02/28/19 03/01/19 19:00 07:00 Intake Total 240 ml Balance 240 ml Intake Oral 240 ml # Voids 3 Laboratory Tests 03/01/19 05:19: White Blood Count 7.0, Red Blood Count 3.99L, Hemoglobin 11.1L, Hematocrit 33.8L , Mean Corpuscular Volume 85, Mean Corpuscular Hemoglobin 27.9, Mean Corpuscular Hemoglobin Concent 33.0, Red Cell Distribution Width 11.7, Platelet Count 227, Mean Platelet Volume 7.0, Neutrophils (%) (Auto) 65.2, Lymphocytes (% ) (Auto) 22.3, Monocytes (%) (Auto) 9.8, Eosinophils (%) (Auto) 1.8, Basophils ( %) (Auto) 0.9, Sodium Level 138, Potassium Level 3.4L, Chloride Level 104, Carbon Dioxide Level 26, Anion Gap 8, Blood Urea Nitrogen 1L, Creatinine 0.6, Estimat Glomerular Filtration Rate > 60, Glucose Level 106, Uric Acid 3.0, Calcium Level 8.8, Phosphorus Level 3.1, Magnesium Level 1.6L, Total Bilirubin 0.9, Gamma Glutamyl Transpeptidase 43, Aspartate Amino Transf (AST/SGOT) 21, Alanine Aminotransferase (ALT/SGPT) 12, Alkaline Phosphatase 110, Total Creatine Kinase 72, C-Reactive Protein, Quantitative 1.6H, Pro-B-Type Natriuretic Peptide 54, Total Protein 6.6, Albumin 3.1L, Globulin 3.5, Albumin/ Globulin Ratio 0.9L, Triglycerides Level 61, Cholesterol Level 138, LDL Cholesterol 73, HDL Cholesterol 54, Cholesterol/HDL Ratio 2.6L, Thyroid Stimulating Hormone (TSH) 1.994 Height (Feet): 5 Height (Inches): 6.00 Weight (Pounds): 138 Objective General Appearance: no apparent distress, alert EENT: PERRL/EOMI, normal ENT inspection Neck: non-tender, normal alignment Cardiovascular: normal rate, regular rhythm Respiratory/Chest: lungs clear, normal breath sounds Abdomen: tender Extremities: non-tender Edema: no edema noted Arm (L) Neurologic: alert, oriented x 3 Skin: warm/dry Crispin Sharma Mar 01, 2019 09:35
--- NOTE | 2019-03-01 10:00 | NUR ---
NURSE NOTES: patient vomited x2 this morning. c/o rt abd pain. after morphine 2mg IVP at 0800.seen by MARGARETH muro. no pain meds changed at this time. got reglan 10mg IV once. notified [facility] TESTER vinny.no new procedure at this time. closely monitor pain and vomiting. patient will have pet scan at the [facility] after discharge.
--- NOTE | 2019-03-01 10:13 | Hematology/Onc Progress Note ---
Assessment/Plan Assessment/Plan Assessment and Recs: # Pancreatic mass, 1.5x2cm in the ucinate process, appears on imaging to be stage I - there is marked extrahepatic and central intrahepatic biliary ductal dilatation, common bile duct measuring up to 19 mm in diameter, is s/p stent placement at [facility] per patient. It abruptly taper wiithin the pancreatic head, proximal to its junction with the pancreatic duct. The pancreatic duct is borderline prominent. A mildly dilated duct is seen within the pancreatic head/ uncinate, there is no peripancreatic lymphadenopathy. The gallbladder is distended but no gallstones are evident. --> imaging has been reviewed --> tumor markers reviewed CA19.9 80, cea is 11 --> Biopsy proven pancreatic cancer on 02/03/19 --> await surgery as an outpatient with Dr. Jenkins --> also awaiting pet scan by the end of this week (on prior imaging did have right lower lobe 4 mm 5 mm lung nodules. Suspect postinflammatory, but the possibility of neoplasm should also be considered) # Abdominal pain - likely from pancreatic mass causing biliary obstruction. Abdominal exam okay with some upper abdominal discomfort on palpation --> as per gi could be related to abd mass --> pain management recs as per Gretchen --> on morphine prn # Hypokalemia --> given K, repleted # Nausea/vomiting --> zofran prn --> as per gi eval, reviewed The timing of this note does not necessarily reflect the time of the patient was seen. GREATLY APPRECIATE CONSULTATION. Subjective HEENT: Denies: no symptoms, eye pain, blurred vision, tearing, double vision, ear pain, ear discharge, nose pain, nose congestion, throat pain, throat swelling, mouth pain, mouth swelling, other Respiratory: Denies: no symptoms, cough, shortness of breath, SOB with excertion, SOB at rest, sputum, wheezing, other Gastrointestinal/Abdominal: Denies: no symptoms, abdomen distended, abdominal pain, black stools, tarry stools, blood in stool, constipated, diarrhea, difficulty swallowing, nausea, poor appetite, poor fluid intake, rectal bleeding , vomiting, other Neurologic/Psychiatric: Denies: no symptoms, anxiety, depressed, emotional problems, headache, numbness, paresthesia, pre-existing deficit, seizure, tingling, tremors, weakness, other Endocrine: Denies: no symptoms, excessive sweating, flushing, intolerance to cold, intolerance to heat, increased hunger, increased thirst, increased urine, unexplained weight gain, unexplained weight loss, other Hematologic/Lymphatic: Denies: no symptoms, anemia, easy bleeding, easy bruising, adenopathy, other Allergies: Coded Allergies: NSAIDS (NON-STEROIDAL ANTI-INFLAMMA (Verified Allergy, Severe, Anaphylaxis , 01/30/19) ASPIRIN (Verified Allergy, Unknown, 02/26/19) LEVOFLOXACIN (Verified Allergy, Unknown, 02/26/19) Subjective 02/28: no f/c noted, no bleeding, no night sweats reported 03/01: no f/c noted, tumor markers have been reviewed, no bleeding noted, remains on IVFs Objective Objective Current Medications Medications (Trade) Dose Ordered Sig/Angelito Route PRN Reason Start Time Stop Time Status Last Admin Dose Admin Acetaminophen (Tylenol) 650 mg Q4H PRN ORAL fever (temp>100.5F) 02/28/19 19:45 03/28/19 23:44 Amlodipine Besylate (Norvasc) 10 mg DAILY ORAL 03/01/19 09:00 03/30/19 11:59 03/01/19 08:18 Clonidine HCl (Catapres TTS-2) 1 patch QWEEK TDERMAL 03/01/19 09:30 03/31/19 09:29 Dextrose (Dextrose 50%) 25 ml Q30M PRN IV Hypoglycemia 02/28/19 19:15 03/28/19 23:44 Dextrose (Dextrose 50%) 50 ml Q30M PRN IV Hypoglycemia 02/28/19 19:15 03/28/19 23:44 Dextrose/ Electrolytes 1,000 ml @ 50 mls/hr Q20H IV 02/28/19 19:30 03/30/19 19:29 Heparin Sodium (Porcine) (Heparin 5000 units/ml) 5,000 units EVERY 12 HOURS SUBQ 02/28/19 21:00 03/29/19 08:59 03/01/19 08:12 Lorazepam (Ativan 2mg/ml 1ml) 0.5 mg Q4H PRN IV For Anxiety 02/28/19 19:45 03/05/19 23:44 Magnesium Sulfate 100 ml @ 100 mls/hr Q1H IVPB 03/01/19 08:30 8/1/19 12:29 03/01/19 09:38 Metoclopramide HCl (Reglan) 10 mg ONCE IVP 03/01/19 09:30 03/01/19 10:30 03/01/19 09:35 Morphine Sulfate (Morphine Sulfate) 2 mg Q4H PRN IVP For Pain 4-6 02/28/19 21:00 03/07/19 20:59 03/01/19 08:01 Morphine Sulfate (Morphine Sulfate) 4 mg Q4H PRN IVP For Pain 7-02/28/19 19:45 03/05/19 23:44 Ondansetron HCl (Zofran) 4 mg Q6H PRN IVP Nausea & Vomiting 02/28/19 19:30 03/28/19 19:29 03/01/19 05:48 Pantoprazole (Protonix) 40 mg DAILY ORAL 03/01/19 09:00 03/30/19 11:29 03/01/19 08:19 Polyethylene Glycol (Miralax) 17 gm HSPRN PRN ORAL Constipation 02/28/19 21:00 03/28/19 20:59 Potassium Chloride 100 ml @ 100 mls/hr Q1HR IVPB 03/01/19 09:00 03/01/19 11:59 03/01/19 09:39 Zolpidem Tartrate (Ambien) 5 mg HSPRN PRN ORAL Insomnia 02/28/19 21:00 03/05/19 20:59 Last 24 Hour Vital Signs Date Time Temp Pulse Resp B/P (MAP) Pulse Ox O2 Delivery O2 Flow Rate FiO2 03/01/19 08:19 164/90 03/01/19 08:18 114 164/90 03/01/19 08:00 98.4 114 25 164/90 (114) 03/01/19 04:00 98.5 101 19 148/72 (97) 03/01/19 00:00 98.9 93 19 133/72 (92) 02/28/19 22:35 Room Air 02/28/19 20:00 98.7 90 20 143/67 (92) 02/28/19 16:00 98.3 86 18 123/71 (88) 95 02/28/19 16:00 79 02/28/19 12:00 98.2 81 18 114/66 (82) 98 02/28/19 12:00 81 114/66 02/28/19 11:57 77 02/28/19 09:00 102 131/75 02/28/19 09:00 Room Air 02/28/19 07:58 99.0 102 18 131/75 (93) 100 02/28/19 07:45 86 02/28/19 04:00 95 02/28/19 04:00 98.0 90 19 133/67 (89) 94 02/28/19 00:00 98.2 97 17 141/71 (94) 96 02/28/19 00:00 97 02/27/19 21:00 Room Air 02/27/19 20:00 89 02/27/19 20:00 98.2 91 19 131/65 (87) 96 02/27/19 16:00 97.0 96 18 132/78 (96) 97 02/27/19 16:00 104 02/27/19 12:00 105 02/27/19 12:00 97.7 112 20 130/74 (92) 97 02/27/19 11:10 169/83 Intake and Output 02/28/19 03/01/19 19:00 07:00 Intake Total 240 ml Balance 240 ml Intake Oral 240 ml # Voids 3 Labs Test 02/26/19 21:00 02/27/19 02:00 02/27/19 06:49 02/28/19 05:33 White Blood Count 9.1 K/UL (4.8-10.8) 9.9 K/UL (4.8-10.8) 8.4 K/UL (4.8-10.8) Red Blood Count 4.76 M/UL (4.20-5.40) 4.52 M/UL (4.20-5.40) 4.06 M/UL (4.20-5.40) Hemoglobin 13.4 G/DL (12.0-16.0) 12.7 G/DL (12.0-16.0) 11.4 G/DL (12.0-16.0) Hematocrit 39.7 % (37.0-47.0) 38.2 % (37.0-47.0) 34.7 % (37.0-47.0) Mean Corpuscular Volume 83 FL (80-99) 85 FL (80-99) 85 FL (80-99) Mean Corpuscular Hemoglobin 28.1 PG (27.0-31.0) 28.1 PG (27.0-31.0) 27.9 PG (27.0-31.0) Mean Corpuscular Hemoglobin Concent 33.8 G/DL (32.0-36.0) 33.2 G/DL (32.0-36.0) 32.7 G/DL (32.0-36.0) Red Cell Distribution Width 10.8 % (11.6-14.8) 11.5 % (11.6-14.8) 11.5 % (11.6-14.8) Platelet Count 292 K/UL (150-450) 256 K/UL (150-450) 249 K/UL (150-450) Mean Platelet Volume 6.3 FL (6.5-10.1) 6.5 FL (6.5-10.1) 6.9 FL (6.5-10.1) Neutrophils (%) (Auto) 83.9 % (45.0-75.0) % (45.0-75.0) 67.9 % (45.0-75.0) Lymphocytes (%) (Auto) 10.4 % (20.0-45.0) % (20.0-45.0) 20.5 % (20.0-45.0) Monocytes (%) (Auto) 4.7 % (1.0-10.0) % (1.0-10.0) 10.0 % (1.0-10.0) Eosinophils (%) (Auto) 0.0 % (0.0-3.0) % (0.0-3.0) 0.7 % (0.0-3.0) Basophils (%) (Auto) 1.0 % (0.0-2.0) % (0.0-2.0) 0.9 % (0.0-2.0) Sodium Level 140 MMOL/L (136-145) 135 MMOL/L (136-145) 137 MMOL/L (136-145) Potassium Level 3.3 MMOL/L (3.5-5.1) 3.1 MMOL/L (3.5-5.1) 3.3 MMOL/L (3.5-5.1) Chloride Level 99 MMOL/L (98-107) 100 MMOL/L (98-107) 104 MMOL/L (98-107) Carbon Dioxide Level 26 MMOL/L (21-32) 23 MMOL/L (21-32) 26 MMOL/L (21-32) Anion Gap 16 mmol/L (5-15) 12 mmol/L (5-15) 7 mmol/L (5-15) Blood Urea Nitrogen 12 mg/dL (7-18) 7 mg/dL (7-18) 5 mg/dL (7-18) Creatinine 0.8 MG/DL (0.55-1.30) 0.6 MG/DL (0.55-1.30) 0.6 MG/DL (0.55-1.30) Estimat Glomerular Filtration Rate > 60 mL/min (>60) > 60 mL/min (>60) > 60 mL/min (>60) Glucose Level 141 MG/DL (74-106) 172 MG/DL (74-106) 128 MG/DL (74-106) Calcium Level 10.3 MG/DL (8.5-10.1) 9.2 MG/DL (8.5-10.1) 9.2 MG/DL (8.5-10.1) Total Bilirubin 0.7 MG/DL (0.2-1.0) 0.7 MG/DL (0.2-1.0) Aspartate Amino Transf (AST/SGOT) 24 U/L (15-37) 25 U/L (15-37) Alanine Aminotransferase (ALT/SGPT) 14 U/L (12-78) 12 U/L (12-78) Alkaline Phosphatase 142 U/L (46-116) 129 U/L (46-116) Total Protein 8.6 G/DL (6.4-8.2) 7.9 G/DL (6.4-8.2) Albumin 4.1 G/DL (3.4-5.0) 3.8 G/DL (3.4-5.0) Globulin 4.5 g/dL 4.1 g/dL Albumin/Globulin Ratio 0.9 (1.0-2.7) 0.9 (1.0-2.7) Lipase 109 U/L (73-393) Urine Color Pale yellow Urine Appearance Clear Urine pH 6 (4.5-8.0) Urine Specific [place] 1.020 (1.005-1.035) Urine Protein 2+ (NEGATIVE) Urine Glucose (UA) Negative (NEGATIVE) Urine Ketones 4+ (NEGATIVE) Urine Blood 4+ (NEGATIVE) Urine Nitrite Negative (NEGATIVE) Urine Bilirubin Negative (NEGATIVE) Urine Urobilinogen Normal MG/DL (0.0-1.0) Urine Leukocyte Esterase 1+ (NEGATIVE) Urine RBC 10-15 /HPF (0 - 2) Urine WBC 2-4 /HPF (0 - 2) Urine Squamous Epithelial Cells Many /LPF (NONE/OCC) Urine Bacteria Few /HPF (NONE) Differential Total Cells Counted 100 Neutrophils % (Manual) 90 % (45-75) Lymphocytes % (Manual) 7 % (20-45) Monocytes % (Manual) 3 % (1-10) Eosinophils % (Manual) 0 % (0-3) Basophils % (Manual) 0 % (0-2) Band Neutrophils 0 % (0-8) Platelet Estimate Adequate Platelet Morphology Normal Carcinoembryonic Antigen 10.5 ng/mL (0.0-4.7) CA 19-9 Antigen 80 U/mL (0-35) Thyroid Stimulating Hormone (TSH) 0.724 uiU/mL (0.358-3.740) Phosphorus Level 2.9 MG/DL (2.5-4.9) Magnesium Level 1.3 MG/DL (1.8-2.4) Test 03/01/19 05:19 White Blood Count 7.0 K/UL (4.8-10.8) Red Blood Count 3.99 M/UL (4.20-5.40) Hemoglobin 11.1 G/DL (12.0-16.0) Hematocrit 33.8 % (37.0-47.0) Mean Corpuscular Volume 85 FL (80-99) Mean Corpuscular Hemoglobin 27.9 PG (27.0-31.0) Mean Corpuscular Hemoglobin Concent 33.0 G/DL (32.0-36.0) Red Cell Distribution Width 11.7 % (11.6-14.8) Platelet Count 227 K/UL (150-450) Mean Platelet Volume 7.0 FL (6.5-10.1) Neutrophils (%) (Auto) 65.2 % (45.0-75.0) Lymphocytes (%) (Auto) 22.3 % (20.0-45.0) Monocytes (%) (Auto) 9.8 % (1.0-10.0) Eosinophils (%) (Auto) 1.8 % (0.0-3.0) Basophils (%) (Auto) 0.9 % (0.0-2.0) Sodium Level 138 MMOL/L (136-145) Potassium Level 3.4 MMOL/L (3.5-5.1) Chloride Level 104 MMOL/L (98-107) Carbon Dioxide Level 26 MMOL/L (21-32) Anion Gap 8 mmol/L (5-15) Blood Urea Nitrogen 1 mg/dL (7-18) Creatinine 0.6 MG/DL (0.55-1.30) Estimat Glomerular Filtration Rate > 60 mL/min (>60) Glucose Level 106 MG/DL (74-106) Uric Acid 3.0 MG/DL (2.6-7.2) Calcium Level 8.8 MG/DL (8.5-10.1) Phosphorus Level 3.1 MG/DL (2.5-4.9) Magnesium Level 1.6 MG/DL (1.8-2.4) Total Bilirubin 0.9 MG/DL (0.2-1.0) Gamma Glutamyl Transpeptidase 43 U/L (5-85) Aspartate Amino Transf (AST/SGOT) 21 U/L (15-37) Alanine Aminotransferase (ALT/SGPT) 12 U/L (12-78) Alkaline Phosphatase 110 U/L (46-116) Total Creatine Kinase 72 U/L (26-308) C-Reactive Protein, Quantitative 1.6 mg/dL (0.00-0.90) Pro-B-Type Natriuretic Peptide 54 pg/mL (0-125) Total Protein 6.6 G/DL (6.4-8.2) Albumin 3.1 G/DL (3.4-5.0) Globulin 3.5 g/dL Albumin/Globulin Ratio 0.9 (1.0-2.7) Triglycerides Level 61 MG/DL (30-150) Cholesterol Level 138 MG/DL (< 200) LDL Cholesterol 73 mg/dL (<100) HDL Cholesterol 54 MG/DL (40-60) Cholesterol/HDL Ratio 2.6 (3.3-4.4) Thyroid Stimulating Hormone (TSH) 1.994 uiU/mL (0.358-3.740) Height (Feet): 5 Height (Inches): 6.00 Weight (Pounds): 138 Objective Physical Exam General appearance: alert, cooperative, no distress, appears stated age Neck: supple, symmetrical Lungs: clear to auscultation bilaterally Heart: rrr, S1, S2 normal, no murmur, click, rub or gallop Abdomen: soft, non-tender. left lower quad pain Ext: no cce Skin: Skin color, texture, turgor normal. No rashes or lesions Lester Hawthorne MD Mar 01, 2019 10:13
--- NOTE | 2019-03-01 10:27 | GI Progress Note ---
Assessment/Plan Problems: (1) Vomiting ICD Codes: R11.10 - Vomiting, unspecified SNOMED: 085450717 Qualifiers: Qualified Codes: R11.2 - Nausea with vomiting, unspecified (2) Pancreatic mass ICD Codes: K86.9 - Disease of pancreas, unspecified SNOMED: 076395599 (3) Abdominal pain ICD Codes: R10.9 - Unspecified abdominal pain SNOMED: 33231591 Qualifiers: Qualified Codes: R10.84 - Generalized abdominal pain (4) Pancreatic cancer ICD Codes: C25.9 - Malignant neoplasm of pancreas, unspecified SNOMED: 049724213 Qualifiers: Qualified Codes: C25.9 - Malignant neoplasm of pancreas, unspecified (5) Dehydration ICD Codes: E86.0 - Dehydration SNOMED: 03092316 (6) Intractable nausea and vomiting ICD Codes: R11.2 - Nausea with vomiting, unspecified SNOMED: 686371114 Status: unchanged Status Narrative Discussed with Dr. Baez. Assessment/Plan PET scanned planned at [facility] Early stage pancreatic cancer Symptomatic treatment at this time Clear liquid diet, advance as tolerated Zofran as needed Reglan ATC Pain management IV and p.o. hydration Electrolyte correction PPI Follow-up oncology recommendations The patient was seen and examined at bedside and all new and available data was reviewed in the patients chart. I agree with the above findings, impression and plan. (Patient seen earlier today. Signature stamp does not reflect patient encounter time.). - Taz Baez MD Subjective Subjective abdominal pain increased today had episode of emesis Objective Last 24 Hour Vital Signs Date Time Temp Pulse Resp B/P (MAP) Pulse Ox O2 Delivery O2 Flow Rate FiO2 03/01/19 08:19 164/90 03/01/19 08:18 114 164/90 03/01/19 08:00 98.4 114 25 164/90 (114) 03/01/19 04:00 98.5 101 19 148/72 (97) 03/01/19 00:00 98.9 93 19 133/72 (92) 02/28/19 22:35 Room Air 02/28/19 20:00 98.7 90 20 143/67 (92) 02/28/19 16:00 98.3 86 18 123/71 (88) 95 02/28/19 16:00 79 02/28/19 12:00 98.2 81 18 114/66 (82) 98 02/28/19 12:00 81 114/66 02/28/19 11:57 77 Intake and Output 02/28/19 03/01/19 19:00 07:00 Intake Total 240 ml Balance 240 ml Intake Oral 240 ml # Voids 3 Laboratory Tests Test 03/01/19 05:19 White Blood Count 7.0 K/UL (4.8-10.8) Red Blood Count 3.99 M/UL (4.20-5.40) L Hemoglobin 11.1 G/DL (12.0-16.0) L Hematocrit 33.8 % (37.0-47.0) L Mean Corpuscular Volume 85 FL (80-99) Mean Corpuscular Hemoglobin 27.9 PG (27.0-31.0) Mean Corpuscular Hemoglobin Concent 33.0 G/DL (32.0-36.0) Red Cell Distribution Width 11.7 % (11.6-14.8) Platelet Count 227 K/UL (150-450) Mean Platelet Volume 7.0 FL (6.5-10.1) Neutrophils (%) (Auto) 65.2 % (45.0-75.0) Lymphocytes (%) (Auto) 22.3 % (20.0-45.0) Monocytes (%) (Auto) 9.8 % (1.0-10.0) Eosinophils (%) (Auto) 1.8 % (0.0-3.0) Basophils (%) (Auto) 0.9 % (0.0-2.0) Sodium Level 138 MMOL/L (136-145) Potassium Level 3.4 MMOL/L (3.5-5.1) L Chloride Level 104 MMOL/L (98-107) Carbon Dioxide Level 26 MMOL/L (21-32) Anion Gap 8 mmol/L (5-15) Blood Urea Nitrogen 1 mg/dL (7-18) L Creatinine 0.6 MG/DL (0.55-1.30) Estimat Glomerular Filtration Rate > 60 mL/min (>60) Glucose Level 106 MG/DL (74-106) Uric Acid 3.0 MG/DL (2.6-7.2) Calcium Level 8.8 MG/DL (8.5-10.1) Phosphorus Level 3.1 MG/DL (2.5-4.9) Magnesium Level 1.6 MG/DL (1.8-2.4) L Total Bilirubin 0.9 MG/DL (0.2-1.0) Gamma Glutamyl Transpeptidase 43 U/L (5-85) Aspartate Amino Transf (AST/SGOT) 21 U/L (15-37) Alanine Aminotransferase (ALT/SGPT) 12 U/L (12-78) Alkaline Phosphatase 110 U/L (46-116) Total Creatine Kinase 72 U/L (26-308) C-Reactive Protein, Quantitative 1.6 mg/dL (0.00-0.90) H Pro-B-Type Natriuretic Peptide 54 pg/mL (0-125) Total Protein 6.6 G/DL (6.4-8.2) Albumin 3.1 G/DL (3.4-5.0) L Globulin 3.5 g/dL Albumin/Globulin Ratio 0.9 (1.0-2.7) L Triglycerides Level 61 MG/DL (30-150) Cholesterol Level 138 MG/DL (< 200) LDL Cholesterol 73 mg/dL (<100) HDL Cholesterol 54 MG/DL (40-60) Cholesterol/HDL Ratio 2.6 (3.3-4.4) L Thyroid Stimulating Hormone (TSH) 1.994 uiU/mL (0.358-3.740) Height (Feet): 5 Height (Inches): 6.00 Weight (Pounds): 138 General Appearance: WD/WN, no apparent distress, alert Cardiovascular: normal rate Respiratory/Chest: normal breath sounds, no respiratory distress Abdominal Exam: normal bowel sounds, non tender, soft Extremities: normal range of motion, non-tender Bill Low NP Mar 01, 2019 10:27
[2019-03-01] MEDS ORDERED: Metoclopramide 10mg/2ml Inj IVP PRN (10:30)
--- NOTE | 2019-03-01 11:17 | Cardiac Electrophysiology PN ---
Assessment/Plan Assessment/Plan 1. Hypertension. Resume the patient's Norvasc 10 mg daily and Lisinopril 20 mg daily. The patient is already on p.r.n. IV hydralazine. Echocardiogram this am done EF 65% 2. Sinus tachycardia at the rate of 111 without any ischemia and no evidence of atrial fibrillation. 3. Stage I pancreatic cancer. The patient will be getting a PET scan as an outpatient and surgery, but refuse radiation or chemotherapy. Further evaluation by Dr. Hawthorne. JUSTA RN Subjective Subjective Still vomiting this am. No CP or SOB Objective Last 24 Hour Vital Signs Date Time Temp Pulse Resp B/P (MAP) Pulse Ox O2 Delivery O2 Flow Rate FiO2 03/01/19 11:05 142/86 03/01/19 08:19 164/90 03/01/19 08:18 114 164/90 03/01/19 08:00 98.4 114 25 164/90 (114) 03/01/19 04:00 98.5 101 19 148/72 (97) 03/01/19 00:00 98.9 93 19 133/72 (92) 02/28/19 22:35 Room Air 02/28/19 20:00 98.7 90 20 143/67 (92) 02/28/19 16:00 98.3 86 18 123/71 (88) 95 02/28/19 16:00 79 02/28/19 12:00 98.2 81 18 114/66 (82) 98 02/28/19 12:00 81 114/66 02/28/19 11:57 77 Intake and Output 02/28/19 03/01/19 19:00 07:00 Intake Total 240 ml Balance 240 ml Intake Oral 240 ml # Voids 3 Laboratory Tests Test 03/01/19 05:19 White Blood Count 7.0 K/UL (4.8-10.8) Red Blood Count 3.99 M/UL (4.20-5.40) L Hemoglobin 11.1 G/DL (12.0-16.0) L Hematocrit 33.8 % (37.0-47.0) L Mean Corpuscular Volume 85 FL (80-99) Mean Corpuscular Hemoglobin 27.9 PG (27.0-31.0) Mean Corpuscular Hemoglobin Concent 33.0 G/DL (32.0-36.0) Red Cell Distribution Width 11.7 % (11.6-14.8) Platelet Count 227 K/UL (150-450) Mean Platelet Volume 7.0 FL (6.5-10.1) Neutrophils (%) (Auto) 65.2 % (45.0-75.0) Lymphocytes (%) (Auto) 22.3 % (20.0-45.0) Monocytes (%) (Auto) 9.8 % (1.0-10.0) Eosinophils (%) (Auto) 1.8 % (0.0-3.0) Basophils (%) (Auto) 0.9 % (0.0-2.0) Sodium Level 138 MMOL/L (136-145) Potassium Level 3.4 MMOL/L (3.5-5.1) L Chloride Level 104 MMOL/L (98-107) Carbon Dioxide Level 26 MMOL/L (21-32) Anion Gap 8 mmol/L (5-15) Blood Urea Nitrogen 1 mg/dL (7-18) L Creatinine 0.6 MG/DL (0.55-1.30) Estimat Glomerular Filtration Rate > 60 mL/min (>60) Glucose Level 106 MG/DL (74-106) Uric Acid 3.0 MG/DL (2.6-7.2) Calcium Level 8.8 MG/DL (8.5-10.1) Phosphorus Level 3.1 MG/DL (2.5-4.9) Magnesium Level 1.6 MG/DL (1.8-2.4) L Total Bilirubin 0.9 MG/DL (0.2-1.0) Gamma Glutamyl Transpeptidase 43 U/L (5-85) Aspartate Amino Transf (AST/SGOT) 21 U/L (15-37) Alanine Aminotransferase (ALT/SGPT) 12 U/L (12-78) Alkaline Phosphatase 110 U/L (46-116) Total Creatine Kinase 72 U/L (26-308) C-Reactive Protein, Quantitative 1.6 mg/dL (0.00-0.90) H Pro-B-Type Natriuretic Peptide 54 pg/mL (0-125) Total Protein 6.6 G/DL (6.4-8.2) Albumin 3.1 G/DL (3.4-5.0) L Globulin 3.5 g/dL Albumin/Globulin Ratio 0.9 (1.0-2.7) L Triglycerides Level 61 MG/DL (30-150) Cholesterol Level 138 MG/DL (< 200) LDL Cholesterol 73 mg/dL (<100) HDL Cholesterol 54 MG/DL (40-60) Cholesterol/HDL Ratio 2.6 (3.3-4.4) L Thyroid Stimulating Hormone (TSH) 1.994 uiU/mL (0.358-3.740) Microbiology Date/Time Source Procedure Growth Status 02/27/19 02:45 Nasal Nares MRSA Culture - Final NO METHICILLIN RESISTANT STAPH AUREUS... Complete 02/27/19 02:45 Rectum - Final NO CARBAPENEM-RESISTANT ENTEROBACTERI... Complete 02/27/19 02:45 Rectum VRE Culture - Final NO VANCOMYCIN RESISTANT ENTEROCOCCUS ... Complete Objective HEAD AND NECK: Showed no JVD or carotid bruits. LUNGS: Clear. CARDIOVASCULAR: Shows regular S1 and S2 with no gallop or murmur. ABDOMEN: Soft. EXTREMITIES: No pitting edema. Josh Salcedo MD Mar 01, 2019 11:17
--- NOTE | 2019-03-01 11:30 | NUR ---
NURSE NOTES: seen by Dr. vlaentin. marisahernesto has [email or web address] [id number]. pain 04/10. no new order at this time.
[2019-03-01 12:00] VITALS: BP 141/78
--- NOTE | 2019-03-01 13:10 | Infectious Diseases Prog Note ---
Assessment/Plan Assessment/Plan Abx: None Assessment: Abd pain, nausea/emesis- likely related to pancreatic CA- doubt infectious process -u/a neg Afebrile No leukocytosis Early stage pancreatic CA Pyloric stricture -/ SP ballon dilation -elevated CA 19-9 -/ SP EUS: Pylorus stricture, status post serial balloon dilation from 10 to12. Dilated gallbladder with some stones and sludge in it. Dilated common bile duct to about 17 millimeter. A 2.3 centimeter pancreatic mass in the body/ uncinate process causing the common bile duct dilatation. Unable to perform FNA given the gallbladder was distended and blocking the view. -Abd uS: Gallbladder sludge and possible tiny calculi noted. Positive sonographic Pineda's sign. Significance uncertain the absence of gallbladder wall thickening, but the possibility of acute cholecystitis should be considered. Biliary ductal dilatation, as described. Note that this also was reported on CT scan of earlier the same day. Right upper pole renal cortical cyst and multiple left renal parapelvic cysts -CT abd/p: 20 x 10 x 8 mm low-attenuation lesion within the upper uncinate process of the pancreas. This is concerning for pancreatic neoplasm. This finding can also be seen in chronic pancreatitis, although there are no other abnormalities to suggest this diagnosis. Endoscopic ultrasound may be useful for better characterization. Marked extrahepatic and central intrahepatic biliary ductal dilatation, with abrupt tapering at the level the pancreatic head. Possibly related to the above. However, the above lesion appears to be centered somewhat medial and cephalad to the point of obstruction, so the possibility of a separate intraluminal lesion should also be considered. Distended gallbladder without evidence of cholelithiasis. Right lower lobe 4 mm 5 mm lung nodules. Suspect postinflammatory, but the possibility of neoplasm should also be considered, particularly given the above findings. Left renal parapelvic cysts. Subcentimeter low-attenuation renal lesions, too small to characterize, most likely benign simple cysts. No further follow-up necessary. Right hepatic lobe cyst HTN Plan: -Continue to monitor off abx -f/u cx -Monitor CBC/CMP, temperatures -aspiration precautions -GI f/u Thank you for this consultation. Will continue to follow along with you. Discussed with RN. Subjective Allergies: Coded Allergies: NSAIDS (NON-STEROIDAL ANTI-INFLAMMA (Verified Allergy, Severe, Anaphylaxis , 01/30/19) ASPIRIN (Verified Allergy, Unknown, 02/26/19) LEVOFLOXACIN (Verified Allergy, Unknown, 02/26/19) Subjective afebrile no leukocytosis Objective Vital Signs Last 24 Hour Vital Signs Date Time Temp Pulse Resp B/P (MAP) Pulse Ox O2 Delivery O2 Flow Rate FiO2 03/01/19 11:05 142/86 03/01/19 08:19 164/90 03/01/19 08:18 114 164/90 03/01/19 08:00 98.4 114 25 164/90 (114) 03/01/19 04:00 98.5 101 19 148/72 (97) 03/01/19 00:00 98.9 93 19 133/72 (92) 02/28/19 22:35 Room Air 02/28/19 20:00 98.7 90 20 143/67 (92) 02/28/19 16:00 98.3 86 18 123/71 (88) 95 02/28/19 16:00 79 Height (Feet): 5 Height (Inches): 6.00 Weight (Pounds): 138 Objective General Appearance: well appearing, no apparent distress, alert Head: normocephalic EENT: PERRL/EOMI, normal ENT inspection Neck: supple Respiratory: normal breath sounds, no respiratory distress Cardiovascular: normal rate Gastrointestinal: normal inspection, non tender, soft, normal bowel sounds, non -distended Rectal: deferred Genitourinary: no CVA tenderness Musculoskeletal: normal inspection, back normal Neurologic: normal inspection, alert, oriented x3, responsive Psychiatric: normal inspection, judgement/insight normal, memory normal Skin: normal inspection, normal color, no rash, warm/dry, palpation normal, well hydrated Lymphatic: normal inspection, no adenopathy Microbiology Date/Time Source Procedure Growth Status 02/27/19 02:45 Nasal Nares MRSA Culture - Final NO METHICILLIN RESISTANT STAPH AUREUS... Complete 02/27/19 02:45 Rectum - Final NO CARBAPENEM-RESISTANT ENTEROBACTERI... Complete 02/27/19 02:45 Rectum VRE Culture - Final NO VANCOMYCIN RESISTANT ENTEROCOCCUS ... Complete Laboratory Tests Test 03/01/19 05:19 White Blood Count 7.0 K/UL (4.8-10.8) Red Blood Count 3.99 M/UL (4.20-5.40) L Hemoglobin 11.1 G/DL (12.0-16.0) L Hematocrit 33.8 % (37.0-47.0) L Mean Corpuscular Volume 85 FL (80-99) Mean Corpuscular Hemoglobin 27.9 PG (27.0-31.0) Mean Corpuscular Hemoglobin Concent 33.0 G/DL (32.0-36.0) Red Cell Distribution Width 11.7 % (11.6-14.8) Platelet Count 227 K/UL (150-450) Mean Platelet Volume 7.0 FL (6.5-10.1) Neutrophils (%) (Auto) 65.2 % (45.0-75.0) Lymphocytes (%) (Auto) 22.3 % (20.0-45.0) Monocytes (%) (Auto) 9.8 % (1.0-10.0) Eosinophils (%) (Auto) 1.8 % (0.0-3.0) Basophils (%) (Auto) 0.9 % (0.0-2.0) Sodium Level 138 MMOL/L (136-145) Potassium Level 3.4 MMOL/L (3.5-5.1) L Chloride Level 104 MMOL/L (98-107) Carbon Dioxide Level 26 MMOL/L (21-32) Anion Gap 8 mmol/L (5-15) Blood Urea Nitrogen 1 mg/dL (7-18) L Creatinine 0.6 MG/DL (0.55-1.30) Estimat Glomerular Filtration Rate > 60 mL/min (>60) Glucose Level 106 MG/DL (74-106) Uric Acid 3.0 MG/DL (2.6-7.2) Calcium Level 8.8 MG/DL (8.5-10.1) Phosphorus Level 3.1 MG/DL (2.5-4.9) Magnesium Level 1.6 MG/DL (1.8-2.4) L Total Bilirubin 0.9 MG/DL (0.2-1.0) Gamma Glutamyl Transpeptidase 43 U/L (5-85) Aspartate Amino Transf (AST/SGOT) 21 U/L (15-37) Alanine Aminotransferase (ALT/SGPT) 12 U/L (12-78) Alkaline Phosphatase 110 U/L (46-116) Total Creatine Kinase 72 U/L (26-308) C-Reactive Protein, Quantitative 1.6 mg/dL (0.00-0.90) H Pro-B-Type Natriuretic Peptide 54 pg/mL (0-125) Total Protein 6.6 G/DL (6.4-8.2) Albumin 3.1 G/DL (3.4-5.0) L Globulin 3.5 g/dL Albumin/Globulin Ratio 0.9 (1.0-2.7) L Triglycerides Level 61 MG/DL (30-150) Cholesterol Level 138 MG/DL (< 200) LDL Cholesterol 73 mg/dL (<100) HDL Cholesterol 54 MG/DL (40-60) Cholesterol/HDL Ratio 2.6 (3.3-4.4) L Thyroid Stimulating Hormone (TSH) 1.994 uiU/mL (0.358-3.740) Current Medications Medications (Trade) Dose Ordered Sig/Angelito Route PRN Reason Start Time Stop Time Status Last Admin Dose Admin Acetaminophen (Tylenol) 650 mg Q4H PRN ORAL fever (temp>100.5F) 02/28/19 19:45 03/28/19 23:44 Amlodipine Besylate (Norvasc) 10 mg DAILY ORAL 03/01/19 09:00 03/30/19 11:59 03/01/19 08:18 Clonidine HCl (Catapres TTS-2) 1 patch QWEEK TDERMAL 03/01/19 09:30 03/31/19 09:29 03/01/19 11:05 Dextrose (Dextrose 50%) 25 ml Q30M PRN IV Hypoglycemia 02/28/19 19:15 03/28/19 23:44 Dextrose (Dextrose 50%) 50 ml Q30M PRN IV Hypoglycemia 02/28/19 19:15 03/28/19 23:44 Dextrose/ Electrolytes 1,000 ml @ 50 mls/hr Q20H IV 02/28/19 19:30 03/30/19 19:29 Heparin Sodium (Porcine) (Heparin 5000 units/ml) 5,000 units EVERY 12 HOURS SUBQ 02/28/19 21:00 03/29/19 08:59 03/01/19 08:12 Lorazepam (Ativan 2mg/ml 1ml) 0.5 mg Q4H PRN IV For Anxiety 02/28/19 19:45 03/05/19 23:44 Metoclopramide HCl (Reglan) 10 mg Q8H PRN IVP Nausea & Vomiting 03/01/19 10:30 03/31/19 10:29 Morphine Sulfate (Morphine Sulfate) 2 mg Q4H PRN IVP For Pain 4-6 02/28/19 21:00 03/07/19 20:59 03/01/19 12:30 Morphine Sulfate (Morphine Sulfate) 4 mg Q4H PRN IVP For Pain 7-02/28/19 19:45 03/05/19 23:44 Ondansetron HCl (Zofran) 4 mg Q6H PRN IVP Nausea & Vomiting 02/28/19 19:30 03/28/19 19:29 03/01/19 05:48 Pantoprazole (Protonix) 40 mg DAILY ORAL 03/01/19 09:00 03/30/19 11:29 03/01/19 08:19 Polyethylene Glycol (Miralax) 17 gm HSPRN PRN ORAL Constipation 02/28/19 21:00 03/28/19 20:59 Zolpidem Tartrate (Ambien) 5 mg HSPRN PRN ORAL Insomnia 02/28/19 21:00 03/05/19 20:59 Paulina Quinteros M.D. Mar 01, 2019 13:10
--- NOTE | 2019-03-01 13:18 | Pulmonology Progress Note ---
Assessment/Plan Problems: (1) Intractable nausea and vomiting (2) Pancreatic cancer (3) Abdominal pain (4) History of hypertension Assessment/Plan doing better BP stable started on liquid diet. f/u by pain consult still can't eat, wants to go to [place]. D/w dr [place] Subjective ROS Limited/Unobtainable: No Constitutional: Reports: no symptoms HEENT: Repors: no symptoms Respiratory: Reports: no symptoms Allergies: Coded Allergies: NSAIDS (NON-STEROIDAL ANTI-INFLAMMA (Verified Allergy, Severe, Anaphylaxis , 01/30/19) ASPIRIN (Verified Allergy, Unknown, 02/26/19) LEVOFLOXACIN (Verified Allergy, Unknown, 02/26/19) Objective Last 24 Hour Vital Signs Date Time Temp Pulse Resp B/P (MAP) Pulse Ox O2 Delivery O2 Flow Rate FiO2 03/01/19 11:05 142/86 03/01/19 08:19 164/90 03/01/19 08:18 114 164/90 03/01/19 08:00 98.4 114 25 164/90 (114) 03/01/19 04:00 98.5 101 19 148/72 (97) 03/01/19 00:00 98.9 93 19 133/72 (92) 02/28/19 22:35 Room Air 02/28/19 20:00 98.7 90 20 143/67 (92) 02/28/19 16:00 98.3 86 18 123/71 (88) 95 02/28/19 16:00 79 Intake and Output 02/28/19 03/01/19 19:00 07:00 Intake Total 240 ml Balance 240 ml Intake Oral 240 ml # Voids 3 General Appearance: WD/WN HEENT: normocephalic, anicteric Respiratory/Chest: chest wall non-tender, lungs clear Breasts: no masses Cardiovascular: normal peripheral pulses Abdomen: normal bowel sounds, soft, non tender Extremities: no cyanosis Skin: no ulcers Microbiology Date/Time Source Procedure Growth Status 02/27/19 02:45 Nasal Nares MRSA Culture - Final NO METHICILLIN RESISTANT STAPH AUREUS... Complete 02/27/19 02:45 Rectum - Final NO CARBAPENEM-RESISTANT ENTEROBACTERI... Complete 02/27/19 02:45 Rectum VRE Culture - Final NO VANCOMYCIN RESISTANT ENTEROCOCCUS ... Complete Laboratory Tests 03/01/19 05:19: White Blood Count 7.0, Red Blood Count 3.99L, Hemoglobin 11.1L, Hematocrit 33.8L , Mean Corpuscular Volume 85, Mean Corpuscular Hemoglobin 27.9, Mean Corpuscular Hemoglobin Concent 33.0, Red Cell Distribution Width 11.7, Platelet Count 227, Mean Platelet Volume 7.0, Neutrophils (%) (Auto) 65.2, Lymphocytes (% ) (Auto) 22.3, Monocytes (%) (Auto) 9.8, Eosinophils (%) (Auto) 1.8, Basophils ( %) (Auto) 0.9, Sodium Level 138, Potassium Level 3.4L, Chloride Level 104, Carbon Dioxide Level 26, Anion Gap 8, Blood Urea Nitrogen 1L, Creatinine 0.6, Estimat Glomerular Filtration Rate > 60, Glucose Level 106, Uric Acid 3.0, Calcium Level 8.8, Phosphorus Level 3.1, Magnesium Level 1.6L, Total Bilirubin 0.9, Gamma Glutamyl Transpeptidase 43, Aspartate Amino Transf (AST/SGOT) 21, Alanine Aminotransferase (ALT/SGPT) 12, Alkaline Phosphatase 110, Total Creatine Kinase 72, C-Reactive Protein, Quantitative 1.6H, Pro-B-Type Natriuretic Peptide 54, Total Protein 6.6, Albumin 3.1L, Globulin 3.5, Albumin/ Globulin Ratio 0.9L, Triglycerides Level 61, Cholesterol Level 138, LDL Cholesterol 73, HDL Cholesterol 54, Cholesterol/HDL Ratio 2.6L, Thyroid Stimulating Hormone (TSH) 1.994 Current Medications Medications (Trade) Dose Ordered Sig/Angelito Route PRN Reason Start Time Stop Time Status Last Admin Dose Admin Acetaminophen (Tylenol) 650 mg Q4H PRN ORAL fever (temp>100.5F) 02/28/19 19:45 03/28/19 23:44 Amlodipine Besylate (Norvasc) 10 mg DAILY ORAL 03/01/19 09:00 03/30/19 11:59 03/01/19 08:18 Clonidine HCl (Catapres TTS-2) 1 patch QWEEK TDERMAL 03/01/19 09:30 03/31/19 09:29 03/01/19 11:05 Dextrose (Dextrose 50%) 25 ml Q30M PRN IV Hypoglycemia 02/28/19 19:15 03/28/19 23:44 Dextrose (Dextrose 50%) 50 ml Q30M PRN IV Hypoglycemia 02/28/19 19:15 03/28/19 23:44 Dextrose/ Electrolytes 1,000 ml @ 50 mls/hr Q20H IV 02/28/19 19:30 03/30/19 19:29 Heparin Sodium (Porcine) (Heparin 5000 units/ml) 5,000 units EVERY 12 HOURS SUBQ 02/28/19 21:00 03/29/19 08:59 03/01/19 08:12 Lorazepam (Ativan 2mg/ml 1ml) 0.5 mg Q4H PRN IV For Anxiety 02/28/19 19:45 03/05/19 23:44 Metoclopramide HCl (Reglan) 10 mg Q8H PRN IVP Nausea & Vomiting 03/01/19 10:30 03/31/19 10:29 Morphine Sulfate (Morphine Sulfate) 2 mg Q4H PRN IVP For Pain 4-6 02/28/19 21:00 03/07/19 20:59 03/01/19 12:30 Morphine Sulfate (Morphine Sulfate) 4 mg Q4H PRN IVP For Pain 7-10 02/28/19 19:45 03/05/19 23:44 Ondansetron HCl (Zofran) 4 mg Q6H PRN IVP Nausea & Vomiting 02/28/19 19:30 03/28/19 19:29 03/01/19 05:48 Pantoprazole (Protonix) 40 mg DAILY ORAL 03/01/19 09:00 03/30/19 11:29 03/01/19 08:19 Polyethylene Glycol (Miralax) 17 gm HSPRN PRN ORAL Constipation 02/28/19 21:00 03/28/19 20:59 Zolpidem Tartrate (Ambien) 5 mg HSPRN PRN ORAL Insomnia 02/28/19 21:00 03/05/19 20:59 Nicolle Cazares MD Mar 01, 2019 13:18
--- NOTE | 2019-03-01 13:29 | General Progress Note ---
Assessment/Plan Problem List: (1) uti (2) Pancreatic cancer ICD Codes: C25.9 - Malignant neoplasm of pancreas, unspecified SNOMED: 175959648 Qualifiers: Qualified Codes: C25.9 - Malignant neoplasm of pancreas, unspecified (3) Abdominal pain ICD Codes: R10.9 - Unspecified abdominal pain SNOMED: 35198522 Qualifiers: Qualified Codes: R10.84 - Generalized abdominal pain (4) Vomiting ICD Codes: R11.10 - Vomiting, unspecified SNOMED: 184471267 Qualifiers: Qualified Codes: R11.2 - Nausea with vomiting, unspecified (5) Pancreatic mass ICD Codes: K86.9 - Disease of pancreas, unspecified SNOMED: 158974621 (6) History of hypertension ICD Codes: Z86.79 - Personal history of other diseases of the circulatory system SNOMED: 169073366 (7) Intractable nausea and vomiting ICD Codes: R11.2 - Nausea with vomiting, unspecified SNOMED: 602744812 Status: stable, progressing Assessment/Plan: pt diet abx pain control cbc bmp am Subjective Constitutional: Reports: weakness Gastrointestinal/Abdominal: Reports: vomiting Allergies: Coded Allergies: NSAIDS (NON-STEROIDAL ANTI-INFLAMMA (Verified Allergy, Severe, Anaphylaxis , 01/30/19) ASPIRIN (Verified Allergy, Unknown, 02/26/19) LEVOFLOXACIN (Verified Allergy, Unknown, 02/26/19) All Systems: reviewed and negative except above Subjective vomitted this am Objective Last 24 Hour Vital Signs Date Time Temp Pulse Resp B/P (MAP) Pulse Ox O2 Delivery O2 Flow Rate FiO2 03/01/19 11:05 142/86 03/01/19 08:19 164/90 03/01/19 08:18 114 164/90 03/01/19 08:00 98.4 114 25 164/90 (114) 03/01/19 04:00 98.5 101 19 148/72 (97) 03/01/19 00:00 98.9 93 19 133/72 (92) 02/28/19 22:35 Room Air 02/28/19 20:00 98.7 90 20 143/67 (92) 02/28/19 16:00 98.3 86 18 123/71 (88) 95 02/28/19 16:00 79 Intake and Output 02/28/19 03/01/19 19:00 07:00 Intake Total 240 ml Balance 240 ml Intake Oral 240 ml # Voids 3 Laboratory Tests 03/01/19 05:19: White Blood Count 7.0, Red Blood Count 3.99L, Hemoglobin 11.1L, Hematocrit 33.8L , Mean Corpuscular Volume 85, Mean Corpuscular Hemoglobin 27.9, Mean Corpuscular Hemoglobin Concent 33.0, Red Cell Distribution Width 11.7, Platelet Count 227, Mean Platelet Volume 7.0, Neutrophils (%) (Auto) 65.2, Lymphocytes (% ) (Auto) 22.3, Monocytes (%) (Auto) 9.8, Eosinophils (%) (Auto) 1.8, Basophils ( %) (Auto) 0.9, Sodium Level 138, Potassium Level 3.4L, Chloride Level 104, Carbon Dioxide Level 26, Anion Gap 8, Blood Urea Nitrogen 1L, Creatinine 0.6, Estimat Glomerular Filtration Rate > 60, Glucose Level 106, Uric Acid 3.0, Calcium Level 8.8, Phosphorus Level 3.1, Magnesium Level 1.6L, Total Bilirubin 0.9, Gamma Glutamyl Transpeptidase 43, Aspartate Amino Transf (AST/SGOT) 21, Alanine Aminotransferase (ALT/SGPT) 12, Alkaline Phosphatase 110, Total Creatine Kinase 72, C-Reactive Protein, Quantitative 1.6H, Pro-B-Type Natriuretic Peptide 54, Total Protein 6.6, Albumin 3.1L, Globulin 3.5, Albumin/ Globulin Ratio 0.9L, Triglycerides Level 61, Cholesterol Level 138, LDL Cholesterol 73, HDL Cholesterol 54, Cholesterol/HDL Ratio 2.6L, Thyroid Stimulating Hormone (TSH) 1.994 Height (Feet): 5 Height (Inches): 6.00 Weight (Pounds): 138 General Appearance: lethargic EENT: normal ENT inspection Neck: normal alignment Cardiovascular: normal peripheral pulses, normal rate, regular rhythm Respiratory/Chest: chest wall non-tender, lungs clear, normal breath sounds Abdomen: normal bowel sounds, non tender, soft Extremities: normal inspection Edema: no edema noted Arm (L), no edema noted Arm (R), no edema noted Leg (L), no edema noted Leg (R), no edema noted Pedal (L), no edema noted Pedal (R), no edema noted Generalized Neurologic: responsive, motor weakness Skin: normal pigmentation, warm/dry HuitronLg Chi-Adriana DO Mar 01, 2019 13:29
--- NOTE | 2019-03-01 14:29 | NUR ---
RD ASSESSMENT & RECOMMENDATIONS SEE CARE ACTIVITY FOR COMPLETE ASSESSMENT DAILY ESTIMATED NEEDS: Needs based on Cancer 60.6kg 25-35 kcals/kg 9971-3340 total kcals 1-2 g protein/kg 61-121 g total protein 25-30 mL/kg 1151-0785 total fluid mLs NUTRITION DIAGNOSIS: Altered GI function r/t pancreatic cancer as evidenced by recent dx, adm with N/V, currently on clears. CURRENT DIET: CLD PO DIET RECOMMENDATIONS: Advance a tolerated to [place] diet ADDITIONAL RECOMMENDATIONS: 1) Obtain weekly weights, new pancreatic Ca dx + N/V High potential for wt loss 2) Add Ensure Clear w/ Clear liquid diet 3) Lytes daily w/ emesis, replete as needed
--- NOTE | 2019-03-01 14:29 | NUR ---
PT NOTE Attempted to see patient for PT treatment. Patient declining to participate with PT, has had a difficult day. Had emesis and increased pain earlier. Rachelle bolaños RN notified, will follow up tomorrow.
--- NOTE | 2019-03-01 15:08 | NUR ---
CASE MANAGEMENT: REVIEW 03/01/19 SI: INTRACTABLE ABD PAIN . DEHYDRATION . PANCREATIC CA 98.1 86 18 123/70 96% ON RA H/H-11.1/34.1 K-3.3 IS: CLONIDINE PATCH QWEEK NORVASC PO QD PROTONIX PO QD iv mag sulfate q1hrs x4 HEPARIN SQ Q12 IVF@50/HR : MED/SURG STATUS 4 EAST DCP: FROM HOME MED/SURG STATUS DCP: PATIENT IS FROM HOME
[2019-03-01 16:00] VITALS: BP 119/69
--- NOTE | 2019-03-01 19:57 | NUR ---
HAND-OFF: Report given to NIKOLAI Phillips.
[2019-03-01 20:09] VITALS: BP 120/69
--- NOTE | 2019-03-01 20:22 | NUR ---
NURSE NOTES: PATIENT IN BED, AWAKE, ALERT, VERBALLY RESPONSIVE. IV IN PLACE, RUNNING IV FLUIDS. NO S/S DISTRESS NOTED. NO COMPLAINTS OF PAIN AT THIS TIME. BED IN LOWEST POSITION, CALL LIGHT WITHIN REACH, BED ALARM ON. WILL CONTINUE TO MONITOR.
[2019-03-02 00:25] VITALS: BP 123/69
[2019-03-02] MEDS: Morphine Sulfate 2mg/ml Inj(IV/IM USE ONLY) IVP PRN ×2 (02:08→06:26)
[2019-03-02 04:54] VITALS: BP 147/81
--- NOTE | 2019-03-02 06:00 | NUR ---
NURSE NOTES: Patient awake, no distress, no episodes of vomiting, v/s stable.
[2019-03-02 06:29] LABS: BASOPHILS % (AUTO) 1.5 % (0.0-2.0); EOSINOPHILS % (AUTO) 1.8 % (0.0-3.0); HEMATOCRIT 34.1 % (37.0-47.0); HEMOGLOBIN 11.1 G/DL (12.0-16.0); LYMPHOCYTES % (AUTO) 24.3 % (20.0-45.0); MEAN CORPUSCULAR VOLUME 86 FL (80-99); MONOCYTES % (AUTO) 9.5 % (1.0-10.0); NEUTROPHILS % (AUTO) 62.9 % (45.0-75.0); PLATELET COUNT 231 K/UL (150-450); RED BLOOD COUNT 3.97 M/UL (4.20-5.40); RED CELL DISTRIBUTION WIDTH 12.4 % (11.6-14.8); WHITE BLOOD COUNT 6.7 K/UL (4.8-10.8)
[2019-03-02 06:53] LABS: ANION GAP 12 mmol/L (5-15); BLOOD UREA NITROGEN 2 mg/dL (7-18); CALCIUM 8.9 MG/DL (8.5-10.1); CARBON DIOXIDE 20 MMOL/L (21-32); CHLORIDE 104 MMOL/L (98-107); CREATININE 0.7 MG/DL (0.55-1.30); POTASSIUM 3.3 MMOL/L (3.5-5.1); SODIUM 136 MMOL/L (136-145)
--- NOTE | 2019-03-02 07:19 | NUR ---
HAND-OFF: Report given to JAI CRISOSTOMO RN.
--- NOTE | 2019-03-02 07:24 | NUR ---
NURSE NOTES: received report from NIKOLAI Phillips. patient in bed. alert. oriented. verbally responsive. breathing even and unlabored. no c/o pain or nausea at this time. no episode of vomiting during night. IV on RAC 20 intact. running d51/2with [id number]@50/hr. fall risk d/t legally blind. call light within reach. bed in the lowest position. alarm on. will continue to provide plan of care.
[2019-03-02 08:00] VITALS: BP 123/70
--- NOTE | 2019-03-02 08:18 | General Progress Note ---
Assessment/Plan Problem List: (1) uti (2) Pancreatic cancer ICD Codes: C25.9 - Malignant neoplasm of pancreas, unspecified SNOMED: 096901246 Qualifiers: Qualified Codes: C25.9 - Malignant neoplasm of pancreas, unspecified (3) Abdominal pain ICD Codes: R10.9 - Unspecified abdominal pain SNOMED: 37084735 Qualifiers: Qualified Codes: R10.84 - Generalized abdominal pain (4) Vomiting ICD Codes: R11.10 - Vomiting, unspecified SNOMED: 877060423 Qualifiers: Qualified Codes: R11.2 - Nausea with vomiting, unspecified (5) Pancreatic mass ICD Codes: K86.9 - Disease of pancreas, unspecified SNOMED: 333493307 (6) History of hypertension ICD Codes: Z86.79 - Personal history of other diseases of the circulatory system SNOMED: 458060685 (7) Intractable nausea and vomiting ICD Codes: R11.2 - Nausea with vomiting, unspecified SNOMED: 702826862 Status: stable, progressing Assessment/Plan: pt diet abx pain control cbc bmp am Subjective Constitutional: Reports: weakness Allergies: Coded Allergies: NSAIDS (NON-STEROIDAL ANTI-INFLAMMA (Verified Allergy, Severe, Anaphylaxis , 01/30/19) ASPIRIN (Verified Allergy, Unknown, 02/26/19) LEVOFLOXACIN (Verified Allergy, Unknown, 02/26/19) All Systems: reviewed and negative except above Subjective tolerating clear liquid Objective Last 24 Hour Vital Signs Date Time Temp Pulse Resp B/P (MAP) Pulse Ox O2 Delivery O2 Flow Rate FiO2 03/02/19 06:56 99.3 03/02/19 04:54 99.3 94 18 147/81 (103) 98 03/02/19 00:25 99.0 90 18 123/69 (87) 97 03/01/19 21:00 Room Air 03/01/19 20:09 99.4 89 18 120/69 (86) 97 03/01/19 16:00 98.6 90 20 119/69 (86) 03/01/19 12:00 98.4 119 25 141/78 (99) 03/01/19 11:05 142/86 03/01/19 09:00 Room Air 03/01/19 08:19 164/90 03/01/19 08:18 114 164/90 Intake and Output 03/01/19 03/02/19 19:00 07:00 Intake Total 50 ml 550 ml Balance 50 ml 550 ml IV Total 50 ml 550 ml # Voids 5 2 Laboratory Tests 03/02/19 05:10: White Blood Count 6.7, Red Blood Count 3.97L, Hemoglobin 11.1L, Hematocrit 34.1L , Mean Corpuscular Volume 86, Mean Corpuscular Hemoglobin 27.8, Mean Corpuscular Hemoglobin Concent 32.4, Red Cell Distribution Width 12.4, Platelet Count 231, Mean Platelet Volume 5.3L, Neutrophils (%) (Auto) 62.9, Lymphocytes ( %) (Auto) 24.3, Monocytes (%) (Auto) 9.5, Eosinophils (%) (Auto) 1.8, Basophils (%) (Auto) 1.5, Sodium Level 136, Potassium Level 3.3L, Chloride Level 104, Carbon Dioxide Level 20L, Anion Gap 12, Blood Urea Nitrogen 2L, Creatinine 0.7, Estimat Glomerular Filtration Rate > 60, Glucose Level 79, Calcium Level 8.9 Height (Feet): 5 Height (Inches): 6.00 Weight (Pounds): 138 General Appearance: lethargic EENT: normal ENT inspection Neck: normal alignment Cardiovascular: normal peripheral pulses, normal rate, regular rhythm Respiratory/Chest: chest wall non-tender, lungs clear, normal breath sounds Abdomen: normal bowel sounds, non tender, soft Extremities: normal inspection Edema: no edema noted Arm (L), no edema noted Arm (R), no edema noted Leg (L), no edema noted Leg (R), no edema noted Pedal (L), no edema noted Pedal (R), no edema noted Generalized Neurologic: responsive, motor weakness Skin: normal pigmentation, warm/dry Lg Huitron DO Mar 02, 2019 08:18
[2019-03-02] MEDS: Heparin 5000 units/ml inj SUBQ SCH (09:00)
--- NOTE | 2019-03-02 09:33 | Hematology/Onc Progress Note ---
Assessment/Plan Assessment/Plan Assessment and Recs: # Pancreatic mass, 1.5x2cm in the ucinate process, appears on imaging to be stage I - there is marked extrahepatic and central intrahepatic biliary ductal dilatation, common bile duct measuring up to 19 mm in diameter, is s/p stent placement at [facility] per patient. It abruptly taper wiithin the pancreatic head, proximal to its junction with the pancreatic duct. The pancreatic duct is borderline prominent. A mildly dilated duct is seen within the pancreatic head/ uncinate, there is no peripancreatic lymphadenopathy. The gallbladder is distended but no gallstones are evident. --> imaging has been reviewed --> tumor markers reviewed CA19.9 80, cea is 11 --> Biopsy proven pancreatic cancer on 02/03/19 --> await surgery as an outpatient with Dr. Jenkins --> also awaiting pet scan by the end of this week (on prior imaging did have right lower lobe 4 mm 5 mm lung nodules. Suspect postinflammatory, but the possibility of neoplasm should also be considered) # Abdominal pain - likely from pancreatic mass causing biliary obstruction. Abdominal exam okay with some upper abdominal discomfort on palpation --> as per gi could be related to abd mass --> pain management recs as per Gretchen --> on morphine prn # Hypokalemia --> given K, has been repleted # Nausea/vomiting --> zofran prn --> as per gi eval, reviewed The timing of this note does not necessarily reflect the time of the patient was seen. GREATLY APPRECIATE CONSULTATION. Subjective HEENT: Denies: no symptoms, eye pain, blurred vision, tearing, double vision, ear pain, ear discharge, nose pain, nose congestion, throat pain, throat swelling, mouth pain, mouth swelling, other Cardiovascular: Denies: no symptoms, chest pain, edema, irregular heart rate, lightheadedness, palpitations, syncope, other Respiratory: Denies: no symptoms, cough, shortness of breath, SOB with excertion, SOB at rest, sputum, wheezing, other Gastrointestinal/Abdominal: Denies: no symptoms, abdomen distended, abdominal pain, black stools, tarry stools, blood in stool, constipated, diarrhea, difficulty swallowing, nausea, poor appetite, poor fluid intake, rectal bleeding , vomiting, other Genitourinary: Denies: no symptoms, burning, discharge, frequency, flank pain, hematuria, incontinence, pain, urgency, other Neurologic/Psychiatric: Denies: no symptoms, anxiety, depressed, emotional problems, headache, numbness, paresthesia, pre-existing deficit, seizure, tingling, tremors, weakness, other Endocrine: Denies: no symptoms, excessive sweating, flushing, intolerance to cold, intolerance to heat, increased hunger, increased thirst, increased urine, unexplained weight gain, unexplained weight loss, other Hematologic/Lymphatic: Denies: no symptoms, anemia, easy bleeding, easy bruising, adenopathy, other Allergies: Coded Allergies: NSAIDS (NON-STEROIDAL ANTI-INFLAMMA (Verified Allergy, Severe, Anaphylaxis , 01/30/19) ASPIRIN (Verified Allergy, Unknown, 02/26/19) LEVOFLOXACIN (Verified Allergy, Unknown, 02/26/19) Subjective 02/28: no f/c noted, no bleeding, no night sweats reported 03/01: no f/c noted, tumor markers have been reviewed, no bleeding noted, remains on IVFs 03/02: no fevers, no night sweats, remains on ivf, not in acute distress Objective Objective Current Medications Medications (Trade) Dose Ordered Sig/Angelito Route PRN Reason Start Time Stop Time Status Last Admin Dose Admin Acetaminophen (Tylenol) 650 mg Q4H PRN ORAL fever (temp>100.5F) 02/28/19 19:45 03/28/19 23:44 Amlodipine Besylate (Norvasc) 10 mg DAILY ORAL 03/01/19 09:00 03/30/19 11:59 03/01/19 08:18 Clonidine HCl (Catapres TTS-2) 1 patch QWEEK TDERMAL 03/01/19 09:30 03/31/19 09:29 03/01/19 11:05 Dextrose (Dextrose 50%) 25 ml Q30M PRN IV Hypoglycemia 02/28/19 19:15 03/28/19 23:44 Dextrose (Dextrose 50%) 50 ml Q30M PRN IV Hypoglycemia 02/28/19 19:15 03/28/19 23:44 Dextrose/ Electrolytes 1,000 ml @ 50 mls/hr Q20H IV 02/28/19 19:30 03/30/19 19:29 03/01/19 16:00 Heparin Sodium (Porcine) (Heparin 5000 units/ml) 5,000 units EVERY 12 HOURS SUBQ 02/28/19 21:00 03/29/19 08:59 03/01/19 21:45 Lorazepam (Ativan 2mg/ml 1ml) 0.5 mg Q4H PRN IV For Anxiety 02/28/19 19:45 03/05/19 23:44 Metoclopramide HCl (Reglan) 10 mg Q8H PRN IVP Nausea & Vomiting 03/01/19 10:30 03/31/19 10:29 Morphine Sulfate (Morphine Sulfate) 2 mg Q4H PRN IVP For Pain 4-6 02/28/19 21:00 03/07/19 20:59 03/02/19 06:26 Morphine Sulfate (Morphine Sulfate) 4 mg Q4H PRN IVP For Pain 7-02/28/19 19:45 03/05/19 23:44 Ondansetron HCl (Zofran) 4 mg Q6H PRN IVP Nausea & Vomiting 02/28/19 19:30 03/28/19 19:29 03/01/19 05:48 Pantoprazole (Protonix) 40 mg DAILY ORAL 03/01/19 09:00 03/30/19 11:29 03/01/19 08:19 Polyethylene Glycol (Miralax) 17 gm HSPRN PRN ORAL Constipation 02/28/19 21:00 03/28/19 20:59 Zolpidem Tartrate (Ambien) 5 mg HSPRN PRN ORAL Insomnia 02/28/19 21:00 03/05/19 20:59 Last 24 Hour Vital Signs Date Time Temp Pulse Resp B/P (MAP) Pulse Ox O2 Delivery O2 Flow Rate FiO2 03/02/19 06:56 99.3 03/02/19 04:54 99.3 94 18 147/81 (103) 98 03/02/19 00:25 99.0 90 18 123/69 (87) 97 03/01/19 21:00 Room Air 03/01/19 20:09 99.4 89 18 120/69 (86) 97 03/01/19 16:00 98.6 90 20 119/69 (86) 03/01/19 12:00 98.4 119 25 141/78 (99) 03/01/19 11:05 142/86 03/01/19 09:00 Room Air 03/01/19 08:19 164/90 03/01/19 08:18 114 164/90 03/01/19 08:00 98.4 114 25 164/90 (114) 03/01/19 04:00 98.5 101 19 148/72 (97) 03/01/19 00:00 98.9 93 19 133/72 (92) 02/28/19 22:35 Room Air 02/28/19 20:00 98.7 90 20 143/67 (92) 02/28/19 16:00 98.3 86 18 123/71 (88) 95 02/28/19 16:00 79 02/28/19 12:00 98.2 81 18 114/66 (82) 98 02/28/19 12:00 81 114/66 02/28/19 11:57 77 Intake and Output 03/01/19 03/02/19 19:00 07:00 Intake Total 50 ml 550 ml Balance 50 ml 550 ml IV Total 50 ml 550 ml # Voids 5 2 Labs Test 02/28/19 05:33 03/01/19 05:19 03/02/19 05:10 White Blood Count 8.4 K/UL (4.8-10.8) 7.0 K/UL (4.8-10.8) 6.7 K/UL (4.8-10.8) Red Blood Count 4.06 M/UL (4.20-5.40) 3.99 M/UL (4.20-5.40) 3.97 M/UL (4.20-5.40) Hemoglobin 11.4 G/DL (12.0-16.0) 11.1 G/DL (12.0-16.0) 11.1 G/DL (12.0-16.0) Hematocrit 34.7 % (37.0-47.0) 33.8 % (37.0-47.0) 34.1 % (37.0-47.0) Mean Corpuscular Volume 85 FL (80-99) 85 FL (80-99) 86 FL (80-99) Mean Corpuscular Hemoglobin 27.9 PG (27.0-31.0) 27.9 PG (27.0-31.0) 27.8 PG (27.0-31.0) Mean Corpuscular Hemoglobin Concent 32.7 G/DL (32.0-36.0) 33.0 G/DL (32.0-36.0) 32.4 G/DL (32.0-36.0) Red Cell Distribution Width 11.5 % (11.6-14.8) 11.7 % (11.6-14.8) 12.4 % (11.6-14.8) Platelet Count 249 K/UL (150-450) 227 K/UL (150-450) 231 K/UL (150-450) Mean Platelet Volume 6.9 FL (6.5-10.1) 7.0 FL (6.5-10.1) 5.3 FL (6.5-10.1) Neutrophils (%) (Auto) 67.9 % (45.0-75.0) 65.2 % (45.0-75.0) 62.9 % (45.0-75.0) Lymphocytes (%) (Auto) 20.5 % (20.0-45.0) 22.3 % (20.0-45.0) 24.3 % (20.0-45.0) Monocytes (%) (Auto) 10.0 % (1.0-10.0) 9.8 % (1.0-10.0) 9.5 % (1.0-10.0) Eosinophils (%) (Auto) 0.7 % (0.0-3.0) 1.8 % (0.0-3.0) 1.8 % (0.0-3.0) Basophils (%) (Auto) 0.9 % (0.0-2.0) 0.9 % (0.0-2.0) 1.5 % (0.0-2.0) Sodium Level 137 MMOL/L (136-145) 138 MMOL/L (136-145) 136 MMOL/L (136-145) Potassium Level 3.3 MMOL/L (3.5-5.1) 3.4 MMOL/L (3.5-5.1) 3.3 MMOL/L (3.5-5.1) Chloride Level 104 MMOL/L (98-107) 104 MMOL/L (98-107) 104 MMOL/L (98-107) Carbon Dioxide Level 26 MMOL/L (21-32) 26 MMOL/L (21-32) 20 MMOL/L (21-32) Anion Gap 7 mmol/L (5-15) 8 mmol/L (5-15) 12 mmol/L (5-15) Blood Urea Nitrogen 5 mg/dL (7-18) 1 mg/dL (7-18) 2 mg/dL (7-18) Creatinine 0.6 MG/DL (0.55-1.30) 0.6 MG/DL (0.55-1.30) 0.7 MG/DL (0.55-1.30) Estimat Glomerular Filtration Rate > 60 mL/min (>60) > 60 mL/min (>60) > 60 mL/min (>60) Glucose Level 128 MG/DL (74-106) 106 MG/DL (74-106) 79 MG/DL (74-106) Calcium Level 9.2 MG/DL (8.5-10.1) 8.8 MG/DL (8.5-10.1) 8.9 MG/DL (8.5-10.1) Phosphorus Level 2.9 MG/DL (2.5-4.9) 3.1 MG/DL (2.5-4.9) Magnesium Level 1.3 MG/DL (1.8-2.4) 1.6 MG/DL (1.8-2.4) Uric Acid 3.0 MG/DL (2.6-7.2) Total Bilirubin 0.9 MG/DL (0.2-1.0) Gamma Glutamyl Transpeptidase 43 U/L (5-85) Aspartate Amino Transf (AST/SGOT) 21 U/L (15-37) Alanine Aminotransferase (ALT/SGPT) 12 U/L (12-78) Alkaline Phosphatase 110 U/L (46-116) Total Creatine Kinase 72 U/L (26-308) C-Reactive Protein, Quantitative 1.6 mg/dL (0.00-0.90) Pro-B-Type Natriuretic Peptide 54 pg/mL (0-125) Total Protein 6.6 G/DL (6.4-8.2) Albumin 3.1 G/DL (3.4-5.0) Globulin 3.5 g/dL Albumin/Globulin Ratio 0.9 (1.0-2.7) Triglycerides Level 61 MG/DL (30-150) Cholesterol Level 138 MG/DL (< 200) LDL Cholesterol 73 mg/dL (<100) HDL Cholesterol 54 MG/DL (40-60) Cholesterol/HDL Ratio 2.6 (3.3-4.4) Thyroid Stimulating Hormone (TSH) 1.994 uiU/mL (0.358-3.740) Height (Feet): 5 Height (Inches): 6.00 Weight (Pounds): 138 Objective Physical Exam General appearance: alert, cooperative, no distress, appears stated age Neck: supple, symmetrical Lungs: clear to auscultation bilaterally Heart: rrr, S1, S2 normal, no murmur, click, rub or gallop Abdomen: soft, non-tender. left lower quad pain Ext: no cce Skin: Skin color, texture, turgor normal. No rashes or lesions Lester Hawthorne MD Mar 02, 2019 09:33
--- NOTE | 2019-03-02 09:50 | NUR ---
NURSE NOTES: patient has a pet scan at [facility] at 1pm. refused to take morning medications due to afraid of vomiting before procedure. explained risks and benefits. will continue to monitor patient condition.
[2019-03-02] MEDS ORDERED: PROTONIX20 MG ORAL (09:54)
[2019-03-02] MEDS ORDERED: ZOFRAN4 M1 ORAL (09:56)
--- NOTE | 2019-03-02 10:56 | GI Progress Note ---
Assessment/Plan Problems: (1) Vomiting ICD Codes: R11.10 - Vomiting, unspecified SNOMED: 753859942 Qualifiers: Qualified Codes: R11.2 - Nausea with vomiting, unspecified (2) Pancreatic mass ICD Codes: K86.9 - Disease of pancreas, unspecified SNOMED: 092302189 (3) Abdominal pain ICD Codes: R10.9 - Unspecified abdominal pain SNOMED: 01514151 Qualifiers: Qualified Codes: R10.84 - Generalized abdominal pain (4) Pancreatic cancer ICD Codes: C25.9 - Malignant neoplasm of pancreas, unspecified SNOMED: 281215423 Qualifiers: Qualified Codes: C25.9 - Malignant neoplasm of pancreas, unspecified (5) Dehydration ICD Codes: E86.0 - Dehydration SNOMED: 34788298 (6) Intractable nausea and vomiting ICD Codes: R11.2 - Nausea with vomiting, unspecified SNOMED: 073677500 Status: stable Status Narrative Discussed with Dr. Baez. Assessment/Plan PET scanned planned at [facility] Early stage pancreatic cancer Symptomatic treatment at this time Clear liquid diet, advance as tolerated Zofran as needed Reglan ATC Pain management IV and p.o. hydration Electrolyte correction PPI Follow-up oncology recommendations dc plan today The patient was seen and examined at bedside and all new and available data was reviewed in the patients chart. I agree with the above findings, impression and plan. (Patient seen earlier today. Signature stamp does not reflect patient encounter time.). - Taz Baez MD Subjective Subjective abdominal pain improved N/V improved Objective Last 24 Hour Vital Signs Date Time Temp Pulse Resp B/P (MAP) Pulse Ox O2 Delivery O2 Flow Rate FiO2 03/02/19 09:00 Room Air 03/02/19 08:00 98.1 86 18 123/70 (87) 96 03/02/19 06:56 99.3 03/02/19 04:54 99.3 94 18 147/81 (103) 98 03/02/19 00:25 99.0 90 18 123/69 (87) 97 03/01/19 21:00 Room Air 03/01/19 20:09 99.4 89 18 120/69 (86) 97 03/01/19 16:00 98.6 90 20 119/69 (86) 03/01/19 12:00 98.4 119 25 141/78 (99) 8/1/19 11:05 142/86 Intake and Output 03/01/19 03/02/19 19:00 07:00 Intake Total 50 ml 550 ml Balance 50 ml 550 ml IV Total 50 ml 550 ml # Voids 5 2 Laboratory Tests Test 03/02/19 05:10 White Blood Count 6.7 K/UL (4.8-10.8) Red Blood Count 3.97 M/UL (4.20-5.40) L Hemoglobin 11.1 G/DL (12.0-16.0) L Hematocrit 34.1 % (37.0-47.0) L Mean Corpuscular Volume 86 FL (80-99) Mean Corpuscular Hemoglobin 27.8 PG (27.0-31.0) Mean Corpuscular Hemoglobin Concent 32.4 G/DL (32.0-36.0) Red Cell Distribution Width 12.4 % (11.6-14.8) Platelet Count 231 K/UL (150-450) Mean Platelet Volume 5.3 FL (6.5-10.1) L Neutrophils (%) (Auto) 62.9 % (45.0-75.0) Lymphocytes (%) (Auto) 24.3 % (20.0-45.0) Monocytes (%) (Auto) 9.5 % (1.0-10.0) Eosinophils (%) (Auto) 1.8 % (0.0-3.0) Basophils (%) (Auto) 1.5 % (0.0-2.0) Sodium Level 136 MMOL/L (136-145) Potassium Level 3.3 MMOL/L (3.5-5.1) L Chloride Level 104 MMOL/L (98-107) Carbon Dioxide Level 20 MMOL/L (21-32) L Anion Gap 12 mmol/L (5-15) Blood Urea Nitrogen 2 mg/dL (7-18) L Creatinine 0.7 MG/DL (0.55-1.30) Estimat Glomerular Filtration Rate > 60 mL/min (>60) Glucose Level 79 MG/DL (74-106) Calcium Level 8.9 MG/DL (8.5-10.1) Height (Feet): 5 Height (Inches): 6.00 Weight (Pounds): 138 General Appearance: WD/WN, no apparent distress, alert Cardiovascular: normal rate Respiratory/Chest: normal breath sounds, no respiratory distress Abdominal Exam: normal bowel sounds, non tender, soft Extremities: normal range of motion, non-tender Bill Low NP Mar 02, 2019 10:56
--- NOTE | 2019-03-02 11:55 | NUR ---
NURSE NOTES: patient discharged to home with fair condition by family member. no respiratory distress noted. no c/o pain at this time. no c/o n/v at this time. IV and ID band removed. checked and counted belongings with patient and obtained sign. provided dc packet , original new prescription of [place] and dilaudid by Dr. ruff. Faxed out and confirmed with [facility] pharmacy regarding zofran and protonix. patient aware. escorted patient to the lobby by W/C, left hospital safely.
--- NOTE | 2019-03-02 17:58 | Pulmonology Progress Note ---
Assessment/Plan Problems: (1) Intractable nausea and vomiting (2) Pancreatic cancer (3) Abdominal pain (4) History of hypertension Assessment/Plan doing better BP stable started on liquid diet. f/u by pain consult wants to go to [facility] to have PET study. Subjective ROS Limited/Unobtainable: No Constitutional: Reports: no symptoms Respiratory: Reports: no symptoms Allergies: Coded Allergies: NSAIDS (NON-STEROIDAL ANTI-INFLAMMA (Verified Allergy, Severe, Anaphylaxis , 01/30/19) ASPIRIN (Verified Allergy, Unknown, 02/26/19) LEVOFLOXACIN (Verified Allergy, Unknown, 02/26/19) Objective Last 24 Hour Vital Signs Date Time Temp Pulse Resp B/P (MAP) Pulse Ox O2 Delivery O2 Flow Rate FiO2 03/02/19 09:00 Room Air 03/02/19 08:00 98.1 86 18 123/70 (87) 96 03/02/19 06:56 99.3 03/02/19 04:54 99.3 94 18 147/81 (103) 98 03/02/19 00:25 99.0 90 18 123/69 (87) 97 03/01/19 21:00 Room Air 03/01/19 20:09 99.4 89 18 120/69 (86) 97 Intake and Output 03/01/19 03/02/19 19:00 07:00 Intake Total 50 ml 600 ml Balance 50 ml 600 ml IV Total 50 ml 600 ml # Voids 5 2 General Appearance: WD/WN HEENT: normocephalic, atraumatic Respiratory/Chest: chest wall non-tender, lungs clear Cardiovascular: normal peripheral pulses, regular rhythm Genitourinary: normal external genitalia Extremities: no clubbing Neurologic/Psychiatric: rolled gold plater II-XII grossly normal Musculoskeletal: normal muscle bulk Laboratory Tests 03/02/19 05:10: White Blood Count 6.7, Red Blood Count 3.97L, Hemoglobin 11.1L, Hematocrit 34.1L , Mean Corpuscular Volume 86, Mean Corpuscular Hemoglobin 27.8, Mean Corpuscular Hemoglobin Concent 32.4, Red Cell Distribution Width 12.4, Platelet Count 231, Mean Platelet Volume 5.3L, Neutrophils (%) (Auto) 62.9, Lymphocytes ( %) (Auto) 24.3, Monocytes (%) (Auto) 9.5, Eosinophils (%) (Auto) 1.8, Basophils (%) (Auto) 1.5, Sodium Level 136, Potassium Level 3.3L, Chloride Level 104, Carbon Dioxide Level 20L, Anion Gap 12, Blood Urea Nitrogen 2L, Creatinine 0.7, Estimat Glomerular Filtration Rate > 60, Glucose Level 79, Calcium Level 8.9 Nicolle Cazares MD Mar 02, 2019 17:58
--- NOTE | 2019-03-03 15:03 | Cardiology Report ---
APPROVED REPORT EKG Measurement Heart [id number] Sinus tachycardia Otherwise normal ECG
--- NOTE | 2019-03-04 08:26 | Discharge Summary ---
Discharge Summary Discharge Summary _ DATE OF ADMISSION: 02/26/2019 DATE OF DISCHARGE: 03/02/2019 ADMITTING MD: Dr. Lg Huitron CONSULTANTS: Dr. Nicolle Godinez [facility] HOSPITAL COURSE: Patient is a 69-year-old female, who was recently diagnosed with pancreatic cancer on 02/08/2019, presented to ED due to intractable abdominal pain, nausea and vomiting at home for 2 days. Pain was worsened. Pain scale 10 out of 10. Pain was mostly in the left upper quadrant. There was no nausea or vomiting. No diarrhea. No fever. She was unable to keep anything down. On evaluation at ED, blood pressure was 150/81, pulse 131. Blood work did not show any leukocytosis. Hemoglobin and hematocrit were stable. Potassium 3.3. Kidney function was normal. Calcium was elevated to 10.3. Urinalysis showed + 2 protein, +4 ketones, negative nitrite, +1 leukocyte esterase, 10-15 urine RBC and 2-4 urine WBC. She had severe intractable vomiting and was dehydrated. She was given IV hydration. She was given IV pain control. She was then admitted for evaluation of intractable pain. Patient was admitted to medical floor. Pain management was consulted. She was given morphine for pain. Oncologist was consulted. GI was consulted. She was given Zofran as needed. She was given clear liquid diet. Patient was diagnosed with early pancreatic CA and was scheduled to undergo a PET scan at [facility] to rule out for mets and for possible surgery with Dr. Jenkins. Oncologist was consulted. Tumor markers showed CA 199 80, CEA 10. Abdominal pain was likely from pancreatic mass causing biliary obstruction. He had persistent hypokalemia and hypomagnesemia. Fixing Carpenter was consulted. Electrolytes were repleted. Nausea and emesis was likely related to pancreatic CA, no signs of infection, no leukocytosis. She was observed off antibiotics. She was given Norvasc for hypertension. Lisinopril was decreased from 40 mg to 20 mg. She had sinus tachycardia but without any ischemia and no evidence of atrial fibrillation. Echocardiogram done showed EF 65%. She had better pain control. She was discharged home, advised to follow-up with prior scheduled PET scan at [facility]. FINAL DIAGNOSES: Intractable nausea vomiting and abdominal pain, secondary to pancreatic CA Dehydration Hypokalemia Hypomagnesemia Sinus tachycardia DISPOSITION: Patient was discharged home. DISCHARGE MEDICATIONS: Refer to Discharge Medication List. DISCHARGE INSTRUCTIONS: Follow-up in a week. Follow-up with PET scan as previously scheduled at [facility]. I have been assigned to complete a discharge summary on this account, I was not involved with the patient's management.--RAFAEL Alfaro Jacqueline Robles NP Mar 04, 2019 08:26
== END 2019-03-02 11:46 | disposition home or self-care (01) | DRG 436 ==
LOC: EMR 21:21 → 4E 22:54 → EDBEDREQ 02-27 00:09 → 2E 02-27 01:39 → 4E 02-28 18:43 → 2E 02-28 18:51 → 4E 02-28 18:56
DX: C25.9 Malignant neoplasm of pancreas, unspecified (principal); N39.0 Urinary tract infection, site not specified; E86.0 Dehydration; E87.6 Hypokalemia; G89.3 Neoplasm related pain (acute) (chronic); E83.42 Hypomagnesemia; R11.2 Nausea with vomiting, unspecified; R00.0 Tachycardia, unspecified; Z88.6 Allergy status to analgesic agent; Z88.1 Allergy status to other antibiotic agents; I10 Essential (primary) hypertension; K21.9 Gastro-esophageal reflux disease without esophagitis
CPT/HCPCS: 36415; 80048; 80053; 80061; 81003; 82378; 82550; 82977; 83690; 83735; 83880; 84100; 84443; 84550; 85007; 85025; 86140; 87081; 93005; 93306; 96361; 96374; 96375; 96376; 97803; 99285; J2405; J2765; J8499

== ENCOUNTER 2019-03-09 10:13 | Inpatient (IN) | payer MEDICARE, OTHER ==
[~2019-03-09] VITALS: Ht 165.1 cm; Wt 59.9 kg
[~2019-03-09 10:13] MED LIST changes: +PROTONIX20 MG ORAL; +TRAMADOL HCL50 MG ORAL; +ZOFRAN4 M1 ORAL
--- NOTE | 2019-03-09 10:15 | NUR ---
ED Nurse Note: Patient brought by RA 67 from home c/o abdominal pain. patient history of pancreatic CA stage 1 patient is alert awake x4 ambulatory.
--- NOTE | 2019-03-09 10:43 | Emergency Room Report ---
History of Present Illness General Chief Complaint: Abdominal Pain Source: Patient, EMS Present Illness HPI The patient was discharged from the hospital Tuesday. She has a history of pancreatitis and pancreatic cancer. She is been unable to keep down liquids and has significant pain in her stomach. She denies any vomiting of blood, fever, coffee grounds or melena. She is moving her bowels very much because she is on a liquid diet and unable to pass much stool at this time. She rates the pain 8/10. It is constant and aching radiating towards her back. Epigastric but also diffuse. The patient was admitted here and transferred to [facility] for stent placement in the common bile duct. She carries a diagnosis of stage I pancreatic cancer. There is a consideration of further surgery in the near future. The patient is lost weight. She has generalized weakness. She denies dysuria. She feels weak when she stands. No sore throat, chest pain, palpitations, shortness of breath, joint pain, rashes, visual changes, headache. Allergies: Coded Allergies: NSAIDS (NON-STEROIDAL ANTI-INFLAMMA (Verified Allergy, Severe, Anaphylaxis , 01/30/19) ASPIRIN (Verified Allergy, Unknown, 02/26/19) LEVOFLOXACIN (Verified Allergy, Unknown, 02/26/19) Patient History Past Medical History: see triage record Past Surgical History: other - Pancreatic common bile duct stent Social History: Denies: smoking Social History Narrative With daughter Reviewed Nursing Documentation: PMH: Agreed; PSxH: Agreed Nursing Documentation-[facility] Past Medical History: No History, Except For Hx Cardiac Problems: Yes Hx Hypertension: Yes Hx Cancer: No Hx Neurological Problems: No Review of Systems All Other Systems: negative except mentioned in HPI Physical Exam Vital Signs Date Time Temp Pulse Resp B/P (MAP) Pulse Ox O2 Delivery O2 Flow Rate FiO2 03/09/19 10:08 98.4 109 16 158/90 (112) 98 Sp02 EP Interpretation: reviewed, normal General Appearance: no apparent distress, GCS 15, thin, Chronically Ill Head: normocephalic Eyes: bilateral eye normal inspection, bilateral eye PERRL ENT: dry mucus membranes Neck: supple Respiratory: lungs clear, normal breath sounds Cardiovascular #1: regular rate, rhythm Cardiovascular #2: 2+ radial (R) Gastrointestinal: normal inspection, no mass, non-distended, no rebound - Diffuse, guarding, tenderness - Epigastric, decreased bowel sounds Genitourinary: no CVA tenderness Musculoskeletal: back normal, normal range of motion Neurologic: alert, oriented x3, sensory intact, motor weakness - Requiring assistance to ambulate Psychiatric: depressed affect, anxious Skin: no rash Medical Decision Making Diagnostic Impression: Primary Impression: Intractable nausea and vomiting Qualified Codes: R11.2 - Nausea with vomiting, unspecified Additional Impressions: Abdominal pain Qualified Codes: R10.13 - Epigastric pain Pancreatic cancer Qualified Codes: C25.9 - Malignant neoplasm of pancreas, unspecified Marasmus Generalized weakness ER Course Patient presents with uncontrolled vomiting and abdominal pain with a history of pancreatic mass. Differential includes dehydration, pancreatitis, gastritis , dysfunctional pancreatic stent electrolyte imbalance, occult infection, acute myocardial infarction amongst others. Patient will be evaluated with EKG, chest x-ray, abdomen x-ray and labs. Patient will be treated with IV hydration , Zofran and she requests only 2 mg of morphine. Due to the complexity of the patient and the fact that she is unable to keep anything down if were unable to correct the persistent vomiting she will need to come to the hospital. EKG no injury. Chest x-ray no infiltrates. Abdomen stent no small bowel obstruction. Normal white count. Normal lipase and amylase. Calcium elevated - ionized calcium ordered. Continued vomiting and abdominal pain. Phenergan and morphine ordered. Ultrasound ordered. 12:38 Ultrasound without stent obstruction. Continued nausea. Also continued pain. Zofran repeated and morphine repeated. Admit medical floor Dr. Huitron Laboratory Tests Test 03/09/19 10:28 03/09/19 11:01 03/09/19 11:40 White Blood Count 10.4 K/UL (4.8-10.8) Red Blood Count 4.88 M/UL (4.20-5.40) Hemoglobin 13.5 G/DL (12.0-16.0) Hematocrit 41.9 % (37.0-47.0) Mean Corpuscular Volume 86 FL (80-99) Mean Corpuscular Hemoglobin 27.7 PG (27.0-31.0) Mean Corpuscular Hemoglobin Concent 32.3 G/DL (32.0-36.0) Red Cell Distribution Width 11.9 % (11.6-14.8) Platelet Count 353 K/UL (150-450) Mean Platelet Volume 6.3 FL (6.5-10.1) L Neutrophils (%) (Auto) 80.9 % (45.0-75.0) H Lymphocytes (%) (Auto) 11.4 % (20.0-45.0) L Monocytes (%) (Auto) 6.9 % (1.0-10.0) Eosinophils (%) (Auto) 0.4 % (0.0-3.0) Basophils (%) (Auto) 0.5 % (0.0-2.0) Prothrombin Time 10.2 SEC (9.30-11.50) Prothrombin Time INR 1.0 (0.9-1.1) PTT 28 SEC (23-33) Sodium Level 136 MMOL/L (136-145) Potassium Level 3.8 MMOL/L (3.5-5.1) Chloride Level 101 MMOL/L (98-107) Carbon Dioxide Level 28 MMOL/L (21-32) Anion Gap 7 mmol/L (5-15) Blood Urea Nitrogen 6 mg/dL (7-18) L Creatinine 0.8 MG/DL (0.55-1.30) Estimate Glomerular Filtration Rate > 60 mL/min (>60) Glucose Level 113 MG/DL (74-106) H Calcium Level 10.4 MG/DL (8.5-10.1) H Total Bilirubin 0.5 MG/DL (0.2-1.0) Aspartate Amino Transferase (AST) 22 U/L (15-37) Alanine Aminotransferase (ALT) 16 U/L (12-78) Alkaline Phosphatase 132 U/L (46-116) H Troponin I 0.000 ng/mL (0.000-0.056) Total Protein 8.5 G/DL (6.4-8.2) H Albumin 4.0 G/DL (3.4-5.0) Globulin 4.5 g/dL Albumin/Globulin Ratio 0.9 (1.0-2.7) L Amylase Level 50 U/L (25-115) Lipase 114 U/L (73-393) Urine Color Pale yellow Urine Appearance Clear Urine pH 8 (4.5-8.0) Urine Specific [place] 1.010 (1.005-1.035) Urine Protein Negative (NEGATIVE) Urine Glucose (UA) Negative (NEGATIVE) Urine Ketones 1+ (NEGATIVE) H Urine Blood 2+ (NEGATIVE) H Urine Nitrite Negative (NEGATIVE) Urine Bilirubin Negative (NEGATIVE) Urine Urobilinogen Normal MG/DL (0.0-1.0) Urine Leukocyte Esterase Negative (NEGATIVE) Urine RBC 0-2 /HPF (0 - 2) Urine WBC 0 /HPF (0 - 2) Urine Squamous Epithelial Cells Occasional /LPF Urine Bacteria None /HPF (NONE) Ionized Calcium (Measured) 1.11 mmol/L (1.10-1.35) EKG Diagnostic Results Rate: normal Rhythm: NSR ST Segments: no acute changes Rhythm Strip Diag. Results EP Interpretation: yes Rhythm: NSR, no PVC's, no ectopy Chest X-Ray Diagnostic Results Chest X-Ray Diagnostic Results : Chest X-Ray Ordered: Yes # of Views/Limited/Complete: 1 View Indication: Other EP Interpretation: Yes Interpretation: no consolidation, no effusion, no pneumothorax Impression: No acute disease Electronically Signed by: Electronically signed by Nii Hernandez MD Other X-Ray Diagnostic Results Other X-Ray Diagnostic Results : X-Ray ordered: abd # of Views/Limited Vs Complete: 2 View Indication: Pain Interpretation: no sbo, other - stent Impression: Other CT/MRI/US Diagnostic Results CT/MRI/US Diagnostic Results : Imaging Test Ordered: Abdomen ultrasound Impression No obstruction Interval stenting of the common bile duct with resolution of the previously seen biliary ductal dilatation. Previously seen bladder distention and gallbladder sludge has also resolved status post stenting of the common bile duct. No gallbladder sludge seen presently. No evidence of acute cholecystitis. Last Vital Signs Date Time Temp Pulse Resp B/P (MAP) Pulse Ox O2 Delivery O2 Flow Rate FiO2 03/09/19 10:08 98.4 109 16 158/90 (112) 98 Status: improved Disposition: ADMITTED INPATIENT Condition: Serious Nii Hernandez MD Mar 09, 2019 10:43
[2019-03-09] MEDS ORDERED: Morphine Sulfate 2mg/ml Inj(IV/IM USE ONLY) IVP ONE ×2 (10:45→12:45)
[2019-03-09 11:06] LABS: BASOPHILS % (AUTO) 0.5 % (0.0-2.0); EOSINOPHILS % (AUTO) 0.4 % (0.0-3.0); HEMATOCRIT 41.9 % (37.0-47.0); HEMOGLOBIN 13.5 G/DL (12.0-16.0); LYMPHOCYTES % (AUTO) 11.4 % (20.0-45.0); MEAN CORPUSCULAR VOLUME 86 FL (80-99); MONOCYTES % (AUTO) 6.9 % (1.0-10.0); NEUTROPHILS % (AUTO) 80.9 % (45.0-75.0); PLATELET COUNT 353 K/UL (150-450); RED BLOOD COUNT 4.88 M/UL (4.20-5.40); RED CELL DISTRIBUTION WIDTH 11.9 % (11.6-14.8); WHITE BLOOD COUNT 10.4 K/UL (4.8-10.8)
[2019-03-09 11:08] LABS: ANION GAP 7 mmol/L (5-15); BLOOD UREA NITROGEN 6 mg/dL (7-18); CALCIUM 10.4 MG/DL (8.5-10.1); CARBON DIOXIDE 28 MMOL/L (21-32); CHLORIDE 101 MMOL/L (98-107); CREATININE 0.8 MG/DL (0.55-1.30); POTASSIUM 3.8 MMOL/L (3.5-5.1); SODIUM 136 MMOL/L (136-145)
[2019-03-09 11:13] LABS: ALANINE AMINOTRANSFERASE 16 U/L (12-78); ALBUMIN/GLOBULIN RATIO 0.9 (1.0-2.7); ALKALINE PHOSPHATASE 132 U/L (46-116); AMYLASE 50 U/L (25-115); ASPARTATE AMINO TRANSFERASE 22 U/L (15-37); BILIRUBIN,TOTAL 0.5 MG/DL (0.2-1.0)
--- NOTE | 2019-03-09 11:17 | NUR ---
ED Nurse Note: Pt's niece leaving and left phone number. [phone].
[2019-03-09 11:26] LABS: APPEARANCE,URINE CLEAR; BILIRUBIN, URINE NEGATIVE (NEGATIVE); COLOR,URINE PALE YELLOW; GLUCOSE, URINE (UA) NEGATIVE (NEGATIVE); KETONES,URINE 1+ (NEGATIVE); LEUKOCYTE ESTERASE ,URINE NEGATIVE (NEGATIVE); NITRITE,URINE NEGATIVE (NEGATIVE); PH,URINE 8 (4.5-8.0); PROTEIN,URINE NEGATIVE (NEGATIVE); UROBILINOGEN,URINE NORMAL MG/DL (0.0-1.0)
[2019-03-09 11:41] VITALS: BP 148/91
--- NOTE | 2019-03-09 13:39 | NUR ---
ED Nurse Note: bedside ultrasound is being done.
--- NOTE | 2019-03-09 13:44 | Diagnostic Imaging Report ---
Indication: Abdominal pain Technique: XRAY Abdomen 1v Comparison: CT of the abdomen and pelvis 01/29/2019 FINDINGS/IMPRESSION: Bowel gas pattern is nonspecific. No distended loops of small bowel noted to suggest small bowel obstruction. No evidence of free intraperitoneal air. There has been interval stenting of common bile duct with a metallic stent. There are degenerative changes in the spine and hips. No acute osseous abnormality appreciated.
--- NOTE | 2019-03-09 13:46 | Diagnostic Imaging Report ---
Indication: Chest and abdominal pain Technique: XRAY Chest 1v Comparison: None FINDINGS/IMPRESSION: Heart size and mediastinal contours within normal limits. No focal airspace consolidation, pleural effusion, pneumothorax or evidence of pulmonary edema is identified. The subcentimeter pulmonary nodules noted on the prior CT of the chest are not appreciated radiographically. No acute osseous abnormality identified. Impression: No radiographic evidence of acute cardiac pulmonary disease Subcentimeter pulmonary nodules described on CT of the chest 01/31/2019 not appreciated radiographically.
--- NOTE | 2019-03-09 13:51 | NUR ---
ED Nurse Note: called 4E to give report, unable to give report to Aleksandar MENCHACA, she is in lunch spoke with Lauri MENCHACA
[2019-03-09] MEDS ORDERED: HYDROmorphone 1mg/ml Carpuject IVP PRN (14:00)
[2019-03-09] MEDS ORDERED: Milk of Magnesia 30ml Ud ORAL PRN (14:00)
[2019-03-09] MEDS ORDERED: Albuterol ud Inhalation HHN PRN (14:00)
[2019-03-09] MEDS ORDERED: LORazepam 1mg tab ORAL PRN (14:00)
[2019-03-09] MEDS ORDERED: Albuterol/Ipratropium 3ml neb HHN PRN (14:00)
[2019-03-09] MEDS ORDERED: Nitroglycerin Subl 0.4mg tab SL PRN (14:00)
--- NOTE | 2019-03-09 14:21 | NUR ---
ED Nurse Note: report given to Rachelle MENCHACA endorsed all plan of care to Rachelle MENCHACA
--- NOTE | 2019-03-09 14:21 | Diagnostic Imaging Report ---
Indication: Abdominal pain. History of pancreatic cancer. Technique: Grayscale and duplex imaging of the upper abdomen was obtained. Comparison: 01/29/2019 Findings: Hepatic contour appears smooth. No definite hepatic mass lesion is appreciated sonographically. Imaged hepatic veins are patent. Main portal vein is patent with normal direction of flow. There is been interval resolution of the previously seen intrahepatic biliary ductal dilatation. Common bile duct stent is partially visualized. Gallbladder is not distended. Gallbladder wall within normal limits. No pericholecystic fluid. Sonographic Pineda sign reported as negative. Previously seen gallbladder sludge is no longer visualized. Pancreas is poorly evaluated. Bilateral kidneys demonstrate normal echogenicity. There is no hydronephrosis or sonographically appreciable renal stone. Spleen is normal in size. No ascites is demonstrated. Imaged portions of the abdominal aorta normal in caliber. IMPRESSION: Interval stenting of the common bile duct with resolution of the previously seen biliary ductal dilatation. Previously seen bladder distention and gallbladder sludge has also resolved status post stenting of the common bile duct. No gallbladder sludge seen presently. No evidence of acute cholecystitis.
--- NOTE | 2019-03-09 14:46 | NUR ---
ED Nurse Note: unable to transfer patient yet because patient is using bedside commode having BM.
--- NOTE | 2019-03-09 15:03 | NUR ---
ED Nurse Note: patient is being transferred to with all of her belongings with JAILYN RICO
[2019-03-09] MEDS ORDERED: AMBIEN10 M1 ORAL (15:48)
[2019-03-09] MEDS ORDERED: PEPCID AC20 M2 PO (15:48)
[2019-03-09] MEDS ORDERED: HYDROMORPHONE HC2 M1 ORAL (15:48)
[2019-03-09 16:00] VITALS: BP 147/80
[2019-03-09] MEDS: Enoxaparin 40mg Inj SUBQ SCH (17:01)
[2019-03-09] MEDS ORDERED: Morphine Sulfate 2mg/ml Inj(IV/IM USE ONLY) IVP PRN (18:45)
--- NOTE | 2019-03-09 18:47 | NUR ---
NURSE NOTES: Patient transferred from ER at 1500 via [facility]. Belongings reviewed and accounted for. Patient oriented to room. Patient had episode of emesis x1 50ml of bile. No reports of pain at the moment. Side rails upx2, bed is locked, and call light placed near patient. Dr. Hawthorne notified of nausea and vomiting. New order received for Zofran. Will continue to monitor.
--- NOTE | 2019-03-09 18:49 | NUR ---
NURSE NOTES: Patient reports she does not want Dilaudid. Patient reports she cannot tolerate Dilaudid. Dr. Hawthorne notified. New order received.
[2019-03-09] MEDS ORDERED: MULTIVITAMINS1 EAC8 ORAL (19:23)
[2019-03-09] MEDS ORDERED: VIT B12 ORAL (19:23)
[2019-03-09] MEDS ORDERED: ARTIFICIAL TEA1 EAC3 OP (19:23)
[2019-03-09] MEDS ORDERED: FLAX SEED OIL1000 MG PO (19:23)
--- NOTE | 2019-03-09 19:30 | NUR ---
NURSE NOTES: RECEIVED PATIENT LYING IN BED, AWAKE, ALERT/ORIENTED X4, LEGALLY BLIND, VERBALLY RESPONSIVE, DENIES PAIN. NO SIGNS AND SYMPTOMS OF ACUTE CARDIO RESPIRATORY DISTRESS/SHORTNESS OF BREATH, NO PERIPHERAL EDEMA NOTED, DENIES CHEST PAIN. TOLERATING IV FLUIDS VIA LEFT FOREARM GAUGE 20, NO REDNESS/SWELLING NOTED. ABDOMEN SOFT/NON DISTENDED/NON TENDER, HYPOACTIVE BOWEL SOUNDS, COMPLAINTS OF NAUSEA, PREVIOUSLY MEDICATED WITH ZOFRAN IV- BATHROOM PRIVILEGES WITH ASSISTANCE. ORIENTATED PATIENT TO ROOM/ENVIRONMENT, BED IN LOWEST POSITION FOR SAFETY, SIDE RAILS UP X3, ENCOURAGED PATIENT TO UTILIZE CALL LIGHT FOR ASSISTANCE, VERBALIZED UNDERSTANDING. NAD.
--- NOTE | 2019-03-09 19:46 | NUR ---
NURSE NOTES: Patient requesting glucerna. Dr. Hawthorne notified. New order received.
--- NOTE | 2019-03-09 19:47 | NUR ---
HAND-OFF: Report given to CHRISTINA Chino.
[2019-03-09] MEDS: Zolpidem 5mg tab ORAL PRN (19:53)
--- NOTE | 2019-03-09 19:55 | NUR ---
CASE MANAGEMENT: REVIEW 69Y/F BIBA FROM HOME CC: ADRIANNA JEFF . HX PANCREATIC CA STAGE 1 SI: PANCREATITIS . INTRACTABLE VOMITING T 98.4 HR 108 RR 15 BP 148/91 SAT 98% ROOM AIR GLUCOSE 113 ALK PHOS 132 IS: NS IVF BOLUS X1 MORPHINE IV X1 PEPCID IV X1 ZOFRAN IV X1 PROMETHAZINE IM X1 NPO PATIENT ADMITTED TO MED/SURG UNIT 03/09/2019 DCP: PATIENT IS FROM HOME
[2019-03-09 20:00] VITALS: BP 179/108
--- NOTE | 2019-03-09 20:12 | NUR ---
NURSE NOTES: TELEPHONE CALL PLACED TO DR. Nicole MCDOWELL REGARDING ELEVATED BLOOD PRESSURE RIGHT ARM 179/108 - HR 117; LEFT ARM 168/91 HR 113, PATIENT ASYMPTOMATIC, DENIES HEADACHE, DIZZINESS, CHEST PAIN OR SHORTNESS OF BREATH, COMFORT CARE PROVIDED. LEFT MESSAGE WITH RAVI ASSEMBLING MOTOR BUILDER, WILL AWAIT RETURN CALL. RONALD.
[2019-03-09] MEDS ORDERED: HydrALAZINE 25mg tab ORAL PRN (22:00)
[2019-03-09 22:30] VITALS: BP 172/103
[2019-03-09] MEDS: Metoprolol Tartrate 5 MG in D5W 55 ML IVPB SCH (22:30)
--- NOTE | 2019-03-09 22:42 | NUR ---
NURSE NOTES: RECEIVED TELEPHONE CALL FROM DR. HOOD WITH NEW ORDERS, COFFEE MACHINE TECHNICIAN NOTIFIED, TRANSFER PATIENT TO ROOM 206 BED 2.
--- NOTE | 2019-03-09 23:00 | History and Physical Report ---
DATE OF ADMISSION: 03/09/2019 CONSULTANTS: 1. Nicolle Cazares M.D. 2. Taz Baez M.D. 3. Sharmila Godinez M.D. 4. Kilo Hawthorne M.D. CHIEF COMPLAINT: Intractable nausea, vomiting, abdominal pain, and history of pancreatic cancer. BRIEF HISTORY: This is a 69-year-old female, hospitalized about a week ago, discharged, went to [facility] Er for PET scan, went home, was doing okay. This morning, started uncontrollable nausea, vomiting, and abdominal pain, came to [facility], diagnosed with the above, and being admitted to medical floor for further treatment. Currently, slightly anxious in bed, slight nausea, vomiting in the ER gurney. No complaint. REVIEW OF SYSTEMS: No chest pain. Slight short of breath. Slight nausea and vomiting. No diarrhea. PAST MEDICAL HISTORY: Includes pancreatic cancer, hypertension, and abdominal pain. PAST SURGICAL HISTORY: Carpal tunnel. MEDICATIONS: Include promethazine, morphine, Zofran, Pepcid, and IV fluids. ALLERGIES: Aspirin, levofloxacin, and NSAID. SOCIAL HISTORY: No smoking. No alcohol. No intravenous drug abuse. FAMILY HISTORY: Noncontributory. PHYSICAL EXAMINATION: GENERAL: Slightly anxious in bed, oriented x3, slight distress secondary to nausea. VITAL SIGNS: Show temperature is 98 degrees, pulse 108, respirations 15, and blood pressure 140/91. CARDIOVASCULAR: No murmurs. LUNGS: Distant and clear. ABDOMEN: Bowel sounds positive. Slightly tender. No guarding. No rigidity. No rebound. EXTREMITIES: No cyanosis. No edema. NEUROLOGIC: The patient moves all extremities, slightly weak. LABORATORY AND DIAGNOSTIC DATA: Labs, at this time, show CBC is normal. BMP show BUN 6, otherwise normal glucose 113. Calcium 10.4. Troponin 0.00. Alkaline phosphatase 132. INR is 1.0. PTT is 28. Urinalysis show 2+ blood and 1+ ketone. ASSESSMENT: 1. Intractable nausea, vomiting, and abdominal pain. 2. Pancreatic cancer history. 3. Hypertension. PLAN: 1. Blood pressure and pain control. 2. Dietary followup. 3. Zofran p.r.n. 4. NPO. 5. IV fluids. 6. Advance diet as tolerated. 7. CBC and BMP in the morning. Lg Huitron D.O. DR: MELANIE JOB#: [id number] CC:
[2019-03-10] VITALS (10 sets, daily range): BP systolic 101–175; BP diastolic 64–102
--- NOTE | 2019-03-10 00:38 | NUR ---
NURSE NOTES: Received pt from NIKOLAI Ortega. Pt awake, alert, and talkative. BP 177/109, HR 124. Pt reports feeling nauseated and having pain. Family at bedside. Nausea, pain, and BP meds given. Will recheck values in 30 minutes. Pt advised to call before getting up to use commode. Skin intact. Legally blind sign was placed above head. Will continue to monitor.
--- NOTE | 2019-03-10 00:40 | NUR ---
NURSE NOTES: PATIENT TRANSFERRED TO TELE ROOM 206 VIA BED SECONDARY TO ELEVATED HEART RATE/BLOOD PRESSURE, REPORT GIVEN TO NIKOLAI BLACK. PATIENT ALERT/ORIENTED X4, VERBALLY RESPONSIVE, DENIES PAIN. NO SIGNS AND SYMPTOMS OF ACUTE CARDIO RESPIRATORY DISTRESS/SHORTNESS OF BREATH, DENIES CHEST PAIN, NO PERIPHERAL EDEMA NOTED. FAMILY REMAIN AT BEDSIDE. NAD.
--- NOTE | 2019-03-10 02:32 | NUR ---
NURSE NOTES: Called and left a message with Dr. Huitron regarding pts increase in HR. Awaiting call back
--- NOTE | 2019-03-10 02:55 | NUR ---
NURSE NOTES: cALLED AND LEFT A MESSAGE WITH dR. Shaffer REGARDING PTS HEART RATE AND BROWN EMESIS EPISODE. AWAITING CALL BACK.
[2019-03-10] MEDS ORDERED: LORazepam Inj 2mg/ml 1ml IV PRN (06:00)
[2019-03-10] MEDS: Metoprolol Tartrate 5 MG in D5W 55 ML IVPB SCH ×3 (06:00→14:42)
[2019-03-10 06:04] LABS: HEMATOCRIT 42.4 % (37.0-47.0); MEAN CORPUSCULAR VOLUME 84 FL (80-99); PLATELET COUNT 404 K/UL (150-450); RED BLOOD COUNT 5.03 M/UL (4.20-5.40); RED CELL DISTRIBUTION WIDTH 11.8 % (11.6-14.8); WHITE BLOOD COUNT 11.1 K/UL (4.8-10.8)
[2019-03-10] MEDS: Morphine Sulfate 2mg/ml Inj(IV/IM USE ONLY) IVP PRN ×3 (06:29→21:14)
[2019-03-10 06:32] LABS: ANION GAP 11 mmol/L (5-15); BLOOD UREA NITROGEN 8 mg/dL (7-18); CALCIUM 9.8 MG/DL (8.5-10.1); CARBON DIOXIDE 27 MMOL/L (21-32); CHLORIDE 95 MMOL/L (98-107); CREATININE 0.7 MG/DL (0.55-1.30); POTASSIUM 3.5 MMOL/L (3.5-5.1); SODIUM 133 MMOL/L (136-145)
--- NOTE | 2019-03-10 06:37 | NUR ---
NURSE NOTES: Pt refused AM EKG and metoprolol IVPB. Called and informed Dr. Salcedo. He is aware. I, as well as the charge nurse, explained to the pt that metoprolol will help bring down her HR (currently in the 130s), pt still refused. Will continue to monitor. Addendum: 03/10/19 at 0645 by Dione Gamble RN NURSE NOTES: Pt also refused ativan
--- NOTE | 2019-03-10 08:02 | NUR ---
NURSE NOTES: Received report from NIKOLAI Parham. The patient is having a breakfast on the bed but feels nauseated. Per Dione, the patient is refusing to get Metoprolol and the patient's heart rate is 140s. Dr. Salcedo was notified for the elevated heart rate and refusal of medication. The patient also had brown color emesis at restaurant shift leader, and Dione reported to Dr. Salcedo. The patient's bed in the lowest position, call light in reach, and fall and aspiration precaution reinforced. The patient has intact and patent IV. Will continue plan of care.
--- NOTE | 2019-03-10 08:18 | NUR ---
HAND-OFF: Report given to NIKOLAI Malave. Pt stable.
--- NOTE | 2019-03-10 09:01 | NUR ---
PT Note Patient has been transferred to telemetry. Will hold off on PT till new orders are received.
--- NOTE | 2019-03-10 09:08 | General Progress Note ---
Assessment/Plan Problem List: (1) Pancreatic mass ICD Codes: K86.9 - Disease of pancreas, unspecified SNOMED: 391689319 (2) History of hypertension ICD Codes: Z86.79 - Personal history of other diseases of the circulatory system SNOMED: 330142937 (3) Intractable nausea and vomiting ICD Codes: R11.2 - Nausea with vomiting, unspecified SNOMED: 274058956 Qualifiers: Qualified Codes: R11.2 - Nausea with vomiting, unspecified (4) Abdominal pain ICD Codes: R10.9 - Unspecified abdominal pain SNOMED: 69780423 Qualifiers: Qualified Codes: R10.13 - Epigastric pain (5) Generalized weakness ICD Codes: R53.1 - Weakness SNOMED: 34108663 (6) Pancreatic cancer ICD Codes: C25.9 - Malignant neoplasm of pancreas, unspecified SNOMED: 648615690 Qualifiers: Qualified Codes: C25.9 - Malignant neoplasm of pancreas, unspecified Status: stable, progressing Assessment/Plan: pt diet pain control cbc bmp am Subjective Constitutional: Reports: weakness Allergies: Coded Allergies: NSAIDS (NON-STEROIDAL ANTI-INFLAMMA (Verified Allergy, Severe, Anaphylaxis , 01/30/19) ASPIRIN (Verified Allergy, Unknown, 02/26/19) LEVOFLOXACIN (Verified Allergy, Unknown, 02/26/19) All Systems: reviewed and negative except above Subjective sleepy calm Objective Last 24 Hour Vital Signs Date Time Temp Pulse Resp B/P (MAP) Pulse Ox O2 Delivery O2 Flow Rate FiO2 03/10/19 08:00 98.6 135 18 150/92 (111) 98 03/10/19 06:00 145 145/84 03/10/19 04:00 98.3 124 18 175/99 (124) 96 03/10/19 04:00 122 03/10/19 02:07 98.8 03/10/19 02:07 145 145/84 (104) 03/10/19 01:53 114 151/90 (110) 03/10/19 01:04 172/94 03/10/19 01:00 97 172/94 (120) 03/10/19 00:54 98 172/94 (120) 03/10/19 00:00 123 173/102 (125) 03/10/19 00:00 121 03/09/19 22:30 127 172/103 (126) 03/09/19 22:30 123 173/102 03/09/19 22:11 172/103 03/09/19 21:00 Room Air 03/09/19 20:00 99.6 113 18 179/108 (131) 98 03/09/19 16:22 Room Air 03/09/19 16:00 98.2 97 18 147/80 (102) 97 03/09/19 15:03 98.4 98 15 148/91 98 Room Air 03/09/19 14:14 98.4 03/09/19 12:05 98.4 03/09/19 11:41 98.4 108 15 148/91 98 Room Air 03/09/19 11:39 109 16 Room Air 03/09/19 10:08 98.4 109 16 158/90 (112) 98 Laboratory Tests 03/09/19 10:28: White Blood Count 10.4, Red Blood Count 4.88, Hemoglobin 13.5, Hematocrit 41.9, Mean Corpuscular Volume 86, Mean Corpuscular Hemoglobin 27.7, Mean Corpuscular Hemoglobin Concent 32.3, Red Cell Distribution Width 11.9, Platelet Count 353, Mean Platelet Volume 6.3L, Neutrophils (%) (Auto) 80.9H, Lymphocytes (%) (Auto) 11.4L, Monocytes (%) (Auto) 6.9, Eosinophils (%) (Auto) 0.4, Basophils (%) (Auto ) 0.5, Prothrombin Time 10.2, Prothromb Time International Ratio 1.0, Activated Partial Thromboplast Time 28, Sodium Level 136, Potassium Level 3.8, Chloride Level 101, Carbon Dioxide Level 28, Anion Gap 7, Blood Urea Nitrogen 6L, Creatinine 0.8, Estimat Glomerular Filtration Rate > 60, Glucose Level 113H, Calcium Level 10.4H, Total Bilirubin 0.5, Aspartate Amino Transf (AST/SGOT) 22, Alanine Aminotransferase (ALT/SGPT) 16, Alkaline Phosphatase 132H, Troponin I 0.000, Total Protein 8.5H, Albumin 4.0, Globulin 4.5, Albumin/Globulin Ratio 0.9L, Amylase Level 50, Lipase 114 03/09/19 11:01: Urine Color Pale yellow, Urine Appearance Clear, Urine pH 8, Urine Specific [place] 1.010, Urine Protein Negative, Urine Glucose (UA) Negative, Urine Ketones 1+H, Urine Blood 2+H, Urine Nitrite Negative, Urine Bilirubin Negative, Urine Urobilinogen Normal, Urine Leukocyte Esterase Negative, Urine RBC 0-2, Urine WBC 0, Urine Squamous Epithelial Cells Occasional, Urine Bacteria None 03/09/19 11:40: Ionized Calcium (Measured) 1.11 03/10/19 04:45: White Blood Count 11.1H, Red Blood Count 5.03, Hemoglobin 14.0, Hematocrit 42.4 , Mean Corpuscular Volume 84, Mean Corpuscular Hemoglobin 27.8, Mean Corpuscular Hemoglobin Concent 33.0, Red Cell Distribution Width 11.8, Platelet Count 404, Mean Platelet Volume 6.3L, Neutrophils (%) (Auto) , Lymphocytes (%) ( Auto) , Monocytes (%) (Auto) , Eosinophils (%) (Auto) , Basophils (%) (Auto) , Prothrombin Time 10.7, Prothromb Time International Ratio 1.0, Sodium Level 133L , Potassium Level 3.5, Chloride Level 95L, Carbon Dioxide Level 27, Anion Gap 11 , Blood Urea Nitrogen 8, Creatinine 0.7, Estimat Glomerular Filtration Rate > 60 , Glucose Level 148H, Calcium Level 9.8, Alkaline Phosphatase 141H, Differential Total Cells Counted 100, Neutrophils % (Manual) 88H, Lymphocytes % (Manual) 7L, Monocytes % (Manual) 5, Eosinophils % (Manual) 0, Basophils % ( Manual) 0, Band Neutrophils 0, Platelet Estimate Adequate, Platelet Morphology Normal, Red Blood Cell Morphology Normal Height (Feet): 5 Height (Inches): 5.00 Weight (Pounds): 128 General Appearance: lethargic EENT: normal ENT inspection Neck: normal alignment Cardiovascular: normal peripheral pulses, normal rate, regular rhythm Respiratory/Chest: chest wall non-tender, lungs clear, normal breath sounds Abdomen: normal bowel sounds, non tender, soft Extremities: normal inspection Edema: no edema noted Arm (L), no edema noted Arm (R), no edema noted Leg (L), no edema noted Leg (R), no edema noted Pedal (L), no edema noted Pedal (R), no edema noted Generalized Neurologic: motor weakness Skin: normal pigmentation, warm/dry Lg Huitron DO Mar 10, 2019 09:08
--- NOTE | 2019-03-10 10:50 | NUR ---
NURSE NOTES: Due to persistently high heart rate, notified Dr. Salcedo again. Dr. Salcedo ordered one time dose of Metoprolol 5mg IVPB now. Explained to the patient and verbalized understanding. Will administer medication as ordered. Will continue to monitor the patient.
[2019-03-10] MEDS ORDERED: Metoprolol Tartrate 10 MG in D5W 55 ML IVPB ONE (11:00)
--- NOTE | 2019-03-10 13:42 | NUR ---
NURSE NOTES: The patient's heart rate stabilized to 90s. The patient is sleeping on the bed comfortably. Will continue to monitor the patient. Will continue plan of care.
[2019-03-10] MEDS: Enoxaparin 40mg Inj SUBQ SCH (14:43)
--- NOTE | 2019-03-10 16:32 | Cardiac Electrophysiology PN ---
Subjective Subjective [id number] Objective Last 24 Hour Vital Signs Date Time Temp Pulse Resp B/P (MAP) Pulse Ox O2 Delivery O2 Flow Rate FiO2 03/10/19 14:42 87 109/65 03/10/19 12:00 98.2 101 18 102/65 (77) 97 03/10/19 11:09 142 150/92 03/10/19 09:34 135 150/92 03/10/19 09:00 Room Air 03/10/19 08:45 138 20 97 Room Air 21 03/10/19 08:00 98.6 135 18 150/92 (111) 98 03/10/19 08:00 137 03/10/19 06:00 145 145/84 03/10/19 04:00 98.3 124 18 175/99 (124) 96 03/10/19 04:00 122 03/10/19 02:07 98.8 03/10/19 02:07 145 145/84 (104) 03/10/19 01:53 114 151/90 (110) 03/10/19 01:04 172/94 03/10/19 01:00 97 172/94 (120) 03/10/19 00:54 98 172/94 (120) 03/10/19 00:00 123 173/102 (125) 03/10/19 00:00 121 03/09/19 22:30 127 172/103 (126) 03/09/19 22:30 123 173/102 03/09/19 22:11 172/103 03/09/19 21:00 Room Air 03/09/19 20:00 99.6 113 18 179/108 (131) 98 Laboratory Tests Test 03/10/19 04:45 White Blood Count 11.1 K/UL (4.8-10.8) H Red Blood Count 5.03 M/UL (4.20-5.40) Hemoglobin 14.0 G/DL (12.0-16.0) Hematocrit 42.4 % (37.0-47.0) Mean Corpuscular Volume 84 FL (80-99) Mean Corpuscular Hemoglobin 27.8 PG (27.0-31.0) Mean Corpuscular Hemoglobin Concent 33.0 G/DL (32.0-36.0) Red Cell Distribution Width 11.8 % (11.6-14.8) Platelet Count 404 K/UL (150-450) Mean Platelet Volume 6.3 FL (6.5-10.1) L Neutrophils (%) (Auto) % (45.0-75.0) Lymphocytes (%) (Auto) % (20.0-45.0) Monocytes (%) (Auto) % (1.0-10.0) Eosinophils (%) (Auto) % (0.0-3.0) Basophils (%) (Auto) % (0.0-2.0) Differential Total Cells Counted 100 Neutrophils % (Manual) 88 % (45-75) H Lymphocytes % (Manual) 7 % (20-45) L Monocytes % (Manual) 5 % (1-10) Eosinophils % (Manual) 0 % (0-3) Basophils % (Manual) 0 % (0-2) Band Neutrophils 0 % (0-8) Platelet Estimate Adequate Platelet Morphology Normal Red Blood Cell Morphology Normal Prothrombin Time 10.7 SEC (9.30-11.50) Prothromb Time International Ratio 1.0 (0.9-1.1) Sodium Level 133 MMOL/L (136-145) L Potassium Level 3.5 MMOL/L (3.5-5.1) Chloride Level 95 MMOL/L (98-107) L Carbon Dioxide Level 27 MMOL/L (21-32) Anion Gap 11 mmol/L (5-15) Blood Urea Nitrogen 8 mg/dL (7-18) Creatinine 0.7 MG/DL (0.55-1.30) Estimat Glomerular Filtration Rate > 60 mL/min (>60) Glucose Level 148 MG/DL (74-106) H Calcium Level 9.8 MG/DL (8.5-10.1) Alkaline Phosphatase 141 U/L (46-116) H Josh Salcedo MD Mar 10, 2019 16:32
--- NOTE | 2019-03-10 16:57 | NUR ---
NURSE NOTES: Dr. Salcedo ordered to discontinue IVPB Metoprolol but start on Metoprolol 50mg 1tab PO BID. Will carry out the order.
--- NOTE | 2019-03-10 20:30 | NUR ---
NURSE NOTES: Received pt from NIKOLAI Malave. Pt awake, alert, and talkative. Bed in lowest position. Call light within reach. Family at bedside. Will continue to monitor.
[2019-03-10] MEDS ORDERED: Metoprolol Tartrate 50mg tab ORAL SCH (21:00)
[2019-03-11] VITALS (7 sets, daily range): BP systolic 100–177; BP diastolic 57–107
--- NOTE | 2019-03-11 | Consultation ---
DATE OF CONSULTATION: 03/10/2019 CONSULTING PHYSICIAN: Josh Salcedo M.D. REFERRING PHYSICIAN: Lg Huitron D.O. REASON FOR CONSULTATION: Management of the patient's hypertension and tachycardia. HISTORY OF PRESENT ILLNESS: The patient is a very pleasant elderly lady with history of hypertension and tachycardia with a history of pancreatitis and pancreatic cancer, was just discharged yesterday. The patient came back to hospital as she was not able to keep down liquids and has significant pain in her stomach. The patient denies having fever. No coffee-grounds emesis. The patient's pain was 8/10 and constant and radiating. The patient previously was at [facility], had stent placement in common bile duct and has stage I pancreatic cancer. She is scheduled to have surgery in the future. REVIEW OF SYSTEMS: Negative other than what was mentioned in the history of present illness. PAST MEDICAL HISTORY: As mentioned above. FAMILY HISTORY: Noncontributory. ALLERGIES: She is allergic to NSAIDs, aspirin, and levofloxacin. PHYSICAL EXAMINATION: VITAL SIGNS: Show blood pressure 150/90, pulse 109, respirations 16, and temperature 98.4 degrees. HEAD AND NECK: Showed no JVD or carotid bruit. LUNGS: Clear. CARDIOVASCULAR: Shows regular S1 and S2 with no gallop or murmur. ABDOMEN: Soft. EXTREMITIES: No pitting edema. LABORATORY DATA: Show white count of 11.1, hemoglobin of 14, hematocrit of 42, and platelet count is 404,000. Sodium 132, potassium 3.5, BUN of 8, creatinine of 0.7, and glucose of 148. ASSESSMENT AND PLAN: 1. Hypertension. Resume the patient on metoprolol 5 mg IV every 8 hours. If she is able to take p.o., then switch her to p.o. The patient is also on p.r.n. hydralazine. 2. Pancreatic cancer, status post common bile duct stent placement. 3. Tachycardia. Heart rate was in the 140s, currently 87. Thank you very much for allowing me to participate in the care of this patient. Please do not hesitate to contact me for any questions regarding my evaluation. Josh Salcedo M.D. DR: LUTHER JOB#: [id number] CC:
[2019-03-11] MEDS: Morphine Sulfate 2mg/ml Inj(IV/IM USE ONLY) IVP PRN ×5 (02:00→23:23)
--- NOTE | 2019-03-11 07:09 | NUR ---
NURSE NOTES: Received report from NIKOLAI Parham. The patient is resting on the bed without acute distress or shortness of breath. No abdominal pain noted at this time. The patient's bed in the lowest position, call light in reach, and fall and aspiration precaution reinforced. IV site on left FA 20G SL is intact and patent. Awaiting for case management consult for possible transfer for pancreatic cancer surgery. Will continue plan of care.
--- NOTE | 2019-03-11 07:16 | NUR ---
HAND-OFF: Report given to NIKOLAI Malave. Pt stable.
[2019-03-11 07:33] LABS: BASOPHILS % (AUTO) 0.6 % (0.0-2.0); EOSINOPHILS % (AUTO) 0.9 % (0.0-3.0); HEMATOCRIT 36.5 % (37.0-47.0); HEMOGLOBIN 12.3 G/DL (12.0-16.0); LYMPHOCYTES % (AUTO) 29.8 % (20.0-45.0); MEAN CORPUSCULAR VOLUME 85 FL (80-99); MONOCYTES % (AUTO) 11.7 % (1.0-10.0); PLATELET COUNT 353 K/UL (150-450); RED BLOOD COUNT 4.31 M/UL (4.20-5.40); RED CELL DISTRIBUTION WIDTH 12.1 % (11.6-14.8)
[2019-03-11 07:41] LABS: ANION GAP 7 mmol/L (5-15); BLOOD UREA NITROGEN 22 mg/dL (7-18); CALCIUM 9.8 MG/DL (8.5-10.1); CARBON DIOXIDE 30 MMOL/L (21-32); CHLORIDE 97 MMOL/L (98-107); CREATININE 1.2 MG/DL (0.55-1.30); POTASSIUM 3.7 MMOL/L (3.5-5.1); SODIUM 134 MMOL/L (136-145)
[2019-03-11] MEDS ORDERED: Metoprolol Tartrate 50mg tab ORAL SCH (09:00)
--- NOTE | 2019-03-11 09:00 | General Progress Note ---
Assessment/Plan Problem List: (1) Pancreatic mass ICD Codes: K86.9 - Disease of pancreas, unspecified SNOMED: 893955766 (2) History of hypertension ICD Codes: Z86.79 - Personal history of other diseases of the circulatory system SNOMED: 848174541 (3) Intractable nausea and vomiting ICD Codes: R11.2 - Nausea with vomiting, unspecified SNOMED: 807763585 Qualifiers: Qualified Codes: R11.2 - Nausea with vomiting, unspecified (4) Abdominal pain ICD Codes: R10.9 - Unspecified abdominal pain SNOMED: 83698513 Qualifiers: Qualified Codes: R10.13 - Epigastric pain (5) Generalized weakness ICD Codes: R53.1 - Weakness SNOMED: 14901547 (6) Pancreatic cancer ICD Codes: C25.9 - Malignant neoplasm of pancreas, unspecified SNOMED: 044507730 Qualifiers: Qualified Codes: C25.9 - Malignant neoplasm of pancreas, unspecified Status: stable, progressing Assessment/Plan: pt diet pain control cbc bmp am Subjective Constitutional: Reports: weakness Allergies: Coded Allergies: NSAIDS (NON-STEROIDAL ANTI-INFLAMMA (Verified Allergy, Severe, Anaphylaxis , 01/30/19) ASPIRIN (Verified Allergy, Unknown, 02/26/19) LEVOFLOXACIN (Verified Allergy, Unknown, 02/26/19) All Systems: reviewed and negative except above Subjective sleepy calm Objective Last 24 Hour Vital Signs Date Time Temp Pulse Resp B/P (MAP) Pulse Ox O2 Delivery O2 Flow Rate FiO2 03/11/19 08:00 98.3 69 18 106/57 (73) 95 03/11/19 07:13 70 16 94 Room Air 21 03/11/19 04:00 74 03/11/19 04:00 98.7 73 18 100/60 (73) 97 03/11/19 00:00 72 03/11/19 00:00 98.7 76 18 105/61 (76) 97 03/10/19 21:13 92 110/66 03/10/19 21:00 Room Air 03/10/19 20:53 129 18 96 Room Air 21 03/10/19 20:00 98.8 92 18 110/66 (81) 97 03/10/19 20:00 94 03/10/19 16:00 98.4 86 18 101/64 (76) 98 03/10/19 16:00 83 03/10/19 14:42 87 109/65 03/10/19 12:00 93 03/10/19 12:00 98.2 101 18 102/65 (77) 97 03/10/19 11:09 142 150/92 03/10/19 09:34 135 150/92 Intake and Output 03/10/19 03/11/19 19:00 07:00 Intake Total 200 ml Balance 200 ml Intake Oral 200 ml # Voids 5 2 Laboratory Tests 03/11/19 06:15: White Blood Count 11.0H, Red Blood Count 4.31, Hemoglobin 12.3, Hematocrit 36.5L , Mean Corpuscular Volume 85, Mean Corpuscular Hemoglobin 28.5, Mean Corpuscular Hemoglobin Concent 33.6, Red Cell Distribution Width 12.1, Platelet Count 353, Mean Platelet Volume 6.3L, Neutrophils (%) (Auto) 57.0, Lymphocytes ( %) (Auto) 29.8, Monocytes (%) (Auto) 11.7H, Eosinophils (%) (Auto) 0.9, Basophils (%) (Auto) 0.6, Sodium Level 134L, Potassium Level 3.7, Chloride Level 97L, Carbon Dioxide Level 30, Anion Gap 7, Blood Urea Nitrogen 22H, Creatinine 1.2#, Estimat Glomerular Filtration Rate 53.8, Glucose Level 91, Calcium Level 9.8 Height (Feet): 5 Height (Inches): 5.00 Weight (Pounds): 128 General Appearance: lethargic EENT: normal ENT inspection Neck: normal alignment Cardiovascular: normal peripheral pulses, normal rate, regular rhythm Respiratory/Chest: chest wall non-tender, lungs clear, normal breath sounds Abdomen: normal bowel sounds, non tender, soft Extremities: normal inspection Edema: no edema noted Arm (L), no edema noted Arm (R), no edema noted Leg (L), no edema noted Leg (R), no edema noted Pedal (L), no edema noted Pedal (R), no edema noted Generalized Neurologic: responsive, motor weakness Skin: normal pigmentation, warm/dry Lg Huitron DO Mar 11, 2019 09:00
--- NOTE | 2019-03-11 11:20 | NUR ---
NURSE NOTES: Immediately notified Dr. Huitron regarding the patient's severe pain that does not relieved by Morphine. Per Dr. Huitron, call Dr. Hopkins and did not give any order. Called Dr. Hopkins, he cannot give pain medication order since he is not on the case.
--- NOTE | 2019-03-11 11:30 | NUR ---
NURSE NOTES: Notified Dr. Salcedo regarding elevated blood pressure and heart rate. The blood pressure reading was 174/85 with heart rate of 123. Awaiting for the reply. Will continue plan of care.
[2019-03-11] MEDS ORDERED: Metoprolol 5mg/5ml Inj IVPB SCH (14:00)
--- NOTE | 2019-03-11 14:00 | NUR ---
NURSE NOTES: Dr. Salcedo ordered Metoprolol 5mg IVPB now and BID. Carried out the order. Will continue to monitor the patient.
--- NOTE | 2019-03-11 14:00 | NUR ---
NURSE NOTES: Dr. Salcedo also ordered D5NS 80mL/hr for hydration. Carried out the order. Will continue plan of care.
[2019-03-11] MEDS: Metoprolol Tartrate 5 MG in D5W 55 ML IVPB SCH ×2 (14:12→21:04)
[2019-03-11] MEDS: D5NS 1,000 ML IV SCH (14:12)
[2019-03-11] MEDS ORDERED: HYDROmorphone 1mg/ml Carpuject IVP PRN (14:15)
--- NOTE | 2019-03-11 14:15 | NUR ---
NURSE NOTES: Dr. Godinez ordered Dilaudid 1mg IVP Q3hr PRN for severe pain. Carried out the order.
[2019-03-11] MEDS: Enoxaparin 40mg Inj SUBQ SCH (15:00)
--- NOTE | 2019-03-11 15:37 | Consultation ---
History of Present Illness General Chief Complaint: Abdominal Pain Present Illness Allergies: Coded Allergies: NSAIDS (NON-STEROIDAL ANTI-INFLAMMA (Verified Allergy, Severe, Anaphylaxis , 01/30/19) ASPIRIN (Verified Allergy, Unknown, 02/26/19) LEVOFLOXACIN (Verified Allergy, Unknown, 02/26/19) Medication History Scheduled Amlodipine Besylate* (Amlodipine Besylate*), 10 MG ORAL DAILY, (Reported) Lisinopril (Lisinopril*), 40 MG ORAL DAILY, (Reported) Multivitamin With Minerals (Multivitamins With Minerals*), 1 TAB ORAL DAILY, ( Reported) Pantoprazole Sodium (Protonix), 20 MG ORAL EVERY 12 HOURS Scheduled PRN Ondansetron (Zofran), 4 MG ORAL Q6H PRN Miscellaneous Medications Dextran 70/Hypromellose/Pf (Artificial Tears Drops), 1 EACH OP, (Reported) Flaxseed Oil (Flax Seed Oil), 1,000 MG PO, (Reported) [Vit B12], Unknown Dose ORAL, (Reported) Discontinued Medications Famotidine (Pepcid Ac), 20 MG PO, (Reported) Discontinued Reason: Pt stopped taking med Hydromorphone Hcl (Hydromorphone Hcl), 2 MG ORAL EVERY 3 HOURS PRN for For Pain, (Reported) Discontinued Reason: Pt stopped taking med Tramadol Hcl* (Ultram*), 50 MG ORAL Q6H PRN for For Pain, (Reported) Discontinued Reason: Pt stopped taking med Zolpidem Tartrate* (Ambien*), 10 MG ORAL HS PRN for Insomnia, (Reported) Discontinued Reason: Pt stopped taking med Patient History Healthcare decision maker Resuscitation status Full Code Advanced Directive on File No Physical Exam Last 24 Hour Vital Signs Date Time Temp Pulse Resp B/P (MAP) Pulse Ox O2 Delivery O2 Flow Rate FiO2 03/11/19 14:12 123 174/85 03/11/19 09:00 69 106/57 03/11/19 08:00 98.3 69 18 106/57 (73) 95 03/11/19 07:13 70 16 94 Room Air 21 03/11/19 04:00 74 03/11/19 04:00 98.7 73 18 100/60 (73) 97 03/11/19 00:00 72 03/11/19 00:00 98.7 76 18 105/61 (76) 97 03/10/19 21:13 92 110/66 03/10/19 21:00 Room Air 03/10/19 20:53 129 18 96 Room Air 21 03/10/19 20:00 98.8 92 18 110/66 (81) 97 03/10/19 20:00 94 03/10/19 16:00 98.4 86 18 101/64 (76) 98 03/10/19 16:00 83 Intake and Output 03/10/19 03/11/19 18:59 06:59 Intake Total 200 ml Balance 200 ml Intake Oral 200 ml # Voids 5 2 Laboratory Tests Test 03/11/19 06:15 White Blood Count 11.0 K/UL (4.8-10.8) H Red Blood Count 4.31 M/UL (4.20-5.40) Hemoglobin 12.3 G/DL (12.0-16.0) Hematocrit 36.5 % (37.0-47.0) L Mean Corpuscular Volume 85 FL (80-99) Mean Corpuscular Hemoglobin 28.5 PG (27.0-31.0) Mean Corpuscular Hemoglobin Concent 33.6 G/DL (32.0-36.0) Red Cell Distribution Width 12.1 % (11.6-14.8) Platelet Count 353 K/UL (150-450) Mean Platelet Volume 6.3 FL (6.5-10.1) L Neutrophils (%) (Auto) 57.0 % (45.0-75.0) Lymphocytes (%) (Auto) 29.8 % (20.0-45.0) Monocytes (%) (Auto) 11.7 % (1.0-10.0) H Eosinophils (%) (Auto) 0.9 % (0.0-3.0) Basophils (%) (Auto) 0.6 % (0.0-2.0) Sodium Level 134 MMOL/L (136-145) L Potassium Level 3.7 MMOL/L (3.5-5.1) Chloride Level 97 MMOL/L (98-107) L Carbon Dioxide Level 30 MMOL/L (21-32) Anion Gap 7 mmol/L (5-15) Blood Urea Nitrogen 22 mg/dL (7-18) H Creatinine 1.2 MG/DL (0.55-1.30) # Estimat Glomerular Filtration Rate 53.8 mL/min (>60) Glucose Level 91 MG/DL (74-106) Calcium Level 9.8 MG/DL (8.5-10.1) Height (Feet): 5 Height (Inches): 5.00 Weight (Pounds): 128 Medications Current Medications Medications (Trade) Dose Ordered Sig/Angelito Route PRN Reason Start Time Stop Time Status Last Admin Dose Admin Acetaminophen (Tylenol) 650 mg Q4H PRN ORAL Mild Pain (Pain Scale 1-3) 03/09/19 14:00 04/08/19 13:59 Albuterol/ Ipratropium (Albuterol/ Ipratropium) 3 ml Q6H PRN HHN Shortness of Breath 03/09/19 14:00 03/14/19 13:59 Dextrose (Dextrose 50%) 25 ml Q30M PRN IV Hypoglycemia 03/09/19 14:00 04/08/19 13:59 Dextrose (Dextrose 50%) 50 ml Q30M PRN IV Hypoglycemia 03/09/19 14:00 04/08/19 13:59 Dextrose/Sodium Chloride 1,000 ml @ 80 mls/hr [id number] IV 03/11/19 14:00 04/10/19 13:59 03/11/19 14:12 Enoxaparin Sodium (Lovenox) 40 mg Q24H SUBQ 03/09/19 15:00 04/08/19 14:59 03/10/19 14:43 Famotidine (Pepcid) 20 mg BID ORAL 03/09/19 18:00 04/08/19 17:59 03/11/19 09:19 Hydralazine HCl (Apresoline) 10 mg Q2H PRN IV For High Blood Pressure 03/09/19 22:30 04/08/19 22:29 03/10/19 01:04 Hydromorphone HCl (Dilaudid) 1 mg Q3H PRN IVP Severe Pain (Pain Scale 7-10) 03/11/19 14:15 03/18/19 14:14 Lorazepam (Ativan 2mg/ml 1ml) 1 mg Q4H PRN IV For Anxiety 03/10/19 06:00 03/17/19 05:59 Lorazepam (Ativan) 1 mg Q4H PRN ORAL For Anxiety 03/09/19 14:00 03/16/19 13:59 Magnesium Hydroxide (Mom) 30 ml HSPRN PRN ORAL Constipation 03/09/19 14:00 04/08/19 13:59 Metoprolol Tartrate 5 mg/ Dextrose 60 ml @ 120 mls/hr Q12HR IVPB 03/11/19 14:30 04/10/19 14:29 03/11/19 14:12 Morphine Sulfate (Morphine Sulfate) 2 mg Q6H PRN IVP moderate pain 03/10/19 06:15 03/16/19 18:44 03/11/19 10:09 Nitroglycerin (Ntg) 0.4 mg Q5M X 3 DOSES PRN SL Prn Chest Pain 03/09/19 14:00 04/08/19 13:59 Ondansetron HCl (Zofran) 4 mg Q6H PRN IVP Nausea & Vomiting 03/09/19 16:30 04/08/19 16:29 03/11/19 10:43 Zolpidem Tartrate (Ambien) 5 mg HSPRN PRN ORAL Insomnia 03/09/19 14:00 03/16/19 13:59 03/09/19 19:53 Assessment/Plan Assessment/Plan: Hematology Consultation Date patient seen: Mar 11, 2019 Reason for Hospitalization: Abdominal Pain, intractable n/v RFC: Pancreatic head mass REQ MD: Mode Huitron 69 year old female presented to ED at [facility] [place] c/o worsening abdominal pain, nausea and emesis for 2-3 days. She is been unable to keep down liquids and has significant pain in her stomach. She denies any vomiting of blood, fever, coffee grounds or melena. She is moving her bowels very much because she is on a liquid diet and unable to pass much stool at this time. She rates the pain 8/ 10. It is constant and aching radiating towards her back. Epigastric but also diffuse. non bloody emesis. no fever or chills. in ED noted to have abnormal LFT's and CT with biliary dilatation and pancreatic head mass on prior admission , has been seen by surgery on outside (Dr. Bolton) may do procedure to remove that part of the pancreas, at this time appears to be stage I Allergies: No Known Allergies (Unverified , 01/29/19) Medications Scheduled Amlodipine Besylate* (Amlodipine Besylate*), 10 MG ORAL DAILY, (Reported) Lisinopril (Lisinopril*), 40 MG ORAL DAILY, (Reported) History Provided By: Patient, Medical Record, PMD Healthcare decision maker SELF Resuscitation status Full Code Advanced Directive on File No Past Medical/Surgical History: (1) Abdominal pain (2) Pancreatic mass ROS: Constitutional: No fever, no chills Skin: No rashes, lumps, itchiness, dryness HEENT: No [place], ear ache, visual changes Breasts: No lumps, pain, discharge Pulmonary: No cough, sputum Cardiovascular: No chest pain GI: No nausea, vomiting, diarrhea, melena : No dysuria, frequency, foamy urine Musculoskeletal: No joint swelling Neurologic: No dizziness, fainting, seizures Psychiatric: No nervousness, stress, or depression Physical Exam General appearance: alert, cooperative, no distress, appears stated age Head: Normocephalic, without obvious abnormality, atraumatic Eyes: conjunctivae/corneas clear. PERRL Throat: Lips, mucosa, and tongue normal Neck: supple, symmetrical Lungs: clear to auscultation bilaterally Heart: rrr, S1, S2 normal, no murmur, click, rub or gallop Abdomen: soft, non-tender. left lower quad pain noted no guarding Ext: no cce Pulses: 1-2+ and symmetric Skin: Skin color, texture, turgor normal. No rashes or lesions Neurologic: Grossly normal Assessment and Recs: # Pancreatic mass, 1.5x2cm in the ucinate process, appears on imaging to be stage I - there is marked extrahepatic and central intrahepatic biliary ductal dilatation, common bile duct measuring up to 19 mm in diameter, is s/p stent placement at [facility] per patient. It abruptly taper wiithin the pancreatic head, proximal to its junction with the pancreatic duct. The pancreatic duct is borderline prominent. A mildly dilated duct is seen within the pancreatic head/ uncinate, there is no peripancreatic lymphadenopathy. The gallbladder is distended but no gallstones are evident. --> imaging has been reviewed --> tumor markers reviewed CA19.9 80, cea is 11 --> Biopsy proven pancreatic cancer on 02/03/19 --> await surgery as an outpatient with Dr. Nissin --> also awaiting pet scan by the end of this week (on prior imaging did have right lower lobe 4 mm 5 mm lung nodules. Suspect postinflammatory, but the possibility of neoplasm should also be considered) # Abdominal pain - likely from pancreatic mass causing biliary obstruction. Abdominal exam okay with some upper abdominal discomfort on palpation --> as per gi could be related to abd mass --> pain management recs as per Gretchen --> on morphine prn # Hypokalemia --> given K, has been repleted # Nausea/vomiting --> zofran prn --> as per gi eval, reviewed The timing of this note does not necessarily reflect the time of the patient was seen. GREATLY APPRECIATE CONSULTATION. Lester Hawthorne MD Mar 11, 2019 15:37
--- NOTE | 2019-03-11 16:23 | NUR ---
NURSE NOTES: Morphine was administered for the pain control. The patient tolerated well. Will continue plan of care.
--- NOTE | 2019-03-11 17:00 | NUR ---
NURSE NOTES: Per patient, Ilsa makes her frequency in urination and does not want to take it. The patient would like to get Morphine for pain control and want to get frequently for pain control. Left voicemail to Dr. Godinez regarding the severity of the pain and current Morphine order. Will carry out the order as soon as receives it. Will continue plan of care.
--- NOTE | 2019-03-11 17:30 | NUR ---
NURSE NOTES: The patient is resting on the bed without acute distress or shortness of breath. The patient's vital signs improved with following readings: blood pressure of 155/87 with heart rate of 108. Will continue plan of care.
--- NOTE | 2019-03-11 19:51 | NUR ---
HAND-OFF: Report given to NIKOLAI Parham. The patient is resting on the bed without acute distress or shortness of breath. The patient's bed in the lowest position, call light in reach, and fall and aspiration precaution reinforced. IV site intact and patent. Endorsed plan of care.
--- NOTE | 2019-03-11 19:52 | NUR ---
NURSE NOTES: Received pt from NIKOALI Malave. Pt awake, alert, and c/o pain. Bed in lowest position. Call light within reach. Will continue to monitor.
[2019-03-11] MEDS: Zolpidem 5mg tab ORAL PRN ×2 (21:04→23:23)
[2019-03-12] VITALS (7 sets, daily range): BP systolic 102–167; BP diastolic 56–98
[2019-03-12] MEDS: D5NS 1,000 ML IV SCH ×2 (02:30→15:06)
[2019-03-12] MEDS: Morphine Sulfate 2mg/ml Inj(IV/IM USE ONLY) IVP PRN ×4 (03:23→21:45)
--- NOTE | 2019-03-12 07:28 | NUR ---
HAND-OFF: Report given to NIKOLAI Malave. Pt stable..
[2019-03-12 07:56] LABS: BASOPHILS % (AUTO) 0.5 % (0.0-2.0); EOSINOPHILS % (AUTO) 0.1 % (0.0-3.0); HEMATOCRIT 36.8 % (37.0-47.0); HEMOGLOBIN 12.1 G/DL (12.0-16.0); LYMPHOCYTES % (AUTO) 13.3 % (20.0-45.0); MEAN CORPUSCULAR VOLUME 85 FL (80-99); MONOCYTES % (AUTO) 14.5 % (1.0-10.0); NEUTROPHILS % (AUTO) 71.6 % (45.0-75.0); PLATELET COUNT 364 K/UL (150-450); RED BLOOD COUNT 4.34 M/UL (4.20-5.40)
[2019-03-12 08:07] LABS: ANION GAP 9 mmol/L (5-15); BLOOD UREA NITROGEN 15 mg/dL (7-18); CALCIUM 9.1 MG/DL (8.5-10.1); CARBON DIOXIDE 29 MMOL/L (21-32); CHLORIDE 98 MMOL/L (98-107); CREATININE 0.7 MG/DL (0.55-1.30); POTASSIUM 2.9 MMOL/L (3.5-5.1); SODIUM 135 MMOL/L (136-145)
--- NOTE | 2019-03-12 08:10 | NUR ---
NURSE NOTES: Received report from NIKOLAI Parham. The patient is resting on the bed without acute distress or shortness of breath. The patient's bed in the lowest position, call light in reach, and fall and aspiration precaution reinforced. IV site is intact and patent. Will continue plan of care. Awaiting for case management for possible transfer other hospital for pancreatic cancer surgery.
--- NOTE | 2019-03-12 08:30 | NUR ---
NURSE NOTES: Notified Dr. Huitron regarding potassium level of 2.9. Will continue to monitor the patient. Will carry out the order as soon as receives it.
[2019-03-12] MEDS: Metoprolol Tartrate 5 MG in D5W 55 ML IVPB SCH ×2 (08:42→21:46)
--- NOTE | 2019-03-12 08:50 | General Progress Note ---
Assessment/Plan Assessment/Plan: (1) Intractable Abdominal pain (2) Pancreatic Cancer Pt will be continued on Morphine We will discontinue the Dilaudid D/w Dr. Godinez and he concurred. Subjective Date patient seen: Mar 12, 2019 Time patient seen: 07:30 - am Allergies: Coded Allergies: NSAIDS (NON-STEROIDAL ANTI-INFLAMMA (Verified Allergy, Severe, Anaphylaxis , 01/30/19) ASPIRIN (Verified Allergy, Unknown, 02/26/19) LEVOFLOXACIN (Verified Allergy, Unknown, 02/26/19) Subjective onstitutional: Reports: weakness HEENT: Reports: no symptoms Cardiovascular: Reports: no symptoms Respiratory: Reports: no symptoms Gastrointestinal/Abdominal: Reports: abdominal pain Genitourinary: Reports: no symptoms Neurologic/Psychiatric: Reports: weakness Endocrine: Reports: no symptoms Hematologic/Lymphatic: Reports: no symptoms Subjective Patient is a known patient from prior admission and has returned with abdominal pain. Started on Morphine 2mg IV Q4H PRN and Dr. Godinez ordered Dilaudid 1mg IV Q3H PRN which patient does not want to take. Having relief with the Morphine. Objective Last 24 Hour Vital Signs Date Time Temp Pulse Resp B/P (MAP) Pulse Ox O2 Delivery O2 Flow Rate FiO2 03/12/19 08:42 117 113/56 03/12/19 08:00 97.9 119 20 157/79 (105) 96 03/12/19 04:00 116 03/12/19 04:00 98.6 128 16 130/74 (92) 97 03/12/19 00:38 167/95 03/12/19 00:00 98.2 119 20 167/95 (119) 96 03/12/19 00:00 107 03/11/19 21:31 64 16 97 Room Air 21 03/11/19 21:04 116 186/97 03/11/19 21:00 Room Air 03/11/19 20:00 114 03/11/19 20:00 98.4 126 20 177/102 (127) 96 03/11/19 17:30 98.1 108 18 155/97 (116) 99 03/11/19 16:00 122 03/11/19 16:00 98.0 125 18 164/103 (123) 99 03/11/19 14:12 123 174/85 03/11/19 12:00 121 03/11/19 12:00 98.5 123 18 164/107 (126) 99 03/11/19 09:00 69 106/57 03/11/19 09:00 Room Air Intake and Output 03/11/19 03/12/19 19:00 07:00 Intake Total 240 ml Balance 240 ml Intake Oral 240 ml # Voids 55 2 Laboratory Tests 03/12/19 06:29: White Blood Count 11.0H, Red Blood Count 4.34, Hemoglobin 12.1, Hematocrit 36.8L , Mean Corpuscular Volume 85, Mean Corpuscular Hemoglobin 27.9, Mean Corpuscular Hemoglobin Concent 32.8, Red Cell Distribution Width 12.0, Platelet Count 364, Mean Platelet Volume 6.2L, Neutrophils (%) (Auto) 71.6, Lymphocytes ( %) (Auto) 13.3L, Monocytes (%) (Auto) 14.5H, Eosinophils (%) (Auto) 0.1, Basophils (%) (Auto) 0.5, Sodium Level 135L, Potassium Level 2.9L, Chloride Level 98, Carbon Dioxide Level 29, Anion Gap 9, Blood Urea Nitrogen 15, Creatinine 0.7, Estimat Glomerular Filtration Rate > 60, Glucose Level 130H, Calcium Level 9.1 Height (Feet): 5 Height (Inches): 5.00 Weight (Pounds): 128 Objective General Appearance: no apparent distress, alert EENT: PERRL/EOMI, normal ENT inspection Neck: non-tender, normal alignment Cardiovascular: normal rate, regular rhythm Respiratory/Chest: lungs clear, normal breath sounds Abdomen: tender Extremities: non-tender Edema: no edema noted Arm (L) Neurologic: alert, oriented x 3 Skin: warm/dry Crispin Sharma Mar 12, 2019 08:50
--- NOTE | 2019-03-12 08:53 | Cardiac Electrophysiology PN ---
Assessment/Plan Assessment/Plan 1. Hypertension.On metoprolol 5 mg IV every 12 hours. The patient is also on p.r.n. iv hydralazine. Unable to tolerate PO yet 2. Pancreatic cancer, status post common bile duct stent placement, awaiting transfer to [facility] 3. Tachycardia. Heart rate was in the 140s, currently 87. 4. Severe hypokalemia. Replaced iv JUST[facility] RN and Dr. Huitron Subjective Subjective No CP or SOB. BP still high and hot iv Hydralazine and iv Metoprolol. Awaiting transfer to [facility] for pancreatic cancer surgery. K 2.9 Objective Last 24 Hour Vital Signs Date Time Temp Pulse Resp B/P (MAP) Pulse Ox O2 Delivery O2 Flow Rate FiO2 03/12/19 08:42 117 113/56 03/12/19 08:00 97.9 119 20 157/79 (105) 96 03/12/19 04:00 116 03/12/19 04:00 98.6 128 16 130/74 (92) 97 03/12/19 00:38 167/95 03/12/19 00:00 98.2 119 20 167/95 (119) 96 03/12/19 00:00 107 03/11/19 21:31 64 16 97 Room Air 21 03/11/19 21:04 116 186/97 03/11/19 21:00 Room Air 03/11/19 20:00 114 03/11/19 20:00 98.4 126 20 177/102 (127) 96 03/11/19 17:30 98.1 108 18 155/97 (116) 99 03/11/19 16:00 122 03/11/19 16:00 98.0 125 18 164/103 (123) 99 03/11/19 14:12 123 174/85 03/11/19 12:00 121 03/11/19 12:00 98.5 123 18 164/107 (126) 99 03/11/19 09:00 69 106/57 03/11/19 09:00 Room Air Intake and Output 03/11/19 03/12/19 19:00 07:00 Intake Total 240 ml Balance 240 ml Intake Oral 240 ml # Voids 55 2 Laboratory Tests Test 03/12/19 06:29 White Blood Count 11.0 K/UL (4.8-10.8) H Red Blood Count 4.34 M/UL (4.20-5.40) Hemoglobin 12.1 G/DL (12.0-16.0) Hematocrit 36.8 % (37.0-47.0) L Mean Corpuscular Volume 85 FL (80-99) Mean Corpuscular Hemoglobin 27.9 PG (27.0-31.0) Mean Corpuscular Hemoglobin Concent 32.8 G/DL (32.0-36.0) Red Cell Distribution Width 12.0 % (11.6-14.8) Platelet Count 364 K/UL (150-450) Mean Platelet Volume 6.2 FL (6.5-10.1) L Neutrophils (%) (Auto) 71.6 % (45.0-75.0) Lymphocytes (%) (Auto) 13.3 % (20.0-45.0) L Monocytes (%) (Auto) 14.5 % (1.0-10.0) H Eosinophils (%) (Auto) 0.1 % (0.0-3.0) Basophils (%) (Auto) 0.5 % (0.0-2.0) Sodium Level 135 MMOL/L (136-145) L Potassium Level 2.9 MMOL/L (3.5-5.1) L Chloride Level 98 MMOL/L (98-107) Carbon Dioxide Level 29 MMOL/L (21-32) Anion Gap 9 mmol/L (5-15) Blood Urea Nitrogen 15 mg/dL (7-18) Creatinine 0.7 MG/DL (0.55-1.30) Estimat Glomerular Filtration Rate > 60 mL/min (>60) Glucose Level 130 MG/DL (74-106) H Calcium Level 9.1 MG/DL (8.5-10.1) Objective HEAD AND NECK: Showed no JVD or carotid bruit. LUNGS: Clear. CARDIOVASCULAR: Shows regular S1 and S2 with no gallop or murmur. ABDOMEN: Soft. EXTREMITIES: No pitting edema. Josh Salcedo MD Mar 12, 2019 08:53
--- NOTE | 2019-03-12 09:06 | General Progress Note ---
Assessment/Plan Problem List: (1) Pancreatic mass ICD Codes: K86.9 - Disease of pancreas, unspecified SNOMED: 976160393 (2) History of hypertension ICD Codes: Z86.79 - Personal history of other diseases of the circulatory system SNOMED: 044073040 (3) Intractable nausea and vomiting ICD Codes: R11.2 - Nausea with vomiting, unspecified SNOMED: 145851663 Qualifiers: Qualified Codes: R11.2 - Nausea with vomiting, unspecified (4) Abdominal pain ICD Codes: R10.9 - Unspecified abdominal pain SNOMED: 78653272 Qualifiers: Qualified Codes: R10.13 - Epigastric pain (5) Generalized weakness ICD Codes: R53.1 - Weakness SNOMED: 88381999 (6) Pancreatic cancer ICD Codes: C25.9 - Malignant neoplasm of pancreas, unspecified SNOMED: 120512308 Qualifiers: Qualified Codes: C25.9 - Malignant neoplasm of pancreas, unspecified Status: stable, progressing Assessment/Plan: pt diet pain control cbc bmp am Subjective Constitutional: Reports: weakness Allergies: Coded Allergies: NSAIDS (NON-STEROIDAL ANTI-INFLAMMA (Verified Allergy, Severe, Anaphylaxis , 01/30/19) ASPIRIN (Verified Allergy, Unknown, 02/26/19) LEVOFLOXACIN (Verified Allergy, Unknown, 02/26/19) All Systems: reviewed and negative except above Subjective sleepy calm Objective Last 24 Hour Vital Signs Date Time Temp Pulse Resp B/P (MAP) Pulse Ox O2 Delivery O2 Flow Rate FiO2 03/12/19 08:42 117 113/56 03/12/19 08:00 97.9 119 20 157/79 (105) 96 03/12/19 04:00 116 03/12/19 04:00 98.6 128 16 130/74 (92) 97 03/12/19 00:38 167/95 03/12/19 00:00 98.2 119 20 167/95 (119) 96 03/12/19 00:00 107 03/11/19 21:31 64 16 97 Room Air 21 03/11/19 21:04 116 186/97 03/11/19 21:00 Room Air 03/11/19 20:00 114 03/11/19 20:00 98.4 126 20 177/102 (127) 96 03/11/19 17:30 98.1 108 18 155/97 (116) 99 03/11/19 16:00 122 03/11/19 16:00 98.0 125 18 164/103 (123) 99 03/11/19 14:12 123 174/85 03/11/19 12:00 121 03/11/19 12:00 98.5 123 18 164/107 (126) 99 Intake and Output 03/11/19 03/12/19 19:00 07:00 Intake Total 240 ml Balance 240 ml Intake Oral 240 ml # Voids 55 2 Laboratory Tests 03/12/19 06:29: White Blood Count 11.0H, Red Blood Count 4.34, Hemoglobin 12.1, Hematocrit 36.8L , Mean Corpuscular Volume 85, Mean Corpuscular Hemoglobin 27.9, Mean Corpuscular Hemoglobin Concent 32.8, Red Cell Distribution Width 12.0, Platelet Count 364, Mean Platelet Volume 6.2L, Neutrophils (%) (Auto) 71.6, Lymphocytes ( %) (Auto) 13.3L, Monocytes (%) (Auto) 14.5H, Eosinophils (%) (Auto) 0.1, Basophils (%) (Auto) 0.5, Sodium Level 135L, Potassium Level 2.9L, Chloride Level 98, Carbon Dioxide Level 29, Anion Gap 9, Blood Urea Nitrogen 15, Creatinine 0.7, Estimat Glomerular Filtration Rate > 60, Glucose Level 130H, Calcium Level 9.1 Height (Feet): 5 Height (Inches): 5.00 Weight (Pounds): 128 General Appearance: lethargic EENT: normal ENT inspection Neck: normal alignment Cardiovascular: normal peripheral pulses, normal rate, regular rhythm Respiratory/Chest: chest wall non-tender, lungs clear, normal breath sounds Abdomen: normal bowel sounds, non tender, soft Extremities: normal inspection Edema: no edema noted Arm (L), no edema noted Arm (R), no edema noted Leg (L), no edema noted Leg (R), no edema noted Pedal (L), no edema noted Pedal (R), no edema noted Generalized Neurologic: responsive, motor weakness Skin: normal pigmentation, warm/dry Lg Huitron DO Mar 12, 2019 09:06
--- NOTE | 2019-03-12 09:30 | NUR ---
NURSE NOTES: Notified Dr. Salcedo regarding the patient's hypokalemia. Dr. Salcedo ordered 80mEq KCl IVPB over 8 hours. Carried out the order. Will continue plan of care.
--- NOTE | 2019-03-12 10:13 | Hematology/Onc Progress Note ---
Assessment/Plan Assessment/Plan Assessment and Recs: # Pancreatic mass, 1.5x2cm in the ucinate process, appears on imaging to be stage I - there is marked extrahepatic and central intrahepatic biliary ductal dilatation, common bile duct measuring up to 19 mm in diameter, is s/p stent placement at [facility] per patient. It abruptly taper wiithin the pancreatic head, proximal to its junction with the pancreatic duct. The pancreatic duct is borderline prominent. A mildly dilated duct is seen within the pancreatic head/ uncinate, there is no peripancreatic lymphadenopathy. The gallbladder is distended but no gallstones are evident. --> imaging has been reviewed --> tumor markers reviewed CA19.9 80, cea is 11 --> Biopsy proven pancreatic cancer on 02/03/19 --> await surgery as an outpatient with Dr. Jenkins --> also awaiting pet scan by the end of this week (on prior imaging did have right lower lobe 4 mm 5 mm lung nodules. Suspect postinflammatory, but the possibility of neoplasm should also be considered) # Abdominal pain - likely from pancreatic mass causing biliary obstruction. Abdominal exam okay with some upper abdominal discomfort on palpation --> as per gi could be related to abd mass --> pain management recs as per Gretchen/Crispin --> on morphine prn # Hypokalemia --> given K, has been repleted # Nausea/vomiting --> zofran prn --> as per gi eval, reviewed The timing of this note does not necessarily reflect the time of the patient was seen. GREATLY APPRECIATE CONSULTATION. Subjective Cardiovascular: Denies: no symptoms, chest pain, edema, irregular heart rate, lightheadedness, palpitations, syncope, other Respiratory: Denies: no symptoms, cough, shortness of breath, SOB with excertion, SOB at rest, sputum, wheezing, other Gastrointestinal/Abdominal: Denies: no symptoms, abdomen distended, abdominal pain, black stools, tarry stools, blood in stool, constipated, diarrhea, difficulty swallowing, nausea, poor appetite, poor fluid intake, rectal bleeding , vomiting, other Genitourinary: Denies: no symptoms, burning, discharge, frequency, flank pain, hematuria, incontinence, pain, urgency, other Neurologic/Psychiatric: Denies: no symptoms, anxiety, depressed, emotional problems, headache, numbness, paresthesia, pre-existing deficit, seizure, tingling, tremors, weakness, other Endocrine: Denies: no symptoms, excessive sweating, flushing, intolerance to cold, intolerance to heat, increased hunger, increased thirst, increased urine, unexplained weight gain, unexplained weight loss, other Hematologic/Lymphatic: Denies: no symptoms, anemia, easy bleeding, easy bruising, adenopathy, other Allergies: Coded Allergies: NSAIDS (NON-STEROIDAL ANTI-INFLAMMA (Verified Allergy, Severe, Anaphylaxis , 01/30/19) ASPIRIN (Verified Allergy, Unknown, 02/26/19) LEVOFLOXACIN (Verified Allergy, Unknown, 02/26/19) Subjective 03/12: pain is better controlled, no night sweats, labs reviewed Objective Objective Current Medications Medications (Trade) Dose Ordered Sig/Angelito Route PRN Reason Start Time Stop Time Status Last Admin Dose Admin Acetaminophen (Tylenol) 650 mg Q4H PRN ORAL Mild Pain (Pain Scale 1-3) 03/09/19 14:00 04/08/19 13:59 Albuterol/ Ipratropium (Albuterol/ Ipratropium) 3 ml Q6H PRN HHN Shortness of Breath 03/09/19 14:00 03/14/19 13:59 Dextrose (Dextrose 50%) 25 ml Q30M PRN IV Hypoglycemia 03/09/19 14:00 04/08/19 13:59 Dextrose (Dextrose 50%) 50 ml Q30M PRN IV Hypoglycemia 03/09/19 14:00 04/08/19 13:59 Dextrose/Sodium Chloride 1,000 ml @ 80 mls/hr [id number] IV 03/11/19 14:00 04/10/19 13:59 03/11/19 14:12 Enoxaparin Sodium (Lovenox) 40 mg Q24H SUBQ 03/09/19 15:00 04/08/19 14:59 03/10/19 14:43 Famotidine (Pepcid) 20 mg BID ORAL 03/09/19 18:00 04/08/19 17:59 03/12/19 08:42 Hydralazine HCl (Apresoline) 10 mg Q2H PRN IV For High Blood Pressure 03/09/19 22:30 04/08/19 22:29 03/12/19 00:38 Hydromorphone HCl (Dilaudid) 1 mg Q3H PRN IVP Severe Pain (Pain Scale 7-10) 03/11/19 14:15 03/18/19 14:14 Lorazepam (Ativan 2mg/ml 1ml) 1 mg Q4H PRN IV For Anxiety 03/10/19 06:00 03/17/19 05:59 Lorazepam (Ativan) 1 mg Q4H PRN ORAL For Anxiety 03/09/19 14:00 03/16/19 13:59 Magnesium Hydroxide (Mom) 30 ml HSPRN PRN ORAL Constipation 03/09/19 14:00 04/08/19 13:59 Metoprolol Tartrate 5 mg/ Dextrose 60 ml @ 120 mls/hr Q12HR IVPB 03/11/19 14:30 04/10/19 14:29 03/12/19 08:42 Morphine Sulfate (Morphine Sulfate) 2 mg Q4H PRN IVP Moderate Pain (Pain Scale 4-6) 03/11/19 21:00 03/18/19 20:59 03/12/19 08:43 Nitroglycerin (Ntg) 0.4 mg Q5M X 3 DOSES PRN SL Prn Chest Pain 03/09/19 14:00 04/08/19 13:59 Ondansetron HCl (Zofran) 4 mg Q6H PRN IVP Nausea & Vomiting 03/09/19 16:30 04/08/19 16:29 03/11/19 10:43 Zolpidem Tartrate (Ambien) 5 mg HSPRN PRN ORAL Insomnia 03/09/19 14:00 03/16/19 13:59 03/11/19 23:23 Last 24 Hour Vital Signs Date Time Temp Pulse Resp B/P (MAP) Pulse Ox O2 Delivery O2 Flow Rate FiO2 03/12/19 08:42 117 113/56 03/12/19 08:00 97.9 119 20 157/79 (105) 96 03/12/19 04:00 116 03/12/19 04:00 98.6 128 16 130/74 (92) 97 03/12/19 00:38 167/95 03/12/19 00:00 98.2 119 20 167/95 (119) 96 03/12/19 00:00 107 03/11/19 21:31 64 16 97 Room Air 21 03/11/19 21:04 116 186/97 03/11/19 21:00 Room Air 03/11/19 20:00 114 03/11/19 20:00 98.4 126 20 177/102 (127) 96 03/11/19 17:30 98.1 108 18 155/97 (116) 99 03/11/19 16:00 122 03/11/19 16:00 98.0 125 18 164/103 (123) 99 03/11/19 14:12 123 174/85 03/11/19 12:00 121 03/11/19 12:00 98.5 123 18 164/107 (126) 99 03/11/19 09:00 69 106/57 03/11/19 09:00 Room Air 03/11/19 08:00 98.3 69 18 106/57 (73) 95 03/11/19 08:00 76 03/11/19 07:13 70 16 94 Room Air 21 03/11/19 04:00 74 03/11/19 04:00 98.7 73 18 100/60 (73) 97 03/11/19 00:00 72 03/11/19 00:00 98.7 76 18 105/61 (76) 97 03/10/19 21:13 92 110/66 03/10/19 21:00 Room Air 03/10/19 20:53 129 18 96 Room Air 21 03/10/19 20:00 98.8 92 18 110/66 (81) 97 03/10/19 20:00 94 03/10/19 16:00 98.4 86 18 101/64 (76) 98 03/10/19 16:00 83 03/10/19 14:42 87 109/65 03/10/19 12:00 93 03/10/19 12:00 98.2 101 18 102/65 (77) 97 03/10/19 11:09 142 150/92 Intake and Output 03/11/19 03/12/19 19:00 07:00 Intake Total 240 ml Balance 240 ml Intake Oral 240 ml # Voids 55 2 Labs Test 03/09/19 10:28 03/09/19 11:01 03/09/19 11:40 03/10/19 04:45 White Blood Count 10.4 K/UL (4.8-10.8) 11.1 K/UL (4.8-10.8) Red Blood Count 4.88 M/UL (4.20-5.40) 5.03 M/UL (4.20-5.40) Hemoglobin 13.5 G/DL (12.0-16.0) 14.0 G/DL (12.0-16.0) Hematocrit 41.9 % (37.0-47.0) 42.4 % (37.0-47.0) Mean Corpuscular Volume 86 FL (80-99) 84 FL (80-99) Mean Corpuscular Hemoglobin 27.7 PG (27.0-31.0) 27.8 PG (27.0-31.0) Mean Corpuscular Hemoglobin Concent 32.3 G/DL (32.0-36.0) 33.0 G/DL (32.0-36.0) Red Cell Distribution Width 11.9 % (11.6-14.8) 11.8 % (11.6-14.8) Platelet Count 353 K/UL (150-450) 404 K/UL (150-450) Mean Platelet Volume 6.3 FL (6.5-10.1) 6.3 FL (6.5-10.1) Neutrophils (%) (Auto) 80.9 % (45.0-75.0) % (45.0-75.0) Lymphocytes (%) (Auto) 11.4 % (20.0-45.0) % (20.0-45.0) Monocytes (%) (Auto) 6.9 % (1.0-10.0) % (1.0-10.0) Eosinophils (%) (Auto) 0.4 % (0.0-3.0) % (0.0-3.0) Basophils (%) (Auto) 0.5 % (0.0-2.0) % (0.0-2.0) Prothrombin Time 10.2 SEC (9.30-11.50) 10.7 SEC (9.30-11.50) Prothromb Time International Ratio 1.0 (0.9-1.1) 1.0 (0.9-1.1) Activated Partial Thromboplast Time 28 SEC (23-33) Sodium Level 136 MMOL/L (136-145) 133 MMOL/L (136-145) Potassium Level 3.8 MMOL/L (3.5-5.1) 3.5 MMOL/L (3.5-5.1) Chloride Level 101 MMOL/L (98-107) 95 MMOL/L (98-107) Carbon Dioxide Level 28 MMOL/L (21-32) 27 MMOL/L (21-32) Anion Gap 7 mmol/L (5-15) 11 mmol/L (5-15) Blood Urea Nitrogen 6 mg/dL (7-18) 8 mg/dL (7-18) Creatinine 0.8 MG/DL (0.55-1.30) 0.7 MG/DL (0.55-1.30) Estimat Glomerular Filtration Rate > 60 mL/min (>60) > 60 mL/min (>60) Glucose Level 113 MG/DL (74-106) 148 MG/DL (74-106) Calcium Level 10.4 MG/DL (8.5-10.1) 9.8 MG/DL (8.5-10.1) Total Bilirubin 0.5 MG/DL (0.2-1.0) Aspartate Amino Transf (AST/SGOT) 22 U/L (15-37) Alanine Aminotransferase (ALT/SGPT) 16 U/L (12-78) Alkaline Phosphatase 132 U/L (46-116) 141 U/L (46-116) Troponin I 0.000 ng/mL (0.000-0.056) Total Protein 8.5 G/DL (6.4-8.2) Albumin 4.0 G/DL (3.4-5.0) Globulin 4.5 g/dL Albumin/Globulin Ratio 0.9 (1.0-2.7) Amylase Level 50 U/L (25-115) Lipase 114 U/L (73-393) Urine Color Pale yellow Urine Appearance Clear Urine pH 8 (4.5-8.0) Urine Specific [place] 1.010 (1.005-1.035) Urine Protein Negative (NEGATIVE) Urine Glucose (UA) Negative (NEGATIVE) Urine Ketones 1+ (NEGATIVE) Urine Blood 2+ (NEGATIVE) Urine Nitrite Negative (NEGATIVE) Urine Bilirubin Negative (NEGATIVE) Urine Urobilinogen Normal MG/DL (0.0-1.0) Urine Leukocyte Esterase Negative (NEGATIVE) Urine RBC 0-2 /HPF (0 - 2) Urine WBC 0 /HPF (0 - 2) Urine Squamous Epithelial Cells Occasional /LPF Urine Bacteria None /HPF (NONE) Ionized Calcium (Measured) 1.11 mmol/L (1.10-1.35) Differential Total Cells Counted 100 Neutrophils % (Manual) 88 % (45-75) Lymphocytes % (Manual) 7 % (20-45) Monocytes % (Manual) 5 % (1-10) Eosinophils % (Manual) 0 % (0-3) Basophils % (Manual) 0 % (0-2) Band Neutrophils 0 % (0-8) Platelet Estimate Adequate Platelet Morphology Normal Red Blood Cell Morphology Normal Test 03/11/19 06:15 03/12/19 06:29 White Blood Count 11.0 K/UL (4.8-10.8) 11.0 K/UL (4.8-10.8) Red Blood Count 4.31 M/UL (4.20-5.40) 4.34 M/UL (4.20-5.40) Hemoglobin 12.3 G/DL (12.0-16.0) 12.1 G/DL (12.0-16.0) Hematocrit 36.5 % (37.0-47.0) 36.8 % (37.0-47.0) Mean Corpuscular Volume 85 FL (80-99) 85 FL (80-99) Mean Corpuscular Hemoglobin 28.5 PG (27.0-31.0) 27.9 PG (27.0-31.0) Mean Corpuscular Hemoglobin Concent 33.6 G/DL (32.0-36.0) 32.8 G/DL (32.0-36.0) Red Cell Distribution Width 12.1 % (11.6-14.8) 12.0 % (11.6-14.8) Platelet Count 353 K/UL (150-450) 364 K/UL (150-450) Mean Platelet Volume 6.3 FL (6.5-10.1) 6.2 FL (6.5-10.1) Neutrophils (%) (Auto) 57.0 % (45.0-75.0) 71.6 % (45.0-75.0) Lymphocytes (%) (Auto) 29.8 % (20.0-45.0) 13.3 % (20.0-45.0) Monocytes (%) (Auto) 11.7 % (1.0-10.0) 14.5 % (1.0-10.0) Eosinophils (%) (Auto) 0.9 % (0.0-3.0) 0.1 % (0.0-3.0) Basophils (%) (Auto) 0.6 % (0.0-2.0) 0.5 % (0.0-2.0) Sodium Level 134 MMOL/L (136-145) 135 MMOL/L (136-145) Potassium Level 3.7 MMOL/L (3.5-5.1) 2.9 MMOL/L (3.5-5.1) Chloride Level 97 MMOL/L (98-107) 98 MMOL/L (98-107) Carbon Dioxide Level 30 MMOL/L (21-32) 29 MMOL/L (21-32) Anion Gap 7 mmol/L (5-15) 9 mmol/L (5-15) Blood Urea Nitrogen 22 mg/dL (7-18) 15 mg/dL (7-18) Creatinine 1.2 MG/DL (0.55-1.30) 0.7 MG/DL (0.55-1.30) Estimat Glomerular Filtration Rate 53.8 mL/min (>60) > 60 mL/min (>60) Glucose Level 91 MG/DL (74-106) 130 MG/DL (74-106) Calcium Level 9.8 MG/DL (8.5-10.1) 9.1 MG/DL (8.5-10.1) Height (Feet): 5 Height (Inches): 5.00 Weight (Pounds): 128 Objective Physical Exam General: alert, cooperative, no distress, appears stated age Neck: supple, symmetrical Lungs: clear to auscultation bilaterally Heart: rrr, S1, S2 normal, no murmur, click, rub or gallop Abdomen: soft, non-tender. left lower quad pain noted no guarding Ext: no cce Pulses: 1-2+ and symmetric Skin: Skin color, texture, turgor normal. No rashes or lesions Neurologic: Grossly normal Lester Hawthorne MD Mar 12, 2019 10:13
--- NOTE | 2019-03-12 12:00 | NUR ---
NURSE NOTES: The patient is stable without acute distress or shortness of breath. Will continue plan of care.
[2019-03-12] MEDS: Enoxaparin 40mg Inj SUBQ SCH (15:09)
--- NOTE | 2019-03-12 16:00 | NUR ---
NURSE NOTES: The patient is stable without acute distress or shortness of breath. Will continue plan of care.
--- NOTE | 2019-03-12 20:19 | NUR ---
HAND-OFF: Report given to NIKOLAI Quinteros. The patient is resting on the bed without acute distress or shortness of breath. The patient's bed in the lowest position, call light in reach, and fall and aspiration precaution reinforced. Endorsed plan of care.
[2019-03-13] VITALS: BP 153/90
[2019-03-13] MEDS: Zolpidem 5mg tab ORAL PRN (00:52)
[2019-03-13 04:00] VITALS: BP 144/92
[2019-03-13] MEDS: D5NS 1,000 ML IV SCH ×2 (05:28→17:22)
[2019-03-13] MEDS: Morphine Sulfate 2mg/ml Inj(IV/IM USE ONLY) IVP PRN ×4 (05:28→20:45)
[2019-03-13 07:25] LABS: BASOPHILS % (AUTO) 0.8 % (0.0-2.0); EOSINOPHILS % (AUTO) 0.5 % (0.0-3.0); HEMATOCRIT 36.4 % (37.0-47.0); HEMOGLOBIN 12.1 G/DL (12.0-16.0); LYMPHOCYTES % (AUTO) 15.5 % (20.0-45.0); MEAN CORPUSCULAR VOLUME 84 FL (80-99); NEUTROPHILS % (AUTO) 71.2 % (45.0-75.0); PLATELET COUNT 365 K/UL (150-450); RED BLOOD COUNT 4.31 M/UL (4.20-5.40); RED CELL DISTRIBUTION WIDTH 11.6 % (11.6-14.8); WHITE BLOOD COUNT 11.2 K/UL (4.8-10.8)
[2019-03-13 07:37] LABS: ANION GAP 9 mmol/L (5-15); BLOOD UREA NITROGEN 5 mg/dL (7-18); CALCIUM 9.3 MG/DL (8.5-10.1); CARBON DIOXIDE 26 MMOL/L (21-32); CHLORIDE 95 MMOL/L (98-107); CREATININE 0.5 MG/DL (0.55-1.30); POTASSIUM 3.2 MMOL/L (3.5-5.1); SODIUM 130 MMOL/L (136-145)
--- NOTE | 2019-03-13 07:57 | NUR ---
NURSE NOTES: Pt in bed in low position, bed alarm on, pt is blind, pt has pancreatic CA needs to go to [facility] for surgery will follow up with CM, call light at bedside, pt makes needs known, Pt Ox4, calm and cooperative, pt reports pain level in abd area, fees slightly nauseated, IV intact and running fluids asymptomatic, no s/s of distress or sob noted.
[2019-03-13 08:00] VITALS: BP 160/95
--- NOTE | 2019-03-13 09:04 | General Progress Note ---
Assessment/Plan Assessment/Plan: (1) Intractable Abdominal pain (2) Pancreatic Cancer Pt will be continued on Morphine D/w Dr. Godinez and he concurred. Subjective Date patient seen: Mar 13, 2019 Time patient seen: 07:30 - am Allergies: Coded Allergies: NSAIDS (NON-STEROIDAL ANTI-INFLAMMA (Verified Allergy, Severe, Anaphylaxis , 01/30/19) ASPIRIN (Verified Allergy, Unknown, 02/26/19) LEVOFLOXACIN (Verified Allergy, Unknown, 02/26/19) Subjective onstitutional: Reports: weakness HEENT: Reports: no symptoms Cardiovascular: Reports: no symptoms Respiratory: Reports: no symptoms Gastrointestinal/Abdominal: Reports: abdominal pain Genitourinary: Reports: no symptoms Neurologic/Psychiatric: Reports: weakness Endocrine: Reports: no symptoms Hematologic/Lymphatic: Reports: no symptoms Subjective Patient is in bed continues to c/o pain which has been tolerated at a moderate level on the Morphine. No new complaint at this time. Objective Last 24 Hour Vital Signs Date Time Temp Pulse Resp B/P (MAP) Pulse Ox O2 Delivery O2 Flow Rate FiO2 03/13/19 08:48 Room Air 03/13/19 08:00 99.4 79 20 160/95 (116) 97 03/13/19 05:54 99.4 03/13/19 04:00 99.4 108 18 144/92 (109) 97 03/13/19 00:38 103 03/13/19 00:00 99.5 99 18 153/90 (111) 96 03/13/19 00:00 89 03/12/19 21:46 115 152/93 03/12/19 21:00 Room Air 03/12/19 20:00 99.3 115 18 152/93 (112) 97 03/12/19 20:00 103 03/12/19 20:00 106 03/12/19 19:40 100 18 98 Room Air 21 03/12/19 16:00 98.5 106 20 159/98 (118) 97 03/12/19 16:00 103 03/12/19 12:00 98.1 112 20 102/64 (77) 96 03/12/19 12:00 95 Intake and Output 03/12/19 03/13/19 19:00 07:00 Intake Total 0 ml Balance 0 ml Intake Oral 0 ml # Voids 3 2 # Bowel Movements 1 1 Laboratory Tests 03/13/19 05:52: White Blood Count 11.2H, Red Blood Count 4.31, Hemoglobin 12.1, Hematocrit 36.4L , Mean Corpuscular Volume 84, Mean Corpuscular Hemoglobin 28.1, Mean Corpuscular Hemoglobin Concent 33.3, Red Cell Distribution Width 11.6, Platelet Count 365, Mean Platelet Volume 6.1L, Neutrophils (%) (Auto) 71.2, Lymphocytes ( %) (Auto) 15.5L, Monocytes (%) (Auto) 12.0H, Eosinophils (%) (Auto) 0.5, Basophils (%) (Auto) 0.8, Sodium Level 130L, Potassium Level 3.2L, Chloride Level 95L, Carbon Dioxide Level 26, Anion Gap 9, Blood Urea Nitrogen 5L, Creatinine 0.5L, Estimat Glomerular Filtration Rate > 60, Glucose Level 125H, Calcium Level 9.3 Height (Feet): 5 Height (Inches): 5.00 Weight (Pounds): 128 Objective General Appearance: no apparent distress, alert EENT: PERRL/EOMI, normal ENT inspection Neck: non-tender, normal alignment Cardiovascular: normal rate, regular rhythm Respiratory/Chest: lungs clear, normal breath sounds Abdomen: tender Extremities: non-tender Edema: no edema noted Arm (L) Neurologic: alert, oriented x 3 Skin: warm/dry Crispin Sharma Mar 13, 2019 09:04
[2019-03-13] MEDS: Metoprolol Tartrate 5 MG in D5W 55 ML IVPB SCH ×2 (09:40→20:44)
[2019-03-13 12:00] VITALS: BP 170/98
--- NOTE | 2019-03-13 14:53 | NUR ---
RD ASSESSMENT & RECOMMENDATIONS SEE CARE ACTIVITY FOR COMPLETE ASSESSMENT DAILY ESTIMATED NEEDS: Needs based on Cancer 59.5 kg 25-35 kcals/kg 2180-3269 total kcals 1-2 g protein/kg 60-120 g total protein 25-30 mL/kg 8247-4519 total fluid mLs NUTRITION DIAGNOSIS: * Altered GI function r/t pancreatic cancer as evidenced by c/o n/v and abdominal pain, refusing meals at this time. * Unintentional wt loss R/T catabolic dx of CA and poor PO acceptance and tolerance as evidenced by possible significant wt loss of 14.1lbs/9.7% in 1mo. CURRENT DIET:REGULAR PO DIET RECOMMENDATIONS: Regular diet as tolerated ADDITIONAL RECOMMENDATIONS: 1) Obtain weekly weights: possible recent significant wt loss at risk for further wt loss due to CA dx, poor PO tolerance + acceptance 2) Rec routine zofran prior to meal time -> to improve PO tolerance and acceptance 3) Monitor lytes, replete as needed 4) Consider appetite stimulant: recent significant wt loss, poor PO
--- NOTE | 2019-03-13 14:53 | Cardiac Electrophysiology PN ---
Assessment/Plan Assessment/Plan 1. Hypertension.On metoprolol 5 mg IV every 12 hours and p.r.n. iv hydralazine. Unable to tolerate PO yet 2. Pancreatic cancer, status post common bile duct stent placement, awaiting transfer to [facility] 3. Tachycardia. Heart rate was in the 140s, currently 87. 4. Severe hypokalemia. Replaced iv DW RN and Dr. Huitron Subjective Subjective No CP or SOB. BP better on iv Hydralazine and iv Metoprolol. Awaiting transfer to [facility] for pancreatic cancer surgery Objective Last 24 Hour Vital Signs Date Time Temp Pulse Resp B/P (MAP) Pulse Ox O2 Delivery O2 Flow Rate FiO2 03/13/19 12:50 96.7 03/13/19 12:17 170/98 03/13/19 12:00 96.7 65 20 170/98 (122) 96 03/13/19 09:40 79 160/95 03/13/19 08:48 Room Air 03/13/19 08:00 99.4 79 20 160/95 (116) 97 03/13/19 07:00 98 16 97 Room Air 21 03/13/19 04:00 99.4 108 18 144/92 (109) 97 03/13/19 00:38 103 03/13/19 00:00 99.5 99 18 153/90 (111) 96 03/13/19 00:00 89 03/12/19 21:46 115 152/93 03/12/19 21:00 Room Air 03/12/19 20:00 99.3 115 18 152/93 (112) 97 03/12/19 20:00 103 03/12/19 20:00 106 03/12/19 19:40 100 18 98 Room Air 21 03/12/19 16:00 98.5 106 20 159/98 (118) 97 03/12/19 16:00 103 Intake and Output 03/12/19 03/13/19 19:00 07:00 Intake Total 0 ml Balance 0 ml Intake Oral 0 ml # Voids 3 2 # Bowel Movements 1 1 Laboratory Tests Test 03/13/19 05:52 White Blood Count 11.2 K/UL (4.8-10.8) H Red Blood Count 4.31 M/UL (4.20-5.40) Hemoglobin 12.1 G/DL (12.0-16.0) Hematocrit 36.4 % (37.0-47.0) L Mean Corpuscular Volume 84 FL (80-99) Mean Corpuscular Hemoglobin 28.1 PG (27.0-31.0) Mean Corpuscular Hemoglobin Concent 33.3 G/DL (32.0-36.0) Red Cell Distribution Width 11.6 % (11.6-14.8) Platelet Count 365 K/UL (150-450) Mean Platelet Volume 6.1 FL (6.5-10.1) L Neutrophils (%) (Auto) 71.2 % (45.0-75.0) Lymphocytes (%) (Auto) 15.5 % (20.0-45.0) L Monocytes (%) (Auto) 12.0 % (1.0-10.0) H Eosinophils (%) (Auto) 0.5 % (0.0-3.0) Basophils (%) (Auto) 0.8 % (0.0-2.0) Sodium Level 130 MMOL/L (136-145) L Potassium Level 3.2 MMOL/L (3.5-5.1) L Chloride Level 95 MMOL/L (98-107) L Carbon Dioxide Level 26 MMOL/L (21-32) Anion Gap 9 mmol/L (5-15) Blood Urea Nitrogen 5 mg/dL (7-18) L Creatinine 0.5 MG/DL (0.55-1.30) L Estimat Glomerular Filtration Rate > 60 mL/min (>60) Glucose Level 125 MG/DL (74-106) H Calcium Level 9.3 MG/DL (8.5-10.1) Objective HEAD AND NECK: Showed no JVD or carotid bruit. LUNGS: Clear. CARDIOVASCULAR: Shows regular S1 and S2 with no gallop or murmur. ABDOMEN: Soft. EXTREMITIES: No pitting edema. Josh Salcedo MD Mar 13, 2019 14:53
--- NOTE | 2019-03-13 15:05 | General Progress Note ---
Assessment/Plan Problem List: (1) Pancreatic mass ICD Codes: K86.9 - Disease of pancreas, unspecified SNOMED: 556065290 (2) History of hypertension ICD Codes: Z86.79 - Personal history of other diseases of the circulatory system SNOMED: 960400940 (3) Intractable nausea and vomiting ICD Codes: R11.2 - Nausea with vomiting, unspecified SNOMED: 192117649 Qualifiers: Qualified Codes: R11.2 - Nausea with vomiting, unspecified (4) Abdominal pain ICD Codes: R10.9 - Unspecified abdominal pain SNOMED: 50738850 Qualifiers: Qualified Codes: R10.13 - Epigastric pain (5) Generalized weakness ICD Codes: R53.1 - Weakness SNOMED: 39368902 (6) Pancreatic cancer ICD Codes: C25.9 - Malignant neoplasm of pancreas, unspecified SNOMED: 975227383 Qualifiers: Qualified Codes: C25.9 - Malignant neoplasm of pancreas, unspecified Status: unchanged Assessment/Plan: pt diet pain control cbc bmp am cedar transfer per pt request Subjective Constitutional: Reports: weakness Allergies: Coded Allergies: NSAIDS (NON-STEROIDAL ANTI-INFLAMMA (Verified Allergy, Severe, Anaphylaxis , 01/30/19) ASPIRIN (Verified Allergy, Unknown, 02/26/19) LEVOFLOXACIN (Verified Allergy, Unknown, 02/26/19) All Systems: reviewed and negative except above Subjective sleepy calm Objective Last 24 Hour Vital Signs Date Time Temp Pulse Resp B/P (MAP) Pulse Ox O2 Delivery O2 Flow Rate FiO2 03/13/19 12:50 96.7 03/13/19 12:17 170/98 03/13/19 12:00 96.7 65 20 170/98 (122) 96 03/13/19 09:40 79 160/95 03/13/19 08:48 Room Air 03/13/19 08:00 99.4 79 20 160/95 (116) 97 03/13/19 07:00 98 16 97 Room Air 21 03/13/19 04:00 99.4 108 18 144/92 (109) 97 03/13/19 00:38 103 03/13/19 00:00 99.5 99 18 153/90 (111) 96 03/13/19 00:00 89 03/12/19 21:46 115 152/93 03/12/19 21:00 Room Air 03/12/19 20:00 99.3 115 18 152/93 (112) 97 03/12/19 20:00 103 03/12/19 20:00 106 03/12/19 19:40 100 18 98 Room Air 21 03/12/19 16:00 98.5 106 20 159/98 (118) 97 03/12/19 16:00 103 Intake and Output 03/12/19 03/13/19 19:00 07:00 Intake Total 0 ml Balance 0 ml Intake Oral 0 ml # Voids 3 2 # Bowel Movements 1 1 Laboratory Tests 03/13/19 05:52: White Blood Count 11.2H, Red Blood Count 4.31, Hemoglobin 12.1, Hematocrit 36.4L , Mean Corpuscular Volume 84, Mean Corpuscular Hemoglobin 28.1, Mean Corpuscular Hemoglobin Concent 33.3, Red Cell Distribution Width 11.6, Platelet Count 365, Mean Platelet Volume 6.1L, Neutrophils (%) (Auto) 71.2, Lymphocytes ( %) (Auto) 15.5L, Monocytes (%) (Auto) 12.0H, Eosinophils (%) (Auto) 0.5, Basophils (%) (Auto) 0.8, Sodium Level 130L, Potassium Level 3.2L, Chloride Level 95L, Carbon Dioxide Level 26, Anion Gap 9, Blood Urea Nitrogen 5L, Creatinine 0.5L, Estimat Glomerular Filtration Rate > 60, Glucose Level 125H, Calcium Level 9.3 Height (Feet): 5 Height (Inches): 5.00 Weight (Pounds): 128 General Appearance: lethargic EENT: normal ENT inspection Neck: normal alignment Cardiovascular: normal peripheral pulses, normal rate, regular rhythm Respiratory/Chest: chest wall non-tender, lungs clear, normal breath sounds Abdomen: normal bowel sounds, non tender, soft Extremities: normal inspection Edema: no edema noted Arm (L), no edema noted Arm (R), no edema noted Leg (L), no edema noted Leg (R), no edema noted Pedal (L), no edema noted Pedal (R), no edema noted Generalized Neurologic: motor weakness Skin: normal pigmentation, warm/dry Lg Huitron DO Mar 13, 2019 15:05
--- NOTE | 2019-03-13 15:07 | NUR ---
MAILROOM MANAGERCLAMP REMOVER SI: PANCREATITIS T. 96.7 HR 65 RR 20 B/P 170/98 RA 98% NA 130 K 3.2 WBC 11.2 IS: IVF D5NS @ 100ML/HR ALB HHN MORPHINE IV TELE STATUS
--- NOTE | 2019-03-13 15:08 | NUR ---
PERFORMANCE MAKEUP ARTIST NOTES SPOKE WITH GUI AT [facility] TRANSFER BEDIAS, PT NOT CURRENTLY ON THE LIST FOR TRANSFER, MADE AWARE. WILL CONTINUE TO MONITOR.
[2019-03-13] MEDS: Enoxaparin 40mg Inj SUBQ SCH (15:38)
--- NOTE | 2019-03-13 15:47 | Hematology/Onc Progress Note ---
Assessment/Plan Assessment/Plan Assessment / Recs: # Pancreatic mass, 1.5x2cm in the ucinate process, appears on imaging to be stage I - there is marked extrahepatic and central intrahepatic biliary ductal dilatation, common bile duct measuring up to 19 mm in diameter, is s/p stent placement at [facility] per patient. It abruptly taper wiithin the pancreatic head, proximal to its junction with the pancreatic duct. The pancreatic duct is borderline prominent. A mildly dilated duct is seen within the pancreatic head/ uncinate, there is no peripancreatic lymphadenopathy. The gallbladder is distended but no gallstones are evident. --> imaging has been reviewed --> tumor markers reviewed CA19.9 80, cea is 11 --> biopsy proven pancreatic cancer on 02/03/19 --> await surgery as an outpatient with Dr. Jenkins --> also awaiting pet scan by the end of this week (on prior imaging did have right lower lobe 4 mm 5 mm lung nodules. Suspect postinflammatory, but the possibility of neoplasm should also be considered) --> apparently had it done but does not know results --> transfer potential to [facility] in near future # Abdominal pain - likely from pancreatic mass causing biliary obstruction. Abdominal exam okay with some upper abdominal discomfort on palpation --> as per gi could be related to abd mass --> pain management recs as per Gretchen/Crispin --> on morphine prn # Hypokalemia --> given K, has been repleted --> fluids started # Nausea/vomiting --> zofran prn --> as per gi eval, reviewed The timing of this note does not necessarily reflect the time of the patient was seen. GREATLY APPRECIATE CONSULTATION. Subjective HEENT: Denies: no symptoms, eye pain, blurred vision, tearing, double vision, ear pain, ear discharge, nose pain, nose congestion, throat pain, throat swelling, mouth pain, mouth swelling, other Cardiovascular: Denies: no symptoms, chest pain, edema, irregular heart rate, lightheadedness, palpitations, syncope, other Respiratory: Denies: no symptoms, cough, shortness of breath, SOB with excertion, SOB at rest, sputum, wheezing, other Gastrointestinal/Abdominal: Denies: no symptoms, abdomen distended, abdominal pain, black stools, tarry stools, blood in stool, constipated, diarrhea, difficulty swallowing, nausea, poor appetite, poor fluid intake, rectal bleeding , vomiting, other Genitourinary: Denies: no symptoms, burning, discharge, frequency, flank pain, hematuria, incontinence, pain, urgency, other Endocrine: Denies: no symptoms, excessive sweating, flushing, intolerance to cold, intolerance to heat, increased hunger, increased thirst, increased urine, unexplained weight gain, unexplained weight loss, other Hematologic/Lymphatic: Denies: no symptoms, anemia, easy bleeding, easy bruising, adenopathy, other Allergies: Coded Allergies: NSAIDS (NON-STEROIDAL ANTI-INFLAMMA (Verified Allergy, Severe, Anaphylaxis , 01/30/19) ASPIRIN (Verified Allergy, Unknown, 02/26/19) LEVOFLOXACIN (Verified Allergy, Unknown, 02/26/19) Subjective 03/12: pain is better controlled, no night sweats, labs reviewed 03/13: no better, no f/c, no bleeding Objective Objective Current Medications Medications (Trade) Dose Ordered Sig/Angelito Route PRN Reason Start Time Stop Time Status Last Admin Dose Admin Acetaminophen (Tylenol) 650 mg Q4H PRN ORAL Mild Pain (Pain Scale 1-3) 03/09/19 14:00 04/08/19 13:59 Albuterol/ Ipratropium (Albuterol/ Ipratropium) 3 ml Q6H PRN HHN Shortness of Breath 03/09/19 14:00 03/14/19 13:59 Dextrose (Dextrose 50%) 25 ml Q30M PRN IV Hypoglycemia 03/09/19 14:00 04/08/19 13:59 Dextrose (Dextrose 50%) 50 ml Q30M PRN IV Hypoglycemia 03/09/19 14:00 04/08/19 13:59 Dextrose/Sodium Chloride 1,000 ml @ 80 mls/hr [id number] IV 03/11/19 14:00 04/10/19 13:59 03/13/19 05:28 Enoxaparin Sodium (Lovenox) 40 mg Q24H SUBQ 03/09/19 15:00 04/08/19 14:59 03/13/19 15:38 Famotidine (Pepcid) 20 mg BID ORAL 03/09/19 18:00 04/08/19 17:59 03/13/19 09:18 Hydralazine HCl (Apresoline) 10 mg Q2H PRN IV For High Blood Pressure 03/09/19 22:30 04/08/19 22:29 03/13/19 12:17 Lorazepam (Ativan 2mg/ml 1ml) 1 mg Q4H PRN IV For Anxiety 03/10/19 06:00 03/17/19 05:59 Lorazepam (Ativan) 1 mg Q4H PRN ORAL For Anxiety 03/09/19 14:00 03/16/19 13:59 Magnesium Hydroxide (Mom) 30 ml HSPRN PRN ORAL Constipation 03/09/19 14:00 04/08/19 13:59 Metoprolol Tartrate 5 mg/ Dextrose 60 ml @ 120 mls/hr Q12HR IVPB 03/11/19 14:30 04/10/19 14:29 03/13/19 09:40 Morphine Sulfate (Morphine Sulfate) 2 mg Q4H PRN IVP Moderate Pain (Pain Scale 4-6) 03/11/19 21:00 03/18/19 20:59 03/13/19 12:20 Nitroglycerin (Ntg) 0.4 mg Q5M X 3 DOSES PRN SL Prn Chest Pain 03/09/19 14:00 04/08/19 13:59 Ondansetron HCl (Zofran) 4 mg Q6H PRN IVP Nausea & Vomiting 03/09/19 16:30 04/08/19 16:29 03/13/19 09:18 Zolpidem Tartrate (Ambien) 5 mg HSPRN PRN ORAL Insomnia 03/09/19 14:00 03/16/19 13:59 03/13/19 00:52 Last 24 Hour Vital Signs Date Time Temp Pulse Resp B/P (MAP) Pulse Ox O2 Delivery O2 Flow Rate FiO2 03/13/19 13:20 72 03/13/19 12:50 96.7 03/13/19 12:17 170/98 03/13/19 12:00 96.7 65 20 170/98 (122) 96 03/13/19 11:50 102 03/13/19 09:40 79 160/95 03/13/19 08:48 Room Air 03/13/19 08:00 99.4 79 20 160/95 (116) 97 03/13/19 07:58 113 03/13/19 07:00 98 16 97 Room Air 21 03/13/19 04:00 99.4 108 18 144/92 (109) 97 03/13/19 00:38 103 03/13/19 00:00 99.5 99 18 153/90 (111) 96 03/13/19 00:00 89 03/12/19 21:46 115 152/93 03/12/19 21:00 Room Air 03/12/19 20:00 99.3 115 18 152/93 (112) 97 03/12/19 20:00 103 03/12/19 20:00 106 03/12/19 19:40 100 18 98 Room Air 21 03/12/19 16:00 98.5 106 20 159/98 (118) 97 03/12/19 16:00 103 03/12/19 12:00 98.1 112 20 102/64 (77) 96 03/12/19 12:00 95 03/12/19 09:00 97.9 117 20 113/56 (75) 96 03/12/19 09:00 Room Air 03/12/19 08:42 117 113/56 03/12/19 08:00 117 03/12/19 08:00 97.9 119 20 157/79 (105) 96 03/12/19 04:00 116 03/12/19 04:00 98.6 128 16 130/74 (92) 97 03/12/19 00:38 167/95 03/12/19 00:00 98.2 119 20 167/95 (119) 96 03/12/19 00:00 107 03/11/19 21:31 64 16 97 Room Air 21 03/11/19 21:04 116 186/97 03/11/19 21:00 Room Air 03/11/19 20:00 114 03/11/19 20:00 98.4 126 20 177/102 (127) 96 03/11/19 17:30 98.1 108 18 155/97 (116) 99 03/11/19 16:00 122 03/11/19 16:00 98.0 125 18 164/103 (123) 99 Intake and Output 03/12/19 03/13/19 19:00 07:00 Intake Total 0 ml Balance 0 ml Intake Oral 0 ml # Voids 3 2 # Bowel Movements 1 1 Labs Test 03/11/19 06:15 03/12/19 06:29 03/13/19 05:52 White Blood Count 11.0 K/UL (4.8-10.8) 11.0 K/UL (4.8-10.8) 11.2 K/UL (4.8-10.8) Red Blood Count 4.31 M/UL (4.20-5.40) 4.34 M/UL (4.20-5.40) 4.31 M/UL (4.20-5.40) Hemoglobin 12.3 G/DL (12.0-16.0) 12.1 G/DL (12.0-16.0) 12.1 G/DL (12.0-16.0) Hematocrit 36.5 % (37.0-47.0) 36.8 % (37.0-47.0) 36.4 % (37.0-47.0) Mean Corpuscular Volume 85 FL (80-99) 85 FL (80-99) 84 FL (80-99) Mean Corpuscular Hemoglobin 28.5 PG (27.0-31.0) 27.9 PG (27.0-31.0) 28.1 PG (27.0-31.0) Mean Corpuscular Hemoglobin Concent 33.6 G/DL (32.0-36.0) 32.8 G/DL (32.0-36.0) 33.3 G/DL (32.0-36.0) Red Cell Distribution Width 12.1 % (11.6-14.8) 12.0 % (11.6-14.8) 11.6 % (11.6-14.8) Platelet Count 353 K/UL (150-450) 364 K/UL (150-450) 365 K/UL (150-450) Mean Platelet Volume 6.3 FL (6.5-10.1) 6.2 FL (6.5-10.1) 6.1 FL (6.5-10.1) Neutrophils (%) (Auto) 57.0 % (45.0-75.0) 71.6 % (45.0-75.0) 71.2 % (45.0-75.0) Lymphocytes (%) (Auto) 29.8 % (20.0-45.0) 13.3 % (20.0-45.0) 15.5 % (20.0-45.0) Monocytes (%) (Auto) 11.7 % (1.0-10.0) 14.5 % (1.0-10.0) 12.0 % (1.0-10.0) Eosinophils (%) (Auto) 0.9 % (0.0-3.0) 0.1 % (0.0-3.0) 0.5 % (0.0-3.0) Basophils (%) (Auto) 0.6 % (0.0-2.0) 0.5 % (0.0-2.0) 0.8 % (0.0-2.0) Sodium Level 134 MMOL/L (136-145) 135 MMOL/L (136-145) 130 MMOL/L (136-145) Potassium Level 3.7 MMOL/L (3.5-5.1) 2.9 MMOL/L (3.5-5.1) 3.2 MMOL/L (3.5-5.1) Chloride Level 97 MMOL/L (98-107) 98 MMOL/L (98-107) 95 MMOL/L (98-107) Carbon Dioxide Level 30 MMOL/L (21-32) 29 MMOL/L (21-32) 26 MMOL/L (21-32) Anion Gap 7 mmol/L (5-15) 9 mmol/L (5-15) 9 mmol/L (5-15) Blood Urea Nitrogen 22 mg/dL (7-18) 15 mg/dL (7-18) 5 mg/dL (7-18) Creatinine 1.2 MG/DL (0.55-1.30) 0.7 MG/DL (0.55-1.30) 0.5 MG/DL (0.55-1.30) Estimat Glomerular Filtration Rate 53.8 mL/min (>60) > 60 mL/min (>60) > 60 mL/min (>60) Glucose Level 91 MG/DL (74-106) 130 MG/DL (74-106) 125 MG/DL (74-106) Calcium Level 9.8 MG/DL (8.5-10.1) 9.1 MG/DL (8.5-10.1) 9.3 MG/DL (8.5-10.1) CA 19-9 Antigen 141 U/mL (0-35) Height (Feet): 5 Height (Inches): 5.00 Weight (Pounds): 128 Objective Physical Exam General: alert, cooperative, no distress, appears stated age Lungs: clear to auscultation bilaterally CV: rrr, S1, S2 normal, no murmur, click, rub or gallop Abd: soft, non-tender. left lower quad pain noted no guarding Ext: no cce Pulses: 1-2+ and symmetric Skin: Skin color, texture, turgor normal. No rashes or lesions Neurologic: Grossly normal Lester Hawthorne MD Mar 13, 2019 15:47
[2019-03-13 16:00] VITALS: BP 124/70
[2019-03-13 21:00] VITALS: BP 164/95
[2019-03-14] VITALS: BP 157/97
[2019-03-14] MEDS: Morphine Sulfate 2mg/ml Inj(IV/IM USE ONLY) IVP PRN ×3 (00:50→20:37)
[2019-03-14 04:00] VITALS: BP 153/95
[2019-03-14] MEDS: D5NS 1,000 ML IV SCH (04:54)
[2019-03-14 07:29] LABS: BASOPHILS % (AUTO) 0.7 % (0.0-2.0); EOSINOPHILS % (AUTO) 0.9 % (0.0-3.0); LYMPHOCYTES % (AUTO) 15.7 % (20.0-45.0); MEAN CORPUSCULAR VOLUME 85 FL (80-99); MONOCYTES % (AUTO) 13.1 % (1.0-10.0); NEUTROPHILS % (AUTO) 69.6 % (45.0-75.0); PLATELET COUNT 375 K/UL (150-450); RED BLOOD COUNT 4.26 M/UL (4.20-5.40); RED CELL DISTRIBUTION WIDTH 11.6 % (11.6-14.8); WHITE BLOOD COUNT 10.2 K/UL (4.8-10.8)
[2019-03-14 07:30] LABS: ANION GAP 9 mmol/L (5-15); BLOOD UREA NITROGEN 5 mg/dL (7-18); CALCIUM 9.2 MG/DL (8.5-10.1); CARBON DIOXIDE 26 MMOL/L (21-32); CHLORIDE 97 MMOL/L (98-107); CREATININE 0.6 MG/DL (0.55-1.30); POTASSIUM 2.9 MMOL/L (3.5-5.1); SODIUM 132 MMOL/L (136-145)
--- NOTE | 2019-03-14 07:30 | NUR ---
NURSE NOTES: Received report from Neli/RN, Patient is awake and alert, lying semi-alvarado, No sign of distress/SOB noted. Patient is able to make needs known. Complains of abdominal pain. requesting Zofran and Morphine at this time. Will follow up with pain meds. IV site patent, no bleeding or infiltration noted. Bed in low position and locked. Call light and personal belonging within reach. Will continue plan of care.
[2019-03-14 08:00] VITALS: BP 135/96
--- NOTE | 2019-03-14 09:12 | General Progress Note ---
Assessment/Plan Assessment/Plan: (1) Intractable Abdominal pain (2) Pancreatic Cancer Pt will be continued on Morphine D/w Dr. Godinez and he concurred. Subjective Date patient seen: Mar 14, 2019 Time patient seen: 07:15 - am Allergies: Coded Allergies: NSAIDS (NON-STEROIDAL ANTI-INFLAMMA (Verified Allergy, Severe, Anaphylaxis , 01/30/19) ASPIRIN (Verified Allergy, Unknown, 02/26/19) LEVOFLOXACIN (Verified Allergy, Unknown, 02/26/19) Subjective Constitutional: Reports: weakness HEENT: Reports: no symptoms Cardiovascular: Reports: no symptoms Respiratory: Reports: no symptoms Gastrointestinal/Abdominal: Reports: abdominal pain Genitourinary: Reports: no symptoms Neurologic/Psychiatric: Reports: weakness Endocrine: Reports: no symptoms Hematologic/Lymphatic: Reports: no symptoms Subjective Patient is in bed continues to c/o pain which has been tolerated on the Morphine. No new complaints at this time. Objective Last 24 Hour Vital Signs Date Time Temp Pulse Resp B/P (MAP) Pulse Ox O2 Delivery O2 Flow Rate FiO2 03/14/19 08:00 98.4 107 22 135/96 (109) 98 03/14/19 04:00 104 03/14/19 04:00 98.5 108 18 153/95 (114) 97 03/14/19 01:20 98.5 03/14/19 00:00 98.5 105 18 157/97 (117) 98 03/14/19 00:00 111 03/14/19 00:00 111 03/13/19 21:00 Room Air 03/13/19 21:00 99.0 116 18 164/95 (118) 97 03/13/19 20:44 116 164/95 03/13/19 20:00 110 03/13/19 19:37 113 18 97 Room Air 21 03/13/19 16:00 96.6 88 20 124/70 (88) 98 03/13/19 15:08 115 03/13/19 13:20 72 03/13/19 12:17 170/98 03/13/19 12:00 96.7 65 20 170/98 (122) 96 03/13/19 11:50 102 03/13/19 09:40 79 160/95 Intake and Output 03/13/19 03/14/19 19:00 07:00 Intake Total 140 ml Balance 140 ml Intake Oral 140 ml # Voids 3 2 # Bowel Movements 1 1 Laboratory Tests 03/14/19 05:50: White Blood Count 10.2, Red Blood Count 4.26, Hemoglobin 12.0, Hematocrit 36.0L , Mean Corpuscular Volume 85, Mean Corpuscular Hemoglobin 28.2, Mean Corpuscular Hemoglobin Concent 33.3, Red Cell Distribution Width 11.6, Platelet Count 375, Mean Platelet Volume 5.9L, Neutrophils (%) (Auto) 69.6, Lymphocytes ( %) (Auto) 15.7L, Monocytes (%) (Auto) 13.1H, Eosinophils (%) (Auto) 0.9, Basophils (%) (Auto) 0.7, Sodium Level 132L, Potassium Level 2.9L, Chloride Level 97L, Carbon Dioxide Level 26, Anion Gap 9, Blood Urea Nitrogen 5L, Creatinine 0.6, Estimat Glomerular Filtration Rate > 60, Glucose Level 128H, Calcium Level 9.2 Height (Feet): 5 Height (Inches): 5.00 Weight (Pounds): 132 Objective General Appearance: no apparent distress, alert EENT: PERRL/EOMI, normal ENT inspection Neck: non-tender, normal alignment Cardiovascular: normal rate, regular rhythm Respiratory/Chest: lungs clear, normal breath sounds Abdomen: tender Extremities: non-tender Edema: no edema noted Arm (L) Neurologic: alert, oriented x 3 Skin: warm/dry Crispin Sharma Mar 14, 2019 09:12
[2019-03-14] MEDS: Metoprolol Tartrate 5 MG in D5W 55 ML IVPB SCH (09:17)
--- NOTE | 2019-03-14 09:57 | Cardiology Progress Note ---
Assessment/Plan Status: stable Assessment/Plan Assessment/Plan Assessment/Plan 1. Hypertension. Controlled On metoprolol 5 mg IV every 12 hours and p.r.n. iv hydralazine. Unable to tolerate PO yet 2. Pancreatic cancer, status post common bile duct stent placement, awaiting transfer to [facility] 3. Tachycardia. Resolved 4. Severe hypokalemia. Replete prn Subjective Cardiovascular: Reports: no symptoms Respiratory: Reports: no symptoms Gastrointestinal/Abdominal: Reports: no symptoms Genitourinary: Reports: no symptoms Subjective coverage for [employer] No acute events, no distress, no pain, vitals stable, nursing notes reviewed Objective Last 24 Hour Vital Signs Date Time Temp Pulse Resp B/P (MAP) Pulse Ox O2 Delivery O2 Flow Rate FiO2 03/14/19 09:17 107 135/96 03/14/19 08:00 98.4 107 22 135/96 (109) 98 03/14/19 04:00 104 03/14/19 04:00 98.5 108 18 153/95 (114) 97 03/14/19 01:20 98.5 03/14/19 00:00 98.5 105 18 157/97 (117) 98 03/14/19 00:00 111 03/14/19 00:00 111 03/13/19 21:00 Room Air 03/13/19 21:00 99.0 116 18 164/95 (118) 97 03/13/19 20:44 116 164/95 03/13/19 20:00 110 03/13/19 19:37 113 18 97 Room Air 21 03/13/19 16:00 96.6 88 20 124/70 (88) 98 03/13/19 15:08 115 03/13/19 13:20 72 03/13/19 12:17 170/98 03/13/19 12:00 96.7 65 20 170/98 (122) 96 03/13/19 11:50 102 General Appearance: no apparent distress, alert EENT: PERRL/EOMI, normal ENT inspection, TMs normal, pharynx normal Neck: non-tender, normal alignment, supple, normal inspection, no JVD Rhythm: NSR Cardiovascular: normal peripheral pulses, normal rate, regular rhythm Respiratory/Chest: chest wall non-tender, lungs clear, normal breath sounds, no respiratory distress Abdomen: normal bowel sounds, non tender, soft, no organomegaly, no mass Extremities: normal range of motion, non-tender, normal inspection 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, no motor/sensory deficits Intake and Output 03/13/19 03/14/19 19:00 07:00 Intake Total 140 ml Balance 140 ml Intake Oral 140 ml # Voids 3 2 # Bowel Movements 1 1 Laboratory Tests Test 03/14/19 05:50 White Blood Count 10.2 K/UL (4.8-10.8) Red Blood Count 4.26 M/UL (4.20-5.40) Hemoglobin 12.0 G/DL (12.0-16.0) Hematocrit 36.0 % (37.0-47.0) L Mean Corpuscular Volume 85 FL (80-99) Mean Corpuscular Hemoglobin 28.2 PG (27.0-31.0) Mean Corpuscular Hemoglobin Concent 33.3 G/DL (32.0-36.0) Red Cell Distribution Width 11.6 % (11.6-14.8) Platelet Count 375 K/UL (150-450) Mean Platelet Volume 5.9 FL (6.5-10.1) L Neutrophils (%) (Auto) 69.6 % (45.0-75.0) Lymphocytes (%) (Auto) 15.7 % (20.0-45.0) L Monocytes (%) (Auto) 13.1 % (1.0-10.0) H Eosinophils (%) (Auto) 0.9 % (0.0-3.0) Basophils (%) (Auto) 0.7 % (0.0-2.0) Sodium Level 132 MMOL/L (136-145) L Potassium Level 2.9 MMOL/L (3.5-5.1) L Chloride Level 97 MMOL/L (98-107) L Carbon Dioxide Level 26 MMOL/L (21-32) Anion Gap 9 mmol/L (5-15) Blood Urea Nitrogen 5 mg/dL (7-18) L Creatinine 0.6 MG/DL (0.55-1.30) Estimat Glomerular Filtration Rate > 60 mL/min (>60) Glucose Level 128 MG/DL (74-106) H Calcium Level 9.2 MG/DL (8.5-10.1) Nii rOtega MD Mar 14, 2019 09:57
--- NOTE | 2019-03-14 10:12 | Consultation ---
Consult Note Consult Note I was asked to evaluate the patient at the request of Dr Huitron for Abnormal electrolytes and fluid management The patient was discharged from the hospital Tuesday. She has a history of pancreatitis and pancreatic cancer. She is been unable to keep down liquids and has significant pain in her stomach. She denies any vomiting of blood, fever, coffee grounds or melena. She is moving her bowels very much because she is on a liquid diet and unable to pass much stool at this time. She rates the pain 8/10. It is constant and aching radiating towards her back. Epigastric but also diffuse. The patient was admitted here and transferred to [facility] for stent placement in the common bile duct. She carries a diagnosis of stage I pancreatic cancer. There is a consideration of further surgery in the near future. The patient is lost weight. She has generalized weakness. She denies dysuria. She feels weak when she stands. No sore throat, chest pain, palpitations, shortness of breath, joint pain, rashes, visual changes, headache. Allergies: NSAIDS (NON-STEROIDAL ANTI-INFLAMMA (Verified Allergy, Severe, Anaphylaxis , 01/30/19) ASPIRIN (Verified Allergy, Unknown, 02/26/19) LEVOFLOXACIN (Verified Allergy, Unknown, 02/26/19) Past Medical History: see triage record Past Surgical History: other - Pancreatic common bile duct stent Social History: Denies: smoking Social History Narrative With daughter Reviewed Nursing Documentation: PMH: Agreed; PSxH: Agreed Past Medical History: No History, Except For Hx Cardiac Problems: Yes Hx Hypertension: Yes data reviewed Assessment/Plan HypoKalemia- HypoNatremia Hypertension Pancreatic Mass / Abdominal pain / Nausea & Vomiting IV K supplement 3% Saline baker for low Na etiology ckange MS to dilaudid due to persistant Nausea start PO Alma and Andriy Cunha MD Mar 14, 2019 10:12
--- NOTE | 2019-03-14 10:27 | General Progress Note ---
Assessment/Plan Problem List: (1) Pancreatic mass ICD Codes: K86.9 - Disease of pancreas, unspecified SNOMED: 260149658 (2) History of hypertension ICD Codes: Z86.79 - Personal history of other diseases of the circulatory system SNOMED: 525365128 (3) Intractable nausea and vomiting ICD Codes: R11.2 - Nausea with vomiting, unspecified SNOMED: 416968999 Qualifiers: Qualified Codes: R11.2 - Nausea with vomiting, unspecified (4) Abdominal pain ICD Codes: R10.9 - Unspecified abdominal pain SNOMED: 83147195 Qualifiers: Qualified Codes: R10.13 - Epigastric pain (5) Generalized weakness ICD Codes: R53.1 - Weakness SNOMED: 30581101 (6) Pancreatic cancer ICD Codes: C25.9 - Malignant neoplasm of pancreas, unspecified SNOMED: 329858127 Qualifiers: Qualified Codes: C25.9 - Malignant neoplasm of pancreas, unspecified Status: stable, progressing Assessment/Plan: pt diet pain control dc w hh per pt request Subjective Constitutional: Reports: weakness Allergies: Coded Allergies: NSAIDS (NON-STEROIDAL ANTI-INFLAMMA (Verified Allergy, Severe, Anaphylaxis , 01/30/19) ASPIRIN (Verified Allergy, Unknown, 02/26/19) LEVOFLOXACIN (Verified Allergy, Unknown, 02/26/19) All Systems: reviewed and negative except above Subjective sleepy calm Objective Last 24 Hour Vital Signs Date Time Temp Pulse Resp B/P (MAP) Pulse Ox O2 Delivery O2 Flow Rate FiO2 03/14/19 09:17 107 135/96 03/14/19 08:00 98.4 107 22 135/96 (109) 98 03/14/19 04:00 104 03/14/19 04:00 98.5 108 18 153/95 (114) 97 03/14/19 01:20 98.5 03/14/19 00:00 98.5 105 18 157/97 (117) 98 03/14/19 00:00 111 03/14/19 00:00 111 03/13/19 21:00 Room Air 03/13/19 21:00 99.0 116 18 164/95 (118) 97 03/13/19 20:44 116 164/95 03/13/19 20:00 110 03/13/19 19:37 113 18 97 Room Air 21 03/13/19 16:00 96.6 88 20 124/70 (88) 98 03/13/19 15:08 115 03/13/19 13:20 72 03/13/19 12:17 170/98 03/13/19 12:00 96.7 65 20 170/98 (122) 96 03/13/19 11:50 102 Intake and Output 03/13/19 03/14/19 19:00 07:00 Intake Total 140 ml Balance 140 ml Intake Oral 140 ml # Voids 3 2 # Bowel Movements 1 1 Laboratory Tests 03/14/19 05:50: White Blood Count 10.2, Red Blood Count 4.26, Hemoglobin 12.0, Hematocrit 36.0L , Mean Corpuscular Volume 85, Mean Corpuscular Hemoglobin 28.2, Mean Corpuscular Hemoglobin Concent 33.3, Red Cell Distribution Width 11.6, Platelet Count 375, Mean Platelet Volume 5.9L, Neutrophils (%) (Auto) 69.6, Lymphocytes ( %) (Auto) 15.7L, Monocytes (%) (Auto) 13.1H, Eosinophils (%) (Auto) 0.9, Basophils (%) (Auto) 0.7, Sodium Level 132L, Potassium Level 2.9L, Chloride Level 97L, Carbon Dioxide Level 26, Anion Gap 9, Blood Urea Nitrogen 5L, Creatinine 0.6, Estimat Glomerular Filtration Rate > 60, Glucose Level 128H, Osmolality [Pending], Uric Acid [Pending], Calcium Level 9.2, Phosphorus Level [ Pending], Magnesium Level [Pending], Total Bilirubin [Pending], Direct Bilirubin [Pending], Aspartate Amino Transf (AST/SGOT) [Pending], Alanine Aminotransferase (ALT/SGPT) [Pending], Alkaline Phosphatase [Pending], Total Protein [Pending], Albumin [Pending], Triglycerides Level [Pending], Cholesterol Level [Pending], LDL Cholesterol [Pending], HDL Cholesterol [Pending ], Cholesterol/HDL Ratio [Pending], Thyroid Stimulating Hormone (TSH) [Pending] Height (Feet): 5 Height (Inches): 5.00 Weight (Pounds): 132 General Appearance: lethargic EENT: normal ENT inspection Neck: normal alignment Cardiovascular: normal peripheral pulses, normal rate, regular rhythm Respiratory/Chest: chest wall non-tender, lungs clear, normal breath sounds Abdomen: normal bowel sounds, non tender, soft Extremities: normal inspection Edema: no edema noted Arm (L), no edema noted Arm (R), no edema noted Leg (L), no edema noted Leg (R), no edema noted Pedal (L), no edema noted Pedal (R), no edema noted Generalized Neurologic: responsive, motor weakness Skin: normal pigmentation, warm/dry Lg Huitron DO Mar 14, 2019 10:27
[2019-03-14] MEDS ORDERED: HYDROmorphone 1mg/ml Carpuject IVP PRN (10:30)
[2019-03-14] MEDS ORDERED: Metoprolol Tartrate 12.5mg TAB ORAL SCH ×2 (10:30→21:00)
[2019-03-14 10:36] LABS: CHOLESTEROL 136 MG/DL (< 200); HDL CHOLESTEROL 61 MG/DL (40-60); TRIGLYCERIDES 40 MG/DL (30-150)
[2019-03-14] MEDS ORDERED: Metoprolol Tartrate 2.5 MG in D5W 55 ML IVPB PRN ×2 (10:45→22:45)
[2019-03-14 10:46] LABS: ALBUMIN 3.5 G/DL (3.4-5.0); ALKALINE PHOSPHATASE 107 U/L (46-116); ASPARTATE AMINO TRANSFERASE 23 U/L (15-37); BILIRUBIN,DIRECT 0.1 MG/DL (0.0-0.3); BILIRUBIN,TOTAL 0.7 MG/DL (0.2-1.0)
[2019-03-14 11:03] LABS: ALANINE AMINOTRANSFERASE 17 U/L (12-78)
[2019-03-14 12:00] VITALS: BP 162/95
--- NOTE | 2019-03-14 12:39 | Hematology/Onc Progress Note ---
Assessment/Plan Assessment/Plan Assessment / Recs: # Pancreatic mass, 1.5x2cm in the ucinate process, appears on imaging to be stage I - there is marked extrahepatic and central intrahepatic biliary ductal dilatation, common bile duct measuring up to 19 mm in diameter, is s/p stent placement at [facility] per patient. It abruptly taper wiithin the pancreatic head, proximal to its junction with the pancreatic duct. The pancreatic duct is borderline prominent. A mildly dilated duct is seen within the pancreatic head/ uncinate, there is no peripancreatic lymphadenopathy. The gallbladder is distended but no gallstones are evident. --> imaging has been reviewed --> tumor markers reviewed CA19.9 80, cea is 11 --> biopsy proven pancreatic cancer on 02/03/19 --> await surgery as an outpatient with Dr. Jenkins --> pet scan was done (on prior imaging did have right lower lobe 4 mm 5 mm lung nodules. Suspect postinflammatory, but the possibility of neoplasm should also be considered) --> apparently had it done but does not know results --> transfer potential to [facility] in near future # Abdominal pain - likely from pancreatic mass causing biliary obstruction. Abdominal exam okay with some upper abdominal discomfort on palpation --> as per gi could be related to abd mass --> pain management recs as per Gretchen/Crispin --> on Dilaudid prn # Hypokalemia --> given K, has been repleted --> fluids started # Nausea/vomiting --> zofran prn --> as per gi eval, reviewed The timing of this note does not necessarily reflect the time of the patient was seen. GREATLY APPRECIATE CONSULTATION. Subjective Constitutional: Denies: no symptoms, chills, fever, malaise, weakness, other HEENT: Denies: no symptoms, eye pain, blurred vision, tearing, double vision, ear pain, ear discharge, nose pain, nose congestion, throat pain, throat swelling, mouth pain, mouth swelling, other Cardiovascular: Denies: no symptoms, chest pain, edema, irregular heart rate, lightheadedness, palpitations, syncope, other Respiratory: Denies: no symptoms, cough, shortness of breath, SOB with excertion, SOB at rest, sputum, wheezing, other Gastrointestinal/Abdominal: Denies: no symptoms, abdomen distended, abdominal pain, black stools, tarry stools, blood in stool, constipated, diarrhea, difficulty swallowing, nausea, poor appetite, poor fluid intake, rectal bleeding , vomiting, other Neurologic/Psychiatric: Denies: no symptoms, anxiety, depressed, emotional problems, headache, numbness, paresthesia, pre-existing deficit, seizure, tingling, tremors, weakness, other Endocrine: Denies: no symptoms, excessive sweating, flushing, intolerance to cold, intolerance to heat, increased hunger, increased thirst, increased urine, unexplained weight gain, unexplained weight loss, other Hematologic/Lymphatic: Denies: no symptoms, anemia, easy bleeding, easy bruising, adenopathy, other Allergies: Coded Allergies: NSAIDS (NON-STEROIDAL ANTI-INFLAMMA (Verified Allergy, Severe, Anaphylaxis , 01/30/19) ASPIRIN (Verified Allergy, Unknown, 02/26/19) LEVOFLOXACIN (Verified Allergy, Unknown, 02/26/19) Subjective 03/12: pain is better controlled, no night sweats, labs reviewed 03/13: no better, no f/c, no bleeding 03/14: labs reviewed from prior, on dilaudid, dw transfer [facility] Objective Objective Current Medications Medications (Trade) Dose Ordered Sig/Angelito Route PRN Reason Start Time Stop Time Status Last Admin Dose Admin Acetaminophen (Tylenol) 650 mg Q4H PRN ORAL Mild Pain (Pain Scale 1-3) 03/09/19 14:00 04/08/19 13:59 Albuterol/ Ipratropium (Albuterol/ Ipratropium) 3 ml Q6H PRN HHN Shortness of Breath 03/09/19 14:00 03/14/19 13:59 Dextrose (Dextrose 50%) 25 ml Q30M PRN IV Hypoglycemia 03/09/19 14:00 04/08/19 13:59 Dextrose (Dextrose 50%) 50 ml Q30M PRN IV Hypoglycemia 03/09/19 14:00 04/08/19 13:59 Enoxaparin Sodium (Lovenox) 40 mg Q24H SUBQ 03/09/19 15:00 04/08/19 14:59 03/13/19 15:38 Hydralazine HCl (Apresoline) 10 mg Q2H PRN IV For High Blood Pressure 03/09/19 22:30 04/08/19 22:29 03/13/19 12:17 Hydromorphone HCl (Dilaudid) 1 mg Q4H PRN IVP For Pain 03/14/19 10:30 03/21/19 10:29 Lorazepam (Ativan 2mg/ml 1ml) 1 mg Q4H PRN IV For Anxiety 03/10/19 06:00 03/17/19 05:59 Lorazepam (Ativan) 1 mg Q4H PRN ORAL For Anxiety 03/09/19 14:00 03/16/19 13:59 Magnesium Hydroxide (Mom) 30 ml HSPRN PRN ORAL Constipation 03/09/19 14:00 04/08/19 13:59 Metoclopramide HCl (Reglan) 10 mg THREE TIMES A DAY ORAL 03/14/19 10:30 04/13/19 10:29 Metoprolol Tartrate (Lopressor) 12.5 mg Q12HR ORAL 03/14/19 21:00 04/13/19 20:59 Metoprolol Tartrate 2.5 mg/ Dextrose 57.5 ml @ 120 mls/hr Q6H PRN IVPB BP over 160 03/14/19 10:45 04/13/19 10:44 Nitroglycerin (Ntg) 0.4 mg Q5M X 3 DOSES PRN SL Prn Chest Pain 03/09/19 14:00 04/08/19 13:59 Ondansetron HCl (Zofran) 4 mg Q6H PRN IVP Nausea & Vomiting 03/09/19 16:30 04/08/19 16:29 03/14/19 07:39 Potassium Chloride 100 ml @ 100 mls/hr Q1HR IVPB 03/14/19 11:00 03/14/19 14:59 03/14/19 12:25 Sodium Chloride 250 ml @ 30 mls/hr ONCE ONCE IV 03/14/19 13:00 03/14/19 21:19 03/14/19 12:24 Zolpidem Tartrate (Ambien) 5 mg HSPRN PRN ORAL Insomnia 03/09/19 14:00 03/16/19 13:59 03/13/19 00:52 Last 24 Hour Vital Signs Date Time Temp Pulse Resp B/P (MAP) Pulse Ox O2 Delivery O2 Flow Rate FiO2 03/14/19 11:00 107 135/96 03/14/19 09:17 107 135/96 03/14/19 08:00 98.4 107 22 135/96 (109) 98 03/14/19 04:00 104 03/14/19 04:00 98.5 108 18 153/95 (114) 97 03/14/19 01:20 98.5 03/14/19 00:00 98.5 105 18 157/97 (117) 98 03/14/19 00:00 111 03/14/19 00:00 111 03/13/19 21:00 Room Air 03/13/19 21:00 99.0 116 18 164/95 (118) 97 03/13/19 20:44 116 164/95 03/13/19 20:00 110 03/13/19 19:37 113 18 97 Room Air 21 03/13/19 16:00 96.6 88 20 124/70 (88) 98 03/13/19 15:08 115 03/13/19 13:20 72 03/13/19 12:17 170/98 03/13/19 12:00 96.7 65 20 170/98 (122) 96 03/13/19 11:50 102 03/13/19 09:40 79 160/95 03/13/19 08:48 Room Air 03/13/19 08:00 99.4 79 20 160/95 (116) 97 03/13/19 07:58 113 03/13/19 07:00 98 16 97 Room Air 21 03/13/19 04:00 99.4 108 18 144/92 (109) 97 03/13/19 00:38 103 03/13/19 00:00 99.5 99 18 153/90 (111) 96 03/13/19 00:00 89 03/12/19 21:46 115 152/93 03/12/19 21:00 Room Air 03/12/19 20:00 99.3 115 18 152/93 (112) 97 03/12/19 20:00 103 03/12/19 20:00 106 03/12/19 19:40 100 18 98 Room Air 21 03/12/19 16:00 98.5 106 20 159/98 (118) 97 03/12/19 16:00 103 Intake and Output 03/13/19 03/14/19 19:00 07:00 Intake Total 140 ml Balance 140 ml Intake Oral 140 ml # Voids 3 2 # Bowel Movements 1 1 Labs Test 03/12/19 06:29 03/13/19 05:52 03/14/19 05:50 White Blood Count 11.0 K/UL (4.8-10.8) 11.2 K/UL (4.8-10.8) 10.2 K/UL (4.8-10.8) Red Blood Count 4.34 M/UL (4.20-5.40) 4.31 M/UL (4.20-5.40) 4.26 M/UL (4.20-5.40) Hemoglobin 12.1 G/DL (12.0-16.0) 12.1 G/DL (12.0-16.0) 12.0 G/DL (12.0-16.0) Hematocrit 36.8 % (37.0-47.0) 36.4 % (37.0-47.0) 36.0 % (37.0-47.0) Mean Corpuscular Volume 85 FL (80-99) 84 FL (80-99) 85 FL (80-99) Mean Corpuscular Hemoglobin 27.9 PG (27.0-31.0) 28.1 PG (27.0-31.0) 28.2 PG (27.0-31.0) Mean Corpuscular Hemoglobin Concent 32.8 G/DL (32.0-36.0) 33.3 G/DL (32.0-36.0) 33.3 G/DL (32.0-36.0) Red Cell Distribution Width 12.0 % (11.6-14.8) 11.6 % (11.6-14.8) 11.6 % (11.6-14.8) Platelet Count 364 K/UL (150-450) 365 K/UL (150-450) 375 K/UL (150-450) Mean Platelet Volume 6.2 FL (6.5-10.1) 6.1 FL (6.5-10.1) 5.9 FL (6.5-10.1) Neutrophils (%) (Auto) 71.6 % (45.0-75.0) 71.2 % (45.0-75.0) 69.6 % (45.0-75.0) Lymphocytes (%) (Auto) 13.3 % (20.0-45.0) 15.5 % (20.0-45.0) 15.7 % (20.0-45.0) Monocytes (%) (Auto) 14.5 % (1.0-10.0) 12.0 % (1.0-10.0) 13.1 % (1.0-10.0) Eosinophils (%) (Auto) 0.1 % (0.0-3.0) 0.5 % (0.0-3.0) 0.9 % (0.0-3.0) Basophils (%) (Auto) 0.5 % (0.0-2.0) 0.8 % (0.0-2.0) 0.7 % (0.0-2.0) Sodium Level 135 MMOL/L (136-145) 130 MMOL/L (136-145) 132 MMOL/L (136-145) Potassium Level 2.9 MMOL/L (3.5-5.1) 3.2 MMOL/L (3.5-5.1) 2.9 MMOL/L (3.5-5.1) Chloride Level 98 MMOL/L (98-107) 95 MMOL/L (98-107) 97 MMOL/L (98-107) Carbon Dioxide Level 29 MMOL/L (21-32) 26 MMOL/L (21-32) 26 MMOL/L (21-32) Anion Gap 9 mmol/L (5-15) 9 mmol/L (5-15) 9 mmol/L (5-15) Blood Urea Nitrogen 15 mg/dL (7-18) 5 mg/dL (7-18) 5 mg/dL (7-18) Creatinine 0.7 MG/DL (0.55-1.30) 0.5 MG/DL (0.55-1.30) 0.6 MG/DL (0.55-1.30) Estimat Glomerular Filtration Rate > 60 mL/min (>60) > 60 mL/min (>60) > 60 mL/min (>60) Glucose Level 130 MG/DL (74-106) 125 MG/DL (74-106) 128 MG/DL (74-106) Calcium Level 9.1 MG/DL (8.5-10.1) 9.3 MG/DL (8.5-10.1) 9.2 MG/DL (8.5-10.1) Osmolality 270 mOsm/kg (297-317) Uric Acid 1.7 MG/DL (2.6-7.2) Phosphorus Level 3.0 MG/DL (2.5-4.9) Magnesium Level 1.5 MG/DL (1.8-2.4) Total Bilirubin 0.7 MG/DL (0.2-1.0) Direct Bilirubin 0.1 MG/DL (0.0-0.3) Aspartate Amino Transf (AST/SGOT) 23 U/L (15-37) Alanine Aminotransferase (ALT/SGPT) 17 U/L (12-78) Alkaline Phosphatase 107 U/L (46-116) Total Protein 6.7 G/DL (6.4-8.2) Albumin 3.5 G/DL (3.4-5.0) Triglycerides Level 40 MG/DL (30-150) Cholesterol Level 136 MG/DL (< 200) LDL Cholesterol 59 mg/dL (<100) HDL Cholesterol 61 MG/DL (40-60) Cholesterol/HDL Ratio 2.2 (3.3-4.4) Thyroid Stimulating Hormone (TSH) 2.640 uiU/mL (0.358-3.740) Height (Feet): 5 Height (Inches): 5.00 Weight (Pounds): 132 Objective Physical Exam General: alert, cooperative, no distress, appears stated age Lungs: clear to auscultation bilaterally CV: rrr, S1, S2 normal, no murmur, click, rub or gallop Abd: soft, non-tender. left lower quad pain noted no guarding Ext: no cce Pulses: 1-2+ and symmetric Skin: Skin color, texture, turgor normal. No rashes or lesions Neurologic: Grossly normal Lester Hawthorne MD Mar 14, 2019 12:39
[2019-03-14] MEDS ORDERED: NaCl 3% 500ml 250 ML IV ONE (13:00)
--- NOTE | 2019-03-14 13:25 | Consultation ---
History of Present Illness General Date patient seen: Mar 13, 2019 Chief Complaint: Abdominal Pain Present Illness HPI 69-year-old female with a recent diagnosis of pancreatic cancer and pancreatitis with biliary dilatation, presented to ER with CC of constant abdominal pain. Pain is 10 out of 10. she was just discharged from [facility] for the same symptoms. she came to [facility] because the wait time in [facility] ER is too long for her. Allergies: Coded Allergies: NSAIDS (NON-STEROIDAL ANTI-INFLAMMA (Verified Allergy, Severe, Anaphylaxis , 01/30/19) ASPIRIN (Verified Allergy, Unknown, 02/26/19) LEVOFLOXACIN (Verified Allergy, Unknown, 02/26/19) Medication History Scheduled Amlodipine Besylate* (Amlodipine Besylate*), 10 MG ORAL DAILY, (Reported) Lisinopril (Lisinopril*), 40 MG ORAL DAILY, (Reported) Multivitamin With Minerals (Multivitamins With Minerals*), 1 TAB ORAL DAILY, ( Reported) Pantoprazole Sodium (Protonix), 20 MG ORAL EVERY 12 HOURS Scheduled PRN Ondansetron (Zofran), 4 MG ORAL Q6H PRN Miscellaneous Medications Dextran 70/Hypromellose/Pf (Artificial Tears Drops), 1 EACH OP, (Reported) Flaxseed Oil (Flax Seed Oil), 1,000 MG PO, (Reported) [Vit B12], Unknown Dose ORAL, (Reported) Discontinued Medications Famotidine (Pepcid Ac), 20 MG PO, (Reported) Discontinued Reason: Pt stopped taking med Hydromorphone Hcl (Hydromorphone Hcl), 2 MG ORAL EVERY 3 HOURS PRN for For Pain, (Reported) Discontinued Reason: Pt stopped taking med Tramadol Hcl* (Ultram*), 50 MG ORAL Q6H PRN for For Pain, (Reported) Discontinued Reason: Pt stopped taking med Zolpidem Tartrate* (Ambien*), 10 MG ORAL HS PRN for Insomnia, (Reported) Discontinued Reason: Pt stopped taking med Patient History Healthcare decision maker Resuscitation status Full Code Advanced Directive on File No Past Medical/Surgical History Past Medical/Surgical History: (1) Pancreatitis (2) History of hypertension (3) Pancreatic mass Review of Systems Constitutional: Reports: no symptoms Eye: Reports: no symptoms Gastrointestinal: Reports: abdominal pain, diarrhea Physical Exam General Appearance: WD/WN Lines, tubes and drains: peripheral HEENT: normocephalic, atraumatic Neck: non-tender, normal alignment Respiratory/Chest: chest wall non-tender, normal breath sounds Cardiovascular/Chest: normal peripheral pulses, normal rate Abdomen: normal bowel sounds, soft Genitourinary/Rectal: normal genital exam Last 24 Hour Vital Signs Date Time Temp Pulse Resp B/P (MAP) Pulse Ox O2 Delivery O2 Flow Rate FiO2 03/14/19 12:00 98.1 102 22 162/95 (117) 96 03/14/19 11:00 107 135/96 03/14/19 09:17 107 135/96 03/14/19 09:00 Room Air 03/14/19 08:00 98.4 107 22 135/96 (109) 98 03/14/19 08:00 102 03/14/19 04:00 104 03/14/19 04:00 98.5 108 18 153/95 (114) 97 03/14/19 01:20 98.5 03/14/19 00:00 98.5 105 18 157/97 (117) 98 03/14/19 00:00 111 03/14/19 00:00 111 03/13/19 21:00 Room Air 03/13/19 21:00 99.0 116 18 164/95 (118) 97 03/13/19 20:44 116 164/95 03/13/19 20:00 110 03/13/19 19:37 113 18 97 Room Air 21 03/13/19 16:00 96.6 88 20 124/70 (88) 98 03/13/19 15:08 115 Intake and Output 03/13/19 03/14/19 19:00 07:00 Intake Total 140 ml Balance 140 ml Intake Oral 140 ml # Voids 3 2 # Bowel Movements 1 1 Laboratory Tests Test 03/14/19 05:50 White Blood Count 10.2 K/UL (4.8-10.8) Red Blood Count 4.26 M/UL (4.20-5.40) Hemoglobin 12.0 G/DL (12.0-16.0) Hematocrit 36.0 % (37.0-47.0) L Mean Corpuscular Volume 85 FL (80-99) Mean Corpuscular Hemoglobin 28.2 PG (27.0-31.0) Mean Corpuscular Hemoglobin Concent 33.3 G/DL (32.0-36.0) Red Cell Distribution Width 11.6 % (11.6-14.8) Platelet Count 375 K/UL (150-450) Mean Platelet Volume 5.9 FL (6.5-10.1) L Neutrophils (%) (Auto) 69.6 % (45.0-75.0) Lymphocytes (%) (Auto) 15.7 % (20.0-45.0) L Monocytes (%) (Auto) 13.1 % (1.0-10.0) H Eosinophils (%) (Auto) 0.9 % (0.0-3.0) Basophils (%) (Auto) 0.7 % (0.0-2.0) Sodium Level 132 MMOL/L (136-145) L Potassium Level 2.9 MMOL/L (3.5-5.1) L Chloride Level 97 MMOL/L (98-107) L Carbon Dioxide Level 26 MMOL/L (21-32) Anion Gap 9 mmol/L (5-15) Blood Urea Nitrogen 5 mg/dL (7-18) L Creatinine 0.6 MG/DL (0.55-1.30) Estimat Glomerular Filtration Rate > 60 mL/min (>60) Glucose Level 128 MG/DL (74-106) H Osmolality 270 mOsm/kg (297-317) L Uric Acid 1.7 MG/DL (2.6-7.2) L Calcium Level 9.2 MG/DL (8.5-10.1) Phosphorus Level 3.0 MG/DL (2.5-4.9) Magnesium Level 1.5 MG/DL (1.8-2.4) L Total Bilirubin 0.7 MG/DL (0.2-1.0) Direct Bilirubin 0.1 MG/DL (0.0-0.3) Aspartate Amino Transf (AST/SGOT) 23 U/L (15-37) Alanine Aminotransferase (ALT/SGPT) 17 U/L (12-78) Alkaline Phosphatase 107 U/L (46-116) Total Protein 6.7 G/DL (6.4-8.2) Albumin 3.5 G/DL (3.4-5.0) Triglycerides Level 40 MG/DL (30-150) Cholesterol Level 136 MG/DL (< 200) LDL Cholesterol 59 mg/dL (<100) HDL Cholesterol 61 MG/DL (40-60) H Cholesterol/HDL Ratio 2.2 (3.3-4.4) L Thyroid Stimulating Hormone (TSH) 2.640 uiU/mL (0.358-3.740) Height (Feet): 5 Height (Inches): 5.00 Weight (Pounds): 132 Medications Current Medications Medications (Trade) Dose Ordered Sig/Angelito Route PRN Reason Start Time Stop Time Status Last Admin Dose Admin Acetaminophen (Tylenol) 650 mg Q4H PRN ORAL Mild Pain (Pain Scale 1-3) 03/09/19 14:00 04/08/19 13:59 Albuterol/ Ipratropium (Albuterol/ Ipratropium) 3 ml Q6H PRN HHN Shortness of Breath 03/09/19 14:00 03/14/19 13:59 Dextrose (Dextrose 50%) 25 ml Q30M PRN IV Hypoglycemia 03/09/19 14:00 04/08/19 13:59 Dextrose (Dextrose 50%) 50 ml Q30M PRN IV Hypoglycemia 03/09/19 14:00 04/08/19 13:59 Enoxaparin Sodium (Lovenox) 40 mg Q24H SUBQ 03/09/19 15:00 04/08/19 14:59 03/13/19 15:38 Hydralazine HCl (Apresoline) 10 mg Q2H PRN IV For High Blood Pressure 03/09/19 22:30 04/08/19 22:29 03/13/19 12:17 Hydromorphone HCl (Dilaudid) 1 mg Q4H PRN IVP For Pain 03/14/19 10:30 03/21/19 10:29 Lorazepam (Ativan 2mg/ml 1ml) 1 mg Q4H PRN IV For Anxiety 03/10/19 06:00 03/17/19 05:59 Lorazepam (Ativan) 1 mg Q4H PRN ORAL For Anxiety 03/09/19 14:00 03/16/19 13:59 Magnesium Hydroxide (Mom) 30 ml HSPRN PRN ORAL Constipation 03/09/19 14:00 04/08/19 13:59 Metoclopramide HCl (Reglan) 10 mg THREE TIMES A DAY ORAL 03/14/19 10:30 04/13/19 10:29 Metoprolol Tartrate (Lopressor) 12.5 mg Q12HR ORAL 03/14/19 21:00 04/13/19 20:59 Metoprolol Tartrate 2.5 mg/ Dextrose 57.5 ml @ 120 mls/hr Q6H PRN IVPB BP over 160 03/14/19 10:45 04/13/19 10:44 Nitroglycerin (Ntg) 0.4 mg Q5M X 3 DOSES PRN SL Prn Chest Pain 03/09/19 14:00 04/08/19 13:59 Ondansetron HCl (Zofran) 4 mg Q6H PRN IVP Nausea & Vomiting 03/09/19 16:30 04/08/19 16:29 03/14/19 07:39 Potassium Chloride 100 ml @ 100 mls/hr Q1HR IVPB 03/14/19 11:00 03/14/19 14:59 03/14/19 12:25 Sodium Chloride 250 ml @ 30 mls/hr ONCE ONCE IV 03/14/19 13:00 03/14/19 21:19 03/14/19 12:24 Zolpidem Tartrate (Ambien) 5 mg HSPRN PRN ORAL Insomnia 03/09/19 14:00 03/16/19 13:59 03/13/19 00:52 Assessment/Plan Problem List: (1) Pancreatic cancer ICD Codes: C25.9 - Malignant neoplasm of pancreas, unspecified SNOMED: 892227633 Qualifiers: Qualified Codes: C25.9 - Malignant neoplasm of pancreas, unspecified (2) Pancreatic mass ICD Codes: K86.9 - Disease of pancreas, unspecified SNOMED: 138483728 (3) Pancreatitis ICD Codes: K85.90 - Acute pancreatitis without necrosis or infection, unspecified SNOMED: 91853631 (4) Abdominal pain ICD Codes: R10.9 - Unspecified abdominal pain SNOMED: [id number] Qualifiers: Qualified Codes: R10.13 - Epigastric pain Assessment/Plan: NPO symptomatic treatment pain management check electrolytes dvt prophylaxis. transfer to [facility] when bed available Nicolle Cazares MD Mar 14, 2019 13:25
--- NOTE | 2019-03-14 13:26 | Pulmonology Progress Note ---
Assessment/Plan Problems: (1) Pancreatic cancer (2) Pancreatic mass (3) Pancreatitis (4) Abdominal pain Assessment/Plan clear liquid symptomatic treatment pain management check electrolytes dvt prophylaxis. transfer to [facility] when bed available talked to Juan R at [facility] transfer center. Subjective ROS Limited/Unobtainable: No Constitutional: Reports: no symptoms HEENT: Repors: no symptoms Allergies: Coded Allergies: NSAIDS (NON-STEROIDAL ANTI-INFLAMMA (Verified Allergy, Severe, Anaphylaxis , 01/30/19) ASPIRIN (Verified Allergy, Unknown, 02/26/19) LEVOFLOXACIN (Verified Allergy, Unknown, 02/26/19) Objective Last 24 Hour Vital Signs Date Time Temp Pulse Resp B/P (MAP) Pulse Ox O2 Delivery O2 Flow Rate FiO2 03/14/19 12:00 98.1 102 22 162/95 (117) 96 03/14/19 11:00 107 135/96 03/14/19 09:17 107 135/96 03/14/19 09:00 Room Air 03/14/19 08:00 98.4 107 22 135/96 (109) 98 03/14/19 08:00 102 03/14/19 04:00 104 03/14/19 04:00 98.5 108 18 153/95 (114) 97 03/14/19 01:20 98.5 03/14/19 00:00 98.5 105 18 157/97 (117) 98 03/14/19 00:00 111 03/14/19 00:00 111 03/13/19 21:00 Room Air 03/13/19 21:00 99.0 116 18 164/95 (118) 97 03/13/19 20:44 116 164/95 03/13/19 20:00 110 03/13/19 19:37 113 18 97 Room Air 21 03/13/19 16:00 96.6 88 20 124/70 (88) 98 03/13/19 15:08 115 Intake and Output 03/13/19 03/14/19 19:00 07:00 Intake Total 140 ml Balance 140 ml Intake Oral 140 ml # Voids 3 2 # Bowel Movements 1 1 General Appearance: WD/WN HEENT: normocephalic Respiratory/Chest: chest wall non-tender, lungs clear Breasts: no masses Cardiovascular: normal peripheral pulses, normal rate Abdomen: normal bowel sounds, no organomegaly Genitourinary: normal external genitalia Skin: no rash Neurologic/Psychiatric: parts runner II-XII grossly normal Lymphatic: no neck adenopathy Laboratory Tests 03/14/19 05:50: White Blood Count 10.2, Red Blood Count 4.26, Hemoglobin 12.0, Hematocrit 36.0L , Mean Corpuscular Volume 85, Mean Corpuscular Hemoglobin 28.2, Mean Corpuscular Hemoglobin Concent 33.3, Red Cell Distribution Width 11.6, Platelet Count 375, Mean Platelet Volume 5.9L, Neutrophils (%) (Auto) 69.6, Lymphocytes ( %) (Auto) 15.7L, Monocytes (%) (Auto) 13.1H, Eosinophils (%) (Auto) 0.9, Basophils (%) (Auto) 0.7, Sodium Level 132L, Potassium Level 2.9L, Chloride Level 97L, Carbon Dioxide Level 26, Anion Gap 9, Blood Urea Nitrogen 5L, Creatinine 0.6, Estimat Glomerular Filtration Rate > 60, Glucose Level 128H, Osmolality 270L, Uric Acid 1.7L, Calcium Level 9.2, Phosphorus Level 3.0, Magnesium Level 1.5L, Total Bilirubin 0.7, Direct Bilirubin 0.1, Aspartate Amino Transf (AST/SGOT) 23, Alanine Aminotransferase (ALT/SGPT) 17, Alkaline Phosphatase 107, Total Protein 6.7, Albumin 3.5, Triglycerides Level 40, Cholesterol Level 136, LDL Cholesterol 59, HDL Cholesterol 61H, Cholesterol/HDL Ratio 2.2L, Thyroid Stimulating Hormone (TSH) 2.640 Current Medications Medications (Trade) Dose Ordered Sig/Angelito Route PRN Reason Start Time Stop Time Status Last Admin Dose Admin Acetaminophen (Tylenol) 650 mg Q4H PRN ORAL Mild Pain (Pain Scale 1-3) 03/09/19 14:00 04/08/19 13:59 Albuterol/ Ipratropium (Albuterol/ Ipratropium) 3 ml Q6H PRN HHN Shortness of Breath 03/09/19 14:00 03/14/19 13:59 Dextrose (Dextrose 50%) 25 ml Q30M PRN IV Hypoglycemia 03/09/19 14:00 04/08/19 13:59 Dextrose (Dextrose 50%) 50 ml Q30M PRN IV Hypoglycemia 03/09/19 14:00 04/08/19 13:59 Enoxaparin Sodium (Lovenox) 40 mg Q24H SUBQ 03/09/19 15:00 04/08/19 14:59 03/13/19 15:38 Hydralazine HCl (Apresoline) 10 mg Q2H PRN IV For High Blood Pressure 03/09/19 22:30 04/08/19 22:29 03/13/19 12:17 Hydromorphone HCl (Dilaudid) 1 mg Q4H PRN IVP For Pain 03/14/19 10:30 03/21/19 10:29 Lorazepam (Ativan 2mg/ml 1ml) 1 mg Q4H PRN IV For Anxiety 03/10/19 06:00 03/17/19 05:59 Lorazepam (Ativan) 1 mg Q4H PRN ORAL For Anxiety 03/09/19 14:00 03/16/19 13:59 Magnesium Hydroxide (Mom) 30 ml HSPRN PRN ORAL Constipation 03/09/19 14:00 04/08/19 13:59 Metoclopramide HCl (Reglan) 10 mg THREE TIMES A DAY ORAL 03/14/19 10:30 04/13/19 10:29 Metoprolol Tartrate (Lopressor) 12.5 mg Q12HR ORAL 03/14/19 21:00 04/13/19 20:59 Metoprolol Tartrate 2.5 mg/ Dextrose 57.5 ml @ 120 mls/hr Q6H PRN IVPB BP over 160 03/14/19 10:45 04/13/19 10:44 Nitroglycerin (Ntg) 0.4 mg Q5M X 3 DOSES PRN SL Prn Chest Pain 03/09/19 14:00 04/08/19 13:59 Ondansetron HCl (Zofran) 4 mg Q6H PRN IVP Nausea & Vomiting 03/09/19 16:30 04/08/19 16:29 03/14/19 07:39 Potassium Chloride 100 ml @ 100 mls/hr Q1HR IVPB 03/14/19 11:00 03/14/19 14:59 03/14/19 12:25 Sodium Chloride 250 ml @ 30 mls/hr ONCE ONCE IV 03/14/19 13:00 03/14/19 21:19 03/14/19 12:24 Zolpidem Tartrate (Ambien) 5 mg HSPRN PRN ORAL Insomnia 03/09/19 14:00 03/16/19 13:59 03/13/19 00:52 Nicolle Cazares MD Mar 14, 2019 13:26
[2019-03-14] MEDS: Enoxaparin 40mg Inj SUBQ SCH (14:33)
--- NOTE | 2019-03-14 14:37 | NUR ---
DISCHARGE PLANNING Discharge order noted [facility], verified acceptance [id number] [id number], [place], [id number]
[2019-03-14] MEDS ORDERED: Morphine Sulfate 2mg/ml Inj(IV/IM USE ONLY) IVP PRN (15:15)
[2019-03-14 16:00] VITALS: BP 158/109
--- NOTE | 2019-03-14 16:00 | NUR ---
NURSE NOTES: Debra RN brought patient by bed in stable condition. Alert and oriented x4. No complain of pain or distress at this time. Skin intact and dry. IV dressing intact and dry. Belonging checked with Debra MENCHACA and Charge nurse and patient but lost money hundred dollar. Lining Baster notified and incident report made. Bed lowest position. Call light within reach. Will continue to monitor.
--- NOTE | 2019-03-14 16:00 | NUR ---
NURSE NOTES: Patient transferred to [facility] 3E, and report given to Marc/RN, Patient is alert and Oriented x4, No sign of distress at this time. Pain medication given before transfer, denies pain at this time. Belonging check done, $100 missing, Fire Suppression Captain and charge nurse notified. Endorsed plan of care.
--- NOTE | 2019-03-14 16:37 | NUR ---
PUBLIC HOUSING INTERVIEWER NOTES SPOKE WITH [facility], F[facility] SHEET FAXED TO [phone]. VERIFIED RECEIPT. NO BEDS @ THIS TIME.WILL FOLLOW UP IN AM.
[2019-03-14] MEDS ORDERED: Nitroglycerin Subl 0.4mg tab SL PRN (16:45)
[2019-03-14] MEDS ORDERED: LORazepam Inj 2mg/ml 1ml IV PRN (17:00)
[2019-03-14] MEDS ORDERED: LORazepam 1mg tab ORAL PRN (17:00)
--- NOTE | 2019-03-14 19:26 | NUR ---
HAND-OFF: Report given to Charity MENCHACA. Patient in stable condition.
[2019-03-14 20:00] VITALS: BP 163/94
--- NOTE | 2019-03-14 20:00 | NUR ---
NURSE NOTES: Received patient awake in bed, assisted to bathroom, family at bedside. Fall and safety precautions taken. IV access asymptomatic running NS KVO.
[2019-03-14] MEDS: Metoprolol Tartrate 12.5mg TAB ORAL SCH (20:17)
[2019-03-14] MEDS ORDERED: Milk of Magnesia 30ml Ud ORAL PRN (21:00)
[2019-03-14] MEDS ORDERED: Zolpidem 5mg tab ORAL PRN (21:00)
[2019-03-15] VITALS (7 sets, daily range): BP systolic 138–153; BP diastolic 76–92
[2019-03-15] MEDS: Morphine Sulfate 2mg/ml Inj(IV/IM USE ONLY) IVP PRN ×4 (01:27→18:01)
--- NOTE | 2019-03-15 07:30 | NUR ---
NURSE NOTES: WALKING ROUNDS DONE WITH OUTGOING RN. PATIENT ASLEEP IN BED. RR EVEN UNLABORED. BED IN LOWEST AND LOCKED POSITION. CALL LIGHT WITHIN REACH.
--- NOTE | 2019-03-15 07:30 | NUR ---
HAND-OFF: Report given to NIKOLAI Cox.
[2019-03-15] MEDS: Metoprolol Tartrate 12.5mg TAB ORAL SCH ×3 (09:12→21:18)
--- NOTE | 2019-03-15 09:28 | General Progress Note ---
Assessment/Plan Assessment/Plan: (1) Intractable Abdominal pain (2) Pancreatic Cancer Pt will be continued on Morphine D/w Dr. Godinez and he concurred. Subjective Date patient seen: Mar 15, 2019 Time patient seen: 08:15 - am Allergies: Coded Allergies: NSAIDS (NON-STEROIDAL ANTI-INFLAMMA (Verified Allergy, Severe, Anaphylaxis , 01/30/19) ASPIRIN (Verified Allergy, Unknown, 02/26/19) LEVOFLOXACIN (Verified Allergy, Unknown, 02/26/19) Subjective Constitutional: Reports: weakness HEENT: Reports: no symptoms Cardiovascular: Reports: no symptoms Respiratory: Reports: no symptoms Gastrointestinal/Abdominal: Reports: abdominal pain Genitourinary: Reports: no symptoms Neurologic/Psychiatric: Reports: weakness Endocrine: Reports: no symptoms Hematologic/Lymphatic: Reports: no symptoms Subjective Patient is in bed reports that her pain has been better tolerated on the Morphine, was started on Dilaudid by another healthcare practitioner which patient reports she does not want and only is having relief on the Morphine. Objective Last 24 Hour Vital Signs Date Time Temp Pulse Resp B/P (MAP) Pulse Ox O2 Delivery O2 Flow Rate FiO2 03/15/19 09:12 102 142/79 03/15/19 08:00 99.0 102 16 142/79 (100) 98 03/15/19 06:32 97.4 03/15/19 04:00 97.4 72 18 141/92 (108) 97 03/15/19 00:00 98.0 92 18 152/91 (111) 96 03/14/19 22:52 Room Air 03/14/19 21:00 110 18 95 Room Air 21 03/14/19 20:17 113 158/109 03/14/19 20:00 99.3 103 19 163/94 (117) 96 03/14/19 16:00 99.2 113 20 158/109 (125) 96 03/14/19 12:00 98.1 102 22 162/95 (117) 96 03/14/19 12:00 88 03/14/19 11:00 107 135/96 Intake and Output 03/14/19 03/15/19 19:00 07:00 Intake Total 480 ml Balance 480 ml Intake Oral 480 ml # Voids 2 # Bowel Movements 1 1 Laboratory Tests 03/15/19 08:30: Sodium Level [Pending], Potassium Level [Pending], Chloride Level [Pending], Carbon Dioxide Level [Pending], Blood Urea Nitrogen [Pending], Creatinine [ Pending], Estimat Glomerular Filtration Rate [Pending], Glucose Level [Pending] , Uric Acid [Pending], Calcium Level [Pending], Phosphorus Level [Pending], Magnesium Level [Pending], Total Bilirubin [Pending], Aspartate Amino Transf ( AST/SGOT) [Pending], Alanine Aminotransferase (ALT/SGPT) [Pending], Alkaline Phosphatase [Pending], Total Protein [Pending], Albumin [Pending], Globulin [ Pending] Height (Feet): 5 Height (Inches): 5.00 Weight (Pounds): 132 Objective General Appearance: no apparent distress, alert EENT: PERRL/EOMI, normal ENT inspection Neck: non-tender, normal alignment Cardiovascular: normal rate, regular rhythm Respiratory/Chest: lungs clear, normal breath sounds Abdomen: tender Extremities: non-tender Edema: no edema noted Arm (L) Neurologic: alert, oriented x 3 Skin: warm/dry Crispin Sharma Mar 15, 2019 09:28
[2019-03-15 09:35] LABS: ALANINE AMINOTRANSFERASE 19 U/L (12-78); ALBUMIN 3.3 G/DL (3.4-5.0); ALBUMIN/GLOBULIN RATIO 0.9 (1.0-2.7); ALKALINE PHOSPHATASE 108 U/L (46-116); ANION GAP 8 mmol/L (5-15); ASPARTATE AMINO TRANSFERASE 23 U/L (15-37); BILIRUBIN,TOTAL 0.8 MG/DL (0.2-1.0); BLOOD UREA NITROGEN 6 mg/dL (7-18); CALCIUM 9.3 MG/DL (8.5-10.1); CARBON DIOXIDE 29 MMOL/L (21-32); CHLORIDE 95 MMOL/L (98-107); CREATININE 0.6 MG/DL (0.55-1.30); PHOSPHORUS 3.1 MG/DL (2.5-4.9); POTASSIUM 3.2 MMOL/L (3.5-5.1); SODIUM 132 MMOL/L (136-145)
--- NOTE | 2019-03-15 10:11 | Cardiology Progress Note ---
Assessment/Plan Status: stable Assessment/Plan Assessment/Plan Assessment/Plan 1. Hypertension. Controlled On metoprolol 5 mg IV every 12 hours and p.r.n. iv hydralazine. Unable to tolerate PO yet 2. Pancreatic cancer, status post common bile duct stent placement, awaiting transfer to [facility] 3. Tachycardia. Resolved 4. Severe hypokalemia. Replete prn Subjective Cardiovascular: Reports: no symptoms Respiratory: Reports: no symptoms Gastrointestinal/Abdominal: Reports: no symptoms Genitourinary: Reports: no symptoms Subjective coverage for [employer] No acute events, no distress, no pain, vitals stable, nursing notes reviewed Objective Last 24 Hour Vital Signs Date Time Temp Pulse Resp B/P (MAP) Pulse Ox O2 Delivery O2 Flow Rate FiO2 03/15/19 09:12 102 142/79 03/15/19 08:00 99.0 102 16 142/79 (100) 98 03/15/19 06:32 97.4 03/15/19 04:00 97.4 72 18 141/92 (108) 97 03/15/19 00:00 98.0 92 18 152/91 (111) 96 03/14/19 22:52 Room Air 03/14/19 21:00 110 18 95 Room Air 21 03/14/19 20:17 113 158/109 03/14/19 20:00 99.3 103 19 163/94 (117) 96 03/14/19 16:00 99.2 113 20 158/109 (125) 96 03/14/19 12:00 98.1 102 22 162/95 (117) 96 03/14/19 12:00 88 03/14/19 11:00 107 135/96 General Appearance: no apparent distress, alert EENT: PERRL/EOMI, normal ENT inspection, TMs normal, pharynx normal Neck: non-tender, normal alignment, supple, normal inspection, no JVD Rhythm: NSR Cardiovascular: normal peripheral pulses, normal rate, regular rhythm Respiratory/Chest: chest wall non-tender, lungs clear, normal breath sounds, no respiratory distress, no accessory muscle use Abdomen: normal bowel sounds, non tender, soft, no organomegaly, no mass Extremities: normal range of motion, non-tender, normal inspection, no calf tenderness, no swelling Neurologic: senior drafter II-XII grossly normal, no motor/sensory deficits Intake and Output 03/14/19 03/15/19 19:00 07:00 Intake Total 480 ml Balance 480 ml Intake Oral 480 ml # Voids 2 # Bowel Movements 1 1 Laboratory Tests Test 03/15/19 08:30 Sodium Level 132 MMOL/L (136-145) L Potassium Level 3.2 MMOL/L (3.5-5.1) L Chloride Level 95 MMOL/L (98-107) L Carbon Dioxide Level 29 MMOL/L (21-32) Anion Gap 8 mmol/L (5-15) Blood Urea Nitrogen 6 mg/dL (7-18) L Creatinine 0.6 MG/DL (0.55-1.30) Estimat Glomerular Filtration Rate > 60 mL/min (>60) Glucose Level 97 MG/DL (74-106) Uric Acid 2.0 MG/DL (2.6-7.2) L Calcium Level 9.3 MG/DL (8.5-10.1) Phosphorus Level 3.1 MG/DL (2.5-4.9) Magnesium Level 1.4 MG/DL (1.8-2.4) L Total Bilirubin 0.8 MG/DL (0.2-1.0) Aspartate Amino Transf (AST/SGOT) 23 U/L (15-37) Alanine Aminotransferase (ALT/SGPT) 19 U/L (12-78) Alkaline Phosphatase 108 U/L (46-116) Total Protein 7.0 G/DL (6.4-8.2) Albumin 3.3 G/DL (3.4-5.0) L Globulin 3.7 g/dL Albumin/Globulin Ratio 0.9 (1.0-2.7) L Nii Ortega MD Mar 15, 2019 10:11
--- NOTE | 2019-03-15 11:08 | NUR ---
MACHINE SHOP HELPER NOTES SPOKE WITH STACEY FROM [facility], UPDATED CLINICALS FAXED.LIVER TEAM TO REVIEW THE CASE FOR ACCEPTANCE. WAITING FOR CALL BACK.NO ACCEPTING TEAM AT THIS TIME.PT MADE AWARE. Addendum: 03/15/19 at 1526 by EZEKIEL JAIN RN RN SPOKE WITH STACEY FROM [facility], FAXED RECEIVED. WAITING FOR ACCEPTING MD.WILL FOLLOW UP.
--- NOTE | 2019-03-15 11:19 | NUR ---
RD ASSESSMENT & RECOMMENDATIONS SEE CARE ACTIVITY FOR COMPLETE ASSESSMENT DAILY ESTIMATED NEEDS: Needs based on Cancer 59.5 kg 25-35 kcals/kg 0020-7483 total kcals 1-2 g protein/kg 60-120 g total protein 25-30 mL/kg 8355-3561 total fluid mLs NUTRITION DIAGNOSIS: * Altered GI function r/t pancreatic cancer as evidenced by c/o n/v and abdominal pain, w/ improving PO intake and tolerance at this time. * Unintentional wt loss R/T catabolic dx of CA and poor PO acceptance and tolerance as evidenced by possible significant wt loss of 14.1lbs/9.7% in 1mo. CURRENT DIET:REGULAR PO DIET RECOMMENDATIONS: Regular diet as tolerated ADDITIONAL RECOMMENDATIONS: 1) Obtain weekly weights: possible recent significant wt loss -> at risk for further wt loss due to CA dx, poor PO tolerance + acceptance 2) Rec routine zofran prior to meal time -> to improve PO tolerance and acceptance 3) Monitor lytes, replete as needed 4) Consider appetite stimulant for improved PO intake
--- NOTE | 2019-03-15 11:54 | Pulmonology Progress Note ---
Assessment/Plan Problems: (1) Pancreatic cancer (2) Pancreatic mass (3) Pancreatitis (4) Abdominal pain Assessment/Plan clear liquid symptomatic treatment pain management check electrolytes dvt prophylaxis. transfer to [facility] when bed available talked to Juan R at [facility] transfer center. made a follow up call to [facility], they are working on transferring her to [facility] Subjective ROS Limited/Unobtainable: No Constitutional: Reports: no symptoms HEENT: Repors: no symptoms Allergies: Coded Allergies: NSAIDS (NON-STEROIDAL ANTI-INFLAMMA (Verified Allergy, Severe, Anaphylaxis , 01/30/19) ASPIRIN (Verified Allergy, Unknown, 02/26/19) LEVOFLOXACIN (Verified Allergy, Unknown, 02/26/19) Objective Last 24 Hour Vital Signs Date Time Temp Pulse Resp B/P (MAP) Pulse Ox O2 Delivery O2 Flow Rate FiO2 03/15/19 11:40 99.1 80 16 153/81 (105) 98 03/15/19 09:12 102 142/79 03/15/19 09:00 Room Air 03/15/19 08:00 99.0 102 16 142/79 (100) 98 03/15/19 06:32 97.4 03/15/19 04:00 97.4 72 18 141/92 (108) 97 03/15/19 00:00 98.0 92 18 152/91 (111) 96 03/14/19 22:52 Room Air 03/14/19 21:00 110 18 95 Room Air 21 03/14/19 20:17 113 158/109 03/14/19 20:00 99.3 103 19 163/94 (117) 96 03/14/19 16:00 99.2 113 20 158/109 (125) 96 03/14/19 12:00 98.1 102 22 162/95 (117) 96 03/14/19 12:00 88 Intake and Output 03/14/19 03/15/19 19:00 07:00 Intake Total 480 ml Balance 480 ml Intake Oral 480 ml # Voids 2 # Bowel Movements 1 1 General Appearance: WD/WN, no acute distress HEENT: atraumatic Respiratory/Chest: chest wall non-tender, lungs clear Cardiovascular: normal peripheral pulses, no JVD Abdomen: normal bowel sounds, soft, non tender Genitourinary: normal external genitalia Extremities: no clubbing Skin: no rash Laboratory Tests 03/15/19 08:30: Sodium Level 132L, Potassium Level 3.2L, Chloride Level 95L, Carbon Dioxide Level 29, Anion Gap 8, Blood Urea Nitrogen 6L, Creatinine 0.6, Estimat Glomerular Filtration Rate > 60, Glucose Level 97, Uric Acid 2.0L, Calcium Level 9.3, Phosphorus Level 3.1, Magnesium Level 1.4L, Total Bilirubin 0.8, Aspartate Amino Transf (AST/SGOT) 23, Alanine Aminotransferase (ALT/SGPT) 19, Alkaline Phosphatase 108, Total Protein 7.0, Albumin 3.3L, Globulin 3.7, Albumin /Globulin Ratio 0.9L Current Medications Medications (Trade) Dose Ordered Sig/Angelito Route PRN Reason Start Time Stop Time Status Last Admin Dose Admin Acetaminophen (Tylenol) 650 mg Q4H PRN ORAL Mild Pain (Pain Scale 1-3) 03/14/19 17:00 04/08/19 16:59 Dextrose (Dextrose 50%) 25 ml Q30M PRN IV Hypoglycemia 03/14/19 17:00 04/08/19 13:59 Dextrose (Dextrose 50%) 50 ml Q30M PRN IV Hypoglycemia 03/14/19 17:00 04/08/19 13:59 Enoxaparin Sodium (Lovenox) 40 mg Q24H SUBQ 03/15/19 15:00 04/08/19 14:59 Lorazepam (Ativan 2mg/ml 1ml) 1 mg Q4H PRN IV For Anxiety 03/14/19 17:00 03/17/19 16:59 Lorazepam (Ativan) 1 mg Q4H PRN ORAL For Anxiety 03/14/19 17:00 03/16/19 16:59 Magnesium Hydroxide (Mom) 30 ml HSPRN PRN ORAL Constipation 03/14/19 21:00 04/13/19 20:59 Magnesium Sulfate 100 ml @ 100 mls/hr Q1H IVPB 03/15/19 12:00 03/15/19 15:59 Metoclopramide HCl (Reglan) 10 mg THREE TIMES A DAY ORAL 03/14/19 18:00 04/13/19 10:29 Metoprolol Tartrate (Lopressor) 12.5 mg Q8HR ORAL 03/15/19 14:00 04/13/19 20:59 Morphine Sulfate (Morphine Sulfate) 2 mg Q4H PRN IVP For Pain 4-10 03/14/19 17:00 03/21/19 16:59 03/15/19 06:02 Nitroglycerin (Ntg) 0.4 mg Q5M X 3 DOSES PRN SL Prn Chest Pain 03/14/19 16:45 04/08/19 13:59 Ondansetron HCl (Zofran) 4 mg Q6H PRN IVP Nausea & Vomiting 03/14/19 17:00 04/08/19 16:59 03/15/19 06:03 Potassium Chloride 100 ml @ 100 mls/hr Q1H IVPB 03/15/19 12:00 03/15/19 15:59 Sodium Chloride 400 ml @ 100 mls/hr Q4H IV 03/15/19 12:00 03/15/19 15:59 Zolpidem Tartrate (Ambien) 5 mg HSPRN PRN ORAL Insomnia 03/14/19 21:00 03/21/19 20:59 Nicolle Cazares MD Mar 15, 2019 11:54
[2019-03-15] MEDS ORDERED: Sodium Chloride for KCL Premix X 4hrs IV SCH (12:00)
--- NOTE | 2019-03-15 12:01 | Nephrology Progress Note ---
Assessment/Plan Problem List: (1) Pancreatic mass (2) Intractable nausea and vomiting (3) Hyponatremia (4) Hypokalemia Assessment HypoKalemia- HypoNatremia Hypertension Pancreatic Mass / Abdominal pain / Nausea & Vomiting Plan IV K supplement and Mag 3% Saline baker for low Na etiology start PO Lopressor and Reglan Subjective ROS Limited/Unobtainable: No Constitutional: Reports: malaise, weakness Objective Objective Last 24 Hour Vital Signs Date Time Temp Pulse Resp B/P (MAP) Pulse Ox O2 Delivery O2 Flow Rate FiO2 03/15/19 11:40 99.1 80 16 153/81 (105) 98 03/15/19 09:12 102 142/79 03/15/19 09:00 Room Air 03/15/19 08:00 99.0 102 16 142/79 (100) 98 03/15/19 06:32 97.4 03/15/19 04:00 97.4 72 18 141/92 (108) 97 03/15/19 00:00 98.0 92 18 152/91 (111) 96 03/14/19 22:52 Room Air 03/14/19 21:00 110 18 95 Room Air 21 03/14/19 20:17 113 158/109 03/14/19 20:00 99.3 103 19 163/94 (117) 96 03/14/19 16:00 99.2 113 20 158/109 (125) 96 03/14/19 12:00 98.1 102 22 162/95 (117) 96 03/14/19 12:00 88 Intake and Output 03/14/19 03/15/19 19:00 07:00 Intake Total 480 ml Balance 480 ml Intake Oral 480 ml # Voids 2 # Bowel Movements 1 1 Laboratory Tests 03/15/19 08:30: Sodium Level 132L, Potassium Level 3.2L, Chloride Level 95L, Carbon Dioxide Level 29, Anion Gap 8, Blood Urea Nitrogen 6L, Creatinine 0.6, Estimat Glomerular Filtration Rate > 60, Glucose Level 97, Uric Acid 2.0L, Calcium Level 9.3, Phosphorus Level 3.1, Magnesium Level 1.4L, Total Bilirubin 0.8, Aspartate Amino Transf (AST/SGOT) 23, Alanine Aminotransferase (ALT/SGPT) 19, Alkaline Phosphatase 108, Total Protein 7.0, Albumin 3.3L, Globulin 3.7, Albumin /Globulin Ratio 0.9L Height (Feet): 5 Height (Inches): 5.00 Weight (Pounds): 132 General Appearance: no apparent distress Cardiovascular: tachycardia Respiratory/Chest: decreased breath sounds Abdomen: distended Andriy Santacruz MD Mar 15, 2019 12:01
[2019-03-15] MEDS ORDERED: NaCl 3% 500ml 250 ML IV ONE (13:00)
--- NOTE | 2019-03-15 13:15 | NUR ---
NURSE NOTES: PER PATIENT FOUND MISSING $100.0 DOLLARS AND SENT HOME WITH NEICE.
--- NOTE | 2019-03-15 14:53 | Hematology/Onc Progress Note ---
Assessment/Plan Assessment/Plan Assessment / Recs: # Pancreatic mass, 1.5x2cm in the ucinate process, appears on imaging to be stage I - there is marked extrahepatic and central intrahepatic biliary ductal dilatation, common bile duct measuring up to 19 mm in diameter, is s/p stent placement at [facility] per patient. It abruptly taper wiithin the pancreatic head, proximal to its junction with the pancreatic duct. The pancreatic duct is borderline prominent. A mildly dilated duct is seen within the pancreatic head/ uncinate, there is no peripancreatic lymphadenopathy. The gallbladder is distended but no gallstones are evident. --> imaging has been reviewed --> tumor markers reviewed CA19.9 80, cea is 11 --> biopsy proven pancreatic cancer on 02/03/19 --> await surgery as an outpatient with Dr. Jenkins --> pet scan was done (on prior imaging did have right lower lobe 4 mm 5 mm lung nodules. Suspect postinflammatory, but the possibility of neoplasm should also be considered) --> apparently had it done but does not know results --> transfer potential [facility] in near future (discussing with cm daily) # Abdominal pain - likely from pancreatic mass causing biliary obstruction. Abdominal exam okay with some upper abdominal discomfort on palpation --> as per gi could be related to abd mass --> pain management recs as per Gretchen/Crispin --> on Dilaudid prn basis # Hypokalemia --> given K, has been repleted --> fluids started # Nausea/vomiting --> zofran prn --> as per gi eval, reviewed The timing of this note does not necessarily reflect the time of the patient was seen. GREATLY APPRECIATE CONSULTATION. Subjective Constitutional: Denies: no symptoms, chills, fever, malaise, weakness, other HEENT: Denies: no symptoms, eye pain, blurred vision, tearing, double vision, ear pain, ear discharge, nose pain, nose congestion, throat pain, throat swelling, mouth pain, mouth swelling, other Cardiovascular: Denies: no symptoms, chest pain, edema, irregular heart rate, lightheadedness, palpitations, syncope, other Respiratory: Denies: no symptoms, cough, shortness of breath, SOB with excertion, SOB at rest, sputum, wheezing, other Gastrointestinal/Abdominal: Denies: no symptoms, abdomen distended, abdominal pain, black stools, tarry stools, blood in stool, constipated, diarrhea, difficulty swallowing, nausea, poor appetite, poor fluid intake, rectal bleeding , vomiting, other Genitourinary: Denies: no symptoms, burning, discharge, frequency, flank pain, hematuria, incontinence, pain, urgency, other Endocrine: Denies: no symptoms, excessive sweating, flushing, intolerance to cold, intolerance to heat, increased hunger, increased thirst, increased urine, unexplained weight gain, unexplained weight loss, other Allergies: Coded Allergies: NSAIDS (NON-STEROIDAL ANTI-INFLAMMA (Verified Allergy, Severe, Anaphylaxis , 01/30/19) ASPIRIN (Verified Allergy, Unknown, 02/26/19) LEVOFLOXACIN (Verified Allergy, Unknown, 02/26/19) Subjective 03/12: pain is better controlled, no night sweats, labs reviewed 03/13: no better, no f/c, no bleeding 03/14: labs reviewed from prior, on dilaudid, dw transfer [facility] 03/15: no events, no bleeding, no f/c no night sweats, labs reviewed Objective Objective Current Medications Medications (Trade) Dose Ordered Sig/Angelito Route PRN Reason Start Time Stop Time Status Last Admin Dose Admin Acetaminophen (Tylenol) 650 mg Q4H PRN ORAL Mild Pain (Pain Scale 1-3) 03/14/19 17:00 04/08/19 16:59 Dextrose (Dextrose 50%) 25 ml Q30M PRN IV Hypoglycemia 03/14/19 17:00 04/08/19 13:59 Dextrose (Dextrose 50%) 50 ml Q30M PRN IV Hypoglycemia 03/14/19 17:00 04/08/19 13:59 Enoxaparin Sodium (Lovenox) 40 mg Q24H SUBQ 03/15/19 15:00 04/08/19 14:59 Lorazepam (Ativan 2mg/ml 1ml) 1 mg Q4H PRN IV For Anxiety 03/14/19 17:00 03/17/19 16:59 Lorazepam (Ativan) 1 mg Q4H PRN ORAL For Anxiety 03/14/19 17:00 03/16/19 16:59 Magnesium Hydroxide (Mom) 30 ml HSPRN PRN ORAL Constipation 03/14/19 21:00 04/13/19 20:59 Magnesium Sulfate 100 ml @ 100 mls/hr Q1H IVPB 03/15/19 12:00 03/15/19 15:59 03/15/19 13:45 Metoclopramide HCl (Reglan) 10 mg THREE TIMES A DAY ORAL 03/14/19 18:00 04/13/19 10:29 Metoprolol Tartrate (Lopressor) 12.5 mg Q8HR ORAL 03/15/19 14:00 04/13/19 20:59 Morphine Sulfate (Morphine Sulfate) 2 mg Q4H PRN IVP For Pain 4-10 03/14/19 17:00 03/21/19 16:59 03/15/19 12:00 Nitroglycerin (Ntg) 0.4 mg Q5M X 3 DOSES PRN SL Prn Chest Pain 03/14/19 16:45 04/08/19 13:59 Ondansetron HCl (Zofran) 4 mg Q6H PRN IVP Nausea & Vomiting 03/14/19 17:00 04/08/19 16:59 03/15/19 12:00 Potassium Chloride 100 ml @ 100 mls/hr Q1H IVPB 03/15/19 12:00 03/15/19 15:59 Sodium Chloride 400 ml @ 100 mls/hr Q4H IV 03/15/19 12:00 03/15/19 15:59 Zolpidem Tartrate (Ambien) 5 mg HSPRN PRN ORAL Insomnia 03/14/19 21:00 03/21/19 20:59 Last 24 Hour Vital Signs Date Time Temp Pulse Resp B/P (MAP) Pulse Ox O2 Delivery O2 Flow Rate FiO2 03/15/19 12:30 99.1 03/15/19 11:40 99.1 80 16 153/81 (105) 98 03/15/19 09:12 102 142/79 03/15/19 09:00 Room Air 03/15/19 08:00 99.0 102 16 142/79 (100) 98 03/15/19 04:00 97.4 72 18 141/92 (108) 97 03/15/19 00:00 98.0 92 18 152/91 (111) 96 03/14/19 22:52 Room Air 03/14/19 21:00 110 18 95 Room Air 21 8/14/19 20:17 113 158/109 03/14/19 20:00 99.3 103 19 163/94 (117) 96 03/14/19 16:00 99.2 113 20 158/109 (125) 96 03/14/19 12:00 98.1 102 22 162/95 (117) 96 03/14/19 12:00 88 03/14/19 11:00 107 135/96 03/14/19 09:17 107 135/96 03/14/19 09:00 Room Air 03/14/19 08:00 98.4 107 22 135/96 (109) 98 03/14/19 08:00 102 03/14/19 04:00 104 03/14/19 04:00 98.5 108 18 153/95 (114) 97 03/14/19 01:20 98.5 03/14/19 00:00 98.5 105 18 157/97 (117) 98 03/14/19 00:00 111 03/14/19 00:00 111 03/13/19 21:00 Room Air 03/13/19 21:00 99.0 116 18 164/95 (118) 97 03/13/19 20:44 116 164/95 03/13/19 20:00 110 03/13/19 19:37 113 18 97 Room Air 21 03/13/19 16:00 96.6 88 20 124/70 (88) 98 03/13/19 15:08 115 Intake and Output 03/14/19 03/15/19 19:00 07:00 Intake Total 480 ml Balance 480 ml Intake Oral 480 ml # Voids 2 # Bowel Movements 1 1 Labs Test 03/13/19 05:52 03/14/19 05:50 03/15/19 08:30 White Blood Count 11.2 K/UL (4.8-10.8) 10.2 K/UL (4.8-10.8) Red Blood Count 4.31 M/UL (4.20-5.40) 4.26 M/UL (4.20-5.40) Hemoglobin 12.1 G/DL (12.0-16.0) 12.0 G/DL (12.0-16.0) Hematocrit 36.4 % (37.0-47.0) 36.0 % (37.0-47.0) Mean Corpuscular Volume 84 FL (80-99) 85 FL (80-99) Mean Corpuscular Hemoglobin 28.1 PG (27.0-31.0) 28.2 PG (27.0-31.0) Mean Corpuscular Hemoglobin Concent 33.3 G/DL (32.0-36.0) 33.3 G/DL (32.0-36.0) Red Cell Distribution Width 11.6 % (11.6-14.8) 11.6 % (11.6-14.8) Platelet Count 365 K/UL (150-450) 375 K/UL (150-450) Mean Platelet Volume 6.1 FL (6.5-10.1) 5.9 FL (6.5-10.1) Neutrophils (%) (Auto) 71.2 % (45.0-75.0) 69.6 % (45.0-75.0) Lymphocytes (%) (Auto) 15.5 % (20.0-45.0) 15.7 % (20.0-45.0) Monocytes (%) (Auto) 12.0 % (1.0-10.0) 13.1 % (1.0-10.0) Eosinophils (%) (Auto) 0.5 % (0.0-3.0) 0.9 % (0.0-3.0) Basophils (%) (Auto) 0.8 % (0.0-2.0) 0.7 % (0.0-2.0) Sodium Level 130 MMOL/L (136-145) 132 MMOL/L (136-145) 132 MMOL/L (136-145) Potassium Level 3.2 MMOL/L (3.5-5.1) 2.9 MMOL/L (3.5-5.1) 3.2 MMOL/L (3.5-5.1) Chloride Level 95 MMOL/L (98-107) 97 MMOL/L (98-107) 95 MMOL/L (98-107) Carbon Dioxide Level 26 MMOL/L (21-32) 26 MMOL/L (21-32) 29 MMOL/L (21-32) Anion Gap 9 mmol/L (5-15) 9 mmol/L (5-15) 8 mmol/L (5-15) Blood Urea Nitrogen 5 mg/dL (7-18) 5 mg/dL (7-18) 6 mg/dL (7-18) Creatinine 0.5 MG/DL (0.55-1.30) 0.6 MG/DL (0.55-1.30) 0.6 MG/DL (0.55-1.30) Estimat Glomerular Filtration Rate > 60 mL/min (>60) > 60 mL/min (>60) > 60 mL/min (>60) Glucose Level 125 MG/DL (74-106) 128 MG/DL (74-106) 97 MG/DL (74-106) Calcium Level 9.3 MG/DL (8.5-10.1) 9.2 MG/DL (8.5-10.1) 9.3 MG/DL (8.5-10.1) Osmolality 270 mOsm/kg (297-317) Uric Acid 1.7 MG/DL (2.6-7.2) 2.0 MG/DL (2.6-7.2) Phosphorus Level 3.0 MG/DL (2.5-4.9) 3.1 MG/DL (2.5-4.9) Magnesium Level 1.5 MG/DL (1.8-2.4) 1.4 MG/DL (1.8-2.4) Total Bilirubin 0.7 MG/DL (0.2-1.0) 0.8 MG/DL (0.2-1.0) Direct Bilirubin 0.1 MG/DL (0.0-0.3) Aspartate Amino Transf (AST/SGOT) 23 U/L (15-37) 23 U/L (15-37) Alanine Aminotransferase (ALT/SGPT) 17 U/L (12-78) 19 U/L (12-78) Alkaline Phosphatase 107 U/L (46-116) 108 U/L (46-116) Total Protein 6.7 G/DL (6.4-8.2) 7.0 G/DL (6.4-8.2) Albumin 3.5 G/DL (3.4-5.0) 3.3 G/DL (3.4-5.0) Triglycerides Level 40 MG/DL (30-150) Cholesterol Level 136 MG/DL (< 200) LDL Cholesterol 59 mg/dL (<100) HDL Cholesterol 61 MG/DL (40-60) Cholesterol/HDL Ratio 2.2 (3.3-4.4) Thyroid Stimulating Hormone (TSH) 2.640 uiU/mL (0.358-3.740) Globulin 3.7 g/dL Albumin/Globulin Ratio 0.9 (1.0-2.7) Height (Feet): 5 Height (Inches): 5.00 Weight (Pounds): 132 Objective Physical Exam General: alert, cooperative, no distress, appears stated age Lungs: clear to auscultation bilaterally CV: rrr, S1, S2 normal, no murmur, click, rub or gallop Abd: soft, non-tender. left lower quad pain noted no guarding Ext: no cce Pulses: 1-2+ and symmetric Skin: Skin color, texture, turgor normal. No rashes or lesions Neurologic: Grossly normal Lester Hawthorne MD Mar 15, 2019 14:53
[2019-03-15] MEDS ORDERED: Enoxaparin 40mg Inj SUBQ SCH (15:00)
--- NOTE | 2019-03-15 15:26 | NUR ---
INSTRUCTIONAL DESIGN TECHNOLOGISTGEOSPATIAL INTELLIGENCE ANALYST SI: PANCREATITIS T. 99.1 HR 102 RR 16 B/P 142/79 RA 98% NA 132 K 3.2 MG 1.4 IS: MAG IV IVF NS @ 100ML/HR KCL IV LOVENOX SUBC PENDING TRANSFER MED/SURG STATUS
--- NOTE | 2019-03-15 17:15 | NUR ---
NURSE NOTES: PATIENT REMAINS STABLE. LAB VALUES ABNORMAL TODAY. NA 132/K LEVEL 3.2/MG LEVEL 1.4. ADMINISTERED ELECTROLYTE REPLACEMENTS ORDERED. TOLERATED INFUSIONS WELL. STAT RANDOM URINE SENT TO LAB.
--- NOTE | 2019-03-15 17:50 | NUR ---
NURSE NOTES: PATIENT REMAINS STABLE. ABLE TO TOLERATE REGULAR DIET. NO N/V TODAY BUT STILL HAS RLQ PAIN THAT PATIENT REQUIRES MORPHINE TO HELP SUBSIDE DISCOMFORT.
[2019-03-15] MEDS ORDERED: NS 500ML ONE (18:44)
[2019-03-15] MEDS ORDERED: Tubing IV Secondary IV ONE (18:44)
--- NOTE | 2019-03-15 19:20 | NUR ---
NURSE NOTES: Spoke to Savage at [facility] regarding transfer. Per Savage: Bed is available for patient. Room # 7020. Admitting doctor is . Call to give report. Savage requested Copy of chart, Any image test in CD or paper copy, transfer arrangement. Given report to night charge nurse.
--- NOTE | 2019-03-15 19:25 | NUR ---
HAND-OFF: Report given to LINO PANIAGUA RN.
--- NOTE | 2019-03-15 20:00 | NUR ---
NURSE NOTES: Notified Dr. Cazares regarding bed available for patient in [facility]. received order to transfer to [facility] with hospital medications. Sister at bedside and patient made aware and agreeable of transfer.
[2019-03-15] MEDS ORDERED: ACETAMINOPHEN325 M1 ORAL (20:04)
[2019-03-15] MEDS ORDERED: LOVENOX10 M4 SUBQ (20:05)
[2019-03-15] MEDS ORDERED: ATIVAN2 MG/1 ML IV (20:05)
[2019-03-15] MEDS ORDERED: ATIVAN1 MG ORAL (20:05)
[2019-03-15] MEDS ORDERED: REGLAN10 MG ORAL (20:05)
[2019-03-15] MEDS ORDERED: METOPROLOL TART25 MG ORAL (20:06)
[2019-03-15] MEDS ORDERED: MILK OF MA400 MG/51 ORAL (20:06)
[2019-03-15] MEDS ORDERED: NITROSTAT0.4 M1 SL (20:07)
[2019-03-15] MEDS ORDERED: ZOFRAN 4 MG4 MG/2 ML IV (20:07)
[2019-03-15] MEDS ORDERED: MORPHINE 22 MG/1 ML IV (20:07)
[2019-03-15] MEDS ORDERED: AMBIEN5 MG ORAL (20:08)
[2019-03-15] MEDS ORDERED: D5NS 1000ml IV ONE (22:24)
--- NOTE | 2019-03-15 22:25 | NUR ---
NURSE NOTES: Patient discharged to [facility] via BLS ambulance in stable condition. Belongings glasses/cellphone/retail wireless associate sent with patient. Other belongings including patient's own meds sent home with sister. IV on RH patent and intact. Report given to Rei in [facility]. Remained free from injury.
--- NOTE | 2019-03-15 22:32 | General Progress Note ---
Assessment/Plan Problem List: (1) Pancreatic cancer ICD Codes: C25.9 - Malignant neoplasm of pancreas, unspecified SNOMED: 747072813 Qualifiers: Qualified Codes: C25.9 - Malignant neoplasm of pancreas, unspecified (2) Generalized weakness ICD Codes: R53.1 - Weakness SNOMED: 49286340 (3) Electrolyte abnormality ICD Codes: E87.8 - Other disorders of electrolyte and fluid balance, not elsewhere classified SNOMED: 959257696 (4) uti (5) History of hypertension ICD Codes: Z86.79 - Personal history of other diseases of the circulatory system SNOMED: 560580637 (6) Pancreatitis ICD Codes: K85.90 - Acute pancreatitis without necrosis or infection, unspecified SNOMED: 40311628 (7) Abdominal pain ICD Codes: R10.9 - Unspecified abdominal pain SNOMED: 66248684 Qualifiers: Qualified Codes: R10.13 - Epigastric pain Status: stable, progressing Assessment/Plan: afebrile nac lyte abnormality htn pancreatitis reviewd chart and labs Subjective ROS Limited/Unobtainable: Yes Allergies: Coded Allergies: NSAIDS (NON-STEROIDAL ANTI-INFLAMMA (Verified Allergy, Severe, Anaphylaxis , 01/30/19) ASPIRIN (Verified Allergy, Unknown, 02/26/19) LEVOFLOXACIN (Verified Allergy, Unknown, 02/26/19) Objective Last 24 Hour Vital Signs Date Time Temp Pulse Resp B/P (MAP) Pulse Ox O2 Delivery O2 Flow Rate FiO2 03/15/19 21:18 87 138/76 03/15/19 21:00 Room Air 03/15/19 21:00 98.0 87 16 138/76 (96) 96 03/15/19 18:31 98.1 03/15/19 16:00 98.1 76 16 138/81 (100) 96 03/15/19 15:04 80 153/81 03/15/19 11:40 99.1 80 16 153/81 (105) 98 03/15/19 09:12 102 142/79 03/15/19 09:00 Room Air 03/15/19 08:00 99.0 102 16 142/79 (100) 98 03/15/19 04:00 97.4 72 18 141/92 (108) 97 03/15/19 00:00 98.0 92 18 152/91 (111) 96 03/14/19 22:52 Room Air Intake and Output 03/14/19 03/15/19 19:00 07:00 Intake Total 480 ml Balance 480 ml Intake Oral 480 ml # Voids 2 # Bowel Movements 1 1 Laboratory Tests 03/15/19 08:30: Sodium Level 132L, Potassium Level 3.2L, Chloride Level 95L, Carbon Dioxide Level 29, Anion Gap 8, Blood Urea Nitrogen 6L, Creatinine 0.6, Estimat Glomerular Filtration Rate > 60, Glucose Level 97, Uric Acid 2.0L, Calcium Level 9.3, Phosphorus Level 3.1, Magnesium Level 1.4L, Total Bilirubin 0.8, Aspartate Amino Transf (AST/SGOT) 23, Alanine Aminotransferase (ALT/SGPT) 19, Alkaline Phosphatase 108, Total Protein 7.0, Albumin 3.3L, Globulin 3.7, Albumin /Globulin Ratio 0.9L 03/15/19 17:00: Urine Random Sodium 69 Height (Feet): 5 Height (Inches): 5.00 Weight (Pounds): 132 Cardiovascular: normal rate Respiratory/Chest: lungs clear Earl Das MD Mar 15, 2019 22:32
--- NOTE | 2019-03-16 12:09 | Discharge Summary ---
Discharge Summary Discharge Summary _ DATE OF ADMISSION: 03/09/2019 DATE OF DISCHARGE: 03/15/2019 DISCHARGED BY: Dr Huitron REASON FOR ADMISSION: 69 years old female with recently diagnosed pancreatic cancer and pancreatitis , status post common bile duct stent placement , presented to emergency department with chief complaint of constant abdominal pain. Pain reported as 10 out of 10 on a scale 1-10. Patient was just discharged from the [facility] for the same symptoms. She came to [facility] because the wait time in [facility] in the emergency room was too long for her. Laboratory work-up revealed no leukocytosis, stable hemoglobin and hematocrit. Stable electrolytes, renal parameters and LFT. Troponin negative. EKG revealed sinus rhythm , no acute ischemic changes. Urinalysis revealed no evidence of UTI. Chest x-ray revealed no acute cardiopulmonary pathology. Abdominal x-ray revealed no evidence of small bowel obstruction. No evidence of free intraperitoneal air. Stenting of common bile with metal stent noted. Abdominal ultrasound demonstrated stenting of the common bile duct with resolution of the previously seen biliary ductal dilatation. No gallbladder sludge. No evidence of acute cholecystitis. In emergency department patient received analgesic and antiemetic, and admitted for further management to medical surgical floor. CONSULTANTS science writer Dr. Garrett pulmonary /critical care Dr. Cazares environmental engineering intern/oncologist Dr. Hawthorne Pain specialist Dr. Godinez [facility] COURSE: Patient admitted to medical surgical floor. Patient started on the IV fluids. Patient was unable to tolerate any diet at this time Esl Tutor followed. Blood pressure was managed with metoprolol and hydralazine via IV route, since patient was unable to tolerate oral diet. Patient was on the IV fluids. Sinus tachycardia resolved. Renal parameters and electrolytes were closely monitored, electrolytes corrected as needed . Application Support/ oncologist follow. Noted elevated CA-19-9 - 141. Biopsy on 02/03 proved that pancreatic mass was pancreatic cancer. Patient was awaiting surgery with Dr Jenkins. Pain management was addressed as per pain specialist recommendation Symptomatic treatment provided. DVT prophylaxis provided. Bed became available at [facility] on 03/15 , and patient subsequently was transferred for further management . FINAL DIAGNOSES: Pancreatic cancer Status post recent common bile duct stent placement Pancreatitis Electrolyte abnormalities Hypertension Tachycardia Intractable abdominal pain, likely due to pancreatic cancer DISCHARGE MEDICATIONS: See Medication Reconciliation list. DISCHARGE INSTRUCTIONS: Patient was transferred to [facility] for surgery. I have been assigned to dictate discharge summary for this account. I was not involved in the patient's management. Chari Peters NP Mar 16, 2019 12:09
== END 2019-03-15 22:25 | disposition short-term general hospital (02) | DRG 435 ==
LOC: EDBD 10:13 → EMR 11:20 → 4E 11:34 → EDBEDREQ 13:30 → 4E 14:39 → 2E 23:25 → 3E 03-14 15:38
DX: C25.9 Malignant neoplasm of pancreas, unspecified (principal); K85.90 Acute pancreatitis without necrosis or infection, unspecified; G89.3 Neoplasm related pain (acute) (chronic); R00.0 Tachycardia, unspecified; E87.6 Hypokalemia; I10 Essential (primary) hypertension; E87.8 Other disorders of electrolyte and fluid balance, not elsewhere classified; Z88.6 Allergy status to analgesic agent; Z88.1 Allergy status to other antibiotic agents
CPT/HCPCS: 36415; 71045; 74018; 76700; 80048; 80053; 80061; 80076; 81003; 82150; 82330; 83690; 83735; 83930; 84075; 84100; 84300; 84443; 84484; 84550; 85007; 85025; 85610; 85730; 93005; 94664; 96361; 96372; 96374; 96375; 97803; 99285; J2405